=== PATIENT | male | born 1980 | race Caucasian/White ===

== ENCOUNTER 2021-04-19 10:21 | Emergency (ER) | payer MEDICAID, SELFPAY ==
[2021-04-19 10:22] VITALS: BP 155/105; PULSE 112; RESP 16; TEMP 36.3; O2SAT 100; BMI 26.7
--- NOTE | 2021-04-19 10:47 | ED.VIS.DENTA ---
HPI History of Present Illness Chief Complaint: Dental Informant: patient Narrative Narrative: 40-year-old male presents to the emergency room out of concern for dental abscess. Patient states that he has poor dentition. He states that yesterday began to have facial swelling and the pain was tolerable but last night swelling got worse and the pain also worsened. He does not have a dentist. [facility] Medical History (Updated 04/19/21 @ 10:[address] Jelani Rueda DO) Hypertension Medical History no medical history Home Medications metoprolol tartrate 25 mg PO DAILY #60 tab 04/18/13 [Rx Last Taken Unknown] cyclobenzaprine 10 mg PO TID PRN #20 tablet 02/05/16 [Rx Last Taken Unknown] methylprednisolone 4 mg PO UD #1 box 02/05/16 [Rx Last Taken Unknown] oxycodone-acetaminophen 1 - 2 tab PO Q4H PRN PRN #20 tab 02/05/16 [Rx Last Taken Unknown] naproxen 500 mg PO BID #14 tab 04/19/21 [Rx Last Taken Unknown] oxycodone-acetaminophen 1 tab PO Q6H PRN PRN 3 Days #12 tablet 04/19/21 [Rx Last Taken Unknown] penicillin V potassium 500 mg PO 4X/DAY #40 tab 04/19/21 [Rx Last Taken Unknown] Allergy/AdvReac Type Severity Reaction Status Date / Time No Known Allergies Allergy Verified 04/19/21 10:24 Social History (Updated 04/19/21 @ 10:[address] Jelani Rueda DO) Smoking Status: Unknown if ever smoked substance use type: does not use ROS ROS ED Constitutional Constitutional ED: Denies chills, fever(s) or weight loss Eyes Eyes: Denies change in vision or diplopia ENT ENT ED: Reports other Details: Facial swelling and dental pain ; Denies ear pain, rhinorrhea or sore throat Cardiovascular Cardiovascular: Denies chest pain, orthopnea, palpitations or racing heartbeat Respiratory/Chest Respiratory/Chest: Denies cough, dyspnea or orthopnea Gastrointestinal Gastrointestinal: Denies abdominal pain, diarrhea, nausea or vomiting Genitourinary Genitourinary ED: Denies dysuria, hematuria or urinary frequency Musculoskeletal Musculoskeletal: Denies arthralgias or myalgias Integumentary Denies abscess or rash Neurologic Neurologic: Denies headache(s) or weakness Psychiatric Psychiatric: Denies anxiety, depression, suicidal ideation or suicidal thoughts Endocrine Endocrinology: Denies polydipsia, polyphagia or polyuria Allergic/Immunologic Allergic/Immunologic ED: Denies mouth swelling, tongue swelling or urticaria EXAM Physical Exam Const Vital Signs: 04/19/21 10:22 Temperature 97.4 F L Temperature Source Temporal Pulse Rate 112 H Respiratory Rate 16 Blood Pressure 155/105 H Blood Pressure Mean 121 Pulse Ox 100 Oxygen Delivery Method Room Air Positive well nourished and well developed General Appearance ED: well developed HEENT Reports normocephalic, head/scalp atraumatic, TM's clear and moist mucous membranes HEENT Narrative: No trismus. There is right maxillary facial swelling. There is no drainable abscess seen along the gumline. The posterior most molar is decayed to the gumline Tympanic Membrane ED: Yes TM's clear Teeth and Gingiva: poor dentition Eyes PERRL and EOMs intact bilaterally Neck no lymphadenopathy, supple and no JVD Resp normal respiratory effort and clear to auscultation bilaterally Cardio regular rate, regular rhythm and no murmurs GI normal to inspection, nondistended, normoactive bowel sounds and non-tender Palpation: soft Back/Spine no CVA tenderness and normal ROM Extremity normal to inspection General Extremety ED: Negative for edema General Extremity: Negative for edema Neuro oriented x3 and CN's II-XII intact bilaterally Sensorium / Orientation: alert Motor Exam: strength 5/5 throughout Psych mental status grossly normal Mood & Affect: Negative for depressed or tearful Skin no rashes or lesions noted and no wounds MDM MDM MDM Narrative Medical decision making narrative: Patient will be started on naproxen, penicillin, and a few Percocet for severe pain. He needs to see dentistry as soon as possible Discharge Plan Triage Chief Complaint: Dental ED Provider: Jelani Rueda Dx/Rx/DC Orders Clinical Impression: Abscess, dental Instructions: ED Dental Abscess Prescriptions: New oxycodone-acetaminophen [oxycodone-acetaminophen] 1 TABLET tablet 1 tab PO Q6H PRN PRN (Reason: Pain) 3 Days Qty: 12 RF: 0 penicillin V potassium 500 MG tablet 500 mg PO 4X/DAY Qty: 40 RF: 0 naproxen 500 MG tablet 500 mg PO BID Qty: 14 RF: 0 No Action metoprolol tartrate 25 MG tablet 25 mg PO DAILY Qty: 60 RF: 0 cyclobenzaprine 10 MG tablet 10 mg PO TID PRN (Reason: Muscle Spasm) Qty: 20 RF: 0 oxycodone-acetaminophen 1 TABLET tablet 1 - 2 tab PO Q4H PRN PRN (Reason: Pain) Qty: 20 RF: 0 methylprednisolone 4 MG tablets,dose pack 4 mg PO UD Qty: 1 RF: 0 Primary Care Provider: Ruby Jimenez Referrals: Ruby Jimenez MD [Primary Care Provider] - Activity Restrictions/Additional Instructions: You need to see dentistry as soon as possible Disposition Disposition: Home, Self Care
== END 2021-04-19 11:07 | disposition home or self-care (01) ==
LOC: ED 10:57
PROVIDERS: Emergency Provider Emergency Medicine; PCP Internal Medicine; Visit Provider Emergency Medicine
DX: K04.7 Periapical abscess without sinus (principal); I10 Essential (primary) hypertension; Z79.899 Other long term (current) drug therapy
CPT/HCPCS: 99282

== ENCOUNTER 2021-08-03 14:18 | Emergency (ER) | payer MEDICAID, SELFPAY ==
[2021-08-03 14:18] VITALS: BP 152/113; PULSE 103; RESP 18; TEMP 36.2; O2SAT 97; BMI 25.7
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
== END 2021-08-03 15:33 | disposition home or self-care (01) ==
PROVIDERS: Emergency Provider Emergency Medicine; PCP Internal Medicine; Visit Provider Emergency Medicine
DX: S50.311A Abrasion of right elbow, initial encounter (principal); S60.511A Abrasion of right hand, initial encounter; M25.531 Pain in right wrist; I10 Essential (primary) hypertension; S60.221A Contusion of right hand, initial encounter; Y92.410 Unspecified street and highway as the place of occurrence of the external cause; V86.09XA Driver of other special all-terrain or other off-road motor vehicle injured in traffic accident, initial encounter
CPT/HCPCS: 73130; 99282

== ENCOUNTER 2022-12-01 09:21 | Emergency (ER) | payer MEDICAID, SELFPAY ==
[2022-12-01 09:22] VITALS: BP 134/78; PULSE 76; RESP 14; TEMP 36.4; O2SAT 98; BMI 26.4
--- NOTE | 2022-12-01 09:55 | RAD_ITS ---
STUDY: X-RAY - LEFT HAND, ATTENTION INDEX FINGER REASON FOR EXAM: Male, 42 years old. Injury -- index finger TECHNIQUE: 3 view(s) of the finger were obtained. COMPARISON: None. FINDINGS: Normal metacarpal head. Normal metacarpophalangeal joint. Normal proximal phalanx. Normal middle phalanx. Normal distal phalanx. Normal proximal interphalangeal joint. Normal distal interphalangeal joint. Soft tissue swelling. RAD/Finger(s) Min 2 Views IMPRESSION: Soft tissue swelling. No radiopaque foreign body is seen. Electronically Signed: Ad Salas MD at 10:38 EDT ,
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
[2022-12-01] MEDS: Diphth,Pertuss(Acell),Tet Vac 0.5 ML Vial IM (10:04)
[2022-12-01] MEDS: Lidocaine 1% (20 ml mdv) 20 ML Vial INFILT (10:05)
== END 2022-12-01 12:04 | disposition home or self-care (01) ==
PROVIDERS: Emergency Provider Emergency Medicine; PCP Internal Medicine; Visit Provider Emergency Medicine
DX: S61.211A Laceration without foreign body of left index finger without damage to nail, initial encounter (principal); I10 Essential (primary) hypertension; F17.210 Nicotine dependence, cigarettes, uncomplicated; Z23 Encounter for immunization; W26.8XXA Contact with other sharp object(s), not elsewhere classified, initial encounter; Y93.89 Activity, other specified; Z79.899 Other long term (current) drug therapy
CPT/HCPCS: 12001; 73140; 90471; 90715; 99283

== ENCOUNTER 2023-02-07 10:40 | Emergency (ER) | payer MEDICAID, SELFPAY ==
[2023-02-07 10:41] VITALS: BP 183/102; PULSE 74; RESP 12; TEMP 36.4; O2SAT 100; BMI 26.9
--- NOTE | 2023-02-07 11:00 | ED.VIS.DENTA ---
HPI History of Present Illness Chief Complaint: Dental Informant: patient Onset/Context/Timing Onset: Days Context: Gradual Onset Narrative Narrative: Patient presents secondary to dental pain. He states he had a tooth break off a couple days ago and he has had increasing pain. He called his dentist this morning but cannot be seen until March. [facility] Medical History Hypertension Home Medications amlodipine 5 mg tablet mg PO DAILY 12/01/22 [History Last Taken Unknown] lisinopril 40 mg tablet 40 mg PO DAILY 12/01/22 [History Last Taken Unknown] naproxen 500 mg tablet (Naprosyn) 500 mg PO BID PRN pain #20 tabs 02/07/23 [Rx Last Taken Unknown] penicillin V potassium 500 mg tablet 500 mg PO 4X/DAY #40 tabs 02/07/23 [Rx Last Taken Unknown] Allergy/AdvReac Type Severity Reaction Status Date / Time No Known Allergies Allergy Verified 02/07/23 10:40 Social History Smoking Status: Current every day smoker tobacco type: cigarettes substance use type: does not use ROS ROS ED Constitutional Constitutional ED: Denies chills or fever(s) ENT ENT ED: Reports other Details: Left upper dental pain ; Denies rhinorrhea or sore throat Cardiovascular Cardiovascular: Denies chest pain or palpitations Respiratory/Chest Respiratory/Chest: Denies cough or dyspnea Gastrointestinal Gastrointestinal: Denies abdominal pain, nausea or vomiting Musculoskeletal Musculoskeletal: Denies back pain or extremity pain Integumentary Denies Abrasions or rash Neurologic Neurologic: Denies headache(s) or weakness Psychiatric Psychiatric: Denies anxiety or depression Allergic/Immunologic Allergic/Immunologic ED: Denies lip swelling or urticaria EXAM Physical Exam Const Vital Signs: 02/07/23 10:41 Temperature 97.6 F L Temperature Source Temporal Pulse Rate 74 Respiratory Rate 12 Blood Pressure 183/102 H Blood Pressure Mean 129 Pulse Ox 100 Oxygen Delivery Method Room Air Positive well nourished and well developed General Appearance ED: well developed HEENT HEENT Narrative: No facial edema or erythema. Intraoral examination reveals multiple dental caries. Left maxillary canine is broken with mild surrounding gum edema. Posterior pharynx exam is unremarkable. No evidence of trismus. No evidence of Ludewig's angina. Eyes EOMs intact bilaterally Chest Wall inspection of chest normal and palpation of chest normal Resp normal respiratory effort and clear to auscultation bilaterally Cardio regular rate, regular rhythm and no murmurs GI non-tender Extremity normal to inspection Neuro oriented x3 Psych mental status grossly normal MDM MDM MDM Narrative Medical decision making narrative: Patient will be given naproxen and Pen-Vee K with prescriptions for the same. He is on a cancellation list for sooner dental appointment if available. Blood pressure was noted to be elevated here, likely secondary to pain. He states he did take his blood pressure medication this morning and will continue to monitor this. Discharge Plan Triage Chief Complaint: Dental ED Provider: Zenobia Kate Dx/Rx/DC Orders Clinical Impression: Odontalgia Instructions: ED Dental Pain Prescriptions: New naproxen [Naprosyn] 500 mg tablet 500 mg PO BID PRN (Reason: pain) Qty: 20 0RF penicillin V potassium 500 mg tablet 500 mg PO 4X/DAY Qty: 40 0RF No Action amlodipine 5 mg tablet PO DAILY Patient Comments: take 1 tablet by mouth once daily lisinopril 40 mg tablet 40 mg PO DAILY Patient Comments: take 1 tablet by mouth once daily Primary Care Provider: Ruby Jimenez Referrals: Ruby Jimenez MD [Primary Care Provider] - Activity Restrictions/Additional Instructions: Follow-up with your dentist as soon as possible. Please monitor your blood pressure. Disposition Disposition: Home, Self Care
[2023-02-07] MEDS: Naproxen 500 MG Tablet PO (11:01)
[2023-02-07] MEDS: Penicillin Vk 250 MG Tablet 500 MG PO (11:29)
[2023-02-07 11:31] VITALS: BP 169/111; PULSE 79; RESP 18; O2SAT 98
== END 2023-02-07 11:45 | disposition home or self-care (01) ==
LOC: ED 11:10
PROVIDERS: Emergency Provider Emergency Medicine; PCP Internal Medicine; Visit Provider Emergency Medicine
DX: K08.89 Other specified disorders of teeth and supporting structures (principal); I10 Essential (primary) hypertension; F17.210 Nicotine dependence, cigarettes, uncomplicated; Z79.899 Other long term (current) drug therapy
CPT/HCPCS: 99283

== ENCOUNTER 2023-08-25 17:17 | Emergency (ER) | payer MEDICAID, SELFPAY ==
[2023-08-25 17:18] VITALS: BP 161/90; PULSE 119; RESP 16; TEMP 37.1; O2SAT 99; BMI 27.3
--- NOTE | 2023-08-25 17:45 | EDS_ITS ---
<Statement entered by Zenobia Kate MD - 08/25/23 20:52> I have personally performed a face to face assessment of the patient and have reviewed the ZAYRA Note. Patient present secondary to right lower extremity laceration. He was trying to cut wood with an ax when he had a glancing blow that hit him in the right knee. He has a 4 cm laceration just proximal to the right knee. He is able to ambulate. He is able to raise his leg off the bed. He is unsure of his last tetanus update.
--- NOTE | 2023-08-25 17:45 | ED.VIS.LOWEX ---
HPI History of Present Illness Chief Complaint: Laceration Narrative Narrative: Patient presenting today with a laceration to his right knee that he got this evening. He was trying to chop wood with an ax and accidentally missed the piece of wood and hit his knee. He is unsure when his last tetanus was updated. He denies any other injury. He is able to ambulate. [facility] Medical History Hypertension Home Medications ?Medication ?Instructions ?Recorded ?Last Taken ?Type amlodipine 5 mg tablet mg PO DAILY 12/01/22 Unknown History lisinopril 40 mg tablet 40 mg PO DAILY 12/01/22 Unknown History naproxen 500 mg tablet (Naprosyn) 500 mg PO BID PRN pain #20 tabs 02/07/23 Unknown Rx penicillin V potassium 500 mg 500 mg PO 4X/DAY #40 tabs 02/07/23 Unknown Rx tablet Allergy/AdvReac Type Severity Reaction Status Date / Time Penicillins (PCN) Allergy Rash Verified 08/25/23 17:17 Social History Smoking Status: Current every day smoker tobacco type: cigarettes substance use type: does not use ROS ROS ED Constitutional Constitutional ED: Denies chills or fever(s) Cardiovascular Cardiovascular: Denies chest pain Respiratory/Chest Respiratory/Chest: Denies dyspnea Musculoskeletal Musculoskeletal: Denies arthralgias or myalgias Integumentary Reports laceration Neurologic Neurologic: Denies paresthesias EXAM Physical Exam Const Vital Signs: 08/25/23 17:18 Temperature 98.7 F Temperature Source Temporal Pulse Rate 119 H Respiratory Rate 16 Blood Pressure 161/90 H Blood Pressure Mean 113 Pulse Ox 99 Positive well nourished, well developed and no apparent distress General Appearance ED: well developed HEENT Reports normocephalic and head/scalp atraumatic Mouth ED: Yes moist mucous membranes normal Eyes PERRL and EOMs intact bilaterally Neck full ROM and supple Chest Wall inspection of chest normal Resp normal respiratory effort and clear to auscultation bilaterally Cardio regular rate and regular rhythm GI soft to palpation, non-tender, non-distended and no masses Back/Spine normal ROM and normal to inspection Extremity full ROM Extremity Narrative: Full flexion extension at the right knee. No joint effusion. Neuro oriented x3, CN's II-XII intact bilaterally, moves all extremities, no focal motor deficits and no sensory deficits noted Sensorium / Orientation: awake and alert Psych mental status grossly normal and thought process normal Skin no rashes or lesions noted Skin Narrative: 4 cm vertical linear full-thickness laceration just above the right knee. MDM MDM MDM Narrative Medical decision making narrative: Patient presenting today with a laceration just above his right knee that he sustained this evening with an ax. It is full-thickness, 4 cm in length and will require suture repair. Wound was copiously irrigated with saline and cleaned with chlorhexidine. This was sutured, patient tolerated procedure well. He was bandaged with bacitracin ointment. He has been given work restrictions as he does a lot of bending. He is to have sutures removed in 10 days. Return instructions were discussed, wound care instructions given. Patient discharged home in stable condition. Procedures Lacerations Laceration: Length: 4 cm Depth: Sub Q Shape: Linear Prep: Chlorhexadine Laceration repair: Irrigated, Lidocaine with epi, Skin sutures and Wound explored Suture Information: Ethilon, Horizontal, Mattress and 4-0 Discharge Plan Triage Chief Complaint: Laceration ED Midlevel Provider: Lauryn Tellez ED Provider: Zenobia Kate Dx/Rx/DC Orders Clinical Impression: Laceration of knee Instructions: ED Laceration Extremity Prescriptions: No Action amlodipine 5 mg tablet PO DAILY Patient Comments: take 1 tablet by mouth once daily lisinopril 40 mg tablet 40 mg PO DAILY Patient Comments: take 1 tablet by mouth once daily naproxen [Naprosyn] 500 mg tablet 500 mg PO BID PRN (Reason: pain) Qty: 20 0RF penicillin V potassium 500 mg tablet 500 mg PO 4X/DAY Qty: 40 0RF Stand Alone Forms: Work Status Form Primary Care Provider: Ruby Jimenez Referrals: Ruby Jimenez MD [Primary Care Provider] - 10 Day for suture removal Activity Restrictions/Additional Instructions: Please follow-up with your PCP or return for any signs of infection. Print Language: Frisian Disposition Disposition: Home, Self Care
[2023-08-25] MEDS: Diphth,Pertuss(Acell),Tet Vac 0.5 ML Vial IM (18:38)
--- NOTE | 2023-08-25 18:42 | ED.RN ---
LIDO GIVEN BUT DISCARDED PRIOR TO SCANNING
== END 2023-08-25 18:59 | disposition home or self-care (01) ==
PROVIDERS: Emergency Provider Emergency Medicine; PCP Internal Medicine; Visit Provider Emergency Medicine
DX: S81.012A Laceration without foreign body, left knee, initial encounter (principal); F17.210 Nicotine dependence, cigarettes, uncomplicated; W27.0XXA Contact with workbench tool, initial encounter; Y93.89 Activity, other specified; Z23 Encounter for immunization
CPT/HCPCS: 12002; 90471; 90715; 99282

== ENCOUNTER 2024-03-21 07:43 | Emergency (ER) | payer MEDICAID, SELFPAY ==
[2024-03-21 07:43] VITALS: BP 169/101; BP 171/106; PULSE 101; PULSE 107; RESP 20; TEMP 36.6; O2SAT 100; BMI 29.1
--- NOTE | 2024-03-21 07:56 | EDS_ITS ---
HPI History of Present Illness Chief Complaint: Dental Informant: patient Narrative Narrative: 43-year-old male presenting to the emergency room out of concern for dental abscess. Patient states that a few weeks ago he had a tooth break apart on the left lower side. He states that he woke yesterday morning with increased pain in his developed swelling. No reported fevers. He has been working with his dentist but is unable to get seen for a couple weeks. [facility] Medical History Hypertension Home Medications ?Medication ?Instructions ?Recorded ?Last Taken ?Type amlodipine 5 mg tablet mg PO DAILY 12/01/22 Unknown History lisinopril 40 mg tablet 40 mg PO DAILY 12/01/22 Unknown History naproxen 500 mg tablet (Naprosyn) 500 mg PO BID PRN pain #20 tabs 02/07/23 Unknown Rx penicillin V potassium 500 mg 500 mg PO 4X/DAY #40 tabs 02/07/23 Unknown Rx tablet Allergy/AdvReac Type Severity Reaction Status Date / Time Penicillins (PCN) Allergy Rash Verified 03/21/24 07:44 Social History Smoking Status: Current every day smoker tobacco type: cigarettes substance use type: does not use ROS ROS ED Constitutional Constitutional ED: Denies chills or weight loss Eyes Eyes: Denies change in vision or diplopia ENT ENT ED: Reports other Details: Left lower dental pain gum swelling jaw swelling sensitivity ; Denies ear pain, rhinorrhea or sore throat Cardiovascular Cardiovascular: Denies chest pain, orthopnea, palpitations or racing heartbeat Respiratory/Chest Respiratory/Chest: Denies cough, dyspnea or orthopnea Gastrointestinal Gastrointestinal: Denies abdominal pain, diarrhea, nausea or vomiting Genitourinary Genitourinary ED: Denies dysuria, hematuria or urinary frequency Musculoskeletal Musculoskeletal: Denies arthralgias or myalgias Integumentary Denies abscess or rash Neurologic Neurologic: Denies headache(s) or weakness Psychiatric Psychiatric: Denies anxiety, depression, suicidal ideation or suicidal thoughts Endocrine Endocrinology: Denies polydipsia, polyphagia or polyuria Allergic/Immunologic Allergic/Immunologic ED: Denies mouth swelling, tongue swelling or urticaria EXAM Physical Exam Const Vital Signs: 03/21/24 07:43 03/21/24 07:43 Temperature 98 F Temperature Source Temporal Pulse Rate 101 H 107 H Respiratory Rate 20 H 20 H Blood Pressure 169/101 H 171/106 H Blood Pressure Mean 123 127 Pulse Ox 100 100 Oxygen Delivery Method Room Air Room Air Positive well nourished and well developed General Appearance ED: well developed and NAD HEENT Reports normocephalic, head/scalp atraumatic and moist mucous membranes HEENT Narrative: There left lower posterior most tooth which appears to be a premolar or the first molar is broken apart. There is some focal gum swelling noted but no fluctuance and it is more of a generalized swelling at this time. There is some jaw swelling noted no overlying erythema. No evidence of gingivitis. There is no trismus. Floor the mouth is soft. Eyes PERRL and EOMs intact bilaterally Neck no lymphadenopathy, supple and no JVD Resp normal respiratory effort and clear to auscultation bilaterally Cardio regular rate, regular rhythm and no murmurs GI normal to inspection, nondistended, normoactive bowel sounds and non-tender Palpation: soft Back/Spine no CVA tenderness and normal ROM Extremity normal to inspection General Extremety ED: Negative for edema General Extremity: Negative for edema Neuro oriented x3 and CN's II-XII intact bilaterally Sensorium / Orientation: alert Motor Exam: strength 5/5 throughout Psych mental status grossly normal Mood & Affect: Negative for depressed or tearful Skin no rashes or lesions noted and no wounds MDM MDM MDM Narrative Medical decision making narrative: Differential diagnosis includes but not limited to dental abscess dental caries and gingivitis Jose's angina This appears to be a developing dental abscess that is not amendable to I&D at this point. He will be started on antibiotics as well as pain medication. He was advised that this may progress to requiring incision and drainage but that it is not at that point currently. He needs to see dentistry as soon as possible. History & Record Review Discussion w/independent historian: Patient Discharge Plan Triage Chief Complaint: Dental ED Provider: Jelani Rueda Dx/Rx/DC Orders Prescriptions: No Action amlodipine 5 mg tablet PO DAILY Patient Comments: take 1 tablet by mouth once daily lisinopril 40 mg tablet 40 mg PO DAILY Patient Comments: take 1 tablet by mouth once daily naproxen [Naprosyn] 500 mg tablet 500 mg PO BID PRN (Reason: pain) Qty: 20 0RF penicillin V potassium 500 mg tablet 500 mg PO 4X/DAY Qty: 40 0RF Primary Care Provider: Ruby Jimenez Referrals: Ruby Jimenez MD [Primary Care Provider] - Print Language: North Korean
[2024-03-21 08:34] VITALS: BP 124/86; PULSE 72; RESP 15; TEMP 36.4; O2SAT 99
--- NOTE | 2024-03-21 08:34 | ED.RN ---
PT REQUESTED AND RECEIVED A WORK NOTE
== END 2024-03-21 08:35 | disposition home or self-care (01) ==
LOC: ED 08:08
PROVIDERS: Emergency Provider Emergency Medicine; PCP Internal Medicine; Visit Provider Emergency Medicine
DX: K04.7 Periapical abscess without sinus (principal); I10 Essential (primary) hypertension; F17.210 Nicotine dependence, cigarettes, uncomplicated
CPT/HCPCS: 99282

== ENCOUNTER 2024-10-15 09:58 | Emergency (ER) | payer MEDICAID, SELFPAY ==
[2024-10-15 09:59] VITALS: BP 169/103; PULSE 94; RESP 18; TEMP 36.7; O2SAT 100; BMI 28.8
--- NOTE | 2024-10-15 10:10 | EDS_ITS ---
HPI History of Present Illness Chief Complaint: Upper Extremity Injury Detail of Chief Complaint: Atraumatic left wrist pain that started end of last week. Informant: patient Occured/Mechanism Comment: There is no history of trauma. Onset/Context/Timing Onset: Days (Onset , October 10) Context: Sudden Onset Timing: Continuous Quality of Pain: Dull, Aching and Throbbing Location: Left wrist Current Severity: Mild Worsened by: Movement and palpation Relieved by: Nothing Associated Symptoms Associated Symptoms: Positive for Loss of Funtion; Negative for Parasthesia or Weakness Narrative Narrative: Patient is a 44-year-old male with history of gout. He states he has had gout in his foot never in his wrist. He denies fever, chills or night sweats. He denies paresthesia, anesthesia medics. He attempted to go to work today but states it hurts. He endorses swelling. He has no other complaints Prior similar symptoms: No Recent Illness/Hospitalization: No [facility] Medical History (Updated 10/15/24 @ 11:[address] Michael Tavarez MD) Gout Hypertension Home Medications ?Medication ?Instructions ?Recorded ?Last Taken ?Type lisinopril 40 mg tablet 40 mg PO DAILY 12/01/22 Unkn own History amlodipine 10 mg tablet 10 mg PO DAILY 10/15/24 Unkn own History fluoxetine 20 mg capsule 20 mg PO DAILY 10/15/24 Unkn own History hydrocodone-acetaminophen 5-325mg 1 tab PO Q6H PRN PRN Pain 2 days 10/15/24 Unknown Rx 5mg-325mg #7 TABLETS olanzapine 5 mg tablet 5 mg PO QHS 10/15/24 Unknown History prednisone 20 mg tablet 60 mg (3 x 20 mg) PO DAILY # 15 10/15/24 Unknown Rx TABLETS Allergy/AdvReac Type Severity Reaction Status Date / Time Penicillins (PCN) Allergy Rash Verified 10/15/24 10:00 Social History Smoking Status: Current every day smoker tobacco type: cigarettes substance use type: does not use ROS ROS ED Constitutional Constitutional ED: Denies chills, fever(s), subjective, sweats or weight loss Eyes Eyes: Denies blurry vision or change in vision Musculoskeletal Musculoskeletal: Denies back pain, myalgias or neck pain Integumentary Denies abscess, Abrasions or rash Neurologic Neurologic: Denies paresthesias or weakness Hematologic/Lymphatic Hematologic/Lymphatic: Denies easy bleeding or easy bruising EXAM Physical Exam Const Vital Signs: 10/15/24 09:59 Temperature 98.1 F Temperature Source Oral Pulse Rate 94 Respiratory Rate 18 Blood Pressure 169/103 H Blood Pressure Mean 125 Pulse Ox 100 Oxygen Delivery Method Room Air Positive well nourished and well developed Constitutional Narrative: Blood pressure is elevated 169/103, this may be due to to pain. General Appearance ED: well developed HEENT Reports moist mucous membranes normocephalic and atraumatic Eyes PERRL and EOMs intact bilaterally Resp normal respiratory effort Cardio regular rate and regular rhythm Extremity Negative for normal to inspection or full ROM Extremity Narrative: There is swelling of the left wrist compared to the right. There is no effusion. Passive flexion extension causes him significant pain. There is slight warmth. There is no induration, lymphangitis, epitrochlear lymphadenopathy. Patient has no bruising noted. Median, radial and ulnar function intact. Neuro oriented x3, CN's II-XII intact bilaterally, no focal motor deficits and no sensory deficits noted Sensorium / Orientation: alert Psych mental status grossly normal Skin General Skin Exam: Negative for petechiae Lesions: no lesions Rashes: no rashes Trauma: no lacerations or abrasions MDM MDM MDM Narrative Medical decision making narrative: Differential diagnosis is crystal induced arthritis versus pyogenic induced arthritis. Will obtain x-ray of the wrist as well as blood work to diff erentiate if this is osteoarthritis versus crystal induced versus pyogenic. Easily able to identify Karen's tubercle. Distal Karen's tubercle there is no obvious effusion. Lab Data Attestation: I reviewed the patient's lab results. Lab results narrative: CBC is normal. ESR and CRP are both normal. Patient was reevaluated. There is still no effusion. He states that the cerda to right leg took the edge off. Plan is opiate analgesia and prednisone since there is no concern for infection at this point. Radiography Chest X-Ray - ED: Read by ED Physician (Three-view x-ray of the left wrist was independent reviewed interpreted by me as no acute findings. There is no evidence of effusion. There is no malalignment of the carpal bones. There is no destruction of bone. There is apparently reviewed interpreted by me at 1045.) Discharge Plan Triage Chief Complaint: Upper Extremity Injury ED Provider: Michael Tavarez Dx/Rx/DC Orders Clinical Impression: Monoarticular arthritis, Acute pain of left wrist, Hx of gout, Elevated blood pressure reading with diagnosis of hypertension Instructions: ED Gout, ED Pain, Acute, Uncertain Cause Prescriptions: New hydrocodone-acetaminophen 5-325 mg tablet 1 tab PO Q6H PRN PRN (Reason: Pain) 2 Days Qty: 7 0RF prednisone 20 mg tablet 60 mg PO DAILY Qty: 15 0RF No Action lisinopril 40 mg tablet 40 mg PO DAILY Patient Comments: take 1 tablet by mouth once daily olanzapine 5 mg tablet 5 mg PO QHS amlodipine 10 mg tablet 10 mg PO DAILY fluoxetine 20 mg capsule 20 mg PO DAILY Stand Alone Forms: ED Work / School Excuse Primary Care Provider: Ruby Jimenez Referrals: Ruby Jimenez MD [Primary Care Provider] - Print Language: Syrian Disposition Disposition: Home, Self Care
--- NOTE | 2024-10-15 10:25 | RAD_ITS ---
PROCEDURE: WRIST MIN 3 VIEWS 10/15/2024 REASON FOR EXAM: INJURY/PAIN TECHNIQUE: WRIST MIN 3 VIEWS, left COMPARISON: None. FINDINGS: Bones: No visualized acute fracture. No aggressive osseous lesions. Joints: Normal alignment. Mild degenerative changes. Soft tissues: Soft tissues are unremarkable. RAD/Wrist min 3 Views IMPRESSION: NEGATIVE WRIST Reading Location: [id number]
[2024-10-15 10:35] LABS: Hematocrit 45.1 % (40-54); Hemoglobin 15.5 g/dL (13.0-16.5); Immature Granulocytes Count 0.030 X10^3/uL (0.0-0.0); Mean Corp Hgb Conc 34.4 g/dL (32-36); Mean Corpuscular Volume 92.2 fL (80-94); Mean Platelet Vol. 9.5 fl (6.2-12.0); NRBC Flagged by Analyzer 0 % (0-5); Platelet Count 253 K/mm3 (150-450); RBC Distribution Width CV 12.9 % (11.6-14.6); RBC Distribution Width SD 43.5 fl (35.1-43.9); Red Blood Count 4.89 M/mm3 (4.6-6.2); White Blood Count 9.1 K/mm3 (4.4-11.0)
[2024-10-15 11:08] LABS: Anion Gap 13 (5-15); BUN 8 mg/dL (4-19); BUN/Creat Ratio 11.0 RATIO (10-20); CRP < 3.00 mg/L (0.0-3.0); Calcium,Total 9.6 mg/dL (7.6-11.0); Carbon Dioxide 23.4 mmol/L (21.0-32.0); Chloride 104 mmol/L (98-108); Estimated Creatinine Clearance 146.34 ml/min (50-250); Glucose 112 mg/dL (70-99); Potassium 4.4 mmol/L (3.3-5.1)
[2024-10-15 11:46] VITALS: BP 133/78; PULSE 75; RESP 18; TEMP 36.7; O2SAT 99
== END 2024-10-15 11:48 | disposition home or self-care (01) ==
PROVIDERS: Emergency Provider Emergency Medicine; PCP Internal Medicine; Visit Provider Emergency Medicine
DX: M13.10 Monoarthritis, not elsewhere classified, unspecified site (principal); M25.532 Pain in left wrist; R03.0 Elevated blood-pressure reading, without diagnosis of hypertension; F17.210 Nicotine dependence, cigarettes, uncomplicated
CPT/HCPCS: 73110; 80048; 85025; 85652; 86140; 96374; 99283; A4216

== ENCOUNTER 2025-03-23 08:59 | Emergency (ER) | payer MEDICAID, SELFPAY ==
[2025-03-23 09:00] VITALS: BP 159/93; PULSE 84; RESP 16; TEMP 36.6; O2SAT 99; BMI 29.8
--- NOTE | 2025-03-23 09:14 | RAD_ITS ---
PROCEDURE: CERV SPINE 2 OR 3 VIEWS 03/23/2025 REASON FOR EXAM: PAIN TECHNIQUE: Procedure Code: RADSPCL Modality: DX Procedure: CERV SPINE 2 OR 3 VIEWS COMPARISON: None FINDINGS: C7 and below is obscured by overlying shoulder blades. Vertebrae: No vertebral body height loss to suggest fracture. Disc spaces: Multilevel degenerative disc space loss. Alignment: Reversal of cervical lordosis. Soft tissue: No evidence of prevertebral soft tissue thickening. RAD/Cerv Spine 2 or 3 Views IMPRESSION: NO ACUTE FINDINGS. IF THE PATIENT IS 16 YEARS OF AGE OR OLDER AND CERVICAL SPIN E IMAGING IS INDICATED BY CLINICAL CRITERIA HOWEVER THEN CT SHOULD ALSO BE PERFORMED. Recommend clinical correlation with radiculopathy, if there is high clinical cortez spicion for spinal cord compression or radiculopathy, further evaluation may be obtained with MRI of the cervical spin e Reading Location: [facility]
--- NOTE | 2025-03-23 09:16 | EX.ED.DYSGE1 ---
HPI History of Present Illness Chief Complaint: Other, Pain/Inj Informant: patient Narrative Narrative: 44-year-old male with longstanding cervical radiculopathy presenting to the emergency room with acute flare. Patient states a couple days ago he woke from sleep and his neck felt very stiff. He states that when he looks to the right he gets a burning sharp pain in the left scapula trapezius region that goes down his arm. States he has increased pain also when he goes to abduct the arm. He states that he has seen pain management in the past and has done cervical injections. He has not had any surgery. Denies any recent fevers IVDA immunosuppression malignancy. Cannot recall any trauma. 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 No rash. [facility] Medical History Gout Hypertension Home Medications ?Medication ?Instructions ?Recorded ?Last Taken ?Type lisinopril 40 mg tablet 40 mg PO DAILY 12/01/22 Unknown History amlodipine 10 mg tablet 10 mg PO DAILY 10/15/24 Unknown History fluoxetine 20 mg capsule 20 mg PO DAILY 10/15/24 Unknown History hydrocodone-acetaminophen 5-325mg 1 tab PO Q6H PRN PRN Pain 2 days 10/15/24 Unknown Rx 5mg-325mg #7 TABLETS olanzapine 5 mg tablet 5 mg PO QHS 10/15/24 Unknown History prednisone 20 mg tablet 60 mg (3 x 20 mg) PO DAILY #15 10/15/24 Unknown Rx TABLETS cyclobenzaprine 10 mg tablet 10 mg PO TID PRN Muscle Spasm #15 03/23/25 Unknown Rx TABLETS hydrocodone-acetaminophen 5-325mg 1 tab PO Q6H PRN pain 3 days #12 03/23/25 Unknown Rx 5mg-325mg tabs ketorolac 10 mg tablet 10 mg PO Q8H PRN pain #15 tabs 03/23/25 Unknown Rx Allergy/AdvReac Type Severity Reaction Status Date / Time Penicillins (PCN) Allergy Rash Verified 03/23/25 09:02 Social History Smoking Status: Current every day smoker tobacco type: cigarettes substance use type: does not use ROS ROS ED Constitutional Constitutional ED: Denies chills, fever(s) or weight loss Eyes Eyes: Denies change in vision or diplopia ENT ENT ED: Denies ear pain, rhinorrhea or sore throat Cardiovascular Cardiovascular: Denies chest pain, orthopnea, palpitations or racing heartbeat Respiratory/Chest Respiratory/Chest: Denies cough, dyspnea or orthopnea Gastrointestinal Gastrointestinal: Denies abdominal pain, diarrhea, nausea or vomiting Genitourinary Genitourinary ED: Denies dysuria, hematuria or urinary frequency Musculoskeletal Musculoskeletal: Reports neck pain; Denies arthralgias, back pain or myalgias Integumentary Denies abscess or rash Neurologic Neurologic: Reports paresthesias and weakness; Denies headache(s) Psychiatric Psychiatric: Denies anxiety, depression, suicidal ideation or suicidal thoughts Endocrine Endocrinology: Denies polydipsia, polyphagia or polyuria Allergic/Immunologic Allergic/Immunologic ED: Denies mouth swelling, tongue swelling or urticaria EXAM Physical Exam Const Vital Signs: 03/23/25 09:00 Temperature 98 F Temperature Source Oral Pulse Rate 84 Respiratory Rate 16 Blood Pressure 159/93 H Blood Pressure Mean 115 Pulse Ox 99 Oxygen Delivery Method Room Air Positive well nourished and well developed General Appearance ED: well developed and NAD HEENT Reports normocephalic, head/scalp atraumatic and moist mucous membranes Eyes PERRL and EOMs intact bilaterally Neck no lymphadenopathy and no JVD Neck Narrative: There is tenderness to palpation in the left trapezius musculature. There is no midline tenderness. There is no swelling erythema or rash. General: tenderness Resp normal respiratory effort and clear to auscultation bilaterally Cardio regular rate, regular rhythm and no murmurs GI normal to inspection, nondistended, normoactive bowel sounds and non-tender Palpation: soft Back/Spine no CVA tenderness and normal ROM Extremity normal to inspection General Extremety ED: Negative for edema General Extremity: Negative for edema Neuro oriented x3 and CN's II-XII intact bilaterally Neuro Narrative: Sensory examination of individual nerves of the left arm and hand are normal. Patient has good flexion extension at the wrist. He has normal abduction and adduction of the fingers. Strong radial and ulnar pulses. Normal sensation over the deltoid and forearm. He has pain and limited range of motion with abduction of the left arm. I do not appreciate any muscle wasting. Sensorium / Orientation: alert Motor Exam: strength 5/5 throughout Psych mental status grossly normal Mood & Affect: Negative for depressed or tearful Skin no rashes or lesions noted and no wounds MDM MDM MDM Narrative Medical decision making narrative: Differential diagnosis includes but not limited to cervical radiculopathy osteoarthritis disc herniation epidural abscess hematoma muscular spasm cervical myofascial strain shingles demyelinating neuropathy At this point I do not suspect hematoma or abscess formation. I suspect this is an exacerbation of chronic illness. He states it has been several years since he had any type of neck imaging. 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 I do not believe emergent MRI is needed at this time as and not appreciating any significant neurologic impairment. It appears that the abduction is more related to pain and loss of function. Patient received a dose of Toradol here in the department. He will be discharged home with some antispasmodics, anti-inflammatories, as well as a short course of [place] which she has tolerated well in the past. History & Record Review Discussion w/independent historian: Patient Radiography Diagnostic Testing: Clinical Impression(s) from Imaging Studies Cervical Spine X-Ray 03/23/25 09:14 IMPRESSION: NO ACUTE FINDINGS. IF THE PATIENT IS 16 YEARS OF AGE OR OLDER AND CERVICAL SPINE IMAGING IS INDICATED BY CLINICAL CRITERIA HOWEVER THEN CT SHOULD ALSO BE PERFORMED. Recommend clinical correlation with radiculopathy, if there is high clinical suspicion for spinal cord compression or radiculopathy, further evaluation may be obtained with MRI of the cervical spine Reading Location: [facility] Discharge Plan Triage Chief Complaint: Other, Pain/Inj Other Complaint: Upper Extremity Injury ED Provider: Jelani Rueda Dx/Rx/DC Orders Clinical Impression: Acute neck pain, Cervical radiculopathy Instructions: Cervical Radiculopathy Prescriptions: New cyclobenzaprine 10 mg tablet 10 mg PO TID PRN (Reason: Muscle Spasm) Qty: 15 0RF ketorolac 10 mg tablet 10 mg PO Q8H PRN (Reason: pain) Qty: 15 0RF Rx Instructions: *Pt received IM Toradol in the Emergency Department hydrocodone-acetaminophen 5-325 mg tablet 1 tab PO Q6H PRN (Reason: pain) 3 Days Qty: 12 0RF No Action lisinopril 40 mg tablet 40 mg PO DAILY Patient Comments: take 1 tablet by mouth once daily olanzapine 5 mg tablet 5 mg PO QHS amlodipine 10 mg tablet 10 mg PO DAILY fluoxetine 20 mg capsule 20 mg PO DAILY hydrocodone-acetaminophen 5-325 mg tablet 1 tab PO Q6H PRN PRN (Reason: Pain) 2 Days Qty: 7 0RF prednisone 20 mg tablet 60 mg PO DAILY Qty: 15 0RF Primary Care Provider: Ruby Jimenez Referrals: Francisca Johnson MD [Med Staff - Active Staff, Pain Management] - As soon as possible Ruby Jimenez MD [Primary Care Provider, Internal Medicine] Print Language: Bangladeshi
--- OUTSIDE RECORDS SUMMARY | 2025-03-23 09:28 | XMS RPT_ITS | CCD ---
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 Contusion of hand; Translations: [Contusion of right hand, initial encounter] 08-11-2021 Episodic Unclassified (2 sources) NO SHOW 09-29-2023 Unclassified (2 sources) Long-term current use of drug therapy 06-18-2024 Unclassified (1 source) APPOINTMENT CANCELLED 07-15-2024 Unclassified (1 source) Patient encounter status 11-13-2024 Unclassified (1 source) Acute cough; Translations: [Acute cough] Onset: 01-17-2025 Past or Other Problems Problem Classification Problem Date Documented Da te Episodic/Chronic Administrative/social admission (3 sources) Stress; Translations: [Other specified problems related to psychosocial circumstances] Onset: 10-17-2024 05-27-2024 Episodic Disorders of teeth and jaw (19 sources) Carious exposure of pulp ; Translations: [Dental caries, unspecified] Onset: 04-17-2024 04-19-2013 Episodic Nausea and vomiting (2 sources) Nausea, vomiting and diarrhea; Translations: [Nausea with vomiting, unspecified] Onset: 10-01-2024 10-01-2024 Episodic Other aftercare (1 source) Other care home (current) drug therapy; Translations: [Encounter for long-term (current) use of medications] Onset: 10-17-2024 Episodic Other connective tissue disease (20 sources) Muscle weakness of upper limb; Translations: [Other symptoms and signs involving the musculoskeletal system] Onset: 05-31-2022 Episodic Other connective tissue disease (20 sources) Pain in right arm; Translations: [Pain in right arm] Onset: 05-31-2022 Episodic Other gastrointestinal disorders (1 source) Diarrhea, unspecified; Translations: [Nausea vomiting and diarrhea] Onset: 10-01-2024 Episodic Residual codes; unclassified (20 sources) Tobacco user; Translations: [Tobacco use] Onset: 03-10-2021 03-10-2021 Episodic Residual codes; unclassified (2 sources) Tobacco use; Translations: [Tobacco abuse] Onset: 03-10-2021 Episodic Residual codes; unclassified (1 source) Sleep disorder, unspecified; Translations: [Difficulty sleeping] Onset: 10-17-2024 Episodic Spondylosis; intervertebral disc disorders; other back problems (20 sources) Cervical radiculopathy; Translations: [Radiculopathy, cervical region] Onset: 11-08-2011 03-17-2014 Episodic Viral infection (3 sources) Viral disease; Translations: [Viral infection, unspecified] Onset: 10-01-2024 12-13-2022 Episodic Results Test Name Value Interpretation Reference Range Facility [facility] 01-17-2025 CNOV Office Visit ([facility]OUCA) ENRIQUE DOWLING ([id number]) 1980 M Date Time Provider Department 01/17/25 1:45 PM CAROLE ANTONIO During your visit today, we recorded the following information about you: Temperature Pulse Respiration Blood pressure 97 degrees 77/minute 20/minute 149/96 Weight 98 kg Carole Antonio APRN.CNP 01/17/2025 2:58 PM Signed History has been obtained from the patient SUBJECTIVE: Enrique Dowling is a 44 year old male. Who presents today with cough congestion body aches chills and fever for the last 3 days. He has a temp of 101.7. he has taken nyquil at home. He has not been exposed to anyone who is sick. He would like viral testing today. His Bp is elevated today in triage. 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 He will f/u with his doctor regarding the BP for a recheck. PAST MEDICAL HISTORY Diagnosis Date DDD (degenerative disc disease), cervical Mood disorder 07/07/2023 Unspecified essential hypertension Essential hypertension FAMILY HISTORY Problem Relation Age of Onset Hypertension Mother other (ckd [Other]) Maternal Uncle Ischemic Heart Disease Paternal Grandfather SOCIAL HISTORY[1] ALLERGIES Allergen Reactions Penicillins Hives Current Outpatient Medications Medication Sig Dispense Refill OLANZapine (ZYPREXA) 7.5 mg tablet Take 1 tablet by mouth daily at bedtime. 30 tablet 0 FLUoxetine (PROZAC) 40 mg capsule Take 1 capsule by mouth once daily. Take with 20 mg dose. 90 capsule 0 FLUoxetine (PROZAC) 20 mg capsule Take 1 capsule by mouth once daily. Take with 40 mg dose. 90 capsule 0 lisinopril (ZESTRIL) 40 mg tablet Take 1 tablet by mouth once daily. 90 tablet 1 fenofibrate nanocrystallized (TRICOR) 48 mg tablet Take 1 tablet by mouth once daily. 90 tablet 3 amLODIPine (NORVASC) 10 mg tablet Take 1 tablet by mouth once daily. 90 tablet 3 OLANZapine (ZYPREXA) 10 mg tablet Take 1 tablet by mouth daily at bedtime. Start after completing 30 days of the 7.5 mg dose. 90 tablet 0 peg 3350-Electrolytes (GOLYTELY) 236-22.74-6.74 -5.86 gram suspension Refer to printed prep instructions from your provider. 4000 mL 0 No current facility-administered medications for this visit. OBJECTIVE: BP 149/96 Pulse 77 Temp 36.1 ?C (97 ?F) Resp 20 Wt 98 kg (216 lb 0.8 oz) SpO2 99% BMI 29.30 kg/m? ROS all other systems reviewed and are negative Physical Exam Constitutional: Well developed, well nourished, NAD, AANDO X3 ENT: Head is atraumatic, airway patent, mucosal membranes moist pink Cardiac: Heart tone normal rate and rhythm Respiratory: Respirations even and unlabored, Lung sounds clear + cough with bronchospasms : no CVA tenderness MS: no swelling, or deformity in upper or lower extremities, no midline tenderness in cervical, thoracic or lumbar spine. Neuro: strength sensation and coordination intact. CN II-XII grossly intact, Skin: warm and dry with out rash, lesion or ecchymosis on exposed skin Psych: alert appropriate, speech clear MDM It was a pleasure to take care of Enrique Dowling today. Viral testing has been obtained. This includes Covid, Flu A, Flu B, and RSV. Results will be in My Chart within 24 hours. As I have a low suspicion for a bacterial infection, antibiotics are not indicated at this time. For his cough and bronchospasms I will send in an albuterol inhaler. He has used inhalers in the past and does know how to use one. We have discussed over the counter medications they may use for symptom control. They will also increase their fluids for hydration. The Patient, has verbalized understanding of plan of care and is in agreement. They will follow up with their family physician in one week. Occasionally, viral infections turn into something more serious. For any worsening symptoms or concerns they may go to the ER for further evaluation and treatment. Carole Antonio APRN.PIPE [employer] MECH[employer]IC History and Record Review Systemic symptoms present included: Differential Diagnoses - Exposure to viral illness is more likely for the following reason(s): suggested by HANDP - Cough with bronchospasms is more likely for the following reason(s): suggested by HANDP - Pneumonia is less likely for the following reason(s): HANDP not suggestive Disposition The patient was discharged. The following prescription medication(s) were considered but ultimately not given after discussion with patient/family: antibiotic Reasons for not prescribing include the following: HANDP/workup not suggestive of bacterial process. Treatment of Cold and Upper Respiratory Infections Vaporizers, cool mist humidifiers, hot showers, and hot fluids help open respiratory and sinus passages Always drink at least 64 oz of water and avoid sugary drinks/caffeinated drinks Get plenty of rest. At least 8 hours for adults and more for children Saline throat rinses and numb (more content not included)... Normal [facility] CNCOon 12-17-2024 CNCO Letter Text Normal [facility] CNOVon 11-12-2024 CNOV Office Visit (INTMWS ) ENRIQUE DOWLING ([id number]) 1980 M Date Time Provider Department 11/12/24 3:40 PM ROSALES ADAMS During your visit today, we recorded the following information about you: Pulse Respiration Blood pressure Weight 96/minute 16/minute 137/86 101.2 kg Height 1.829 m Rosales Adams MD 11/13/2024 9:45 AM Signed Reason for Visit Annual physical. HPI Enrique Dowling is a 44-year-old male with a history of hypercholesterolemia, HTN, and mood disorders, presenting for a physical exam and to discuss recent lab results. Enrique reports recent lab results showing elevated cholesterol levels, with a total cholesterol of 230 mg/dL, HDL of 30 mg/dL, LDL of 74 mg/dL, and triglycerides of 818 mg/dL. In response, he has made dietary changes over the past 4-5 days, adopting a near-vegetarian diet and reducing carbohydrate intake. He acknowledges a preference for carbohydrates such as potatoes, bread, and crackers. He denies consuming fried foods recently. He is currently taking Zyprexa and Prozac for mood stabilization and reports a recent rough time due to changes in medication dosage, which he attributes to miscommunication or lack of medication availability. He has been back on a regular medication regimen for the past 3 weeks. He also takes Norvasc 10 mg and lisinopril 40 mg daily for blood pressure management, which he reports is well-controlled. Enrique reports a 1-week history of angular cheilitis and denies taking vitamin B12 supplements. He also reports occasional elevated blood pressure readings at home, with a recent reading of 127/80 mmHg and a diastolic reading of 90 mmHg. He uses a wrist cuff for measurements and questions its accuracy. 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 He occasionally goes hiking and fishing with his family on weekends. He reports poor sleep quality, waking up every 2 hours, and attributes this to recent medication changes. Enrique is a current smoker and expresses difficulty quitting despite reducing his smoking frequency. He has a history of smoking cessation for 2 years but relapsed after consuming alcohol. He denies current alcohol use. He has a family history of lung cancer in his stepfather, who was a lifelong smoker. He recently had all his upper teeth extracted 10 weeks ago and has a dental appointment scheduled for the 3rd. He denies chest pain, dyspnea, diarrhea, or constipation. SOCIAL HISTORY[1] Past medical history, appointments, medications, allergies reviewed. Pertinent Lab/Diagnostic Studies are reviewed and discussed today Current Outpatient Medications: lisinopril (ZESTRIL) 40 mg tablet FLUoxetine (PROZAC) 20 mg capsule FLUoxetine (PROZAC) 40 mg capsule OLANZapine (ZYPREXA) 5 mg tablet amLODIPine (NORVASC) 10 mg tablet fenofibrate nanocrystallized (TRICOR) 48 mg tablet peg 3350-Electrolytes (GOLYTELY) 236-22.74-6.74 -5.86 gram suspension Health Maintenance Hepatitis B Vaccine(1 of 3 - 19+ 3-dose series) Pneumococcal Vaccine(1 of 2 - PCV) Colorectal Cancer Screening@ Review Of Systems Physical Exam BP 137/86 Pulse 96 Resp 16 Ht 182.9 cm (6' 0.01) Wt 101.2 kg (223 lb) BMI 30.24 kg/m? GENERAL: NAD, alert and oriented. SKIN: Unremarkable, no rash or skin lesions. HEAD: Normocephalic. EYES: PERRLA, EOMI, conjunctiva clear. EARS: External ears normal, canals clear, TM's normal. NOSE/SINUSES: Nares normal. Septum midline. OROPHARYNX: Lips, mucosa, and tongue normal, good dentition. No oral lesions noted. Papillary projection noted on the anterior pillar near the molars on the left side. LUNGS: Clear to auscultation bilaterally, no wheezes/rhonchi/rales. HEART: Regular rate and rhythm, no murmurs. No ectopy. EXTREMITIES: Normal, no deformities, no skin discoloration, no edema. NEURO: Awake, alert and oriented x3, cranial nerves II-XII grossly intact, normal gait, no involuntary motions. Assessment and Plan 1. Annual physical exam (Z00.00) Patient presents for annual physical exam. - Discussed health maintenance, including colon cancer screening and immunizations. 2. Tobacco abuse (Z72.0) Chronic tobacco use with history of prior quit attempts; patient expresses difficulty quitting and reluctance to use pharmacotherapy. - Provided education on health risks of continued smoking, including increased risk of stroke and early mortality. - Encouraged use of smoking cessation marley as a non-pharmacologic aid. 3. Hypertriglyceridemia (E78.1) Recent labs show total cholesterol 230 mg/dL, HDL 30 mg/dL, LDL 74 mg/dL, and triglycerides 818 mg/dL; Zyprexa may be contributing to elevated triglycerides. - Start fenofibrate (Tricor) at a low dose, to be taken at night. - Recheck lipid panel in 3 months. - Advised patie (more content not included)... Normal [facility] CBC W Auto Differential pane l (Bld)on 11-04-2024 Basophils (Bld) [#/Vol] 0.04 10*3/uL Normal <0.11 [facility] Comment on above: Order Comment: Speci men Type: BLOOD SPECIMENOrdering Facility: [facility] Address: [address] [place] [address] Performed By: #### 5 7021-8 ####[facility] LABCLIA [id number] [place] [address] [place] Basophils/100 WBC (Bld) 0.6 % Normal [facility] Comment on above: Order Comment: Speci men Type: BLOOD SPECIMENOrdering Facility: [facility] Address: [address] [place] [address] Performed By: #### 5 7021-8 ####[facility] LABCLIA [id number] [place] [address] [place] Differential cell count method Nom (Bld) Auto Normal [facility] Comment on above: Order Comment: Speci men Type: BLOOD SPECIMENOrdering Facility: [facility] Address: [address] [place] [address] Performed By: #### 5 7021-8 ####[facility] LABCLIA [id number] [address] [address] [place] Eosinophils (Bld) [#/Vol] 0.14 10*3/uL Normal <0.46 [facility] Comment on above: Order Comment: Speci men Type: BLOOD SPECIMENOrdering Facility: [facility] Address: [address] [place] [address] Performed By: #### 5 7021-8 ####[facility] LABCLIA [id number] [place] [address] [place] Eosinophils/100 WBC (Bld) 2.0 % Normal [facility] Comment on above: Order Comment: Speci men Type: BLOOD SPECIMENOrdering Facility: [facility] Address: [address] [place] [address] Performed By: #### 5 7021-8 ####[facility] LABCLIA [id number] [place] [address] [place] Erythrocyte distribution width (RBC) [Ratio] 12.7 % Normal 11.5-15.0 [facility] Comment on above: Order Comment: Speci men Type: BLOOD SPECIMENOrdering Facility: [facility] Address: [address] [place] [address] Performed By: #### 5 7021-8 ####[facility] LABCLIA [id number] [place] [address] [place] Hematocrit (Bld) [Volume fraction] 44.3 % Normal 39.0-51.0 [facility] Comment on above: Order Comment: Speci men Type: BLOOD SPECIMENOrdering Facility: [facility] Address: [address] [place] [address] Performed By: #### 5 7021-8 ####[facility] LABCLIA [id number] [place] [address] [place] Hemoglobin (Bld) [Mass/Vol] 15.3 g/dL Normal 13.0-17.0 [facility] Comment on above: Order Comment: Speci men Type: BLOOD SPECIMENOrdering Facility: [facility] Address: [address] [place] [address] Performed By: #### 5 7021-8 ####[facility] LABCLIA [id number] [place] [address] [place] Immature granulocytes (Bld) [#/Vol] 0.03 10*3/uL Normal <0.10 [facility] Comment on above: Order Comment: Speci men Type: BLOOD SPECIMENOrdering Facility: [facility] Address: [address] [place] [address] Performed By: #### 5 7021-8 ####[facility] LABCLIA [id number] [place] [address] [place] Immature granulocytes/100 WBC (Bld) 0.4 % Normal [facility] Comment on above: Order Comment: Speci men Type: BLOOD SPECIMENOrdering Facility: [facility] Address: [address] [place] [address] Performed By: #### 5 7021-8 ####[facility] LABIA [id number] [place] [address] [place] Lymphocytes (Bld) [#/Vol] 1.80 10*3/uL Normal 1.00-4.00 [facility] Comment on above: Order Comment: Speci men Type: BLOOD SPECIMENOrdering Facility: [facility] Address: [address] [place] [address] Performed By: #### 5 7021-8 ####[facility] LABIA [id number] [address] [place] Lymphocytes/100 WBC (Bld) 25.7 % Normal [facility] Comment on above: Order Comment: Speci men Type: BLOOD SPECIMENOrdering Facility: [facility] Address: [address] [place] [address] Performed By: #### 5 7021-8 ####[facility] LABIA [id number] [place] [address] [place] MCH (RBC) [Entitic mass] 31.6 pg Normal 26.0-34.0 [facility] Comment on above: Order Comment: Speci men Type: BLOOD SPECIMENOrdering Facility: [facility] Address: [address] [place] [address] Performed By: #### 5 7021-8 ####[facility] LABCLIA [id number] [place] [address] [place] MCHC (RBC) [Mass/Vol] 34.5 g/dL Normal 30.5-36.0 [facility] Comment on above: Order Comment: Speci men Type: BLOOD SPECIMENOrdering Facility: [facility] Address: [address] [place] [address] Performed By: #### 5 7021-8 ####[facility] LABCLIA [id number] [place] [address] [place] MCV (RBC) [Entitic vol] 91.5 fL Normal 80.0-100.0 [facility] Comment on above: Order Comment: Speci men Type: BLOOD SPECIMENOrdering Facility: [facility] Address: [address] [place] [address] Performed By: #### 5 7021-8 ####[facility] LABIA [id number] [place] [address] [place] Monocytes (Bld) [#/Vol] 0.68 10*3/uL Normal <0.87 [facility] Comment on above: Order Comment: Speci men Type: BLOOD SPECIMENOrdering Facility: [facility] Address: [address] [place] [address] Performed By: #### 5 7021-8 ####[facility] LABCLIA [id number] [address] [place] Monocytes/100 WBC (Bld) 9.7 % Normal [facility] Comment on above: Order Comment: Speci men Type: BLOOD SPECIMENOrdering Facility: [facility] Address: [address] [place] [address] Performed By: #### 5 7021-8 ####[facility] LABCLIA [id number] [place] [address] [place] Neutrophils (Bld) [#/Vol] 4.32 10*3/uL Normal 1.45-7.50 [facility] Comment on above: Order Comment: Speci men Type: BLOOD SPECIMENOrdering Facility: [facility] Address: [address] [place] [address] Performed By: #### 5 7021-8 ####[facility] LABCLIA [id number] [place] [address] [place] Neutrophils/100 WBC (Bld) 61.6 % Normal [facility] Comment on above: Order Comment: Speci men Type: BLOOD SPECIMENOrdering Facility: [facility] Address: [address] [place] [address] Performed By: #### 5 7021-8 ####[facility] LABCLIA [id number] [place] [address] [place] Nucleated RBC (Bld) [#/Vol] 10*3/uL Normal <0.01 [facility] Comment on above: Order Comment: Speci men Type: BLOOD SPECIMENOrdering Facility: [facility] Address: [address] [place] [address] Performed By: #### 5 7021-8 ####[facility] LABIA [id number] [place] [address] [place] Nucleated RBC/100 WBC (Bld) [Ratio] 0.0 /100 WBC Normal [facility] Comment on above: Order Comment: Speci men Type: BLOOD SPECIMENOrdering Facility: [facility] Address: [address] [place] [address] Performed By: #### 5 7021-8 ####[facility] LABCLIA [id number] [place] [address] [place] Platelet mean volume (Bld) [Entitic vol] 9.8 fL Normal 9.0-12.7 [facility] Comment on above: Order Comment: Speci men Type: BLOOD SPECIMENOrdering Facility: [facility] Address: [address] [place] [address] Performed By: #### 5 7021-8 ####[facility] LABCLIA [id number] [address] [address] [place] Platelets (Bld) [#/Vol] 238 10*3/uL Normal 150-400 [facility] Comment on above: Order Comment: Speci men Type: BLOOD SPECIMENOrdering Facility: [facility] Address: [address] [place] [address] Performed By: #### 5 7021-8 ####[facility] LABIA [id number] [place] [id number] [place] RBC (Bld) [#/Vol] 4.84 10*6/uL Normal 4.20-6.00 [facility] Comment on above: Order Comment: Speci men Type: BLOOD SPECIMENOrdering Facility: [facility] Address: [address] [place] [address] Performed By: #### 5 7021-8 ####[facility] LABIA [id number] [place] [id number] [place] WBC (Bld) [#/Vol] 7.01 10*3/uL Normal 3.70-11.00 [facility] Comment on above: Order Comment: Speci men Type: BLOOD SPECIMENOrdering Facility: [facility] Address: [address] [place] [address] Performed By: #### 5 7021-8 ####[facility] LABIA [id number] [place] [id number] [place] Cholesterol in LDL Direct as say [Mass/Vol]on 11-04-2024 Cholesterol in LDL [Mass/Vol] 74 mg/dL Normal <100 [facility] Comment on above: Order Comment: Speci men Type: BLOOD SPECIMENOrdering Facility: [facility] Address: [address] [place] [address] Result Comment: <100 mg/dL, Optimal 100-129 mg/dL, Near optimal/above optimal 130-159 mg/dL, Borderline high 160-189 mg/dL, High >189 mg/dL, Very high Secondary prevention optimal LDL Cholesterol levels are recommended to be <70 mg/dL Performed By: #### 1 8262-6, 3016-3, 17833-9, 29294-1 ####[facility] LABCLIA [id number] [facility] [id number] [address] [place] Cholesterol in VLDL [Mass/Vol] 126 mg/dL High <30 [facility] Comment on above: Order Comment: Speci men Type: BLOOD SPECIMENOrdering Facility: [facility] Address: [address] [place], [place] [address] Performed By: #### 1 8262-6, 3016-3, 51739-2, 48816-0 ####[facility] LABCLIA [id number] [facility] [address] [place] [address] [place] Comprehensive metabolic 2000 panelon 11-04-2024 Albumin [Mass/Vol] 4.4 g/dL Normal 3.9-4.9 [facility] Comment on above: Order Comment: Speci men Type: BLOOD SPECIMENOrdering Facility: [facility] Address: [address] [place] [address] Performed By: #### 1 8262-6, 6-3, 17069-6, 52420-5 ####[facility] LABCLIA [id number] [facility] [address] [place] [address] [place] ALP [Catalytic activity/Vol] 110 U/L Normal 38-113 [facility] Comment on above: Order Comment: Speci men Type: BLOOD SPECIMENOrdering Facility: [facility] Address: [facility] [place] [address] Performed By: #### 1 8262-6, 3016-3, 18686-6, 05167-0 ####[facility] LABCLIA [id number] [facility] [id number], [place] [address] [place] ALT [Catalytic activity/Vol] 32 U/L Normal 10-54 [facility] Comment on above: Order Comment: Speci men Type: BLOOD SPECIMENOrdering Facility: [facility] Address: [address] [place] [address] Performed By: #### 1 8262-6, 3016-3, 94840-4, 67415-9 ####[facility] LABCLIA [id number] [address] [address] [place] Anion gap [Moles/Vol] 11 mmol/L Normal 8-15 [facility] Comment on above: Order Comment: Speci men Type: BLOOD SPECIMENOrdering Facility: [facility] Address: [address] [place] [address] Performed By: #### 1 8262-6, 3016-3, 73519-8, 99072-9 ####[facility] LABCLIA [id number] [place] [address] [place] AST [Catalytic activity/Vol] 23 U/L Normal 14-40 [facility] Comment on above: Order Comment: Speci men Type: BLOOD SPECIMENOrdering Facility: [facility] Address: [address] [place] [address] [place] [address] Performed By: #### 1 8262-6, 3016-3, 56878-6, 53373-9 ####[facility] LABCLIA [id number] [place] [id number] [place] Bilirubin [Mass/Vol] 0.6 mg/dL Normal 0.2-1.3 [facility] Comment on above: Order Comment: Speci men Type: BLOOD SPECIMENOrdering Facility: [facility] Address: [address] [place] [address] Performed By: #### 1 8262-6, 3016-3, 33984-7, 16418-4 ####[facility] LABCLIA [id number] [address] [address] [place] Calcium [Mass/Vol] 9.4 mg/dL Normal 8.5-10.2 [facility] Comment on above: Order Comment: Speci men Type: BLOOD SPECIMENOrdering Facility: [facility] Address: [address] [place] [address] [place] [address] Performed By: #### 1 8262-6, 3016-3, 49357-5, 10808-0 ####[facility] LABCLIA [id number] [place] [id number] [place] Chloride [Moles/Vol] 105 mmol/L Normal 98-107 [facility] Comment on above: Order Comment: Speci men Type: BLOOD SPECIMENOrdering Facility: [facility] Address: [address] [place] [address] Performed By: #### 1 8262-6, 3016-3, 72861-5, 01341-1 ####[facility] LABCLIA [id number] [place] [address] [place] CO2 [Moles/Vol] 23 mmol/L Normal 22-30 [facility] Comment on above: Order Comment: Speci men Type: BLOOD SPECIMENOrdering Facility: [facility] Address: [address] [place] [address] Performed By: #### 1 8262-6, 3016-3, 26880-2, 08275-5 ####[facility] LABIA [id number] [place] [address] [place] Creatinine [Mass/Vol] 0.67 mg/dL Low 0.73-1.22 [facility] Comment on above: Order Comment: Speci men Type: BLOOD SPECIMENOrdering Facility: [facility] Address: [address] [place] [address] Performed By: #### 1 8262-6, 3016-3, 47190-6, 53439-6 ####[facility] LABCLIA [id number] [address] [address] [place] eGFRcr SerPlBld CKD-EPI 2020 117 mL/min/1.73m??? Normal >=60 [facility] Comment on above: Order Comment: Archanasade stan Type: BLOOD SPECIMENOrdering Facility: [facility] Address: [address] [place] [address] Result Comment: Jolanta mated Glomerular Filtration Rate (eGFR) is calculated using the 2020 CKD-EPI creatinine equation. This equation utilizes serum creatinine, sex, and age as parameters. The creatinine assay has traceable calibration to isotope dilution-mass spectrometry. Refer to KDIGO guidelines for clinical interpretation. In patients with unstable renal function, e.g. those with acute kidney injury, the eGFR may not accurately reflect actual GFR. Performed By: #### 1 8262-6, 3016-3, 24823-6, 11651-8 ####[facility] LABIA [id number] [address] [address] [place] Glucose [Mass/Vol] 104 mg/dL High 74-99 [facility] Comment on above: Order Comment: Cole pierce Type: BLOOD SPECIMENOrdering Facility: [facility] Address: [address] [place] [address] Result Comment: The [place] [employer] (ADA) provides guidance for cutoff values for fasting glucose and random glucose. The ADA defines fasting as no caloric intake for at least 8 hours. Fasting plasma glucose results between 100 to 125 mg/dL indicate increased risk for diabetes (prediabetes). Fasting plasma glucose results greater than or equal to 126 mg/dL meet the criteria for diagnosis of diabetes. In the absence of unequivocal hyperglycemia, results should be confirmed by repeat testing. In a patient with classic symptoms of hyperglycemia or hyperglycemic crisis, random plasma glucose results greater than or equal to 200 mg/dL meet the criteria for diagnosis of diabetes. Reference: Standards of Medical Care in Diabetes 2016, [place] [employer]. Diabetes Care. 2016.39(Suppl 1). Performed By: #### 1 8262-6, 3016-3, 67860-5, 54127-0 ####[facility] LABIA [id number] [address] [address] [place] Potassium [Moles/Vol] 4.1 mmol/L Normal 3.7-5.1 [facility] Comment on above: Order Comment: Speci men Type: BLOOD SPECIMENOrdering Facility: [facility] Address: [address] [place] [address] Performed By: #### 1 8262-6, 3016-3, 65686-9, 09782-3 ####[facility] LABCLIA [id number] [facility] [address] [address] [place] Protein [Mass/Vol] 7.1 g/dL Normal 6.3-8.0 [facility] Comment on above: Order Comment: Speci men Type: BLOOD SPECIMENOrdering Facility: [facility] Address: [address] [place] [address] Performed By: #### 1 8262-6, 3016-3, 58871-8, 73104-4 ####[facility] LABIA [id number] [address] [address] [place] Sodium [Moles/Vol] 139 mmol/L Normal 136-144 [facility] Comment on above: Order Comment: Speci men Type: BLOOD SPECIMENOrdering Facility: [facility] Address: [address] [place] [address] Performed By: #### 1 8262-6, 3016-3, 97613-6, 71791-8 ####[facility] LABIA [id number] [address] [address] [place] Urea nitrogen [Mass/Vol] 10 mg/dL Normal 9-24 [facility] Comment on above: Order Comment: Speci men Type: BLOOD SPECIMENOrdering Facility: [facility] Address: [address] [place] [address] Performed By: #### 1 8262-6, 3016-3, 68343-1, 47815-7 ####[facility] LABCLIA [id number] [facility] [address] [place] [address] [place] Lipid 1996 panelon 5 Cholesterol [Mass/Vol] 230 mg/dL High <200 [facility] Comment on above: Order Comment: Speci men Type: BLOOD SPECIMENOrdering Facility: [facility] Address: [address] [place] [address] Result Comment: <200 mg/dL, Desirable 200-239 mg/dL, Borderline high >239 mg/dL, High Performed By: #### 1 8262-6, 3016-3, 06832-5, 45051-7 ####[facility] LABCLIA [id number] [place] [id number] [place] Cholesterol in HDL [Mass/Vol] 30 mg/dL Low >39 [facility] Comment on above: Order Comment: Speci men Type: BLOOD SPECIMENOrdering Facility: [facility] Address: [address] [place] [address] Result Comment: 40-5 9 mg/dL, Acceptable >59 mg/dL, High: Negative risk factor for coronary heart disease <40 mg/dL, Low: Positive risk factor for coronary heart disease Performed By: #### 1 8262-6, 3016-3, 54410-3, 39096-9 ####[facility] LABCLIA [id number] [address], [place] [address] [place] Cholesterol in LDL [Mass/Vol] Normal [facility] Comment on above: Order Comment: Speci men Type: BLOOD SPECIMENOrdering Facility: [facility] Address: [address] [place] [address] Result Comment: Unab le to calculate due to elevated Triglycerides. See LDL-Chol, Direct. <100 mg/dL, Optimal 100-129 mg/dL, Near optimal/above optimal 130-159 mg/dL, Borderline high 160-189 mg/dL, High >189 mg/dL, Very high Secondary prevention optimal LDL Cholesterol levels are recommended to be <70 mg/dL LDL cholesterol is calculated using the Chacon-NIH equation. Performed By: #### 1 8262-6, 3016-3, 13405-6, 49155-6 ####[facility] LABCLIA [id number] [facility] [id number] [place] [facility] Cholesterol in LDL/Cholesterol in HDL [Mass ratio] Normal [facility] Comment on above: Order Comment: Speci men Type: BLOOD SPECIMENOrdering Facility: [facility] Address: [address] [place] [address] Result Comment: Unab le to calculate due to elevated Triglycerides. Reference: 1. National Cholesterol Education Program ATP III Guideline At-A-Glance Quick Desk Reference: National Heart, Lung, and Blood [place]. National Institutes of Health. 2001: NIH Publication No. 01-3305. 2. An International Atherosclerosis Society position paper: global recommendations for the management of dyslipidemia: executive summary, Atherosclerosis. 2014: 232(2):410-413. Performed By: #### 1 8262-6, 3016-3, 09851-4, 96461-7 ####[facility] LABIA [id number] [place] [id number] [place] Cholesterol in VLDL [Mass/Vol] Normal [facility] Comment on above: Order Comment: Speci men Type: BLOOD SPECIMENOrdering Facility: [facility] Address: [address] [place] [address] Result Comment: Unab le to calculate due to elevated Triglycerides. See LDL-Chol, Direct. Performed By: #### 1 8262-6, 3016-3, 11669-3, 72646-7 ####[facility] LABCLIA [id number] [address] [address] [place] Cholesterol non HDL [Mass/Vol] 200 mg/dL High <130 [facility] Comment on above: Order Comment: Archanai stan Type: BLOOD SPECIMENOrdering Facility: [facility] Address: [address] [place] [address] Result Comment: <130 mg/dL, Optimal 130-159 mg/dL, Near optimal/above optimal 160-189 mg/dL, Borderline high 190-219 mg/dL, High >219 mg/dL, Very high Secondary prevention optimal non HDL Cholesterol levels are recommended to be <100 mg/dL Performed By: #### 1 8262-6, 3016-3, 44988-0, 01823-8 ####[facility] LABCLIA [id number] [facility] [address] [place] [address] [place] Cholesterol.total/Di sterol in HDL [Mass ratio] 7.67 {ratio} High <5.10 [facility] Comment on above: Order Comment: Speci men Type: BLOOD SPECIMENOrdering Facility: [facility] Address: [address] [place] [address] Performed By: #### 1 8262-6, 3016-3, 33643-7, 24545-3 ####[facility] LABIA [id number] [address] [place] [address] [place] FASTING TIME 13 hrs Normal [facility] Comment on above: Order Comment: Speci men Type: BLOOD SPECIMENOrdering Facility: [facility] Address: [address] [place] [address] Performed By: #### 1 8262-6, 3016-3, 95832-0, 97211-4 ####[facility] LABCLIA [id number] [address] [place] [address] [place] Triglyceride [Mass/Vol] 818 mg/dL High <150 [facility] Comment on above: Order Comment: Speci men Type: BLOOD SPECIMENOrdering Facility: [facility] Address: [address] [place] [address] Result Comment: <150 mg/dL, Normal 150-199 mg/dL, Borderline high 200-499 mg/dL, High >499 mg/dL, Very high Performed By: #### 1 8262-6, 3016-3, 07810-5, 74082-6 ####[facility] LABIA [id number] [address] [place] [address] [place] TSH SerPl-aCncon 11-04-2024 TSH Qn 0.807 m[IU]/L Normal 0.270-4.200 [facility] Comment on above: Order Comment: Speci men Type: BLOOD SPECIMENOrdering Facility: [facility] Address: [address] [place] [address] Performed By: #### 1 8262-6, 3016-3, 32924-2, 79074-2 ####[facility] LABCLIA [id number] [place] [id number] [place] Absolute lymphocyte countOrd ered By: Michael Tavarez on 10-15-2024 Lymphocytes Auto (Unsp spec) [#/Vol] 1.79 10*3/uL 0.83-4.51 [facility] Absolute neutrophil countOrd ered By: Michael Tavarez on 10-15-2024 Neutrophils (Bld) [#/Vol] 6.3 10*3/uL 2.0-7.7 [facility] Anion gap in Serum or Plasma Ordered By: Michael Tavarez on 10-15-2024 Anion gap [Moles/Vol] 13 mmol/L 5-15 [facility] Automated lymphocyte count a s percentage of total leukocytesOrdered By: Michael Tavarez on 10-15-2024 Lymphocytes/100 WBC Auto (Unsp spec) 19.6 % 19-41 [facility] BUN/creatinine ratioOrdered By: Michael Tavarez on 10-15-2024 Urea nitrogen/Creatinine [Mass ratio] 11.0 mg/mg 10- [facility] Basic Metabolic Profile (BMP )on 10-15-2024 BUN/CRE 11.0 RATIO Normal - [facility] Comment on above: Performed By: #### L 101.9900, L100.0100, L500.2500, L501.6710 #### [facility] [address] [place], [address] Calcium [Mass/Vol] 9.6 mg/dL Normal 7.6-11.0 [facility] Comment on above: Performed By: #### L 101.9900, L100.0100, L500.2500, L501.6710 #### [facility] [address] [place], [address] Chloride [Moles/Vol] 104 mmol/L Normal 98-108 [facility] Comment on above: Performed By: #### L 101.9900, L100.0100, L500.2500, L501.6710 #### [facility] [address] [place], [address] CO2 [Moles/Vol] 23.4 mmol/L Normal 21.0-32.0 [facility] Comment on above: Performed By: #### L 101.9900, L100.0100, L500.2500, L501.6710 #### [facility] [address] [place], [address] Creatinine [Mass/Vol] 0.76 mg/dL Normal 0.70-1.20 [facility] Comment on above: Performed By: #### L 101.9900, L100.0100, L500.2500, L501.6710 #### [facility] [address] [place], [address] ECRCL 146.34 ml/min Normal 50-250 [facility] Comment on above: Performed By: #### L 101.9900, L100.0100, L500.2500, L501.6710 #### [facility] [address] [place], [address] GAP 13 Normal 5-15 [facility] Comment on above: Performed By: #### L 101.9900, L100.0100, L500.2500, L501.6710 #### [facility] [address] [place], [address] GFR/1.73 sq M.predicted among non-blacks MDRD (S/P/Bld) [Vol rate/Area] 112 mL/min/{1.73_m2} Normal >60 [facility] Comment on above: Result Comment: mL/m in/1.73m2 CKD-EPI Creatinine Equation (2020) Performed By: #### L 101.9900, L100.0100, L500.2500, L501.6710 #### [facility] [address] [place], [address] Glucose [Mass/Vol] 112 mg/dL High 70-99 [facility] Comment on above: Performed By: #### L 101.9900, L100.0100, L500.2500, L501.6710 #### [facility] [address] [place], [address] Potassium [Moles/Vol] 4.4 mmol/L Normal 3.3-5.1 [facility] Comment on above: Performed By: #### L 101.9900, L100.0100, L500.2500, L501.6710 #### [facility] [address] [place], [address] Sodium [Moles/Vol] 140 mmol/L Normal 133-145 [facility] Comment on above: Performed By: #### L 101.9900, L100.0100, L500.2500, L501.6710 #### [facility] [address] [place], [address] Urea nitrogen [Mass/Vol] 8 mg/dL Normal 4-19 [facility] Comment on above: Performed By: #### L 101.9900, L100.0100, L500.2500, L501.6710 #### [facility] [address] [place], [address] Basophil percentageOrdered B y: Michael Tavarez on 10-15-2024 Basophils/100 WBC (Bld) 0.5 % 0-1 [facility] CBC W/Diff, Automatedon 09-25 Absolute Lymph 1.79 X10 3/uL Normal 0.83-4.51 [facility] Comment on above: Performed By: #### L 101.9900, L100.0100, L500.2500, L501.6710 #### [facility] [address] [place], [address] Absolute Neut 6.3 X10 3/uL Normal 2.0-7.7 [facility] Comment on above: Performed By: #### L 101.9900, L100.0100, L500.2500, L501.6710 #### [facility] [address] [place], [address] Basophils/100 WBC (Bld) 0.5 % Normal 0-1 [facility] Comment on above: Performed By: #### L 101.9900, L100.0100, L500.2500, L501.6710 #### [facility] [address] [place], [address] Eosinophils/100 WBC (Bld) 1.1 % Normal 0-5 [facility] Comment on above: Performed By: #### L 101.9900, L100.0100, L500.2500, L501.6710 #### [facility] [address] [place], [address] Erythrocyte distribution width (RBC) [Ratio] 12.9 % Normal 11.6-14.6 [facility] Comment on above: Performed By: #### L 101.9900, L100.0100, L500.2500, L501.6710 #### [facility] [address] [place], [address] Hematocrit (Bld) [Volume fraction] 45.1 % Normal 40-54 [facility] Comment on above: Performed By: #### L 101.9900, L100.0100, L500.2500, L501.6710 #### [facility] [address] [place], [address] Hemoglobin (Bld) [Mass/Vol] 15.5 g/dL Normal 13.0-16.5 [facility] Comment on above: Performed By: #### L 101.9900, L100.0100, L500.2500, L501.6710 #### [facility] [address] [place], [address] IG% 0.300 Normal 0.0-0.9 [facility] Comment on above: Result Comment: IG% - Immature Granulocytes (promyelocytes, myelocytes and metamyelocytes) > 1% indicates that a LEFT SHIFT is Present. Performed By: #### L 101.9900, L100.0100, L500.2500, L501.6710 #### [facility] [address] [place], [address] Lymphocytes/100 WBC (Bld) 19.6 % Normal 19-41 [facility] Comment on above: Performed By: #### L 101.9900, L100.0100, L500.2500, L501.6710 #### [facility] [address] [place], [address] MCH (RBC) [Entitic mass] 31.7 pg Normal 27.0-32.0 [facility] Comment on above: Performed By: #### L 101.9900, L100.0100, L500.2500, L501.6710 #### [facility] [address] [place], [address] MCHC (RBC) [Mass/Vol] 34.4 g/dL Normal 32-36 [facility] Comment on above: Performed By: #### L 101.9900, L100.0100, L500.2500, L501.6710 #### [facility] [address] [place], [address] MCV (RBC) [Entitic vol] 92.2 fL Normal 80-94 [facility] Comment on above: Performed By: #### L 101.9900, L100.0100, L500.2500, L501.6710 #### [facility] [address] [place], [address] Monocytes/100 WBC (Bld) 9.2 % Normal 0-10 [facility] Comment on above: Performed By: #### L 101.9900, L100.0100, L500.2500, L501.6710 #### [facility] [address] [place], [address] Neutrophils/100 WBC (Bld) 69.3 % Normal 47-70 [facility] Comment on above: Performed By: #### L 101.9900, L100.0100, L500.2500, L501.6710 #### [facility] [address] [place], [address] Nucleated RBC (Bld) [#/Vol] 0 10*3/uL Normal 0-5 [facility] Comment on above: Performed By: #### L 101.9900, L100.0100, L500.2500, L501.6710 #### [facility] [address] [place], [address] Platelet mean volume (Bld) [Entitic vol] 9.5 fL Normal 6.2-12.0 [facility] Comment on above: Performed By: #### L 101.9900, L100.0100, L500.2500, L501.6710 #### [facility] [address] [place], [address] Platelets (Bld) [#/Vol] 253 10*3/uL Normal 150-450 [facility] Comment on above: Performed By: #### L 101.9900, L100.0100, L500.2500, L501.6710 #### [facility] [address] [place], [address] RBC (Bld) [#/Vol] 4.89 10*6/uL Normal 4.6-6.2 [facility] Comment on above: Performed By: #### L 101.9900, L100.0100, L500.2500, L501.6710 #### [facility] [address] [place], [address] RDW SD 43.5 fl Normal 35.1-43.9 [facility] Comment on above: Performed By: #### L 101.9900, L100.0100, L500.2500, L501.6710 #### [facility] [address] [place], [address] WBC (Bld) [#/Vol] 9.1 10*3/uL Normal 4.4-11.0 [facility] Comment on above: Performed By: #### L 101.9900, L100.0100, L500.2500, L501.6710 #### [facility] [address] [place], [address] CRPon 10-15-2024 C-REACTIVE PROT < 3.00 Normal 0.0-3.0 [facility] Comment on above: Performed By: #### L 101.9900, L100.0100, L500.2500, L501.6710 #### [facility] [address] [place], [address] Carbon dioxide, total [Moles /volume] in Central venous bloodOrdered By: Michael Tavarez on 10-15-2024 CO2 [Moles/Vol] 23.4 mmol/L 21.0-32.0 [facility] Chloride assayOrdered By: Ug o Tavarez on 10-15-2024 Chloride [Moles/Vol] 104 mmol/L 98-108 [facility] Emergency Department Summary on 10-15-2024 Emergency Department Summary [facility] Medical Records Department [address] [place] [address] Emergency Department Summary 10/15/24 MR#: [id number] Acct: [id number] Name: ENRIQUE DOWLING Rep #: [id number] : 1980 44 From: Michael Tavarez MD PCP: Dr. Rosales Adams MD Status:REG ER Location: ED HPI History of Present Illness Chief Complaint: Upper Extremity Injury Detail of Chief Complaint: Atraumatic left wrist pain that started end of last week. Informant: patient Occured/Mechanism Comment: There is no history of trauma. Onset/Context/Timing Onset: Days (Onset , October 10) Context: Sudden Onset Timing: Continuous Quality of Pain: Dull, Aching and Throbbing Location: Left wrist Current Severity: Mild Worsened by: Movement and palpation Relieved by: Nothing Associated Symptoms Associated Symptoms: Positive for Loss of Funtion; Negative for Parasthesia or Weakness Narrative Narrative: Patient is a 44-year-old male with history of gout. He states he has had gout in his foot never in his wrist. He denies fever, chills or night sweats. He denies paresthesia, anesthesia medics. He attempted to go to work today but states it hurts. He endorses swelling. He has no other complaints Prior similar symptoms: No Recent [facility] Medical History (Updated 10/15/24 @ 11:[address] Michael Tavarez MD) Gout Hypertension Home Medications ???Medication ???Instructions ???Recorded ???Last Taken ???Type lisinopril 40 mg tablet 40 mg PO DAILY 12/01/22 Unknown Hi story amlodipine 10 mg tablet 10 mg PO DAILY 10/15/24 Unknown Hi story fluoxetine 20 mg capsule 20 mg PO DAILY 10/15/24 Unknown Hi story hydrocodone-acetaminoph en 5-325mg 1 tab PO Q6H PRN PRN Pain 2 days 10/15/24 Unknown Rx 5mg-325mg #7 TABLETS olanzapine 5 mg tablet 5 mg PO QHS 10/15/24 Unknown Histo ry prednisone 20 mg tablet 60 mg (3 x 20 mg) PO DAILY #15 Unknown Rx TABLETS Allergy/AdvReac Type Severity Reaction Status Date / Time Penicillins (PCN) Allergy Rash Verified 10/15/24 10:00 Social History Smoking Status: Current every day smoker tobacco type: cigarettes substance use type: does not use ROS ROS ED Constitutional Constitutional ED: Denies chills, fever(s), subjective, sweats or weight loss Eyes Eyes: Denies blurry vision or change in vision Musculoskeletal Musculoskeletal: Denies back pain, myalgias or neck pain Integumentary Denies abscess, Abrasions or rash Neurologic Neurologic: Denies paresthesias or weakness Hematologic/Lymphatic Hematologic/Lymphatic: Denies easy bleeding or easy bruising EXAM Physical Exam Const Vital Signs: 10/15/24 09:59 Temperature 98.1 F Temperature Source Oral Pulse Rate 94 Respiratory Rate 18 Blood Pressure 169/103 H Blood Pressure Mean 125 Pulse Ox 100 Oxygen Delivery Method Room Air Positive well nourished and well developed Constitutional Narrative: Blood pressure is elevated 169/103, this may be due to to pain. General Appearance ED: well developed HEENT Reports moist mucous membranes normocephalic and atraumatic Eyes PERRL and EOMs intact bilaterally Resp normal respiratory effort Cardio regular rate and regular rhythm Extremity Negative for normal to inspection or full ROM Extremity Narrative: There is swelling of the left wrist compared to the right. There is no effusion. Passive flexion extension causes him significant pain. There is slight warmth. There is no induration, lymphangitis, epitrochlear lymphadenopathy. Patient has no bruising noted. Median, radial and ulnar function intact. Neuro oriented x3, CN's II-XII intact bilaterally, no focal motor deficits and no sensory deficits noted Sensorium / Orientation: alert Psych mental status grossly normal Skin General Skin Exam: Negative for petechiae Lesions: no lesions Rashes: no rashes Trauma: no lacerations or abrasions MDM MDM MDM Narrative Medical decision making narrative: Differential diagnosis is crystal induced arthritis versus pyogenic induced arthritis. Will obtain x-ray of the wrist as well as blood work to differentiate if this is osteoarthritis versus crystal induced versus pyogenic. Easily able to identify Karen's tubercle. Distal Karen's tubercle there is no obvious effusion. Lab Data Attestation: I reviewed the patient's lab results. Lab results narrative: CBC is normal. ESR and CRP are both normal. Patient was reevaluated. There is still no effusion. He states that the cerda to right leg took the edge off. Plan is opiate analgesia and prednisone since there is no concern for infection at this point. Radiography Chest X-Ray - ED: Read by ED Physician (Three-view x-ray of the left wrist was in (more content not included)... Normal [facility] Eosinophil percentageOrdered By: Michael Tavarez on 10-15-2024 Eosinophils/100 WBC (Bld) 1.1 % 0-5 [facility] Erythrocyte Sed Rateon 10-15 SED RATE 10 mm/hr Normal 0-20 [facility] Comment on above: Performed By: #### L 101.9900, L100.0100, L500.2500, L501.6710 #### [facility] [place], [address] Erythrocyte distribution wid th ratioOrdered By: Michael Tavarez on 10-15-2024 Erythrocyte distribution width (RBC) [Ratio] 12.9 % 11.6-14.6 [facility] Erythrocyte distribution wid th standard deviationOrdered By: Michaelsonja Tavarez on 10-15-2024 Erythrocyte distribution width (RBC) [Ratio] 43.5 fl 35.1-43.9 [facility] Erythrocyte sedimentation ra teOrdered By: Michael Tavarez on 10-15-2024 ESR (Bld) [Velocity] 10 mm/h 0-20 [facility] Glomerular filtration rate ( GFR) estimation/1.73 sq m using serum, plasma, or whole bOrdered By: Michaelsonja Tavarez on 10-15-2024 GFR/1.73 sq M.predicted among non-blacks MDRD (S/P/Bld) [Vol rate/Area] 112 mL/min/{1.73_m2} >60 [facility] Comment on above: mL/min/1.73m2 CKD-EP I Creatinine Equation (2020) Hematocrit Auto (Bld) [Volum e fraction]Ordered By: Michael Tavarez on 10-15-2024 Hematocrit (Bld) [Volume fraction] 45.1 % 40-54 [facility] Hemoglobin measurementOrdere d By: Michaelsonja Tavarez on 10-15-2024 Hemoglobin (Bld) [Mass/Vol] 15.5 g/dL 13.0-16.5 [facility] Immature granulocytes/100 WB C Auto (Bld)Ordered By: Michael Tavarez on 10-15-2024 Immature granulocytes/100 WBC (Bld) 0.300 % 0.0-0.9 [facility] Comment on above: IG% - Immature Granu locytes (promyelocytes, myelocytes and metamyelocytes) > 1% indicates that a LEFT SHIFT is Present. MCV (mean corpuscular volume ) determinationOrdered By: Michael Tavarez on 10-15-2024 MCV (RBC) [Entitic vol] 92.2 fL 80-94 [facility] Mean corpuscular hemoglobin (MCH) determinationOrdered By: Michaelsonja Tavarez on 10-15-2024 MCH (RBC) [Entitic mass] 31.7 pg 27.0-32.0 [facility] Mean corpuscular hemoglobin concentration (MCHC) determinationOrdered By: Michaelsonja Tavarez on 10-15-2024 MCHC (RBC) [Mass/Vol] 34.4 g/dL 32-36 [facility] Mean platelet volume determi nationOrdered By: Michaelsonja Tavarez on 10-15-2024 Platelet mean volume (Bld) [Entitic vol] 9.5 fL 6.2-12.0 [facility] Monocyte percentageOrdered B y: Michaelsonja Tavarez on 10-15-2024 Monocytes/100 WBC (Bld) 9.2 % 0-10 [facility] Neutrophil percentageOrdered By: Michaelsonja Tavarez on 10-15-2024 Neutrophils/100 WBC (Bld) 69.3 % 47-70 [facility] Nucleated red blood cell per centageOrdered By: Michaelsonja Tavarez on 10-15-2024 Nucleated RBC/100 WBC (Bld) [Ratio] 0 % 0-5 [facility] Platelet countOrdered By: [facility] on 10-15-2024 Platelets (Bld) [#/Vol] 253 10*3/uL 150-450 [facility] Potassium measurement (mass/ volume)Ordered By: Michaelsonja Tavarez on 10-15-2024 Potassium (Unsp spec) [Mass/Vol] 4.4 mmol/L 3.3-5.1 [facility] RBC Auto (Bld) [#/Vol]Ordere d By: Michael Tavarez on 10-15-2024 RBC (Bld) [#/Vol] 4.89 10*6/uL 4.6-6.2 [facility] Serum creatinine measurement (mass/volume)Ordered By: Michael Tavarez on 10-15-2024 Creatinine [Mass/Vol] 0.76 mg/dL 0.70-1.20 [facility] Serum glucose measurement (m ass/volume)Ordered By: Michael Tavarez on 10-15-2024 Glucose [Mass/Vol] 112 mg/dL High 70-99 [facility] Serum or plasma C reactive p rotein measurement (mass/volume)Ordered By: Michael Tavarez on 10-15-2024 CRP [Mass/Vol] mg/L 0.0-3.0 [facility] Serum or plasma calcium charisse urement (mass/volume)Ordered By: Michael Tavarez on 10-15-2024 Calcium [Mass/Vol] 9.6 mg/dL 7.6-11.0 [facility] Serum or plasma urea nitroge n measurement (mass/volume)Ordered By: Michael Tavarez on 10-15-2024 Urea nitrogen [Mass/Vol] 8 mg/dL 4-19 [facility] Sodium levelOrdered By: Michael Tavarez on 10-15-2024 Sodium [Moles/Vol] 140 mmol/L 133-145 [facility] White blood cell (WBC) count Ordered By: Michael Tavarez on 10-15-2024 WBC (Bld) [#/Vol] 9.1 10*3/uL 4.4-11.0 [facility] Wrist min 3 Viewson 10-16-19 Wrist min 3 Views [facility] [address] [place] [address] Wrist min 3 Views MR#: [id number] Acct: [id number] Name: ENRIQUE DOWLING Rep #: [id number] : 1980 M 44 From: Radha Cerda nd, MD PCP: Dr. Rosales Adams MD Status: PRE ER Study: Wrist min 3 Views Date of Exam: 10/15/24 Exam# [id number] Ordering Dr: Michael Tavarez MD PROCEDURE: WRIST MIN 3 VIEWS 10/15/2024 REASON FOR EXAM: INJURY/PAIN TECHNIQUE: WRIST MIN 3 VIEWS, left COMPARISON: None. FINDINGS: Bones: No visualized acute fracture. No aggressive osseous lesions. Joints: Normal alignment. Mild degenerative changes. Soft tissues: Soft tissues are unremarkable. RAD/Wrist min 3 Views IMPRESSION: NEGATIVE WRIST Reading Location: [id number] CC: Dr. Rosales Adams MD; Dr. Michael Tavarez MD Blood Donor Unit Assistant: Signed Normal [facility] CNOVon 10-01-2024 CNOV Office Visit (WOUCA) ENRIQUE DOWLING ([id number]) 1980 M Date Time Provider Department 10/01/24 2:15 PM LUCIANA GONSALES During your visit today, we recorded the following information about you: Temperature Pulse Respiration Blood pressure 97.3 degrees 98/minute 18/minute 152/92 Weight 96.4 kg Luciana Gonsales APRN.[employer]CH[employer]IC 10/01/2024 3:16 PM Signed Subjective Patient ID: Enrique is a 44 year old male who presents for Diarrhea (vomiting, cough and fatigue x 3 days). The history is provided by the patient. No russian language professor was used. Patient presents to office from home via personal vehicle vomiting and diarrhea x2days States woke up yesterday with slight nausea and vomiting x4 episodes total: 3 yesterday and x1 Intermittent cough, yaneli sputum Fever 101.7F, took tylenol last night Diarrhea x1d: liquid No appetite, no meal today Missed work today No change in diet, no CP, no SOB, dizziness nor blood in urine nor stool Sick contact: son 7 y/o +strep throat, finished atb PSH: dental work: tooth extraction x9, no complications PCN allergies rash/hives HTN amlodipine and lisinopril Tobacco use, 15 y/o = 29 pack years PAST MEDICAL HISTORY Diagnosis Date DDD (degenerative disc disease), cervical Mood disorder 07/07/2023 Unspecified essential hypertension Essential hypertension PAST SURGICAL HISTORY Procedure Laterality Date NONE ALLERGIES Penicillins MEDICATIONS OLANZapine (ZYPREXA) 5 mg tablet Take 1 tablet by mouth daily at bedtime. FLUoxetine (PROZAC) 40 mg capsule take 1 capsule by mouth once daily TAKE WITH 20MG DOSE. lisinopril (ZESTRIL) 40 mg tablet Take 1 tablet by mouth once daily. FLUoxetine (PROZAC) 20 mg capsule Take 1 capsule by mouth once daily. Take with 40 mg dose. amLODIPine (NORVASC) 10 mg tablet Take 1 tablet by mouth once daily. FAMILY HISTORY Problem Relation Age of Onset Hypertension Mother other (ckd [Other]) Maternal Uncle Ischemic Heart Disease Paternal Grandfather Social History Tobacco Use Smoking status: Every Day Current packs/day: 1.00 Average packs/day: 1 pack/day for 16.0 years (16.0 ttl pk-yrs) Types: Cigarettes Smokeless tobacco: Current Vaping Use Vaping status: Never Used Substance Use Topics Alcohol use: Yes Comment: rare Drug use: Yes Types: Marijuana Comment: couple times per week Objective BP 152/92 Pulse 98 Temp 36.3 ?C (97.3 ?F) Resp 18 Wt 96.4 kg (212 lb 8.4 oz) SpO2 97% BMI 28.82 kg/m? Physical Exam Vitals and nursing note reviewed. Constitutional: Appearance: Normal appearance. HENT: Head: Normocephalic. Right Ear: Hearing and tympanic membrane normal. Left Ear: Hearing and tympanic membrane normal. Nose: Nose normal. No congestion or rhinorrhea. Right Turbinates: Not pale. Left Turbinates: Not pale. Right Sinus: No maxillary sinus tenderness or frontal sinus tenderness. Left Sinus: No maxillary sinus tenderness or frontal sinus tenderness. Mouth/Throat: Lips: [place]. Mouth: Mucous membranes are moist. Pharynx: Oropharynx is clear. Tonsils: 1+ on the right. 1+ on the left. Comments: Missing teeth upper teeth Eyes: General: Lids are normal. Extraocular Movements: Extraocular movements intact. Pupils: Pupils are equal, round, and reactive to light. Cardiovascular: Rate and Rhythm: Normal rate. Pulses: Normal pulses. Radial pulses are 2+ on the right side and 2+ on the left side. Pulmonary: Effort: Pulmonary effort is normal. Breath sounds: Normal breath sounds. Abdominal: General: Bowel sounds are normal. Palpations: Abdomen is soft. Tenderness: There is no abdominal tenderness. Musculoskeletal: General: Normal range of motion. Cervical back: Normal range of motion. Right lower leg: No edema. Left lower leg: No edema. Lymphadenopathy: Cervical: Cervical adenopathy present. Skin: General: Skin is warm and dry. Capillary Refill: Capillary refill takes less than 2 seconds. Neurological: General: No focal deficit present. Mental Status: He is alert and oriented to person, place, and time. GCS: GCS eye subscore is 4. GCS verbal subscore is 5. GCS motor subscore is 6. Sensory: Sensation is intact. Motor: Motor function is intact. Coordination: Coordination is intact. Gait: Gait is intact. Psychiatric: Attention and Perception: Attention normal. Mood and Affect: Mood normal. Behavior: Behavior normal. Behavior is cooperative. Thought Content: Thought content normal. Judgment: Judgment normal. Assessment AND Plan ASSESSMENT/PLAN: 1. Exposure to strep throat - ICD9: V01.89, ICD10: Z20.818 (primary diagnosis) - STREP A MOLECULAR (POC) Rapid strep negative in office today. - Make sure you and your son replace old toothbrush with a new one - Do not share bathing items or eating utensils 2. Nausea vomiting and diarrhea - ICD9: (more content not included)... Normal [facility] STREP A MOLECULAR (POC)on Procedural Control Valid [facility] Strep A (POCT) Negative Negative [facility] EN[facility] DOWL[facility] ([id number]) 1980 M Date Time Provider Department 07/15/24 SHANTI SAHNI PSWSTR During your visit today, we recorded the following information about you: Mirna Manley, HEDY 07/15/2024 9:15 AM Signed Patient calls to cancel appointment this afternoon at 3 pm with Shanti. Notified that 24 hours notice is requested for appointment cancellation. Patient reports he is unable to log on to visit as he will be busy at work. Notified message would be forwarded to office. Call back number is [phone]. HEDY Bishop Fonda, LPN 08/15/2024 9:14 AM Signed Message left for pt to call [phone] to reschedule appointment. Stephy Rehman LPN Allergies As of Date: 07/15/2024 Noted Allergy Reaction PENICILLINS 04/07/2023 4 - Hives Date Reviewed: 07/07/2024 Reviewed by: Nataly Uriostegui LPN - Fully Assessed Reason for Visit: Appointment [186] Prescriptions as of 08/15/2024 - lisinopril (ZESTRIL) 40 mg tablet Take 1 tablet by mouth once daily. - OLANZapine (ZYPREXA) 5 mg tablet Take 1 tablet by mouth daily at bedtime. - FLUoxetine (PROZAC) 20 mg capsule Take 1 capsule by mouth once daily. Take with 40 mg dose. - FLUoxetine (PROZAC) 40 mg capsule Take 1 capsule by mouth once daily. Take with 20 mg dose. - amLODIPine (NORVASC) 10 mg tablet Take 1 tablet by mouth once daily. Meds Comments as of 02/03/2021: Problem List As Of Date 07/15/2024 Noted Resolved Cervical radiculopathy at C7 [M54.12] 11/08/2011 Cervical disc herniation [M50.20] 04/02/2012 Hypertension [I10] 03/03/2014 Acute neck pain [M54.2] 03/10/2016 Tobacco abuse [Z72.0] 03/10/2021 Osteoarthritis of spine with radiculopathy, cer*05/31/2022 Arm weakness [R29.898] 05/31/2022 Pain of right upper extremity [M79.601] 05/31/2022 Panic disorder with agoraphobia [F40.01] 07/07/2023 Mood disorder (HCC) [F39] 07/07/2023 Encounter Status:Closed by MIRNA MANLEY on 07/19/24 [facility] CNOVon 07-07-2024 CNOV Office Visit (UCWSTR ) ENRIQUE DOWLING ([id number]) 1980 M Date Time Provider Department 07/07/24 1:30 PM NATHALY SAM [facility] [place] During your visit today, we recorded the following information about you: Temperature Pulse Respiration Blood pressure 97 degrees 95/minute 20/minute 169/111 Weight 98 kg Nathaly Sam, WOO.PIPE ORGAN MECHANIC 07/07/2024 1:46 PM Signed [facility] Subjective Enrique Dowling is a 43 year old male. Patient presents with: Mouth/Lip Problem: R side bottom back teeth pain, some facial swelling, x 2 days increasing in pain Mouth/Lip Problem Pertinent negatives include no chills, fever or neck pain. Enrique Dowling is a 43 year old male who presents with right lower jaw and dental pain. He has known dental decay and has been working with his dentist but several teeth need to be extracted. He denies fever, ear pain, or neck pain. He rates his pain 6 or 7/10. He took advil today for pain. Review of Systems Constitutional: Negative for chills and fever. HENT: Negative for ear pain. See HPI Respiratory: Negative. Cardiovascular: Negative. Musculoskeletal: Negative for neck pain and neck stiffness. Objective BP 169/111 Pulse 95 Temp 36.1 ?C (97 ?F) Resp 20 Wt 98 kg (216 lb 0.8 oz) SpO2 99% BMI 29.30 kg/m? PAST MEDICAL HISTORY Diagnosis Date - DDD (degenerative disc disease), cervical - Mood disorder 07/07/2023 - Unspecified essential hypertension Essential hypertension PAST SURGICAL HISTORY Procedure Laterality Date - NONE ALLERGIES Penicillins MEDICATIONS - OLANZapine (ZYPREXA) 5 mg tablet Take 1 tablet by mouth daily at bedtime. - FLUoxetine (PROZAC) 20 mg capsule Take 1 capsule by mouth once daily. Take with 40 mg dose. - FLUoxetine (PROZAC) 40 mg capsule Take 1 capsule by mouth once daily. Take with 20 mg dose. - lisinopril (ZESTRIL) 40 mg tablet Take 1 tablet by mouth once daily. - amLODIPine (NORVASC) 10 mg tablet Take 1 tablet by mouth once daily. FAMILY HISTORY Problem Relation Age of Onset - Hypertension Mother - other (ckd [Other]) Maternal Uncle - Ischemic Heart Disease Paternal Grandfather Social History Tobacco Use - Smoking status: Every Day Current packs/day: 1.00 Average packs/day: 1 pack/day for 16.0 years (16.0 ttl pk-yrs) Types: Cigarettes - Smokeless tobacco: Current Vaping Use - Vaping status: Never Used Substance Use Topics - Alcohol use: Yes Comment: rare - Drug use: Yes Types: Marijuana Comment: couple times per week Physical Exam Vitals and nursing note reviewed. Constitutional: Appearance: Normal appearance. He is not ill-appearing. HENT: Mouth/Throat: Lips: [place]. Mouth: Mucous membranes are moist. Dentition: Dental tenderness, gingival swelling and dental caries present. Cardiovascular: Rate and Rhythm: Normal rate and regular rhythm. Heart sounds: Normal heart sounds. Pulmonary: Effort: Pulmonary effort is normal. No respiratory distress. Breath sounds: Normal breath sounds. No wheezing or rales. Skin: General: Skin is warm and dry. Neurological: Mental Status: He is alert. {ASSESSMENT/PLAN: 1. Pain due to dental caries - ICD9: 521.00, ICD10: K02.9 (primary diagnosis) - Clindamycin as prescribed. - follow up with dentist [facility] 2. Hypertension, poor control - ICD9: 401.9, ICD10: I10 - Continue current medications- takes Norvasc and Lisinopril daily. - Recommend home blood pressure monitoring, to bring results to next visit - Follow-up with your PCP in 3 days for blood pressure check - Discussed red flags and need for immediate medical evaluation if any occur. - Discussed supportive care treatment with fluids, rest and analgesia. - Discussed expected course of illness Nathaly Sam APRN.PIPE [employer] MECH[employer]IC Disposition The patient was discharged. OTC Medications were advised: Tylenol/ibuprofen Procedures Nathaly Sam APRN.CNP 07/07/2024 1:46 PM Signed ASSESSMENT/PLAN: 1. Pain due to dental caries - ICD9: 521.00, ICD10: K02.9 (primary diagnosis) - Clindamycin as prescribed. - follow up with dentist [facility] 2. Hypertension, poor control - ICD9: 401.9, ICD10: I10 - Continue current medications- takes Norvasc and Lisinopril daily. - Recommend home blood pressure monitoring, to bring results to next visit - Follow-up with your PCP in 3 days for blood pressure check - Discussed red flags and need for immediate medical evaluation if any occur. - Discussed supportive care treatment with fluids, rest and analgesia. - Discussed expected course of illness Nathaly Sam APRN.PIPE [employer] MECH[employer]IC Allergies As of Date: 07/07/2024 Noted Allergy Reaction PENICILLINS 04/07/2023 4 - Hives Date Reviewed: 07/07/2024 Reviewed by: Nataly Uriostegui LPN - Fully Assessed Reason for Visit: Mouth/Lip Problem [68] Cmt: R side bottom back teeth pain, some facial swelli (more content not included)... Normal [facility] HbA1c (Bld)on 06-13-2024 Average glucose Estimated from glycated hemoglobin (Bld) [Mass/Vol] 111 mg/dL [facility] Comment on above: eAG: (Estimated aver age glucose) is a calculated value from HgbA1c and is small business representative of the average blood glucose level in the last 2-3 month period. HbA1c (Bld) [Mass fraction] 5.5 % 4.3 - 5.6 % [facility] Comment on above: [place] Diabetes As sociation guidelines indicate that patients with HgbA1c in the range 5.7-6.4% are at increased risk for development of diabetes, and intervention by lifestyle modification may be beneficial. HgbA1c greater or equal to 6.5% is considered diagnostic of diabetes. [facility] Average glucose Estimated from glycated hemoglobin (Bld) [Mass/Vol] 111 mg/dL Normal [facility] Comment on above: Order Comment: Speci men Type: BLOOD SPECIMENOrdering Facility: [facility] Address: [address] [place] [address] Result Comment: eAG: (Estimated average glucose) is a calculated value from HgbA1c and is small business representative of the average blood glucose level in the last 2-3 month period. Performed By: #### 5 5454-3 ####[facility] LABCLIA [id number] [place] [id number] [facility] HbA1c (Bld) [Mass fraction] 5.5 % Normal 4.3-5.6 [facility] Comment on above: Order Comment: Speci men Type: BLOOD SPECIMENOrdering Facility: [facility] Address: [address] [place] [address] Result Comment: [place] Diabetes Association guidelines indicate that patients with HgbA1c in the range 5.7-6.4% are at increased risk for development of diabetes, and intervention by lifestyle modification may be beneficial. HgbA1c greater or equal to 6.5% is considered diagnostic of diabetes. Performed By: #### 5 5454-3 ####[facility] LABCLIA [id number] [address] [facility] Emergency Department Summary on 03-21-2024 Emergency Department Summary [facility] Medical Records Department [address] [place] [address] Emergency Department Summary 03/21/24 MR#: [id number] Acct: [id number] Name: ENRIQUE DOWLING Rep #: [id number] : 1980 43 From: Jelani Rueda DO PCP: Dr. Rosales Adams MD Status:DEP ER Location: ED HPI History of Present Illness Chief Complaint: Dental Informant: patient Narrative Narrative: 43-year-old male presenting to the emergency room out of concern for dental abscess. Patient states that a few weeks ago he had a tooth break apart on the left lower side. He states that he woke yesterday morning with increased pain in his developed swelling. No reported fevers. He has been working with his dentist but is unable to get seen for a couple weeks. [facility] Medical History Hypertension Home Medications ???Medication ???Instructions ???Recorded ???Last Taken ???Type amlodipine 5 mg tablet mg PO DAILY 12/01/22 Unknown History lisinopril 40 mg tablet 40 mg PO DAILY 12/01/22 Unknown History naproxen 500 mg tablet (Naprosyn) 500 mg PO BID PRN pain #20 tabs 02/07/23 Unknown Rx penicillin V potassium 500 mg 500 mg PO 4X/DAY #40 tabs 02/07/23 Unknown Rx tablet Allergy/AdvReac Type Severity Reaction Status Date / Time Penicillins (PCN) Allergy Rash Verified 03/21/24 07:44 Social History Smoking Status: Current every day smoker tobacco type: cigarettes substance use type: does not use ROS ROS ED Constitutional Constitutional ED: Denies chills or weight loss Eyes Eyes: Denies change in vision or diplopia ENT ENT ED: Reports other Details: Left lower dental pain gum swelling jaw swelling sensitivity ; Denies ear pain, rhinorrhea or sore throat Cardiovascular Cardiovascular: Denies chest pain, orthopnea, palpitations or racing heartbeat Respiratory/Chest Respiratory/Chest: Denies cough, dyspnea or orthopnea Gastrointestinal Gastrointestinal: Denies abdominal pain, diarrhea, nausea or vomiting Genitourinary Genitourinary ED: Denies dysuria, hematuria or urinary frequency Musculoskeletal Musculoskeletal: Denies arthralgias or myalgias Integumentary Denies abscess or rash Neurologic Neurologic: Denies headache(s) or weakness Psychiatric Psychiatric: Denies anxiety, depression, suicidal ideation or suicidal thoughts Endocrine Endocrinology: Denies polydipsia, polyphagia or polyuria Allergic/Immunologic Allergic/Immunologic ED: Denies mouth swelling, tongue swelling or urticaria EXAM Physical Exam Const Vital Signs: 03/21/24 07:43 03/21/24 07:43 Temperature 98 F Temperature Source Temporal Pulse Rate 101 H 107 H Respiratory Rate 20 H 20 H Blood Pressure 169/101 H 171/106 H Blood Pressure Mean 123 127 Pulse Ox 100 100 Oxygen Delivery Method Room Air Room Air Positive well nourished and well developed General Appearance ED: well developed and NAD HEENT Reports normocephalic, head/scalp atraumatic and moist mucous membranes HEENT Narrative: There left lower posterior most tooth which appears to be a premolar or the first molar is broken apart. There is some focal gum swelling noted but no fluctuance and it is more of a generalized swelling at this time. There is some jaw swelling noted no overlying erythema. No evidence of gingivitis. There is no trismus. Floor the mouth is soft. Eyes PERRL and EOMs intact bilaterally Neck no lymphadenopathy, supple and no JVD Resp normal respiratory effort and clear to auscultation bilaterally Cardio regular rate, regular rhythm and no murmurs GI normal to inspection, nondistended, normoactive bowel sounds and non-tender Palpation: soft Back/Spine no CVA tenderness and normal ROM Extremity normal to inspection General Extremety ED: Negative for edema General Extremity: Negative for edema Neuro oriented x3 and CN's II-XII intact bilaterally Sensorium / Orientation: alert Motor Exam: strength 5/5 throughout Psych mental status grossly normal Mood Affect: Negative for depressed or tearful Skin no rashes or lesions noted and no wounds MDM MDM MDM Narrative Medical decision making narrative: Differential diagnosis includes but not limited to dental abscess dental caries and gingivitis Jose's angina This appears to be a developing dental abscess that is not amendable to I D at this point. He will be started on antibiotics as well as pain medication. He was advised that this may progress to requiring incision and drainage but that it is not at that point currently. He needs to see dentistry as soon as possible. History Record Review Discussion w/independent historian: Patient Discharge Plan Triage Chief Complaint: Dental ED Pr (more content not included)... Normal [facility] CNOVon 03-12-2024 CN Office Visit (UCWSTR ) ENRIQUE DOWLING ([id number]) 1980 M Date Time Provider Department 03/12/24 11:00 AM ОЛЬГА PEDERSEN [facility] [place] During your visit today, we recorded the following information about you: Temperature Pulse Respiration Blood pressure 97.6 degrees 80/minute 16/minute 138/84 Weight 97.7 kg Ольга Pedersen APRN.CNP 03/12/2024 11:25 AM Signed Subjective She came in with complaints of slight swelling on the right upper eyelid and some eye drainage. Patient denies any visual changes or eye pain. Patient denies any fever chills nausea vomiting. The history is provided by the patient. No russian language professor was used. Eye Problem Review of Systems Constitutional: Negative. Skin: Negative. Objective Physical Exam Constitutional: Appearance: Normal appearance. Eyes: General: Right eye: No foreign body or discharge. Left eye: No foreign body or discharge. Comments: Red area escamilla where there is a stye. Blue area escamilla slight erythematous and swelling. Nontender around entire eye. Pulmonary: Effort: Pulmonary effort is normal. Neurological: Mental Status: He is alert. PAST MEDICAL HISTORY Diagnosis Date DDD (degenerative disc disease), cervical Mood disorder (HCC) 07/07/2023 Unspecified essential hypertension Essential hypertension PAST SURGICAL HISTORY Procedure Laterality Date NONE ALLERGIES Penicillins MEDICATIONS hydrOXYzine HCl (ATARAX) 10 mg tablet Take 1 tablet by mouth three times a day as needed for anxiety (and sleep difficulty). OLANZapine (ZYPREXA) 5 mg tablet Take 1 tablet by mouth daily at bedtime. FLUoxetine (PROZAC) 20 mg capsule Take 1 capsule by mouth once daily. Take with 40 mg dose. FLUoxetine (PROZAC) 40 mg capsule Take 1 capsule by mouth once daily. Take with 20 mg dose. amLODIPine (NORVASC) 10 mg tablet Take 1 tablet by mouth once daily. lisinopril (ZESTRIL) 40 mg tablet Take 1 tablet by mouth once daily. doxycycline (VIBRA-TABS) 100 mg tablet Take 1 tablet by mouth two times a day for 7 days. erythromycin (ROMYCIN) 5 mg/gram (0.5 %) ophthalmic ointment Use 1 application in the right eye four times daily for 7 days. FAMILY HISTORY Problem Relation Age of Onset Hypertension Mother other (ckd [Other]) Maternal Uncle Ischemic Heart Disease Paternal Grandfather Social History Tobacco Use Smoking status: Every Day Current packs/day: 1.00 Average packs/day: 1 pack/day for 16.0 years (16.0 ttl pk-yrs) Types: Cigarettes Smokeless tobacco: Current Vaping Use Vaping status: Never Used Substance Use Topics Alcohol use: Yes Comment: rare Drug use: Yes Types: Marijuana Comment: couple times per week ASSESSMENT/PLAN: 1. Hordeolum externum of right upper eyelid - ICD9: 373.11, ICD10: H00.011 (primary diagnosis) - ERYTHROMYCIN 5 MG/GRAM (0.5 %) EYE OINTMENT 2. Skin infection - ICD9: 686.9, ICD10: L08.9 - DOXYCYCLINE HYCLATE 100 MG TABLET Was educated about proper use of medication and supportive therapies. Patient was educated about red flag symptoms to watch for. Patient was agreeable to care plan. Ольга Pedersen APRN.PIPE ORGAN MECHANIC Allergies As of Date: 03/12/2024 Noted Allergy Reaction PENICILLINS 04/07/2023 4 - Hives Date Reviewed: 03/12/2024 Reviewed by: Zulay Nolasco LPN - Fully Assessed Reason for Visit: Eye Problem [43] Cmt: Irritated right eye x 1 day Primary Visit Diagnosis:Hordeolum externum of right upper eyelid [H00.011] Other Visit Diagnosis:Skin infection [L08.9] Order(s):doxycycline (VIBRA-TABS) 100 mg tabletTake 1 tablet by mouth two times a day for 7 days.Disp: 14 tabletRfl: 0 erythromycin (ROMYCIN) 5 mg/gram (0.5 %) ophthalmic ointmentUse 1 application in the right eye four times daily for 7 days.Disp: 3.5 gRfl: 0 Prescriptions as of 03/12/2024 - doxycycline (VIBRA-TABS) 100 mg tablet Take 1 tablet by mouth two times a day for 7 days. - erythromycin (ROMYCIN) 5 mg/gram (0.5 %) ophthalmic ointment Use 1 application in the right eye four times daily for 7 days. - hydrOXYzine HCl (ATARAX) 10 mg tablet Take 1 tablet by mouth three times a day as needed for anxiety (and sleep difficulty). - OLANZapine (ZYPREXA) 5 mg tablet Take 1 tablet by mouth daily at bedtime. - FLUoxetine (PROZAC) 20 mg capsule Take 1 capsule by mouth once daily. Take with 40 mg dose. - FLUoxetine (PROZAC) 40 mg capsule Take 1 capsule by mouth once daily. Take with 20 mg dose. - amLODIPine (NORVASC) 10 mg tablet Take 1 tablet by mouth once daily. - lisinopril (ZESTRIL) 40 mg tablet Take 1 tablet by mouth once daily. Meds Comments as of 02/03/2021: Problem List As Of Date 03/12/2024 Noted Resolved Cervical radiculopathy at C7 [M54.12] 11/08/2011 Cervical disc herniation [M50.20] 04/02/2012 Hypertension [I10] 03/03/2014 Acute neck pain [M54.2] 03/10/2016 Tobacco abuse [Z72.0] 03/10/2021 Ost (more content not included)... Normal [facility] CNOVon 02-19-2024 CNOV Office Visit (INTMWS ) ENRIQUE DOWLING ([id number]) 1980 M Date Time Provider Department 02/19/24 4:00 PM SYDNEY DRISCOLL INTMWS During your visit today, we recorded the following information about you: Pulse Respiration Blood pressure Weight 80/minute 16/minute 165/102 100 kg Sydney Driscoll, WOO.NEURO OPHTHALMOLOGIST 02/19/2024 4:27 PM Signed SUBJECTIVE: Pneumococcal Vaccine(1 of 2 - PCV) Never done Depression Screening Never done BP Controlled (<130/80) Never done Hepatitis B Vaccine(1 of 3 - 19+ 3-dose series) Never done Colorectal Cancer Screening Never done Influenza Vaccine(1) due on 11/26/2023 Covid-19 Vaccine( season) Never done HPI Enrique Dowling is a 43 year old male. PH significant for ACTIVE PROBLEM LIST Cervical Radiculopathy At C7 Cervical Disc Herniation Hypertension Acute Neck Pain Tobacco Abuse Osteoarthritis of Spine With Radiculopathy, Cervical Region Arm Weakness Pain of Right Upper Extremity Panic Disorder With Agoraphobia Mood Disorder (Hcc) PCP: Rosales Adams MD Notes BP hs been running higher at home lately. Has noted headache with this times.Not missing doses of medication. HTN: Without report of chest pain, palpitations, dyspnea, peripheral edema, orthopnea, fatigue, and PND. Notes HCTZ caused gout like symptoms. Last 14 Encounter BP Readings: Date: BP: 02/19/2024 165/102[bp average[ 02/08/2024 165/101 12/09/2023 142/96 09/05/2023 148/90 08/28/2023 138/78 06/14/2023 162/90 06/12/2023 142/82 06/07/2023 144/80 05/22/2023 160/88 04/07/2023 144/90 01/17/2023 136/80 12/13/2022 174/96 10/10/2022 132/85[BP Irina[ 08/15/2022 148/98 Review of Systems Constitutional: Negative. Respiratory: Negative. Cardiovascular: Negative. Objective BP 165/102 Pulse 80 Resp 16 Wt 100 kg (220 lb 7.4 oz) BMI 29.90 kg/m? Physical Exam Vitals and nursing note reviewed. Constitutional: Appearance: Normal appearance. HENT: Head: Normocephalic and atraumatic. Eyes: Conjunctiva/sclera: Conjunctivae normal. Neck: Vascular: Normal carotid pulses. No JVD. Cardiovascular: Rate and Rhythm: Normal rate. Pulses: Carotid pulses are 2+ on the right side and 2+ on the left side. Radial pulses are 2+ on the right side and 2+ on the left side. Heart sounds: Normal heart sounds. Pulmonary: Effort: Pulmonary effort is normal. Breath sounds: Normal breath sounds. Musculoskeletal: Right lower leg: No edema. Left lower leg: No edema. Skin: General: Skin is warm and dry. Neurological: General: No focal deficit present. Mental Status: He is alert and oriented to person, place, and time. ALLERGIES Allergen Reactions Penicillins Hives Medications lisinopril (ZESTRIL) 40 mg tablet Take 1 tablet by mouth once daily. FLUoxetine (PROZAC) 40 mg capsule Take 1 capsule by mouth once daily. Take with 20 mg dose. OLANZapine (ZYPREXA) 5 mg tablet Take 1 tablet by mouth daily at bedtime. FLUoxetine (PROZAC) 20 mg capsule Take 1 capsule by mouth once daily. Take with 40 mg dose. amLODIPine (NORVASC) 5 mg tablet Take 1 tablet by mouth once daily. PAST MEDICAL HISTORY Diagnosis Date DDD (degenerative disc disease), cervical Mood disorder (HCC) 07/07/2023 Unspecified essential hypertension Essential hypertension Social History Tobacco Use Smoking status: Every Day Current packs/day: 1.00 Average packs/day: 1 pack/day for 16.0 years (16.0 ttl pk-yrs) Types: Cigarettes Smokeless tobacco: Current Vaping Use Vaping status: Never Used Substance Use Topics Alcohol use: Yes Comment: rare Drug use: Yes Types: Marijuana Comment: couple times per week Latest Ref Rng 06/13/2023 WBC 3.70 - 11.00 k/uL 8.29 RBC 4.20 - 6.00 m/uL 5.03 Hemoglobin 13.0 - 17.0 g/dL 15.9 Hematocrit 39.0 - 51.0 % 47.3 MCV 80.0 - 100.0 fL 94.0 MCH 26.0 - 34.0 pg 31.6 MCHC 30.5 - 36.0 g/dL 33.6 RDW-CV 11.5 - 15.0 % 12.6 Platelet Count 150 - 400 k/uL 229 MPV 9.0 - 12.7 fL 9.8 Neut% % 66.4 Abs Neut (ANC) 1.45 - 7.50 k/uL 5.51 Lymph% % 23.4 Abs Lymph 1.00 - 4.00 k/uL 1.94 Patillas% % 8.3 Abs [place] <0.87 k/uL 0.69 Eosin% % 1.1 Abs Eosin <0.46 k/uL 0.09 Baso% % 0.4 Abs Baso <0.11 k/uL 0.03 Immature Gran % % 0.4 IMMATURE GRANS (ABS) <0.10 k/uL 0.03 NRBC /100 WBC 0.0 Absolute nRBC <0.01 k/uL <0.01 DTYPE Auto Protein, Total 6.3 - 8.0 g/dL 6.8 Albumin 3.9 - 4.9 g/dL 4.3 Calcium 8.5 - 10.2 mg/dL 9.7 Bilirubin, Total 0.2 - 1.3 mg/dL 0.8 Alkaline Phosphatase 38 - 113 U/L 90 AST 14 - 40 U/L 17 ALT 10 - 54 U/L 21 Glucose 74 - 99 mg/dL 125 (H) BUN 9 - 24 mg/dL 10 Creatinine 0.73 - 1.22 mg/dL 0.72 (L) Sodium 136 - 144 mmol/L 142 Potassium 3.7 - 5.1 mmol/L 4.0 Chloride 97 - 105 mmol/L 106 (H) CO2 22 - 30 mmol/L 26 Anion Gap 9 - 18 mmol/L 10 eGFR >=60 mL/min/1.73m? 116 Hemoglobin A1C 4.3 - 5.6 % 5.2 Estimated Average Glucose (more content not included)... Normal [facility] CNOVon 02-08-2024 CNOV Office Visit (UCWSTR ) ENRIQUE DOWLING ([id number]) 1980 M Date Time Provider Department 02/08/24 1:30 PM SANGEETHA NICOLE [facility] [place] During your visit today, we recorded the following information about you: Temperature Pulse Respiration Blood pressure 96.9 degrees 85/minute 16/minute 165/101 Weight 98.8 kg Sangeetha Nicole PA 02/08/2024 1:13 PM Signed This note was created using [employer]. Subjective Enrique Dowling is a 43 year old male. HPI 43-year-old male presents for cough, congestion, diarrhea, fever x 2 days. Patient states that he has had a cough and congestion for the past few days. He states he has had diarrhea and some stomach cramping. He reports nausea, no vomiting. No blood in the stool. He did have a fever last night of 101 ?F. He has not had a fever today. He has taken Motrin for his symptoms and DayQuil yesterday with minimal improvement. States his kids were recently sick with flulike symptoms. No other complaint. PAST MEDICAL HISTORY Diagnosis Date DDD (degenerative disc disease), cervical Mood disorder (HCC) 07/07/2023 Unspecified essential hypertension Essential hypertension PAST SURGICAL HISTORY Procedure Laterality Date NONE ALLERGIES Penicillins MEDICATIONS lisinopril (ZESTRIL) 40 mg tablet Take 1 tablet by mouth once daily. FLUoxetine (PROZAC) 40 mg capsule Take 1 capsule by mouth once daily. Take with 20 mg dose. OLANZapine (ZYPREXA) 5 mg tablet Take 1 tablet by mouth daily at bedtime. FLUoxetine (PROZAC) 20 mg capsule Take 1 capsule by mouth once daily. Take with 40 mg dose. amLODIPine (NORVASC) 5 mg tablet Take 1 tablet by mouth once daily. FAMILY HISTORY Problem Relation Age of Onset Hypertension Mother other (ckd [Other]) Maternal Uncle Ischemic Heart Disease Paternal Grandfather Social History Tobacco Use Smoking status: Every Day Current packs/day: 1.00 Average packs/day: 1 pack/day for 16.0 years (16.0 ttl pk-yrs) Types: Cigarettes Smokeless tobacco: Current Vaping Use Vaping status: Never Used Substance Use Topics Alcohol use: Yes Comment: rare Drug use: Yes Types: Marijuana Comment: couple times per week Review of Systems Constitutional: Negative for chills and fever. HENT: Positive for congestion. Negative for sore throat. Respiratory: Positive for cough. Negative for shortness of breath. Gastrointestinal: Positive for diarrhea and nausea. Negative for abdominal pain and vomiting. Objective BP 165/101 Pulse 85 Temp 36.1 ?C (96.9 ?F) (Left Tympanic) Resp 16 Wt 98.8 kg (217 lb 13 oz) SpO2 99% BMI 29.54 kg/m? Physical Exam Vitals and nursing note reviewed. Constitutional: General: He is not in acute distress. Appearance: Normal appearance. He is not toxic-appearing. HENT: Right Ear: Tympanic membrane and ear canal normal. Left Ear: Tympanic membrane and ear canal normal. Nose: Nose normal. Mouth/Throat: Mouth: Mucous membranes are moist. Eyes: Conjunctiva/sclera: Conjunctivae normal. Cardiovascular: Rate and Rhythm: Normal rate and regular rhythm. Pulmonary: Effort: Pulmonary effort is normal. Breath sounds: Normal breath sounds. Abdominal: General: Abdomen is flat. Palpations: Abdomen is soft. Tenderness: There is no abdominal tenderness. There is no guarding or rebound. Skin: General: Skin is warm and dry. Neurological: Mental Status: He is alert. Assessment and Plan ASSESSMENT/PLAN: 1. URI, acute - ICD9: 465.9, ICD10: J06.9 (primary diagnosis) - Discussed viral etiology and rationale for treatment. - Symptomatic treatment with prn analgesia - Supportive care with fluids and rest - COVID AND INFLUENZA A/B AND RSV PCR, ROUTINE -Out of window for Tamiflu 2. Primary hypertension - ICD9: 401.9, ICD10: I10 -BP elevated today. -Patient is on medication. Advised to continue medication, keep an eye on blood pressure at home. If continued elevation, needs follow-up with PCP Diagnosis and treatment plan were discussed and questions were answered to the patient's satisfaction. Pt acknowledged understanding of concepts and follow up plan. Specific signs and symptoms that would indicate the need for higher level of care were discussed in detail warranting prompt ER evaluation. DONALD Machuca Allergies As of Date: 02/08/2024 Noted Allergy Reaction PENICILLINS 04/07/2023 4 - Hives Date Reviewed: 02/08/2024 Reviewed by: Bel Schumacher MA - Fully Assessed Reason for Visit: Cough [28] Cmt: With intermittent fever, diarrhea, stomach cramp, nasal congestion, FELDMAN AND fatigue x 2 days Primary Visit Diagnosis:URI, acute [J06.9] Other Visit Diagnosis:Primary hypertension [I10] Order(s):COVID AND INFLUENZA A/B AND RSV PCR, ROUTINE [[id number]] Order #: [id number]. #:[id number] Prescriptions as of 02/08/2024 - lisinopril (ZESTRIL) 40 mg table (more content not included)... Normal [facility] COVID AND INFLUENZA A/B AND RSV PCR, ROUTINEon 02-08-2024 SARS-CoV-2 (COVID-19) RNA SHIRA+probe Ql (Unsp spec) SARS-COV-2 (AGENT OF COVID-19) RNA: Not detected INFLUENZA A RNA: Not detected INFLUENZA B RNA: Not detected RESPIRATORY SYNCYTIAL VIRUS (RSV) RNA: Not detected Normal [facility] Comment on above: Performed By: #### C VFLRS ####[facility] LABCLIA [id number] [place] [address] [place] XR Elbow - left AP and Later al and obliqueon 01-18-2023 IMPRESSION: No acute osseous abnormality. Blood Donor Unit Assistant: HEIDI Transcribe Date/Time: Jan 18 2023 4:23P Dictated by : ELIZ WREN DO This examination was interpreted and the report reviewed and electronically signed by: ELIZ WREN DO on Jan 18 2023 4:24PM EST DIVISION OF RADIOLOGY * * *Final Report* * * DATE OF EXAM: Jan 17 2023 9:35AM WOX 5324 - XR ELBOW 3V AP/LAT/OTHER LT / PROCEDURE REASON: multiple diagnoses * * * * Physician Interpretation * * * * EXAMINATION: XR ELBOW 3V AP/LAT/OTHER LT PATIENT/TECHNOLOGIST PROVIDED HISTORY: pain for a month along lateral side of left elbow no inj CLINICAL INFORMATION: 42 years old Male with Left elbow pain. Left forearm pain TECHNIQUE: XR ELBOW 3V AP/LAT/OTHER LT Laterality: LEFT Number of different views (projections): 3 COMPARISON: None. RESULT: No fracture. No elbow joint effusion. Elbow joint spaces are maintained. DIVISION OF RADIOLOGY Provider, Jackie Lara - 01/18/2023 * * *Final Report* * * DATE OF EXAM: Jan 17 2023 9:35AM WOX 5324 - XR ELBOW 3V AP/LAT/OTHER LT / PROCEDURE REASON: multiple diagnoses * * * * Physician Interpretation * * * * EXAMINATION: XR ELBOW 3V AP/LAT/OTHER LT PATIENT/TECHNOLOGIST PROVIDED HISTORY: pain for a month along lateral side of left elbow no inj CLINICAL INFORMATION: 42 years old Male with Left elbow pain. Left forearm pain TECHNIQUE: XR ELBOW 3V AP/LAT/OTHER LT Laterality: LEFT Number of different views (projections): 3 COMPARISON: None. RESULT: No fracture. No elbow joint effusion. Elbow joint spaces are maintained. IMPRESSION IMPRESSION: No acute osseous abnormality. Blood Donor Unit Assistant: HEIDI Transcribe Date/Time: Jan 18 2023 4:23P Dictated by : ELIZ WREN DO This examination was interpreted and the report reviewed and electronically signed by: ELIZ WREN DO on Jan 18 2023 4:24PM EST [facility] XR Elbow - left AP and Later al and obliqueOrdered By: [facility] Provider on 01-18-2023 [facility] XR Elbow - left AP and Later al and obliqueon 01-17-2023 Radiology Study observation (narrative) [facility] XR Shoulder - right 3 Viewso n 05-13-2022 IMPRESSION: Minimal acromioclavicular joint space DJD. No acute fracture or dislocation is identified. Blood Donor Unit Assistant: HEIDI Transcribe Date/Time: May 13 2022 8:20A Dictated by : EZRA ROMERO MD This examination was interpreted and the report reviewed and electronically signed by: EZRA ROMERO MD on May 13 2022 8:21AM [facility] DIVISION OF RADIOLOGY * * *Final Report* * * DATE OF EXAM: May 09 2022 11:34AM WOX 5253 - XR SHLDR >/=3V AP/IRINA AP/OTHR RT / PROCEDURE REASON: Acute pain of right shoulder * * * * Physician Interpretation * * * * EXAMINATION: XR SHLDR >/=3V AP/IRINA AP/OTHR RT HISTORY: Right sided neck pain that radiates to the top of the right shoulder x 3 weeks without injury. Acute pain of right shoulder . TECHNIQUE: XR SHLDR >/=3V AP/IRINA AP/OTHR RT Laterality: RIGHT Number of different views (projections): 3 M: XB_1 RESULT: Minimal acromioclavicular joint space DJD. Glenohumeral joint space is grossly preserved. The acromiohumeral interval is within normal limits. There is no acute fracture or dislocation. DIVISION OF RADIOLOGY Provider, [facility]/13/[facility] * * *Final Report* * * DATE OF EXAM: May 09 2022 11:34AM WOX 5253 - XR SHLDR >/=3V AP/IRINA AP/OTHR RT / PROCEDURE REASON: Acute pain of right shoulder * * * * Physician Interpretation * * * * EXAMINATION: XR SHLDR >/=3V AP/IRINA AP/OTHR RT HISTORY: Right sided neck pain that radiates to the top of the right shoulder x 3 weeks without injury. Acute pain of right shoulder . TECHNIQUE: XR SHLDR >/=3V AP/IRINA AP/OTHR RT Laterality: RIGHT Number of different views (projections): 3 M: XB_1 RESULT: Minimal acromioclavicular joint space DJD. Glenohumeral joint space is grossly preserved. The acromiohumeral interval is within normal limits. There is no acute fracture or dislocation. IMPRESSION IMPRESSION: Minimal acromioclavicular joint space DJD. No acute fracture or dislocation is identified. Blood Donor Unit Assistant: [facility] Transcribe Date/Time: May 13 2022 8:20A Dictated by : EZRA ROMERO MD This examination was interpreted and the report reviewed and electronically signed by: EZRA ROMERO MD on May 13 2022 8:21AM EST [facility] XR Cervical spine AP and Lat eral and obliqueon 05-12-2022 IMPRESSION: Cervical spine degenerative changes with multilevel disc space narrowing and bilateral neural foraminal narrowing. Overall findings worsened. Blood Donor Unit Assistant: [facility] Transcribe Date/Time: May 12 2022 4:36P Dictated by : ANGE CUTLER MD This examination was interpreted and the report reviewed and electronically signed by: ANGE CUTLER MD on May 12 2022 4:39PM EST DIVISION OF RADIOLOGY * * *Final Report* * * DATE OF EXAM: May 09 2022 11:34AM WOX 5311 - XR CERVICAL 4V AP/LAT/OBL / PROCEDURE REASON: Acute pain of right shoulder * * * * Physician Interpretation * * * * EXAM TITLE: XR CERVICAL 4V AP/LAT/OBL EXAM DATE/TIME: 05/09/2022 11:34 AM COMPARISON: X-ray cervical spine on 10/01/2018. CLINICAL INDICATION/HISTORY: Acute pain of the right shoulder. TECHNIQUE: AP, lateral, swimmer's and oblique views of the cervical spine are presented. FINDINGS: No fractures or subluxations are noted. There is mild reversal of the cervical spine curvature. C5-6 and C6-7 disc space narrowing is demonstrated. There is mild osteophyte formation. Left-sided C5-6, left-sided C6-7 and right-sided C6-7 neural foraminal narrowing is present. The prevertebral soft tissues are normal. DIVISION OF RADIOLOGY Provider, [facility] Terrell [facility] - 05/12/2022 * * *Final Report* * * DATE OF EXAM: May 09 2022 11:34AM WOX 5311 - XR CERVICAL 4V AP/LAT/OBL / PROCEDURE REASON: Acute pain of right shoulder * * * * Physician Interpretation * * * * EXAM TITLE: XR CERVICAL 4V AP/LAT/OBL EXAM DATE/TIME: 05/09/2022 11:34 AM COMPARISON: X-ray cervical spine on 10/01/2018. CLINICAL INDICATION/HISTORY: Acute pain of the right shoulder. TECHNIQUE: AP, lateral, swimmer's and oblique views of the cervical spine are presented. FINDINGS: No fractures or subluxations are noted. There is mild reversal of the cervical spine curvature. C5-6 and C6-7 disc space narrowing is demonstrated. There is mild osteophyte formation. Left-sided C5-6, left-sided C6-7 and right-sided C6-7 neural foraminal narrowing is present. The prevertebral soft tissues are normal. IMPRESSION IMPRESSION: Cervical spine degenerative changes with multilevel disc space narrowing and bilateral neural foraminal narrowing. Overall findings worsened. Blood Donor Unit Assistant: HEIDI Transcribe Date/Time: May 12 2022 4:36P Dictated by : ANGE CUTLER MD This examination was interpreted and the report reviewed and electronically signed by: ANGE CUTLER MD on May 12 2022 4:39PM EST [facility] XR Cervical spine AP and Lat eral and obliqueOrdered By: [facility]cf Provider on 05-12-2022 [facility] No Panel Informationon 05-09 Radiology Study observation (narrative) [facility] XR FOOT MINIMUM 3 VIEWS [facility] 12-07-2021 XR FOOT MINIMUM 3 VIEWS RIGHT ORIGINAL EXAMINATION: THREE XRAY VIEWS OF THE RIGHT FOOT12/07/2021 4:28 pm COMPARISON: None HISTORY: ORDERING SYSTEM PROVIDED HISTORY: Reason for Exam: No known injury. Pain FINDINGS: Included bony structures are intact without acute fracture, dislocation, or aggressive appearing osseous lesions. There is no obvious soft tissue abnormality. There are no significant degenerative changes. IMPRESSION: No acute radiographic abnormality identified. I have personally reviewed the images of this examination and agree with the resident's findings and interpretation. RECOMMENDATIONS: Unavailable Interpreted by: Bret Pablo Preliminary Report By: Shay Silva Electronically signed By Bret Pablo Dictated Date: 12/07/2021 5:35:39 PM Prelim Date: 12/07/2021 5:38:14 PM Sign Date: 12/07/2021 6:07:33 PM [facility]ing [facility] [place] [facility] Vital Signs Date Time Vital Sign Value Performing Clinician Facility 11-12-2024 15:38-0400 Body height 182.9 cm Rosales Adams MD Work Phone: [facility] 11-12-2024 15:38-0400 Body mass index (BMI) [Ratio] 30.24 kg/m2 Rosales Adams MD Work Phone: [facility] 11-12-2024 15:38-0400 Body weight 101.15 kg Rosales Adams MD Work Phone: [facility] 11-12-2024 15:38-0400 Diastolic blood pressure 86 mm[Hg] Rosales Adams MD Work Phone: 2(661)[phone] [place] [address] 11-12-2024 15:38-0400 Heart rate 96 /min Rosales Adams MD Work Phone: [facility] 11-12-2024 15:38-0400 Respiratory rate 16 /min Rosales Adams MD Work Phone: [facility] 11-12-2024 15:38-0400 Systolic blood pressure 137 mm[Hg] Rosales Adams MD Work Phone: [facility] 10-15-2024 11:46-0400 Body temperature 98.1 [degF] Dr. Rosales Adams MD Work Phone: [facility] 10-15-2024 11:46-0400 Diastolic blood pressure 78 mm[Hg] Dr. Rosales Adams MD Work Phone: [facility] 10-15-2024 11:46-0400 Heart rate 75 /min Dr. Rosales Adams MD Work Phone: 7(009)[phone] [place] [address] 10-15-2024 11:46-0400 Respiratory rate 18 /min Dr. Rosales Adams MD Work Phone: 7(059)[phone] [place] [address] 10-15-2024 11:46-0400 SaO2% (BldA) [Mass fraction] 99 % Dr. Rosales Adams MD Work Phone: 1(087)[phone] [place] [address] 10-15-2024 11:46-0400 Systolic blood pressure 133 mm[Hg] Dr. Rosales Adams MD Work Phone: [facility] 10-15-2024 09:59-0400 Body height 182.[address] Rosales Adams MD Work Phone: [facility] 10-15-2024 09:59-0400 Body mass index (BMI) [Ratio] 28.8 kg/m2 Dr. Rosales Adams MD Work Phone: [facility] 10-15-2024 09:59-0400 Body weight 96.[address] Rosales Adams MD Work Phone: [facility] 10-01-2024 13:23-0400 Body mass index (BMI) [Ratio] 28.82 kg/m2 Luciana Gonsales PROCUREMENT AGENT.PIPE ORGAN MECHANIC Work Phone: [facility] 10-01-2024 13:23-0400 Body temperature 97.3 [degF] Luciana Gonsales PROCUREMENT AGENT.PIPE ORGAN MECHANIC Work Phone: [facility] 10-01-2024 13:23-0400 Body weight 96.4 kg Luciana Gonsales PROCUREMENT AGENT.PIPE ORGAN MECHANIC Work Phone: [facility] 10-01-2024 13:23-0400 Diastolic blood pressure 92 mm[Hg] Luciana Gonsales PROCUREMENT AGENT.PIPE ORGAN MECHANIC Work Phone: [facility] 10-01-2024 13:23-0400 Heart rate 98 /min Luciana Gonsales PROCUREMENT AGENT.PIPE ORGAN MECHANIC Work Phone: [facility] 10-01-2024 13:23-0400 Respiratory rate 18 /min Luciana Gonsales PROCUREMENT AGENT.PIPE ORGAN MECHANIC Work Phone: [facility] 10-01-2024 13:23-0400 SaO2% (BldA) [Mass fraction] 97 % Luciana Gonsales PROCUREMENT AGENT.PIPE ORGAN MECHANIC Work Phone: [facility] 10-01-2024 13:23-0400 Systolic blood pressure 152 mm[Hg] Luciana Gonsales PROCUREMENT AGENT.PIPE ORGAN MECHANIC Work Phone: [facility] 07-07-2024 13:31-0400 Body mass index (BMI) [Ratio] 29.3 kg/m2 Nathaly Chapin-Oral PROCUREMENT AGENT.PIPE ORGAN MECHANIC Work Phone: [facility] 07-07-2024 13:31-0400 Body temperature 97 [degF] Nathaly Simmonsisler-Wood PROCUREMENT AGENT.PIPE ORGAN MECHANIC Work Phone: [facility] 07-07-2024 13:31-0400 Body weight 98 kg Nathaly Sam PROCUREMENT AGENT.PIPE ORGAN MECHANIC Work Phone: [facility] 07-07-2024 13:31-0400 Diastolic blood pressure 111 mm[Hg] Nathaly Praisler-Oral PROCUREMENT AGENT.PIPE ORGAN MECHANIC Work Phone: [facility] Comment on above: BP checked x 2, states he has anxiety an d is in pain 07-07-2024 13:31-0400 Heart rate 95 /min Nathaly Chapin-Oral PROCUREMENT AGENT.PIPE ORGAN MECHANIC Work Phone: [facility] 07-07-2024 13:31-0400 Respiratory rate 20 /min Nathaly Chapin-Oral PROCUREMENT AGENT.PIPE ORGAN MECHANIC Work Phone: [facility] 07-07-2024 13:31-0400 SaO2% (BldA) [Mass fraction] 99 % Nathaly Chapin-Oral PROCUREMENT AGENT.PIPE ORGAN MECHANIC Work Phone: [facility] 07-07-2024 13:31-0400 Systolic blood pressure 169 mm[Hg] Nathaly Praisler-Oral PROCUREMENT AGENT.PIPE ORGAN MECHANIC Work Phone: [facility] Comment on above: BP checked x 2, states he has anxiety an d is in pain 03-12-2024 11:02-0500 Body mass index (BMI) [Ratio] 29.21 kg/m2 Ольга Pedersen PROCUREMENT AGENT.PIPE ORGAN MECHANIC Work Phone: [facility] 03-12-2024 11:02-0500 Body temperature 97.59 [degF] лОьга Pedersen APRN.PIPE ORGAN MECHANIC Work Phone: [facility] 03-12-2024 11:02-0500 Body weight 97.7 kg Ольга Pedersen PROCUREMENT AGENT.PIPE ORGAN MECHANIC Work Phone: [facility] 03-12-2024 11:02-0500 Diastolic blood pressure 84 mm[Hg] Ольга Pedersen PROCUREMENT AGENT.PIPE ORGAN MECHANIC Work Phone: [facility] 03-12-2024 11:02-0500 Heart rate 80 /min Ольга Pedersen PROCUREMENT AGENT.PIPE ORGAN MECHANIC Work Phone: [facility] 03-12-2024 11:02-0500 Respiratory rate 16 /min Ольга Pedersen PROCUREMENT AGENT.PIPE ORGAN MECHANIC Work Phone: [facility] 03-12-2024 11:02-0500 SaO2% (BldA) [Mass fraction] 97 % Ольга Pedersen PROCUREMENT AGENT.PIPE ORGAN MECHANIC Work Phone: [facility] 03-12-2024 11:02-0500 Systolic blood pressure 138 mm[Hg] Ольга Pedersen PROCUREMENT AGENT.PIPE ORGAN MECHANIC Work Phone: [facility] 02-19-2024 15:58-0500 Diastolic blood pressure 102 mm[Hg] Sydney Driscoll PROCUREMENT AGENT.NEURO OPHTHALMOLOGIST Work Phone: [facility] Comment on above: bp average 02-19-2024 15:58-0500 Heart rate 80 /min Sydney Driscoll PROCUREMENT AGENT.NEURO OPHTHALMOLOGIST Work Phone: [facility] 02-19-2024 15:58-0500 Systolic blood pressure 165 mm[Hg] Sydney Driscoll PROCUREMENT AGENT.NEURO OPHTHALMOLOGIST Work Phone: [facility] Comment on above: bp average 02-19-2024 15:51-0500 Body mass index (BMI) [Ratio] 29.9 kg/m2 Sydney Driscoll PROCUREMENT AGENT.NEURO OPHTHALMOLOGIST Work Phone: [facility] 02-19-2024 15:51-0500 Body weight 100 kg Sydney Driscoll PROCUREMENT AGENT.NEURO OPHTHALMOLOGIST Work Phone: [facility] 02-19-2024 15:51-0500 Respiratory rate 16 /min Sydney Driscoll PROCUREMENT AGENT.NEURO OPHTHALMOLOGIST Work Phone: [facility] 02-08-2024 13:03-0500 Body mass index (BMI) [Ratio] 29.54 kg/m2 Krislyn Aberegg PA Work Phone: [facility] 02-08-2024 13:03-0500 Body temperature 96.91 [degF] Krislyn Aberegg PA Work Phone: [facility] 02-08-2024 13:03-0500 Body weight 98.8 kg Krislyn Aberegg PA Work Phone: [facility] 02-08-2024 13:03-0500 Diastolic blood pressure 101 mm[Hg] Krislyn Aberegg PA Work Phone: [facility] 02-08-2024 13:03-0500 Heart rate 85 /min Krislyn Aberegg PA Work Phone: [facility] 02-08-2024 13:03-0500 Respiratory rate 16 /min Krislyn Aberegg PA Work Phone: [facility] 02-08-2024 13:03-0500 SaO2% (BldA) [Mass fraction] 99 % Krislyn Aberegg PA Work Phone: [facility] 02-08-2024 13:03-0500 Systolic blood pressure 165 mm[Hg] Krislyn Aberegg PA Work Phone: [facility] 12-09-2023 10:40-0400 Body mass index (BMI) [Ratio] 28.37 kg/m2 Goldie Mp PROCUREMENT AGENT.PIPE ORGAN MECHANIC Work Phone: [facility] 12-09-2023 10:40-0400 Body temperature 97.9 [degF] Goldie Mp PROCUREMENT AGENT.PIPE ORGAN MECHANIC Work Phone: [facility] 12-09-2023 10:40-0400 Body weight 94.9 kg Goldie Mp PROCUREMENT AGENT.PIPE ORGAN MECHANIC Work Phone: [facility] 12-09-2023 10:40-0400 Diastolic blood pressure 96 mm[Hg] Goldie Mp PROCUREMENT AGENT.PIPE ORGAN MECHANIC Work Phone: [facility] 12-09-2023 10:40-0400 Heart rate 88 /min Goldie Mp PROCUREMENT AGENT.PIPE ORGAN MECHANIC Work Phone: [facility] 12-09-2023 10:40-0400 Respiratory rate 16 /min Goldie Mp PROCUREMENT AGENT.PIPE ORGAN MECHANIC Work Phone: [facility] 12-09-2023 10:40-0400 SaO2% (BldA) [Mass fraction] 97 % Goldie Mp PROCUREMENT AGENT.PIPE ORGAN MECHANIC Work Phone: [facility] 12-09-2023 10:40-0400 Systolic blood pressure 142 mm[Hg] Goldie Mp PROCUREMENT AGENT.PIPE ORGAN MECHANIC Work Phone: [facility] 09-05-2023 09:19-0400 Body height 182.9 cm Alice Bogner PA-C Work Phone: [facility] 09-05-2023 09:19-0400 Body mass index (BMI) [Ratio] 27.4 kg/m2 Alice Bogner PA-C Work Phone: [facility] 09-05-2023 09:19-0400 Body weight 91.63 kg Alice Bogner PA-C Work Phone: [facility] 09-05-2023 09:19-0400 Diastolic blood pressure 90 mm[Hg] Alice Bogner PA-C Work Phone: [facility] 09-05-2023 09:19-0400 Heart rate 89 /min Alice Bogner PA-C Work Phone: [facility] 09-05-2023 09:19-0400 Respiratory rate 12 /min Alice Bogner PA-C Work Phone: [facility] 09-05-2023 09:19-0400 SaO2% (BldA) [Mass fraction] 96 % Alice Bogner PA-C Work Phone: [facility] 09-05-2023 09:19-0400 Systolic blood pressure 148 mm[Hg] Alice Sunshine PA-C Work Phone: [facility] 08-28-2023 11:03-0400 Body mass index (BMI) [Ratio] 27.55 kg/m2 [facility] [address] Gil PROCUREMENT AGENT.PIPE ORGAN MECHANIC Work Phone: [facility] 08-28-2023 11:03-0400 Body [facility] 92.13 [facility].PIPE ORGAN MECHANIC Work Phone: [facility] 08-28-2023 11:03-0400 Diastolic blood pressure 78 mm[Hg] [facility] [address] Gil PROCUREMENT AGENT.PIPE ORGAN MECHANIC Work Phone: [facility] 08-28-2023 11:03-0400 Heart rate 91 /min [facility] PROCURE[facility] AGENT.PIPE ORGAN MECHANIC Work Phone: [facility] 08-28-2023 11:03-0400 SaO2% (BldA) [Mass fraction] 96 % [facility] PROCUREMENT AGENT.PIPE ORGAN MECHANIC Work Phone: [facility] 08-28-2023 11:03-0400 Systolic blood pressure 138 mm[Hg] [facility] [address] Gil PROCUREMENT AGENT.PIPE ORGAN MECHANIC Work Phone: [facility] 06-14-2023 17:39-0400 Body weight 92.08 kg Caitlin Older PROCUREMENT AGENT.PIPE ORGAN MECHANIC Work Phone: [facility] 06-14-2023 17:39-0400 Diastolic blood pressure 90 mm[Hg] Caitlin Older PROCUREMENT AGENT.PIPE ORGAN MECHANIC Work Phone: [facility] 06-14-2023 17:39-0400 Heart rate 102 /min Caitlin Older PROCUREMENT AGENT.PIPE ORGAN MECHANIC Work Phone: [facility] 06-14-2023 17:39-0400 Respiratory rate 16 /min Caitlin Older PROCUREMENT AGENT.PIPE ORGAN MECHANIC Work Phone: [facility] 06-14-2023 17:39-0400 SaO2% (BldA) [Mass fraction] 99 % Caitlin Older PROCUREMENT AGENT.PIPE ORGAN MECHANIC Work Phone: [facility] 06-14-2023 17:39-0400 Systolic blood pressure 162 mm[Hg] Caitlin Dao BERKOWITZ.PIPE ORGAN MECHANIC Work Phone: [facility] 06-12-2023 11:59-0400 Body temperature 97.39 [degF] Ольга Pedersen APRN.PIPE ORGAN MECHANIC Work Phone: [facility] 06-12-2023 11:59-0400 Body weight 90.8 kg Ольга Pedersen APRN.PIPE ORGAN MECHANIC Work Phone: [facility] 06-12-2023 11:59-0400 Diastolic blood pressure 82 mm[Hg] Ольга Pedersen APRN.PIPE ORGAN MECHANIC Work Phone: [facility] 06-12-2023 11:59-0400 Heart rate 77 /min Ольга Pedersen APRN.PIPE ORGAN MECHANIC Work Phone: [facility] 06-12-2023 11:59-0400 Respiratory rate 16 /min Ольга Pedersen APRN.PIPE ORGAN MECHANIC Work Phone: [facility] 06-12-2023 11:59-0400 SaO2% (BldA) [Mass fraction] 100 % Ольга Pedersen APRN.PIPE ORGAN MECHANIC Work Phone: [facility] 06-12-2023 11:59-0400 Systolic blood pressure 142 mm[Hg] Ольга Pedersen APRN.PIPE ORGAN MECHANIC Work Phone: [facility] 06-07-2023 07:18-0400 Body height 182.9 cm Alexandra Denbow PA-C Work Phone: [facility] 06-07-2023 07:18-0400 Body weight 88.91 kg Alexandra Denbow PA-C Work Phone: [facility] 06-07-2023 07:18-0400 Diastolic blood pressure 80 mm[Hg] Alexandra Denbow PA-C Work Phone: [facility] 06-07-2023 07:18-0400 Heart rate 99 /min Alexandra Denbow PA-C Work Phone: [facility] 06-07-2023 07:18-0400 Respiratory rate 12 /min Alexandra Denbow PA-C Work Phone: [facility] 06-07-2023 07:18-0400 SaO2% (BldA) [Mass fraction] 99 % Alexandra Denbow PA-C Work Phone: [facility] 06-07-2023 07:18-0400 Systolic blood pressure 144 mm[Hg] Alexandra Denbow PA-C Work Phone: [facility] 02-07-2023 11:31-0500 Diastolic blood pressure 111 mm[Hg] [facility] 02-07-2023 11:31-0500 Heart rate 79 /min [facility] 02-07-2023 11:31-0500 Respiratory rate 18 /min [facility] 02-07-2023 11:31-0500 SaO2% (BldA) [Mass fraction] 98 % [facility] 02-07-2023 11:31-0500 Systolic blood pressure 169 mm[Hg] [facility] 02-07-2023 10:41-0500 Body height 182.88 cm [facility] 02-07-2023 10:41-0500 Body mass index (BMI) [Ratio] 26.9 kg/m2 [facility] 02-07-2023 10:41-0500 Body temperature 97.6 [degF] [facility] 02-07-2023 10:41-0500 Body weight 90.12 kg [facility] 01-17-2023 08:15-0400 Body height 182.9 cm Alexandra Denbow PA-C Work Phone: [facility] 01-17-2023 08:15-0400 Body temperature 97.7 [degF] Alexandra Denbow PA-C Work Phone: [facility] 01-17-2023 08:15-0400 Body weight 89.81 kg Alexandra Denbow PA-C Work Phone: [facility] 01-17-2023 08:15-0400 Diastolic blood pressure 80 mm[Hg] Alexandra Denbow PA-C Work Phone: [facility] 01-17-2023 08:15-0400 Heart rate 88 /min Alexandra Denbow PA-C Work Phone: [facility] 01-17-2023 08:15-0400 Respiratory rate 12 /min Alexandra Denbow PA-C Work Phone: [facility] 01-17-2023 08:15-0400 SaO2% (BldA) [Mass fraction] 98 % Alexandra Denbow PA-C Work Phone: [facility] 01-17-2023 08:15-0400 Systolic blood pressure 136 mm[Hg] Alexandra Denbow PA-C Work Phone: [facility] 12-13-2022 13:22-0400 Body temperature 96.91 [degF] Luciana Gonsales PROCUREMENT AGENT.PIPE ORGAN MECHANIC Work Phone: [facility] 12-13-2022 13:22-0400 Body weight 88.91 kg Luciana Gonsales PROCUREMENT AGENT.PIPE ORGAN MECHANIC Work Phone: [facility] 12-13-2022 13:22-0400 Diastolic blood pressure 96 mm[Hg] Luciana Gonsales PROCUREMENT AGENT.PIPE ORGAN MECHANIC Work Phone: [facility] 12-13-2022 13:22-0400 Heart rate 82 /min Luciana Gonsales PROCUREMENT AGENT.PIPE ORGAN MECHANIC Work Phone: [facility] 12-13-2022 13:22-0400 Respiratory rate 16 /min Luciana Gonsales PROCUREMENT AGENT.PIPE ORGAN MECHANIC Work Phone: [facility] 12-13-2022 13:22-0400 SaO2% (BldA) [Mass fraction] 98 % Luciana Gonsales PROCUREMENT AGENT.PIPE ORGAN MECHANIC Work Phone: [facility] 12-13-2022 13:22-0400 Systolic blood pressure 174 mm[Hg] Luciana Gonsales PROCUREMENT AGENT.PIPE ORGAN MECHANIC Work Phone: [facility] 12-01-2022 09:22-0400 Body height 182.88 cm [facility] 12-01-2022 09:22-0400 Body mass index (BMI) [Ratio] 26.4 kg/m2 [facility] 12-01-2022 09:22-0400 Body temperature 97.6 [degF] [facility] 12-01-2022 09:22-0400 Body weight 88.45 kg [facility] 12-01-2022 09:22-0400 Diastolic blood pressure 78 mm[Hg] [facility] 12-01-2022 09:22-0400 Heart rate 76 /min [facility] 12-01-2022 09:22-0400 Respiratory rate 14 /min [facility] 12-01-2022 09:22-0400 SaO2% (BldA) [Mass fraction] 98 % [facility] 12-01-2022 09:22-0400 Systolic blood pressure 134 mm[Hg] [facility] 10-10-2022 13:21-0400 Diastolic blood pressure 85 mm[Hg] Alice Bogner PA-C Work Phone: [facility] 10-10-2022 13:21-0400 Systolic blood pressure 132 mm[Hg] Alice Bogner PA-C Work Phone: [facility] 10-10-2022 12:58-0400 Body weight 87.54 kg Alice Bogner PA-C Work Phone: [facility] 10-10-2022 12:58-0400 Heart rate 80 /min Alice Bogner PA-C Work Phone: [facility] 10-10-2022 12:58-0400 Respiratory rate 16 /min Alice Bogner PA-C Work Phone: [facility] 05-16-2022 11:58-0500 Diastolic blood pressure 70 mm[Hg] Rosales Adams MD Work Phone: [facility] 05-16-2022 11:58-0500 Systolic blood pressure 120 mm[Hg] Rosales Adams MD Work Phone: [facility] 05-16-2022 10:59-0500 Body height 182.9 cm Rosales Adams MD Work Phone: [facility] 05-16-2022 10:59-0500 Body temperature 98.49 [degF] Rosales Adams MD Work Phone: [facility] 05-16-2022 10:59-0500 Body weight 92.08 kg Rosales Adams MD Work Phone: [facility] 05-16-2022 10:59-0500 Heart rate 123 /min Rosales Adams MD Work Phone: [facility] 05-16-2022 10:59-0500 Respiratory rate 12 /min Rosales Adams MD Work Phone: [facility] 05-16-2022 10:59-0500 SaO2% (BldA) [Mass fraction] 98 % Rosales Adams MD Work Phone: [facility] 12-10-2021 11:21-0400 Body height 182.9 cm Rosales Adams MD Work Phone: [facility] 12-10-2021 11:21-0400 Body temperature 99 [degF] Rosales Adams MD Work Phone: [facility] 12-10-2021 11:21-0400 Body weight 86.18 kg Rosales Adams MD Work Phone: [facility] 12-10-2021 11:21-0400 Diastolic blood pressure 72 mm[Hg] Rosales Adams MD Work Phone: [facility] 12-10-2021 11:21-0400 Heart rate 95 /min Rosales Adams MD Work Phone: [facility] 12-10-2021 11:21-0400 Respiratory rate 12 /min Rosales Adams MD Work Phone: [facility] 12-10-2021 11:21-0400 SaO2% (BldA) [Mass fraction] 97 % Rosales Adams MD Work Phone: [facility] 12-10-2021 11:21-0400 Systolic blood pressure 124 mm[Hg] Rosales Adams MD Work Phone: [facility] 12-07-2021 15:53-0400 Body temperature 98.6 [degF] [facility] 12-07-2021 15:53-0400 Body weight 88.6 kg [facility] 12-07-2021 15:53-0400 Diastolic blood pressure 74 mm[Hg] [facility] 12-07-2021 15:53-0400 Heart rate 90 /min [facility] 12-07-2021 15:53-0400 Respiratory rate 16 /min [facility] 12-07-2021 15:53-0400 Systolic blood pressure 132 mm[Hg] [facility] 08-03-2021 14:18-0400 Body height 185.42 cm [facility] Work Phone: 08-03-2021 14:18-0400 Body mass index (BMI) [Ratio] 25.7 kg/m2 [facility] Work Phone: 08-03-2021 14:18-0400 Body temperature 97.1 [degF] [facility] Work Phone: 08-03-2021 14:18-0400 Body weight 88.45 kg [facility] Work Phone: 08-03-2021 14:18-0400 Diastolic blood pressure 113 mm[Hg] [facility] Work Phone: 08-03-2021 14:18-0400 Heart rate 103 /min [facility] Work Phone: 08-03-2021 14:18-0400 Respiratory rate 18 /min [facility] Work Phone: 08-03-2021 14:18-0400 SaO2% (BldA) [Mass fraction] 97 % [facility] Work Phone: 08-03-2021 14:18-0400 Systolic blood pressure 152 mm[Hg] [facility] Work Phone: 04-19-2021 09:22-0500 Body mass index (BMI) [Ratio] 26.7 kg/m2 [facility] Work Phone: 04-19-2021 09:22-0500 Body temperature 97.4 [degF] [facility] Work Phone: 04-19-2021 09:22-0500 Body weight 89.35 kg [facility] Work Phone: 04-19-2021 09:22-0500 Diastolic blood pressure 105 mm[Hg] [facility] Work Phone: 04-19-2021 09:22-0500 Heart rate 112 /min [facility] Work Phone: 04-19-2021 09:22-0500 Respiratory rate 16 /min [facility] Work Phone: 04-19-2021 09:22-0500 SaO2% (BldA) [Mass fraction] 100 % [facility] Work Phone: 04-19-2021 09:22-0500 Systolic blood pressure 155 mm[Hg] [facility] Work Phone: Encounters Encounter Date Encounter Type Care Provider Facility Start: 01-17-2025 End: 01-17-2025 ambulatory CAROLE ANTONIO Facility:[facility] [place] Start: 01-09-2025 End: 01-09-2025 ambulatory SHANTI SAHNI Facility:[facility] [place] Start: 12-02-2024 End: 12-02-2024 Refyumiko Adams MD Work Phone: [facility] [place] Comment on above: Refill Request Start: 11-12-2024 End: 11-12-2024 Periodic preventive med est patient 40-64yrs Rosales Adams MD Work Phone: [facility] [place] Comment on above: Annual physical exam (Primary Dx); Tobacco abuse; Hypertriglyceridemia; Mood disorder; Screening for depression; Primary hypertension; Colon cancer screening; Encounter for immunization Start: 11-12-2024 End: 11-12-2024 [facility] Facility:[facility] [place] Start: 11-12-2024 End: 11-12-2024 Patient encounter procedure Rosales Adams MD Work Phone: [facility] Start: 11-04-2024 End: 11-04-2024 [facility] Facility:[facility] [place] Start: 10-17-2024 End: 10-17-2024 [facility] Shanti Sahni APRN.PIPE ORGAN MECHANIC Work Phone: Psychiatry Comment on above: Panic disorder with agoraphobia (Primary Dx); Encounter for long-term (current) use of medications; Mood disorder; Psychosocial stressors; Nicotine use; Difficulty sleeping Start: 10-17-2024 End: 10-17-2024 [facility] [place] Start: 10-15-2024 End: 10-15-2024 Emergency department patient visit Dr. Rosales Adams MD Work Phone: -Emergency Department Work Phone: Start: 10-01-2024 End: 10-03-2024 Patient encounter procedure Luciana Gonsales APRN.PIPE ORGAN MECHANIC Work Phone: [facility] [place] Comment on above: Exposure to strep th roat (Primary Dx); Nausea vomiting and diarrhea; Viral illness Refill Request Start: 10-01-2024 End: 10-01-2024 [facility] Facility:[facility] [place] Start: 09-17-2024 End: 09-18-2024 Refill Shanti Sahni APRN.CNP Work Phone: Psychiatry Comment on above: Refill Request Start: 09-13-2024 End: 09-24-2024 Refill Shanti Sahni APRN.PIPE ORGAN MECHANIC Work Phone: Psychiatry Comment on above: Refill Request Start: 09-02-2024 End: 09-02-2024 Refill Shanti Sahni APRN.PIPE ORGAN MECHANIC Work Phone: Psychiatry Comment on above: Refill Request Start: 07-29-2024 End: 08-05-2024 Refill Rosales Adams MD Work Phone: [facility] [place] Comment on above: Refill Request Start: 07-15-2024 End: 07-15-2024 Patient encounter procedure Shanti Sahni APRN.PIPE ORGAN MECHANIC Work Phone: Psychiatry Comment on above: APPOINTMENT CANCELLE D (Primary Dx) Start: 07-15-2024 End: 07-15-2024 Telemedicine consultation with patient Shanti Sahni APRN.PIPE ORGAN MECHANIC Work Phone: Psychiatry Start: 07-07-2024 End: 07-07-2024 ambulatory ROSALES ADAMS Facility:[facility] [place] Start: 07-07-2024 End: 07-07-2024 Patient encounter procedure Nathaly Sam APRN.PIPE ORGAN MECHANIC Work Phone: [facility] Comment on above: Pain due to dental c suha (Primary Dx); Hypertension, poor control Start: 06-25-2024 End: 07-26-2024 Admission to same day surgery center Rosales Adams MD Work Phone: Ambulatory Surgery Comment on above: Outpatient [place] py (Patient is overdue for colorectal cancer screening (never done). Please schedule open access colonoscopy. /) Start: 06-25-2024 End: 07-26-2024 ambulatory Rosales Adams MD Work Phone: Ambulatory Surgery Start: 06-13-2024 End: 06-13-2024 ambulatory SHANTI SAHNI Facility:[facility] [place] Start: 05-27-2024 End: 05-27-2024 [facility] Shanti Sahni APRN.PIPE ORGAN MECHANIC Work Phone: Psychiatry Comment on above: Encounter for long-t erm (current) use of medications (Primary Dx); Panic disorder with agoraphobia; Mood disorder (HCC); Nicotine use; Difficulty sleeping; Psychosocial stressors Start: 05-27-2024 End: 05-27-2024 ambulatory [facility] Facility:[facility] [place] Start: 04-30-2024 End: 04-30-2024 Refill Ana Maria Cordero APRN.PIPE ORGAN MECHANIC Work Phone: [facility] [place] Comment on above: Refill Request Start: 03-21-2024 End: 03-21-2024 Emergency department patient visit [facility] Facility:[facility] Start: 03-12-2024 End: 03-12-2024 ambulatory [facility] Facility:[facility] [place] Start: 03-12-2024 End: 03-12-2024 Patient encounter procedure Ольга Pedersen APRN.PIPE ORGAN MECHANIC Work Phone: [facility] Comment on above: Hordeolum externum o f right upper eyelid (Primary Dx); Skin infection Start: 02-26-2024 End: 02-26-2024 ambulatory [facility] Facility:[facility] [place] Start: 02-26-2024 End: 02-26-2024 [facility] WOO.PIPE ORGAN MECHANIC Work Phone: Psychiatry Comment on above: Panic disorder with agoraphobia (Primary Dx); Mood disorder (HCC); Nicotine use; Difficulty sleeping; Encounter for long-term (current) use of medications Start: 02-19-2024 End: 02-19-2024 Office outpatient visit 25 minutes Sydney Driscoll PROCUREMENT AGENT.NEURO OPHTHALMOLOGIST Work Phone: Internal Medicine [place] Comment on above: Primary hypertension Start: 02-19-2024 End: 02-19-2024 ambulatory [facility] Facility:[facility] [place] Start: 02-16-2024 End: 02-19-2024 Patient encounter status Rosales Adams MD Work Phone: [facility] Start: 02-16-2024 End: 02-19-2024 Refill Rosales Adams MD Work Phone: [facility] [place] Comment on above: Refill Request; Futu re Appointment Start: 02-08-2024 End: 02-08-2024 Patient encounter procedure Sangeetha BENNETT Work Phone: [facility] Comment on above: URI, acute (Primary Dx); Primary hypertension Start: 02-08-2024 End: 02-08-2024 ambulatory ROSALES ADAMS Facility:[facility] [place] Start: 01-31-2024 End: 01-31-2024 Refill Rosales Adams MD Work Phone: [facility] [place] Comment on above: Refill Request Start: 12-09-2023 End: 12-09-2023 Patient encounter procedure Goldie Gresham PROCUREMENT AGENT.PIPE ORGAN MECHANIC Work Phone: [facility] Comment on above: Pain, dental (Primar y Dx) Start: 11-24-2023 End: 11-24-2023 [facility] Shanti Sahni APRN.PIPE ORGAN MECHANIC Work Phone: Psychiatry Comment on above: Panic disorder with agoraphobia (Primary Dx); Mood disorder (HCC); Nicotine use Start: 11-01-2023 Refill Shanti allred PROCUREMENT AGENT.PIPE ORGAN MECHANIC Work Phone: Psychiatry Comment on above: Refill Request Start: 10-26-2023 End: 10-26-2023 ambulatory Shanti Sahni PROCUREMENT AGENT.PIPE ORGAN MECHANIC Work Phone: Psychiatry Comment on above: NO SHOW (Primary Dx) Start: 10-26-2023 End: 10-26-2023 Telemedicine consultation with patient Shanti Sahni APRN.PIPE ORGAN MECHANIC Work Phone: Psychiatry Start: 10-17-2023 Refill Shanti allred PROCUREMENT AGENT.PIPE ORGAN MECHANIC Work Phone: Psychiatry Comment on above: Refill Request Start: 09-29-2023 End: 09-29-2023 ambulatory Shanti Sahni PROCUREMENT AGENT.PIPE ORGAN MECHANIC Work Phone: Psychiatry Comment on above: NO SHOW (Primary Dx) Start: 09-29-2023 End: 09-29-2023 Telemedicine consultation with patient Shanti Alanisguru BERKOWITZ.PIPE ORGAN MECHANIC Work Phone: Psychiatry Start: 09-05-2023 End: 09-05-2023 Office outpatient visit 15 minutes Alice Sunshine PA-C Work Phone: [facility] [place] Comment on above: Laceration of right lower extremity, subsequent encounter (Primary Dx); Visit for suture removal Start: 08-28-2023 End: 08-28-2023 Patient encounter procedure Ana Maria Cordero PROCUREMENT AGENT.PIPE ORGAN MECHANIC Work Phone: [facility] [place] Comment on above: Pain and swelling of right knee (Primary Dx); Knee laceration, right, subsequent encounter Start: 08-04-2023 End: 08-04-2023 [facility] Shanti Gooden Zekepashaotoniel BERKOWITZ.PIPE ORGAN MECHANIC Work Phone: Psychiatry Comment on above: Panic disorder with agoraphobia (Primary Dx); Mood disorder (HCC) Start: 07-18-2023 Refill Rosales Duron Work Phone: [facility] [place] Comment on above: Refill Request Start: 07-07-2023 End: 07-07-2023 [facility] Shanti Gooden Emily BERKOWITZ.[facility] Work Phone: Psychiatry Comment on above: Panic disorder with agoraphobia (Primary Dx); Mood disorder (HCC) Start: 06-15-[address] [facility] Work Phone: Psychology Comment on above: consult Start: 06-14-2023 End: 06-14-2023 Patient encounter procedure Caitlin Craig PROCUREMENT AGENT.PIPE ORGAN MECHANIC Work Phone: [facility] [place] Comment on above: Anxiety and depressi on (Primary Dx); Unspecified mood (affective) disorder (HCC); Panic attack Start: 06-12-2023 End: 06-12-2023 Patient encounter procedure Ольга Pedersen APRN.PIPE ORGAN MECHANIC Work Phone: [facility] Comment on above: Pain, dental (Primar y Dx) Start: 06-07-2023 End: 06-07-2023 Patient encounter procedure Alexandra Shields PA-C Work Phone: [facility] [place] Comment on above: Unspecified mood (af fective) disorder (HCC) (Primary Dx); Anxiety and depression; Panic attack Start: 04-25-2023 ambulatory Rosales Duron Work Phone: Internal Medicine [facility] Start: 02-20-2023 Telephone encounter Teena Royal ( Coord) Radiology Comment on above: Appointment Start: 02-14-2023 Telephone encounter Mariely miles PA-C Work Phone: Orthopaedics Comment on above: Patient Update Start: 02-13-2023 Telephone encounter Mariely BENNETT-Vesta Work Phone: Orthopaedics Comment on above: Orders Start: 02-07-2023 End: 02-07-2023 [facility] Start: 01-17-2023 End: 01-17-2023 Subsequent hospital visit by physician Xr [facility] Work Phone: Radiology Comment on above: Left elbow pain [M25 .522] Start: 01-17-2023 End: 01-17-2023 Patient encounter procedure Alexandra Shields PA-C Work Phone: [facility] [place] Comment on above: Left elbow pain (Alice julio Dx); Left forearm pain; Primary hypertension Start: 12-22-2022 Refill Rosales Duron Work Phone: [facility] [place] Comment on above: Refill Request Start: 12-13-2022 End: 12-13-2022 Patient encounter procedure Luciana Gonsales APRN.PIPE ORGAN MECHANIC Work Phone: [facility] Comment on above: Diarrhea, unspecifie d type (Primary Dx); Viral illness Start: 12-01-2022 End: 12-01-2022 [facility] Start: 10-10-2022 End: 10-10-2022 Office outpatient visit 25 minutes Alice Sunshine PA-C Work Phone: [facility] [place] Comment on above: Primary hypertension (Primary Dx); Rash Start: 05-31-2022 End: 05-31-2022 ambulatory Luciana Benton PT [place] [facility] Physical Therapy Comment on above: Osteoarthritis of sp ine with radiculopathy, cervical region (Primary Dx); Arm weakness; Pain of right upper extremity Start: 05-24-2022 ambulatory Rosales Duron Work Phone: Internal [facility] Start: 05-24-2022 Telephone encounter Rosales bazzi MD Work Phone: [facility] [place] Comment on above: Forms/letter (Employ ment Accommodations ) Start: 05-18-2022 Telephone encounter Rosales bazzi MD Work Phone: [facility] [place] Comment on above: Consult (Pain Mngt-W CH) Medication Request Start: 05-16-2022 End: 05-16-2022 Patient encounter procedure Rosales Adams MD Work Phone: [facility] [place] Comment on above: Osteoarthritis of sp ine with radiculopathy, cervical region (Primary Dx); Arm weakness; Pain of right upper extremity Start: 05-09-2022 End: 05-09-2022 Subsequent hospital visit by physician Dalia [facility] [place] Work Phone: Radiology Comment on above: Acute pain of right shoulder [M25.511] Start: 02-22-2022 ambulatory Rosales Duron Work Phone: [facility] Start: 01-04-2022 Refill Caitlin Craig APRN, .CNP Work Phone: [facility] [place] Comment on above: Refill Request Start: 12-10-2021 End: 12-10-2021 Patient encounter procedure Rosales Adams MD Work Phone: [facility] [place] Comment on above: Gout, unspecified ca use, unspecified chronicity, unspecified site (Primary Dx); Special screening examination for viral disease; Screening for HIV (human immunodeficiency virus); Acute gout, unspecified cause, unspecified site Start: 12-07-2021 End: 12-07-2021 Emergency department patient visit ANIYAH HALL DO Facility:[facility] Start: 12-07-2021 End: 12-07-2021 Emergency department patient visit ANIYAH HALL DO [facility] Start: 08-03-2021 End: 08-03-2021 Emergency department patient visit [facility] Start: 07-05-2021 Refill Rosales Duorn Work Phone: [facility] [place] Comment on above: Refill Request Start: 04-19-2021 End: 04-19-2021 Emergency department patient visit [facility] Procedures Date Procedure Procedure Detail Performing Clinician Start: 11-12-2024 Adult depression scr eening assessment Rosales Adams MD Work Phone: Start: 11-04-2024 Lipid 1996 panel - S bria or Plasma Rosales Adams MD Work Phone: Start: 10-15-2024 Plain x-ray of wrist Dr Kelsy Adams MD Work Phone: Start: 10-15-[address] Rosales Adams MD Work Phone: Start: 10-01-2024 Iadna streptococcus group a amplified probe tq Luciana Gonsales PROCUREMENT AGENT.PIPE ORGAN MECHANIC Work Phone: Start: 02-26-2024 Follow-up visit Follow Up SHANTI SAHNI Start: 01-17-2023 Radex elbow complete minimum 3 views Alexandra Shields PA-C Work Phone: Start: 12-01-2022 Diagnostic radiograp hy of finger Start: 05-09-2022 Radex spine cervical 4 or 5 views Rosales Adams MD Work Phone: Start: 08-03-2021 Plain x-ray of hand Start: 01-13-2021 Lipid 1996 panel - S bria or Plasma Luciana Gonsales PROCUREMENT AGENT.PIPE ORGAN MECHANIC Work Phone: Start: 10-04-2018 Adult depression scr eening assessment Rosales Adams MD Work Phone: CT guided cervical e pidural injection ANIYAH HALL DO Comment on above: x 3 Plan of Treatment Date Care Activity Detail Author Start: 08-24-2033 Urine microalbumin profile DTaP,Tdap,Td Vaccine (3 - Td or Tdap) [facility] Start: 12-01-2032 Urine microalbumin profile DTaP,Tdap,Td Vaccine (2 - Td or Tdap) [facility] Start: 11-04-2029 Lipid panel Lipid Screening [facility] Start: 11-05-2027 Diabetes Screening Diabetes Screening [facility] Start: 06-14-2027 Diabetes Screening Diabetes Screening [facility] Start: 06-12-2026 Diabetes Screening Diabetes Screening [facility] Start: 01-13-2026 Lipid 1996 panel - Serum or Plasma Lipid Screening [facility] Start: 01-13-2026 Lipid panel Lipid Screening [facility] Start: 01-13-2026 LIPID SCREEN LIPID SCREEN [facility] Start: 11-12-2025 Annual PCP Team Chronic Disease Visit Annual PCP Team Chronic Disease Visit [facility] Start: 11-12-2025 Depression Screening Depression Screening [facility] Start: 02-18-2025 Annual PCP Team Chronic Disease Visit Annual PCP Team Chronic Disease Visit [facility] Start: 02-12-2025 End: 05-14-2025 Lipid 1996 panel - Serum or Plasma LIPID PANEL, FASTING Lab Routine Annual physical exam Hypertriglyceridemia Expected: 02/12/2025, Expires: 05/14/2025 [facility] Work Phone: Comment on above: Expected: 02/12/2025, Expires: Start: 02-12-2025 End: 02-12-2025 Patient encounter procedure 02/12/2025 8:00 AM EST Office Visit [facility] [place] [address] [place], [place] [id number] Caitlin Craig APRN.PRABHA [address] [facility] [place] [id number] 3 month follow up [facility] [place] Comment on above: 3 month follow up Start: 01-09-2025 End: 01-09-2025 ambulatory 01/09/2025 8:00 AM EDT [facility] [address] [place] [phone] Shanti Sahni, PROCUREMENT AGENT.PIPE ORGAN MECHANIC [address] [place] [phone] Psychiatry Start: 12-17-2024 End: 12-17-2024 Patient encounter procedure 12/17/2024 8:15 AM EDT Appointment Ambulatory Surgery [address] [place] [id number] Chelo Loja MD [address] [facility] [facility] [phone] x: Colon cancer screening [Z12.11] Ambulatory Surgery Comment on above: x: Colon cancer screening [Z12.11] Start: 11-25-2024 Influenza vaccination [facility] Start: 10-17-2024 End: 10-17-2024 Follow-up encounter 10/17/2024 8:30 AM EDT [facility] [address] [facility] [phone] Shanti Sahni, PROCUREMENT AGENT.PIPE ORGAN MECHANIC [address] [place] [phone] follow up Psychiatry Comment on above: follow up Start: 10-15-2024 [facility] Start: 09-04-2024 Annual PCP Team Chronic Disease Visit Annual PCP Team Chronic Disease Visit [facility] Start: 08-27-2024 Annual PCP Team Chronic Disease Visit Annual PCP Team Chronic Disease Visit [facility] Start: 08-13-2024 End: 08-13-2024 Patient encounter procedure 08/13/2024 1:00 PM EDT Office Visit [facility] [place] [address] [place] [id number] Rosales Adams MD [address] [facility] [place], [place] [id number] Blood pressure [facility] [place] Comment on above: Blood pressure Start: 07-15-2024 End: 07-15-2024 ambulatory 07/15/2024 3:00 PM EDT [facility] Psych[facility] [address] [place] [phone] Shanti Sahni, PROCUREMENT AGENT.PIPE ORGAN MECHANIC [address] [place] [phone] Psychiatry Start: 06-24-2024 End: 06-24-2024 Patient encounter procedure 06/24/2024 8:00 AM EDT Office Visit [facility] [place] [address] [facility], [place] [phone] Rosales Adams MD [address] [place], [place] [phone] 3 mon f/u BP and yearly physical [facility] [place] Comment on above: 3 mon f/u BP and yearly physical Start: 06-21-2024 End: 06-21-2024 Patient encounter procedure [facility] [place] Comment on above: 3 mon f/u BP and yearly physical 3 mon f/u BP and yea rly physical / 1st attempt to r/s. Provider is out. Start: 06-18-2024 End: 09-17-2024 CBC W Auto Differential panel - Blood COMPLETE BLOOD COUNT AND DIFFERENTIAL Lab Routine Primary hypertension Expected: 06/18/2024, Expires: 09/17/2024 [facility] Comment on above: Expected: 06/18/2024, Expires: Start: 06-18-2024 End: 09-17-2024 Comprehensive metabolic 2000 panel - Serum or Plasma COMPREHENSIVE METABOLIC PANEL Lab Routine Primary hypertension Lipid screening Expected: 06/18/2024, Expires: 09/17/2024 [facility] Comment on above: Expected: 06/18/2024, Expires: Start: 06-18-2024 End: 09-17-2024 Lipid 1996 panel - Serum or Plasma LIPID PANEL BASIC Lab Routine Primary hypertension Lipid screening Expected: 06/18/2024, Expires: 09/17/2024 [facility] Work Phone: Comment on above: Expected: 06/18/2024, Expires: Start: 06-13-2024 Annual PCP Team Chronic Disease Visit Annual PCP Team Chronic Disease Visit [facility] Start: 06-06-2024 Annual PCP Team Chronic Disease Visit Annual PCP Team Chronic Disease Visit [facility] Start: 05-27-2024 End: 05-27-2024 Follow-up encounter 05/27/2024 1:30 PM EST [facility] [address] [place] [phone] Shanti Sahni, PROCUREMENT AGENT.PIPE ORGAN MECHANIC [address] [place] [phone] 3 month follow up Psychiatry Comment on above: 3 month follow up Start: 04-07-2024 Annual PCP Team Chronic Disease Visit Annual PCP Team Chronic Disease Visit [facility] Start: 02-26-2024 End: 02-26-2024 Follow-up encounter Psychiatry Comment on above: 3 month follow up Start: 01-18-2024 Annual PCP Team Chronic Disease Visit Annual PCP Team Chronic Disease Visit [facility] Start: 12-01-2023 End: 12-01-2023 Follow-up encounter 12/01/2023 2:30 PM EDT [facility] Psychiatry [address] [place] [phone] Shanti Sahni, PROCUREMENT AGENT.PIPE ORGAN MECHANIC [address] [place] [phone] 2 MONTH FOLLOW UP Psychiatry Comment on above: 2 MONTH FOLLOW UP Start: 11-26-2023 Covid-19 Vaccine ( season) Covid-19 Vaccine ( season) [facility] Start: 11-26-2023 Covid-19 Vaccine ( season) Covid-19 Vaccine ( season) [facility] Start: 11-26-2023 Influenza vaccination [facility] Start: 11-24-2023 End: 11-24-2023 Follow-up encounter 11/24/2023 9:30 AM EDT [facility] Psychiatry [address] [place] [phone] Shanti Sahni, PROCUREMENT AGENT.PIPE ORGAN MECHANIC [address] [place] [phone] 2 MONTH FOLLOW UP Psychiatry Comment on above: 2 MONTH FOLLOW UP Start: 10-26-2023 End: 10-26-2023 Follow-up encounter 10/26/2023 8:30 AM EDT [facility] Psych[facility] [address] [place] [phone] Shanti Sahni, PROCUREMENT AGENT.PIPE ORGAN MECHANIC [address] [place] [phone] 2 MONTH FOLLOW UP Psychiatry Comment on above: 2 MONTH FOLLOW UP Start: 10-11-2023 ANNUAL PCP TEAM CHRONIC DISEASE VISIT ANNUAL PCP TEAM CHRONIC DISEASE VISIT [facility] Start: 09-29-2023 End: 09-29-2023 Follow-up encounter 09/29/2023 9:00 AM EDT [facility] Psychiatry [address] [place] [phone] Shanti Sahni, PROCUREMENT AGENT.PIPE ORGAN MECHANIC [address] [place] [phone] 2 MONTH FOLLOW UP Psychiatry Comment on above: 2 MONTH FOLLOW UP Start: 09-08-2023 Screening for malignant neoplasm of colon [facility] Start: 08-04-2023 End: 08-04-2023 Follow-up encounter 08/04/2023 10:30 AM EDT [facility] Psychiatry [address] [place] [phone] Shanti Sahni, PROCUREMENT AGENT.PIPE ORGAN MECHANIC [address] [place] [phone] 4 WEEK FOLLOW UP Psychiatry Comment on above: 4 WEEK FOLLOW UP Start: 07-26-2023 End: 07-26-2023 Patient encounter procedure 07/26/2023 8:20 AM EDT Office Visit [facility] [place] [address] [place] [address] Caitlin Craig APRN.PIPE ORGAN MECHANIC [address] [place] [address] panic attacks and ambilify per MyChart request [facility] [place] Comment on above: panic attacks and ambilify per MyChart r equest Start: 06-07-2023 End: 09-06-2023 CBC W Auto Differential panel - Blood CBC + DIFF Lab Routine Anxiety and depression Panic attack Expected: 06/07/2023, Expires: 09/06/2023 [facility] Work Phone: Comment on above: Expected: 06/07/2023, Expires: 4 Start: 06-07-2023 End: 09-06-2023 Comprehensive metabolic 2000 panel - Serum or Plasma COMP METABOLIC PANEL Lab Routine Anxiety and depression Panic attack Expected: 06/07/2023, Expires: 09/06/2023 [facility] Work Phone: Comment on above: Expected: 06/07/2023, Expires: 4 Start: 06-07-2023 End: 09-06-2023 Hemoglobin A1c in Blood HGB A1C Lab Routine Anxiety and depression Panic attack Expected: 06/07/2023, Expires: 09/06/2023 [facility] Work Phone: Comment on above: Expected: 06/07/2023, Expires: 4 Start: 06-07-2023 End: 09-06-2023 Thyrotropin [Units/volume] in Serum or Plasma TSH BLD Lab Routine Anxiety and depression Panic attack Expected: 06/07/2023, Expires: 09/06/2023 [facility] Work Phone: Comment on above: Expected: 06/07/2023, Expires: 4 Start: 05-16-2023 ANNUAL PCP TEAM CHRONIC DISEASE VISIT ANNUAL PCP TEAM CHRONIC DISEASE VISIT [facility] Start: 05-16-2023 BP CONTROLLED (<130/80) BP CONTROLLED (<130/80) [facility] Start: 04-25-2023 End: 07-25-2023 Basic metabolic 2000 panel - Serum or Plasma BASIC METABOLIC PNL Lab Routine Hypertension Expected: 04/25/2023, Expires: 07/25/2023 [facility] Work Phone: Comment on above: Expected: 04/25/2023, Expires: 4 Start: 03-27-2023 Depression Assessment Depression Assessment [facility] Start: 02-07-2023 [facility] Start: 12-22-2022 End: 02-21-2023 CBC panel - Blood by Automated count CBC Lab Routine Primary hypertension Expected: 12/22/2022, Expires: 02/21/2023 [facility] Work Phone: Comment on above: Expected: 12/22/2022, Expires: 3 Start: 12-22-2022 End: 02-21-2023 Comprehensive metabolic 2000 panel - Serum or Plasma COMP METABOLIC PANEL Lab Routine Primary hypertension Lipid screening Expected: 12/22/2022, Expires: 02/21/2023 [facility] Work Phone: Comment on above: Expected: 12/22/2022, Expires: 3 Start: 12-22-2022 End: 02-21-2023 Lipid 1996 panel - Serum or Plasma LIPID PANEL BASIC Lab Routine Lipid screening Expected: 12/22/2022, Expires: 02/21/2023 [facility] Work Phone: Comment on above: Expected: 12/22/2022, Expires: 3 Start: 12-13-2022 End: 12-27-2022 COVID & INFLUENZA A/B & RSV NAAT, ROUTINE [facility] Work Phone: Comment on above: Expected: 12/13/2022, Expires: 3 Start: 12-10-2022 ANNUAL PCP TEAM CHRONIC DISEASE VISIT ANNUAL PCP TEAM CHRONIC DISEASE VISIT [facility] Start: 12-10-2022 BP CONTROLLED (<130/80) BP CONTROLLED (<130/80) [facility] in Start: 12-01-2022 Simple repair scalp/neck/ax/genit/irina nk 2.5cm/< RPR S/N/AX/GEN/TRNK 2.5CM/< [facility] Start: 11-25-2022 Covid-19 Vaccine ( season) Covid-19 Vaccine ( season) [facility] Start: 11-25-2022 Influenza vaccination [facility] Start: 10-10-2022 End: 12-10-2022 Comprehensive metabolic 2000 panel - Serum or Plasma COMP METABOLIC PANEL Lab Routine Primary hypertension Expected: 10/10/2022, Expires: 12/10/2022 [facility] Work Phone: Comment on above: Expected: 10/10/2022, Expires: 3 Start: 10-10-2022 End: 12-10-2022 Lipid 1996 panel - Serum or Plasma LIPID PANEL BASIC Lab Routine Primary hypertension Expected: 10/10/2022, Expires: 12/10/2022 [facility] Work Phone: Comment on above: Expected: 10/10/2022, Expires: 3 Start: 10-10-2022 End: 12-10-2022 Thyrotropin [Units/volume] in Serum or Plasma TSH BLD Lab Routine Primary hypertension Expected: 10/10/2022, Expires: 12/10/2022 [facility] Work Phone: Comment on above: Expected: 10/10/2022, Expires: Start: 09-23-2022 Influenza vaccination INFLUENZA (#1) [facility] Comment on above: Postponed from 11/25/2021 (Declined at t his time) Start: 05-24-2022 End: 07-24-2022 Basic metabolic 2000 panel - Serum or Plasma BASIC METABOLIC PNL Lab Routine Hypertension Expected: 05/24/2022, Expires: 07/24/2022 [facility] Work Phone: Comment on above: Expected: 05/24/2022, Expires: 3 Start: 05-24-2022 End: 07-24-2022 SCHEDULE LAB TESTING SCHEDULE LAB TESTING Lab Routine Expected: 05/24/2022, Expires: 07/24/2022 [facility] Work Phone: Comment on above: Expected: 05/24/2022, Expires: 3 Start: 04-08-2022 BP CONTROLLED (<130/80) BP CONTROLLED (<130/80) [facility] Start: 03-10-2022 ANNUAL PCP TEAM CHRONIC DISEASE VISIT ANNUAL PCP TEAM CHRONIC DISEASE VISIT [facility] Start: 02-22-2022 End: 04-24-2022 Basic metabolic 2000 panel - Serum or Plasma BASIC METABOLIC PNL Lab Routine Hypertension Expected: 02/22/2022, Expires: 04/24/2022 [facility] Work Phone: Comment on above: Expected: 02/22/2022, Expires: 3 Start: 02-22-2022 End: 04-24-2022 SCHEDULE LAB TESTING SCHEDULE LAB TESTING Lab Routine Expected: 02/22/2022, Expires: 04/24/2022 [facility] Work Phone: Comment on above: Expected: 02/22/2022, Expires: 3 Start: 12-10-2021 End: 02-09-2022 Hepatitis C virus Ab [Presence] in Serum [facility] Work Phone: Comment on above: Expected: 12/10/2021, Expires: 2 Start: 12-10-2021 End: 02-09-2022 HIV 1+2 Ab [Presence] in Serum or Plasma by Immunoassay [facility] Work Phone: Comment on above: Expected: 12/10/2021, Expires: 2 Start: 12-10-2021 End: 02-09-2022 Urate [Mass/volume] in Serum or Plasma [facility] Work Phone: Comment on above: Expected: 12/10/2021, Expires: 2 Start: 11-25-2021 Influenza vaccination [facility] Start: 03-27-2021 DEPRESSION ASSESSMENT DEPRESSION ASSESSMENT [facility] Start: 10-05-2019 Adult depression screening assessment DEPRESSION SCREENING [facility] Start: 1997 Hepatitis B Vaccine (1 of 3 - 19+ 3-dose series) Hepatitis B Vaccine (1 of 3 - 19+ 3-dose series) [facility] Start: 1997 ONE PNEUMOVAX PRIOR TO AGE 65 ONE PNEUMOVAX PRIOR TO AGE 65 [facility] Start: 1997 Pneumococcal vaccination Pneumococcal Vaccine (1 of 2 - PCV) [facility] Start: 1997 Urine microalbumin profile [facility] Start: 1996 BP CONTROLLED (<130/80) BP CONTROLLED (<130/80) [facility] Start: 1996 Depression Screening Depression Screening [facility] Start: 1996 HEPATITIS C SCREENING HEPATITIS C SCREENING [facility] Start: 1996 HIV SCREENING HIV SCREENING [facility] Start: 1984 PNEUMOCOCCAL (1 - PCV) PNEUMOCOCCAL (1 - PCV) [facility] Start: 1984 Pneumococcal vaccination [facility] Start: 09-08-1983 COVID-19 VACCINE (1) COVID-19 VACCINE (1) [facility] Start: 03-09-1979 COVID-19 VACCINE (#1) COVID-19 VACCINE (#1) [facility] Start: 1978 HEPATITIS B (1 of 3 - 3-dose series) HEPATITIS B (1 of 3 - 3-dose series) [facility] Start: 1978 Hepatitis B Vaccine (1 of 3 - 3-dose series) Hepatitis B Vaccine (1 of 3 - 3-dose series) [facility] Clostridioides difficile toxin genes [Presence] in Stool by SHIRA with probe detection C. DIFFICILE PCR Lab Routine Diarrhea, unspecified type Ordered: 12/13/2022 [facility] Work Phone: Comment on above: Ordered: 12/13/2022 COVID & INFLUENZA A/ B & RSV PCR, ROUTINE COVID & INFLUENZA A/B & RSV PCR, ROUTINE Microbiology Routine URI, acute Ordered: 02/08/2024 [facility] Work Phone: Comment on above: Ordered: 02/08/2024 ENTERIC BACTERIAL PA NOEMÍ BY PCR ENTERIC BACTERIAL PANEL BY PCR Lab STAT Diarrhea, unspecified type Ordered: 12/13/2022 [facility] Work Phone: Comment on above: Ordered: 12/13/2022 Ova and parasites identified in Unspecified specimen by Light microscopy OVA + PARA MICROSCOPIC Microbiology STAT Diarrhea, unspecified type Ordered: 12/13/2022 [facility] Work Phone: Comment on above: Ordered: 12/13/2022 Patient Education [facility] Work Phone: Patient referral [facility] Work Phone: PT PLAN OF CARE CERTIFICATION PT PLAN OF CARE CERTIFICATION Procedures Routine Osteoarthritis of spine with radiculopathy, cervical region Arm weakness Pain of right upper extremity Ordered: 05/31/2022 [facility] Comment on above: Ordered: 05/31/2022 ROUTINE FLU A/B + RSV ROUTINE FL U A/B + RSV Lab Routine Diarrhea, unspecified type 12/13/2022 2:09 PM EDT [facility] Work Phone: SARS-CoV-2 (COVID-19 ) RNA [Presence] in Respiratory specimen by SHIRA with probe detection COVID NAAT, UPPER RESPIRATORY, ROUTINE Microbiology Routine Diarrhea, unspecified type 12/13/2022 2:09 PM EDT [facility] Work Phone: End: 11-12-2025 Screening colonoscopy COLONOSCOPY SCREENING Endoscopy Routine Colon cancer screening 1 Occurrences starting 11/12/2024 until 11/12/2025 [facility] Comment on above: 1 Occurrences starting 11/12/2024 until 11/12/2025 End: 02-16-2024 XR ELBOW SPECIAL VIEWS AP/LAT/OTHER LEFT XR ELBOW SPECIAL VIEWS AP/LAT/OTHER LEFT Radiology Routine Left elbow pain Left forearm pain 1 Occurrences starting 01/17/2023 until 02/16/2024 [facility] Work Phone: Comment on above: 1 Occurrences starting 01/17/2023 until 02/16/2024 XR ELBOW SPECIAL VIE WS AP/LAT/OTHER LEFT XR ELBOW SPECIAL VIEWS AP/LAT/OTHER LEFT Radiology Routine Left elbow pain Left forearm pain 01/17/2023 9:35 AM EDT [facility] Work Phone: [facility] Immunizations Immunization Date Immunization Notes Care Provider Noel agarwal 11-12-2024 pneumococcal Conjugate, unspecified formulation Rosales Adams MD Work Phone: [facility] 11-12-2024 pneumococcal conjuga te (PCV20) vaccine, 20 valent (PREVNAR 20) Rosales Adams MD Work Phone: [facility] 08-25-2023 tetanus toxoid, reduced diphtheria toxoid, and acellular pertussis vaccine, adsorbed Ana Maria Cordero PROCUREMENT AGENT.PIPE ORGAN MECHANIC Work Phone: [facility] 12-01-2022 tetanus toxoid, reduced diphtheria toxoid, and acellular pertussis vaccine, adsorbed [facility] 03-22-2018 influenza virus vaccine, unspecified formulation Luciana Gonsales PROCUREMENT AGENT.PIPE ORGAN MECHANIC Work Phone: [facility] Payers Date Payer Category Payer Self-pay [id number] 2021 Unknown [id number] 2017 Medicaid [facility] MEDICAID [id number] 2017-Present [phone] [address] [place] [address] Medicaid [id number] 2017 Medicaid [id number] 1978 Unknown [id number] Unknown SELF PAY INSURANCE [id number] 00 [id number] Unknown [id number] Unknown [id number] Social History Date Type Detail Facility Start: 11-08-2011 End: 12-09-2023 Tobacco smoking status NHIS Smokes tobacco daily [facility] History of tobacco use Cigarette Smoker C [facility] Start: 11-08-2011 End: 11-21-2022 Cigarettes smoked current (pack per day) - Reported 1 [facility] Start: 11-08-2011 End: 12-10-2021 Tobacco use and exposure Smokeless tobacco non-user [facility] Start: 04-08-2021 End: 11-12-2024 Alcohol intake Current drinker of alcohol (finding) [facility] Start: 11-08-2011 History SDOH Alcohol Comment rare [facility] Start: 03-10-2021 End: 12-10-2021 Tobacco Comment 1/2 pack daily [facility] Start: 1980 Sex Assigned At Not on file C [facility] Start: 08-03-2021 End: 02-07-2023 Tobacco smoking status PRIS Unknown if ever smoked [facility] Start: 1980 Sex Assigned At Male W [facility] Sex Assigned At Sex [facility] Start: 11-30-2021 End: 12-10-2021 Exposure to SARS-CoV-2 (event) Not sure [facility] Work Phone: Start: 06-01-2022 End: 11-21-2022 Social connection and isolation panel [facility] Do you belong to any clubs or organizations such as moravian groups, unions, fraternal or athletic groups, or school groups? No [facility] Start: 02-26-2012 How often do you att end meetings of the clubs or organizations you belong to? Patient refused [facility] Are you now , , , , never or living with a partner? Living with partner [facility] How often to you hav e a drink containing alcohol? 2-4 times a month [facility] How many standard dr inks containing alcohol do you have on a typical day? 3 or 4 [facility] How often do you hav e 6 or more drinks on 1 occasion? Never [facility] How hard is it for y ou to pay for the very basics like food, housing, medical care, and heating Not very hard [facility] Do you feel stress - tense, restless, nervous, or anxious, or unable to sleep at night because your mind is troubled all the time - these days [OSQ] Not at all [facility] (I/We) worried wheth er (my/our) food would run out before (I/we) got money to buy more. Never true [facility] Start: 02-13-2023 End: 12-09-2023 Tobacco use and exposure User of smokeless tobacco [facility] How many standard dr inks containing alcohol do you have on a typical day? 5 or 6 [facility] How often do you hav e 6 or more drinks on 1 occasion? Weekly [facility] Do you feel stress - tense, restless, nervous, or anxious, or unable to sleep at night because your mind is troubled all the time - these days [OSQ] To some extent [facility] Functional Status Date Assessment Result Facility 03-17-2014 Are you deaf, or do you have serious difficulty hearing No 03/17/2014 10:02 AM Rufina Padilla LPN No [facility] 03-17-2014 Are you blind, or do you have serious difficulty seeing, even when wearing glasses No 03/17/2014 10:02 AM Rufina Padilla LPN No [facility] 03-17-2014 Do you have serious difficulty walking or climbing stairs No 03/17/2014 10:02 AM Rufina Padilla LPN No [facility] 03-17-2014 Do you have difficul ty dressing or bathing No 03/17/2014 10:02 AM Rufina Padilla LPN No [facility] 03-17-2014 Because of a physica l, mental, or emotional condition, do you have difficulty doing errands alone such as visiting a physician's office or shopping No 03/17/2014 10:02 AM Rufina Padilla LPN No [facility] Mental Status Date Assessment Result Facility 03-17-2014 Because of a physica l, mental, or emotional condition, do you have serious difficulty concentrating, remembering, or making decisions No 03/17/2014 10:02 AM Rufina Padilla, MICAELA No [facility] Clinical Notes 07-05-2021 to 01-17-2025 Telephone Encounter - [place] Sydney Mcclellan - 12/02/2024 10:06 AM EDTTelephone Encounter - [place] PssSydney - 12/02/2024 10:06 AM EDTPatient InstructionsPatient Instructions Note Date & Type Note Facility 01-17-2025 Note SARS-COV-2 (AGENT OF COVID-19) RNA: Not detected INFLUENZA A RNA: Not detected INFLUENZA B RNA: Not detected RESPIRATORY SYNCYTIAL VIRUS (RSV) RNA: Not detected [facility] Comment on above: Performed By: #### [id number] ####[facility] LABCL[facility] [id number] [address] [facility] 01-17-2025 Note HNO ID: [id number] Author: CAROLE ANTONIO APRN.PIPE ORGAN MECHANIC Service: ? Author Type: Nurse Practitioner Type: Progress Notes Filed: 01/17/2025 14:58 Note Text: History has been obtained from the patient SUBJECTIVE: Enrique Dowling is a 44 year old male. Who presents today with cough congestion body aches chills and fever for the last 3 days. He has a temp of 101.7. he has taken nyquil at home. He has not been exposed to anyone who is sick. He would like viral testing today. His Bp is elevated today in triage. 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 He will f/u with his doctor regarding the BP for a recheck. PAST MEDICAL HISTORY Diagnosis Date DDD (degenerative disc disease), cervical Mood disorder 07/07/2023 Unspecified essential hypertension Essential hypertension FAMILY HISTORY Problem Relation Age of Onset Hypertension Mother other (ckd [Other]) Maternal Uncle Ischemic Heart Disease Paternal Grandfather SOCIAL HISTORY[1] ALLERGIES Allergen Reactions Penicillins Hives Current Outpatient Medications Medication Sig Dispense Refill OLANZapine (ZYPREXA) 7.5 mg tablet Take 1 tablet by mouth daily at bedtime. 30 tablet 0 FLUoxetine (PROZAC) 40 mg capsule Take 1 capsule by mouth once daily. Take with 20 mg dose. 90 capsule 0 FLUoxetine (PROZAC) 20 mg capsule Take 1 capsule by mouth once daily. Take with 40 mg dose. 90 capsule 0 lisinopril (ZESTRIL) 40 mg tablet Take 1 tablet by mouth once daily. 90 tablet 1 fenofibrate nanocrystallized (TRICOR) 48 mg tablet Take 1 tablet by mouth once daily. 90 tablet 3 amLODIPine (NORVASC) 10 mg tablet Take 1 tablet by mouth once daily. 90 tablet 3 OLANZapine (ZYPREXA) 10 mg tablet Take 1 tablet by mouth daily at bedtime. Start after completing 30 days of the 7.5 mg dose. 90 tablet 0 peg 3350-Electrolytes (GOLYTELY) 236-22.74-6.74 -5.86 gram suspension Refer to printed prep instructions from your provider. 4000 mL 0 No current facility-administered medications for this visit. OBJECTIVE: BP 149/96 Pulse 77 Temp 36.1 ?C (97 ?F) Resp 20 Wt 98 kg (216 lb 0.8 oz) SpO2 99% BMI 29.30 kg/m? ROS all other systems reviewed and are negative Physical Exam Constitutional: Well developed, well nourished, NAD, AANDO X3 ENT: Head is atraumatic, airway patent, mucosal membranes moist pink Cardiac: Heart tone normal rate and rhythm Respiratory: Respirations even and unlabored, Lung sounds clear + cough with bronchospasms : no CVA tenderness MS: no swelling, or deformity in upper or lower extremities, no midline tenderness in cervical, thoracic or lumbar spine. Neuro: strength sensation and coordination intact. CN II-XII grossly intact, Skin: warm and dry with out rash, lesion or ecchymosis on exposed skin Psych: alert appropriate, speech clear MDM It was a pleasure to take care of Enrique Dowling today. Viral testing has been obtained. This includes Covid, Flu A, Flu B, and RSV. Results will be in My Chart within 24 hours. As I have a low suspicion for a bacterial infection, antibiotics are not indicated at this time. For his cough and bronchospasms I will send in an albuterol inhaler. He has used inhalers in the past and does know how to use one. We have discussed over the counter medications they may use for symptom control. They will also increase their fluids for hydration. The Patient, has verbalized understanding of plan of care and is in agreement. They will follow up with their family physician in one week. Occasionally, viral infections turn into something more serious. For any worsening symptoms or concerns they may go to the ER for further evaluation and treatment. Carole Antonio APRN.PIPE ORGAN MECHANIC History and Record Review Systemic symptoms present included: Differential Diagnoses - Exposure to viral illness is more likely for the following reason(s): suggested by HANDP - Cough with bronchospasms is more likely for the following reason(s): suggested by HANDP - Pneumonia is less likely for the following reason(s): HANDP not suggestive Disposition The patient was discharged. The following prescription medication(s) were considered but ultimately not given after discussion with patient/family: antibiotic Reasons for not prescribing include the following: HANDP/workup not suggestive of bacterial process. Treatment of Cold and Upper Respiratory Infections Vaporizers, cool mist humidifiers, hot showers, and hot fluids help open respiratory and sinus passages Always drink at least 64 oz of water and avoid sugary drinks/caffeinated drinks Get plenty of rest. At least 8 hours for adults and more for children Saline throat rinses and numbing sprays or lozenges (Chloraceptic, Cepacol) help sooth sore throat Decongestants- Can help with nasal and sinus congestion. Generic name: pseudoephedrine (Sudafed). You must ask the pharmacist for this medication. Do not used for long periods of time and caution in people luis (more content not included)... [facility] 01-09-2025 Note HNO ID: [id number] Author: SHANTI SAHNI APRN.PIPE ORGAN MECHANIC Service: ? Author Type: Nurse Practitioner Type: Progress Notes Filed: 01/16/2025 22:24 Note Text: FOLLOW UP - PSYCHIATRIC PROGRESS NOTE Visit Type:Virtual Visit utilizing two-way audio and video for at least a portion of the visit. Consent for virtual visit obtained verbally. Confidentiality limitations with virtual visits reviewed with the patient and guardian, if present, who have accepted the risk verbally prior to proceeding with encounter. I have communicated my name and active licensure. The patient's identity and physical location were verified at the time of this visit. Either the patient or their legal small business representative has been informed of the risks and benefits of -- and alternatives to -- treatment through a remote evaluation and consents to proceed with the evaluation remotely. Recording using [email or web address] software for draft documentation of the visit was discussed with the patient/authorized small business representative; all questions welcomed and answered. Patient/authorized small business representative agreed to proceed CC: Outpatient follow-up and safety monitoring of previously prescribed psychiatric medication, psychotherapy or other treatment HPI: Enrique is a 44-year-old male with anxiety and insomnia presenting for follow-up. Enrique reports feeling that his mental health has been deteriorating over the past 2 months, with increasing anxiety, stress, and racing thoughts. He describes being easily stressed by minor issues, with frequent episodes of racing thoughts about past, present, and future events. He reports missing multiple days of work due to feeling unwell and down in the dumps, and recently experienced a significant panic attack at home a few days after a work-related discussion about his absences. He is currently taking Prozac 60 mg daily (40 mg + 20 mg), but notes that a recent 2-week period where he only had access to the 40 mg dose due to a prescription error did not improve his symptoms after resuming the full dose. He takes Zyprexa 5 mg at bedtime, which sometimes helps him fall and stay asleep, but more than half the time he continues to experience racing thoughts that keep him awake. He reports feeling groggy and fatigued in the mornings, which he attributes to poor sleep rather than medication side effects. He is considering increasing his Zyprexa dose as previously discussed. He continues to smoke but is actively trying to quit, with encouragement from his PCP. He denies marijuana use and reports drinking alcohol only on weekends when he does not have work the next day. He has gained weight, increasing from his usual 198 lbs to over 220 lbs, despite making dietary changes to eat healthier foods and avoid red meat, salt, and butter. He suspects that his weight gain may be related to compensatory eating as he reduces nicotine use. Risks and benefits of the medication, including any black box warnings, were discussed with the patient. Interval Progress: Slightly worse PATIENT DATA: Generalized Anxiety Disorder Scale (JUAN-7) 10/10/2024 11/10/2024 01/09/2025 JUAN - 7 SCORES Score 13 10 10 (0-4) minimal anxiety, (5-9) mild anxiety, (10-14) moderate anxiety, (15-21) severe anxiety Patient Health Questionnaire (PHQ-9) 11/10/2024 11/12/2024 01/09/2025 PHQ-9 Score 8 8 12 (0-4) minimal depression, (5-9) mild depression, (10-14) moderate depression, (15-19) moderately severe depression, (20-27) severe depression PROMIS Global Health 05/27/2024 10/10/2024 11/10/2024 PROMIS Global Health - (T-Scores - the mean of general population = 50. Five points is a clinically meaningful difference.) Physical T-Score 57.7 50.8 50.8 Mental T-Score 43.5 41.1 41.1 PAST MEDICAL HISTORY Diagnosis Date DDD (degenerative disc disease), cervical Mood disorder 07/07/2023 Unspecified essential hypertension Essential hypertension PAST SURGICAL HISTORY Procedure Laterality Date NONE Current Outpatient Medications Medication Sig Dispense Refill OLANZapine (ZYPREXA) 7.5 mg tablet Take 1 tablet by mouth daily at bedtime. 30 tablet 0 OLANZapine (ZYPREXA) 10 mg tablet Take 1 tablet by mouth daily at bedtime. Start after completing 30 days of the 7.5 mg dose. 90 tablet 0 FLUoxetine (PROZAC) 40 mg capsule Take 1 capsule by mouth once daily. Take with 20 mg dose. 90 capsule 0 FLUoxetine (PROZAC) 20 mg capsule Take 1 capsule by mouth once daily. Take with 40 mg dose. 90 capsule 0 lisinopril (ZESTRIL) 40 mg tablet Take 1 tablet by mouth once daily. 90 tablet 1 fenofibrate nanocrystallized (TRICOR) 48 mg tablet Take 1 tablet by mouth once daily. 90 tablet 3 peg 3350-Electrolytes (GOLYTELY) 236-22.74-6.74 -5.86 gram suspension Refer to printed prep instructions from your provider. 4000 mL 0 amLODIPine (NORVASC) 10 mg tablet Take 1 tablet by mouth once daily. 90 tablet 3 No current facility-administered medications for this (more content not included)... [facility] 12-02-2024 Telephone encounter Note Prescription Refill Information The patient has been identified by name and date of : Yes Caregiver verified no other encounters exist for this prescription request: Yes Caregiver confirmed with patient/requestor that no other refills are due, in the near future, with this provider at this time: Yes The last office visit in the department: 11/12/24 Does the patient have a future office visit with this provider/department: Yes Requested Prescriptions Pending Prescriptions Disp Refills lisinopril (ZESTRIL) 40 mg tablet 90 tablet 1 Sig: Take 1 tablet by mouth once daily. Out of medication for 3 days. Please send today. Sydney Mcclellan December 02, 2024 10:06 AM [facility] 12-02-2024 Miscellaneous Notes Prescription Refill Information The patient has been identified by name and date of : Yes Caregiver verified no other encounters exist for this prescription request: Yes Caregiver confirmed with patient/requestor that no other refills are due, in the near future, with this provider at this time: Yes The last office visit in the department: 11/12/24 Does the patient have a future office visit with this provider/department: Yes Requested Prescriptions Pending Prescriptions Disp Refills lisinopril (ZESTRIL) 40 mg tablet 90 tablet 1 Sig: Take 1 tablet by mouth once daily. Out of medication for 3 days. Please send today. Sydney Araujo [facility] December 02, 2024 10:06 AM documented in this encounter [facility] 11-12-2024 Instructions Rosales Adams MD - 11/12/2024 4:18 PM EDT We discussed your high triglycerides: - Your triglycerides are very high at 818. I recommend starting fenofibrate (Tricor) to help lower your triglycerides. Please take this medication at night. This prescription has been sent to your pharmacy. - We will recheck your triglycerides in 3 months to monitor your progress. - Continue your efforts to improve your diet. Avoid fried foods and reduce your intake of carbohydrates such as potatoes, bread, and crackers. We discussed your angular cheilitis (cracks at the corners of your mouth): - Start taking methylated vitamin B12 tablets. These can be purchased over the counter at [employer] or any pharmacy. Look specifically for the methylated form, not just a general B-complex vitamin. We discussed your blood pressure: - Your blood pressure is currently well controlled on Norvasc 10 mg and Lisinopril 40 mg. Please continue taking these medications daily as prescribed. - If you are monitoring your blood pressure at home, I recommend using an upper arm cuff rather than a wrist cuff for more accurate readings. - Aim to keep your blood pressure below 120/80. We discussed your smoking: - I strongly encourage you to quit smoking, as it significantly increases your risk of serious health issues, including stroke, lung cancer, and heart disease. - Consider using tools such as a smoking cessation marley to help reduce and eventually quit smoking. Let me know if you would like additional resources or support. We discussed your preventive care: - You are due for a colonoscopy. I will refer you for this procedure. If your insurance does not cover it, we can discuss alternative options such as a Cologuard stool test. - You received a pneumonia vaccine today to help prevent certain types of pneumonia, especially since you are a smoker. We discussed your oral health: - I noticed a small papilla (approximately 5 mm) on the left side of your mouth near your molars. This may be related to your smoking history. Please have this evaluated by your dentist at your upcoming appointment on the 3rd. Follow-Up: - Take fenofibrate as prescribed and return in 3 months for a follow-up to recheck your triglycerides. - Follow up with your dentist on the 3rd to evaluate the papilla in your mouth. - Let me know if you experience any new or worsening symptoms, such as chest pain, shortness of breath, or changes in your health. documented in this encounter [facility] 11-12-2024 Note HNO ID: [id number] Author: ROSALES ADAMS MD Service: ? Author Type: Physician Type: Progress Notes Filed: 11/13/2024 09:45 Note Text: Reason for Visit Annual physical. HPI Enrique Dowling is a 44-year-old male with a history of hypercholesterolemia, HTN, and mood disorders, presenting for a physical exam and to discuss recent lab results. Enrique reports recent lab results showing elevated cholesterol levels, with a total cholesterol of 230 mg/dL, HDL of 30 mg/dL, LDL of 74 mg/dL, and triglycerides of 818 mg/dL. In response, he has made dietary changes over the past 4-5 days, adopting a near-vegetarian diet and reducing carbohydrate intake. He acknowledges a preference for carbohydrates such as potatoes, bread, and crackers. He denies consuming fried foods recently. He is currently taking Zyprexa and Prozac for mood stabilization and reports a recent rough time due to changes in medication dosage, which he attributes to miscommunication or lack of medication availability. He has been back on a regular medication regimen for the past 3 weeks. He also takes Norvasc 10 mg and lisinopril 40 mg daily for blood pressure management, which he reports is well-controlled. Enrique reports a 1-week history of angular cheilitis and denies taking vitamin B12 supplements. He also reports occasional elevated blood pressure readings at home, with a recent reading of 127/80 mmHg and a diastolic reading of 90 mmHg. He uses a wrist cuff for measurements and questions its accuracy. 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 He occasionally goes hiking and fishing with his family on weekends. He reports poor sleep quality, waking up every 2 hours, and attributes this to recent medication changes. Ernique is a current smoker and expresses difficulty quitting despite reducing his smoking frequency. He has a history of smoking cessation for 2 years but relapsed after consuming alcohol. He denies current alcohol use. He has a family history of lung cancer in his stepfather, who was a lifelong smoker. He recently had all his upper teeth extracted 10 weeks ago and has a dental appointment scheduled for the 3rd. He denies chest pain, dyspnea, diarrhea, or constipation. SOCIAL HISTORY[1] Past medical history, appointments, medications, allergies reviewed. Pertinent Lab/Diagnostic Studies are reviewed and discussed today Current Outpatient Medications: lisinopril (ZESTRIL) 40 mg tablet FLUoxetine (PROZAC) 20 mg capsule FLUoxetine (PROZAC) 40 mg capsule OLANZapine (ZYPREXA) 5 mg tablet amLODIPine (NORVASC) 10 mg tablet fenofibrate nanocrystallized (TRICOR) 48 mg tablet peg 3350-Electrolytes (GOLYTELY) 236-22.74-6.74 -5.86 gram suspension Health Maintenance Hepatitis B Vaccine(1 of 3 - 19+ 3-dose series) Pneumococcal Vaccine(1 of 2 - PCV) Colorectal Cancer Screening@ Review Of Systems Physical Exam BP 137/86 Pulse 96 Resp 16 Ht 182.9 cm (6' 0.01) Wt 101.2 kg (223 lb) BMI 30.24 kg/m? GENERAL: NAD, alert and oriented. SKIN: Unremarkable, no rash or skin lesions. HEAD: Normocephalic. EYES: PERRLA, EOMI, conjunctiva clear. EARS: External ears normal, canals clear, TM's normal. NOSE/SINUSES: Nares normal. Septum midline. OROPHARYNX: Lips, mucosa, and tongue normal, good dentition. No oral lesions noted. Papillary projection noted on the anterior pillar near the molars on the left side. LUNGS: Clear to auscultation bilaterally, no wheezes/rhonchi/rales. HEART: Regular rate and rhythm, no murmurs. No ectopy. EXTREMITIES: Normal, no deformities, no skin discoloration, no edema. NEURO: Awake, alert and oriented x3, cranial nerves II-XII grossly intact, normal gait, no involuntary motions. Assessment and Plan 1. Annual physical exam (Z00.00) Patient presents for annual physical exam. - Discussed health maintenance, including colon cancer screening and immunizations. 2. Tobacco abuse (Z72.0) Chronic tobacco use with history of prior quit attempts; patient expresses difficulty quitting and reluctance to use pharmacotherapy. - Provided education on health risks of continued smoking, including increased risk of stroke and early mortality. - Encouraged use of smoking cessation marley as a non-pharmacologic aid. 3. Hypertriglyceridemia (E78.1) Recent labs show total cholesterol 230 mg/dL, HDL 30 mg/dL, LDL 74 mg/dL, and triglycerides 818 mg/dL; Zyprexa may be contributing to elevated triglycerides. - Start fenofibrate (Tricor) at a low dose, to be taken at night. - Recheck lipid panel in 3 months. - Advised patient to reduce intake of fried foods and carbohydrates. 4. Mood disorder (F39) 5. Screening for depression (Z13.31) Patient is currently taking Zyprexa and Prozac for mood stabilization; recent medication access issues led to a temporary lapse in therapy, now resolved. - Continue c (more content not included)... [facility] 11-12-2024 History of Present illness Narrative Reason for Visit Annual physical. HPI Enrique Dowling is a 44-year-old male with a history of hypercholesterolemia, HTN, and mood disorders, presenting for a physical exam and to discuss recent lab results. Enrique reports recent lab results showing elevated cholesterol levels, with a total cholesterol of 230 mg/dL, HDL of 30 mg/dL, LDL of 74 mg/dL, and triglycerides of 818 mg/dL. In response, he has made dietary changes over the past 4-5 days, adopting a near-vegetarian diet and reducing carbohydrate intake. He acknowledges a preference for carbohydrates such as potatoes, bread, and crackers. He denies consuming fried foods recently. He is currently taking Zyprexa and Prozac for mood stabilization and reports a recent rough time due to changes in medication dosage, which he attributes to miscommunication or lack of medication availability. He has been back on a regular medication regimen for the past 3 weeks. He also takes Norvasc 10 mg and lisinopril 40 mg daily for blood pressure management, which he reports is well-controlled. Enrique reports a 1-week history of angular cheilitis and denies taking vitamin B12 supplements. He also reports occasional elevated blood pressure readings at home, with a recent reading of 127/80 mmHg and a diastolic reading of 90 mmHg. He uses a wrist cuff for measurements and questions its accuracy. 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 He occasionally goes hiking and fishing with his family on weekends. He reports poor sleep quality, waking up every 2 hours, and attributes this to recent medication changes. Enrique is a current smoker and expresses difficulty quitting despite reducing his smoking frequency. He has a history of smoking cessation for 2 years but relapsed after consuming alcohol. He denies current alcohol use. He has a family history of lung cancer in his stepfather, who was a lifelong smoker. He recently had all his upper teeth extracted 10 weeks ago and has a dental appointment scheduled for the 3rd. He denies chest pain, dyspnea, diarrhea, or constipation. SOCIAL HISTORY[1] Past medical history, appointments, medications, allergies reviewed. Pertinent Lab/Diagnostic Studies are reviewed and discussed today Current Outpatient Medications: lisinopril (ZESTRIL) 40 mg tablet FLUoxetine (PROZAC) 20 mg capsule FLUoxetine (PROZAC) 40 mg capsule OLANZapine (ZYPREXA) 5 mg tablet amLODIPine (NORVASC) 10 mg tablet fenofibrate nanocrystallized (TRICOR) 48 mg tablet peg 3350-Electrolytes (GOLYTELY) 236-22.74-6.74 -5.86 gram suspension Health Maintenance Hepatitis B Vaccine(1 of 3 - 19+ 3-dose series) Pneumococcal Vaccine(1 of 2 - PCV) Colorectal Cancer Screening@ Review Of Systems Physical Exam BP 137/86 Pulse 96 Resp 16 Ht 182.9 cm (6' 0.01) Wt 101.2 kg (223 lb) BMI 30.24 kg/m GENERAL: NAD, alert and oriented. SKIN: Unremarkable, no rash or skin lesions. HEAD: Normocephalic. EYES: PERRLA, EOMI, conjunctiva clear. EARS: External ears normal, canals clear, TM's normal. NOSE/SINUSES: Nares normal. Septum midline. OROPHARYNX: Lips, mucosa, and tongue normal, good dentition. No oral lesions noted. Papillary projection noted on the anterior pillar near the molars on the left side. LUNGS: Clear to auscultation bilaterally, no wheezes/rhonchi/rales. HEART: Regular rate and rhythm, no murmurs. No ectopy. EXTREMITIES: Normal, no deformities, no skin discoloration, no edema. NEURO: Awake, alert and oriented x3, cranial nerves II-XII grossly intact, normal gait, no involuntary motions. Assessment and Plan 1. Annual physical exam (Z00.00) Patient presents for annual physical exam. - Discussed health maintenance, including colon cancer screening and immunizations. 2. Tobacco abuse (Z72.0) Chronic tobacco use with history of prior quit attempts; patient expresses difficulty quitting and reluctance to use pharmacotherapy. - Provided education on health risks of continued smoking, including increased risk of stroke and early mortality. - Encouraged use of smoking cessation marley as a non-pharmacologic aid. 3. Hypertriglyceridemia (E78.1) Recent labs show total cholesterol 230 mg/dL, HDL 30 mg/dL, LDL 74 mg/dL, and triglycerides 818 mg/dL; Zyprexa may be contributing to elevated triglycerides. - Start fenofibrate (Tricor) at a low dose, to be taken at night. - Recheck lipid panel in 3 months. - Advised patient to reduce intake of fried foods and carbohydrates. 4. Mood disorder (F39) 5. Screening for depression (Z13.31) Patient is currently taking Zyprexa and Prozac for mood stabilization; recent medication access issues led to a temporary lapse in therapy, now resolved. - Continue current regimen of Zyprexa and Prozac. 6. Primary hypertension (I10) Blood pressure is well controlled on Norvasc 10 mg and lisinopril 40 mg; patient reports occasional elevated readings at home using a wrist cuff. - Continue Norvasc 10 mg and lisinopril 40 mg daily. - Advised patient to monitor blood pressure regularly and ensure accurate technique. 7. Colon cancer screening (Z12.11) Patient is due for colon cancer screening. - Discussed options for colon cancer screening, including Cologuard and colonoscopy. - Patient agreed to proceed with colonoscopy. 8. Encounter for immunization (Z23) Patient is a smoker, increasing his risk for pneumococcal disease. - Recommended pneumococcal vaccination. Voice recognition software was used to compose this office note. Please excuse any unintended typographical errors. Recording using [email or web address] software for draft documentation of the visit was discussed with the patient/authorized small business representative; all questions welcomed and answered. Patient/authorized small business representative agreed to proceed Rosales Adams MD [1] Social History Tobacco Use Smoking status: Every Day Current packs/day: 1.00 Average packs/day: 1 pack/day for 16.0 years (16.0 ttl pk-yrs) Types: Cigarettes Smokeless tobacco: Current Vaping Use Vaping status: Never Used Substance Use Topics Alcohol use: Yes Comment: rare Drug use: Yes Types: Marijuana Comment: couple times per week documented in this encounter [facility] 10-17-2024 Instructions Shanti Sahni, PROCUREMENT AGENT.PIPE ORGAN MECHANIC - 10/17/2024 9:18 AM EDT We discussed your recent panic attacks and anxiety: - You experienced two panic attacks recently, which may be related to interruptions in your medications. You were without Zyprexa for several weeks and have been taking only 40 mg of Prozac instead of your usual 60 mg (40 mg + 20 mg) for the past two weeks. - I have sent 90-day refills for Zyprexa 5 mg, Prozac 40 mg, and Prozac 20 mg to your [facility] pharmacy. Please resume taking these medications as prescribed. - Continue taking Zyprexa 5 mg daily for one more week. If your sleep does not improve, you may increase the dose to 7.5 mg (1.5 tablets) daily. If you increase the dose, try it for one week and send me an update via [address] to let me know how it is working. I will adjust your prescription if needed. - Nicotine use reduces the effectiveness of Zyprexa significantly. Please try to cut back on smoking to improve the medication's efficacy. - Alcohol can disrupt your sleep and increase anxiety the following day. Reducing alcohol intake, especially on weekends, may help improve your symptoms. We discussed your sleep difficulties: - You are having trouble staying asleep and often wake up thinking about unnecessary things. This has been ongoing, even after restarting Zyprexa. - Improving your anxiety and resuming your full medication regimen should help with your sleep. Monitor your sleep over the next 2 weeks and let me know if it does not improve. We discussed your physical health and eating habits: - You mentioned having a variable appetite, sometimes eating very little and other times eating more. - To manage cravings, especially for sweets, try healthier alternatives such as frozen grapes, semi-sweet chocolate in small amounts, or other fruits you enjoy. Avoid processed carbohydrates when possible. - Your A1c was slightly elevated four months ago. While no lab work is currently due, maintaining a balanced diet will help manage your blood sugar levels. We discussed your attention and focus: - Your girlfriend has noticed a decrease in your attention span, which may be related to anxiety and poor sleep. - We will reassess this during your follow-up visit in three months after you have resumed your full medication regimen and improved your sleep. Follow-up plan: - Please send me an update via [address] in two weeks to let me know how you are doing, especially if you increase your Zyprexa dose. - Your next virtual follow-up appointment is scheduled for January 09, at 8:00 AM. For those experiencing a suicidal crisis: --call the National Suicide Prevention Lifeline at 988 (570.462.3622) --text the Crisis Text Line (text HOME to 169612) --call 911 and let them know you are having a mental health crisis or go to your nearest Emergency Room for stabilization. --You can also call Mobile Crisis at [phone]. -- You may call the department appointment line at [phone] to schedule your appointment. -- Please call my nurse at [phone] or send me a message in [address] with any questions or concerns between appointments. documented in this encounter [facility] 10-17-2024 Note HNO ID: [id number] Author: SHANTI SAHNI APRN.CNP Service: ? Author Type: Nurse Practitioner Type: Progress Notes Filed: 10/17/2024 09:18 Note Text: FOLLOW UP - PSYCHIATRIC PROGRESS NOTE Visit Type:Virtual Visit utilizing two-way audio and video for at least a portion of the visit. Consent for virtual visit obtained verbally. Confidentiality limitations with virtual visits reviewed with the patient and guardian, if present, who have accepted the risk verbally prior to proceeding with encounter. I have communicated my name and active licensure. The patient's identity and physical location were verified at the time of this visit. Either the patient or their legal small business representative has been informed of the risks and benefits of -- and alternatives to -- treatment through a remote evaluation and consents to proceed with the evaluation remotely. Recording using ambient AI software for draft documentation of the visit was discussed with the patient/authorized small business representative; all questions welcomed and answered. Patient/authorized small business representative agreed to proceed CC: Outpatient follow-up and safety monitoring of previously prescribed psychiatric medication, psychotherapy or other treatment HPI: Patient is a 44-year-old male with a history of anxiety, mood disorder, and sleep difficulties, presenting for follow-up. Patient reports experiencing two recent panic attacks at work, characterized by intense worry about both work-related and external issues. He attributes these episodes to a disruption in his medication regimen following a pharmacy change. He has been without Zyprexa for several weeks and has only resumed it last week. Additionally, he has been taking only 40 mg of Prozac instead of his usual 60 mg for the past two weeks. He believes the reduction in medication may have contributed to the panic attacks and increased anxiety. He reports difficulty maintaining sleep, waking multiple times during the night and struggling to return to sleep. This issue persists despite resuming Zyprexa. He notes that his mind races with unnecessary things upon waking. These sleep disturbances were present before starting Zyprexa and have continued since resuming the medication. He describes variable appetite, sometimes experiencing difficulty eating and at other times eating excessively. Recently, he has not felt very hungry. He also reports a decreased attention span, as noted by his girlfriend, which maybe attributed to increased anxiety and poor sleep. He continues to smoke cigarettes and has noticed an increase in smoking due to heightened anxiety. He drinks alcohol on weekends and denies any increase in alcohol consumption recently. He acknowledges that alcohol consumption affects his sleep and increases anxiety the following day. He has a history of hypertension and has also experienced interruptions in his antihypertensive medications, amlodipine and lisinopril, due to the pharmacy change. Risks and benefits of the medication, including any black box warnings, were discussed with the patient. Interval Progress: Slightly worse PATIENT DATA: Generalized Anxiety Disorder Scale (JUAN-7) 02/26/2024 05/27/2024 10/10/2024 JUAN - 7 SCORES Score 6 7 13 (0-4) minimal anxiety, (5-9) mild anxiety, (10-14) moderate anxiety, (15-21) severe anxiety Patient Health Questionnaire (PHQ-9) 02/26/2024 05/27/2024 10/10/2024 PHQ-9 Score 9 7 14 (0-4) minimal depression, (5-9) mild depression, (10-14) moderate depression, (15-19) moderately severe depression, (20-27) severe depression PROMIS Global Health 02/26/2024 05/27/2024 10/10/2024 PROMIS Global Health - (T-Scores - the mean of general population = 50. Five points is a clinically meaningful difference.) Physical T-Score 54.1 57.7 50.8 Mental T-Score 48.3 43.5 41.1 PAST MEDICAL HISTORY Diagnosis Date DDD (degenerative disc disease), cervical Mood disorder 07/07/2023 Unspecified essential hypertension Essential hypertension PAST SURGICAL HISTORY Procedure Laterality Date NONE Current Outpatient Medications Medication Sig Dispense Refill FLUoxetine (PROZAC) 20 mg capsule Take 1 capsule by mouth once daily. Take with 40 mg dose. 90 capsule 0 FLUoxetine (PROZAC) 40 mg capsule Take 1 capsule by mouth once daily. Take with 20 mg dose. 90 capsule 0 OLANZapine (ZYPREXA) 5 mg tablet Take 1 tablet by mouth daily at bedtime. 90 tablet 0 amLODIPine (NORVASC) 10 mg tablet Take 1 tablet by mouth once daily. 90 tablet 3 lisinopril (ZESTRIL) 40 mg tablet Take 1 tablet by mouth once daily. 90 tablet 0 No current facility-administered medications for this visit. ROS: See HPI PFSH: See HPI VITAL SIGNS: There were no vitals filed for this visit. MENTAL STATUS EXAM: Mental Status Exam General/Sensorium: Alert Orientation: AAOx3 Appearance: Casually dressed Eye contact: Appropriate Demeanor: Appropriately interactive (more content not included)... [facility] 10-17-2024 History of Present illness Narrative Images from the original note were not included. FOLLOW UP - PSYCHIATRIC PROGRESS NOTE Visit Type:Virtual Visit utilizing two-way audio and video for at least a portion of the visit. Consent for virtual visit obtained verbally. Confidentiality limitations with virtual visits reviewed with the patient and guardian, if present, who have accepted the risk verbally prior to proceeding with encounter. I have communicated my name and active licensure. The patient's identity and physical location were verified at the time of this visit. Either the patient or their legal small business representative has been informed of the risks and benefits of -- and alternatives to -- treatment through a remote evaluation and consents to proceed with the evaluation remotely. Recording using [email or web address] software for draft documentation of the visit was discussed with the patient/authorized small business representative; all questions welcomed and answered. Patient/authorized small business representative agreed to proceed CC: Outpatient follow-up and safety monitoring of previously prescribed psychiatric medication, psychotherapy or other treatment HPI: Patient is a 44-year-old male with a history of anxiety, mood disorder, and sleep difficulties, presenting for follow-up. Patient reports experiencing two recent panic attacks at work, characterized by intense worry about both work-related and external issues. He attributes these episodes to a disruption in his medication regimen following a pharmacy change. He has been without Zyprexa for several weeks and has only resumed it last week. Additionally, he has been taking only 40 mg of Prozac instead of his usual 60 mg for the past two weeks. He believes the reduction in medication may have contributed to the panic attacks and increased anxiety. He reports difficulty maintaining sleep, waking multiple times during the night and struggling to return to sleep. This issue persists despite resuming Zyprexa. He notes that his mind races with unnecessary things upon waking. These sleep disturbances were present before starting Zyprexa and have continued since resuming the medication. He describes variable appetite, sometimes experiencing difficulty eating and at other times eating excessively. Recently, he has not felt very hungry. He also reports a decreased attention span, as noted by his girlfriend, which maybe attributed to increased anxiety and poor sleep. He continues to smoke cigarettes and has noticed an increase in smoking due to heightened anxiety. He drinks alcohol on weekends and denies any increase in alcohol consumption recently. He acknowledges that alcohol consumption affects his sleep and increases anxiety the following day. He has a history of hypertension and has also experienced interruptions in his antihypertensive medications, amlodipine and lisinopril, due to the pharmacy change. Risks and benefits of the medication, including any black box warnings, were discussed with the patient. Interval Progress: Slightly worse PATIENT DATA: Generalized Anxiety Disorder Scale (JUAN-7) 02/26/2024 05/27/2024 10/10/2024 JUAN - 7 SCORES Score 6 7 13 (0-4) minimal anxiety, (5-9) mild anxiety, (10-14) moderate anxiety, (15-21) severe anxiety Patient Health Questionnaire (PHQ-9) 02/26/2024 05/27/2024 10/10/2024 PHQ-9 Score 9 7 14 (0-4) minimal depression, (5-9) mild depression, (10-14) moderate depression, (15-19) moderately severe depression, (20-27) severe depression PROMIS Global Health 02/26/2024 05/27/2024 10/10/2024 PROMIS Global Health - (T-Scores - the mean of general population = 50. Five points is a clinically meaningful difference.) Physical T-Score 54.1 57.7 50.8 Mental T-Score 48.3 43.5 41.1 PAST MEDICAL HISTORY Diagnosis Date DDD (degenerative disc disease), cervical Mood disorder 07/07/2023 Unspecified essential hypertension Essential hypertension PAST SURGICAL HISTORY Procedure Laterality Date NONE Current Outpatient Medications Medication Sig Dispense Refill FLUoxetine (PROZAC) 20 mg capsule Take 1 capsule by mouth once daily. Take with 40 mg dose. 90 capsule 0 FLUoxetine (PROZAC) 40 mg capsule Take 1 capsule by mouth once daily. Take with 20 mg dose. 90 capsule 0 OLANZapine (ZYPREXA) 5 mg tablet Take 1 tablet by mouth daily at bedtime. 90 tablet 0 amLODIPine (NORVASC) 10 mg tablet Take 1 tablet by mouth once daily. 90 tablet 3 lisinopril (ZESTRIL) 40 mg tablet Take 1 tablet by mouth once daily. 90 tablet 0 No current facility-administered medications for this visit. ROS: See HPI PFSH: See HPI VITAL SIGNS: There were no vitals filed for this visit. MENTAL STATUS EXAM: Mental Status Exam General/Sensorium: Alert Orientation: AAOx3 Appearance: Casually dressed Eye contact: Appropriate Demeanor: Appropriately interactive Motor activity: Calm Speech: Appropriate Mood: Anxious Affect: Congruent with mood Thought process: Within normal limits and linear, logical, and goal-directed Associations: Normal Thought content: Discussing stressors and focused on history, symptoms, and management Suicidal ideation: SI: no Plan: no Intent: no none Homicidal ideation: HI: no Plan: no Intent: no none Abnormal/psychotic thoughts: Absent Perceptions: He does not appear internally stimulated. Intelligence: Below average Attention: - Poor per patient Memory: Short-term: Intact Long-term: Intact Language: Intact Fund of knowledge: Appropriate Insight: Fair Judgment: Fair DATA REVIEWED: Labs: - A1c: Slightly elevated compared to previous measurement from one year prior Imaging: Tests: Psychiatric scales, Labs, and Electronic medical record ASSESSMENT & PLAN: 1. 1. Panic disorder with agoraphobia (F40.01) Mood disorder (F39) Recent exacerbation of panic attacks and overthinking, likely due to inconsistent medication adherence. Patient was without Zyprexa for several weeks and has been taking only 40 mg of Prozac instead of the prescribed 60 mg for the past two weeks. - Refill Prozac 40 mg and 20 mg to resume full dosage. - Monitor for improvement in anxiety and panic attacks with resumed medication adherence. - Follow-up in 3 months to reassess symptoms and medication efficacy. 2. Encounter for long-term (current) use of medications (Z79.899) Patient has been inconsistent with medication use due to pharmacy transition issues. - Refill Zyprexa 5 mg for 90 days. - Educated patient on the importance of consistent medication adherence. 3. Psychosocial stressors (Z65.8) Patient reports significant stress related to work and personal life, contributing to anxiety and panic attacks. - Address psychosocial stressors in follow-up visits. 4. Nicotine use (Z72.0) Increased nicotine use recently, which can reduce the efficacy of Zyprexa. - Advised patient to reduce nicotine use to enhance the effectiveness of Zyprexa. 5. Difficulty sleeping (G47.9) Ongoing issues with sleep, primarily difficulty staying asleep, exacerbated by recent medication inconsistencies. - Continue Zyprexa 5 mg for one more week; if sleep does not improve, increase to 7.5 mg (one and a half tablets). - Monitor sleep quality and report back in two weeks. - Scheduled follow-up appointment on January 09 at 8 AM. Patient denies any involuntary movement related side effects. Medical Decision Making: Problems: Moderate: 1+ chronic illnesses with change Risk: Moderate: Moderate risk from testing/treatment and Drug management Medical Decision Making Level: 4 - Moderate ADD ON PSYCHOTHERAPY CODE : No SIGNATURE: Shanti Sahni APRN.CNP PATIENT NAME: Enrique Dowling DATE: October 17, 2024 TIME: 8:33 AM documented in this encounter [facility] 10-15-2024 Discharge summary [facility] 10-15-2024 Radiology Diagnostic study note [facility] [address], [place] [address] Wrist min 3 Views MR#: [id number] Acct: [id number] Name: ENRIQUE DOWLING Rep #: [id number] : 1980 M 44 From: Gladys Adamson MD PCP: Dr. Rosales Adams MD Status: PRE E R Study:Wrist min 3 Views Date of Exam: Exam# [id number] Ordering Dr: Tayler Tavarez MD PROCEDURE: WRIST MIN 3 VIEWS 10/15/2024 REASON FOR EXAM: INJURY/PAIN TECHNIQUE: WRIST MIN 3 VIEWS, left COMPARISON: None. FINDINGS: Bones: No visualized acute fracture. No aggressive osseous lesions. Joints: Normal alignment. Mild degenerative changes. Soft tissues: Soft tissues are unremarkable. RAD/Wrist min 3 Views IMPRESSION: NEGATIVE WRIST Reading Location: [id number] CC: Dr. Rosales Adams MD; Dr. Michael Tavarez MD ~ [facility] Don[facility] Assistant: Signed [facility] 10-03-2024 Telephone encounter Note Rx sent. [facility] 10-03-2024 Miscellaneous Notes Rx sent. Confirmed pharmacy with patient Sent to correct providers Patient is calling to ask that this be expedited. He has been out for days and said [facility] [place] told him we had cancelled the script. [facility] [employer] [facility], so there may have been an issue in their transmission. Routed to pcp Radha Boone LPN Prescription Refill Information The patient has been identified by name and date of : Yes Caregiver verified no other encounters exist for this prescription request: Yes Caregiver confirmed with patient/requestor that no other refills are due, in the near future, with this provider at this time: Yes The last office visit in the department: 02-19-24 Does the patient have a future office visit with this provider/department: No Requested Prescriptions Pending Prescriptions Disp Refills amLODIPine (NORVASC) 10 mg tablet 30 tablet 11 Sig: Take 1 tablet by mouth once daily. Zenobia Mcclellan October 01, 2024 3:37 PM documented in this encounter [facility] 10-02-2024 Telephone encounter Note Confirmed pharmacy with patient Sent to correct providers [facility] 10-02-2024 Telephone encounter Note Patient is calling to ask that this be expedited. He has been out for days and said [facility] [place] told him we had cancelled the script. [facility] [employer] [facility], so there may have been an issue in their transmission. [facility] 10-01-2024 Telephone encounter Note Routed to pcp Radha Boone LPN [facility] 10-01-2024 Telephone encounter Note Prescription Refill Information The patient has been identified by name and date of : Yes Caregiver verified no other encounters exist for this prescription request: Yes Caregiver confirmed with patient/requestor that no other refills are due, in the near future, with this provider at this time: Yes The last office visit in the department: 02-19-24 Does the patient have a future office visit with this provider/department: No Requested Prescriptions Pending Prescriptions Disp Refills amLODIPine (NORVASC) 10 mg tablet 30 tablet 11 Sig: Take 1 tablet by mouth once daily. Zenobia Mcclellan October 01, 2024 3:37 PM [facility] 10-01-2024 Instructions Luciana Gonsales APRN.PIPE ORGAN MECHANIC - 10/01/2024 1:49 PM EDT BRAT DIET (may eat any of the following as tolerated) Bananas Applesauce [place] Saltine Crackers Animal Crackers Pretzels Oatmeal Unsweetened Dry Cereal (Rice Krispies, Cheerios) Plain Baked or Boiled Potato Plain White Rice Plain Noodles All clear liquid listed below CLEAR LIQUID DIET (need to drink 2 ounces total every half hour) Broth Jello Popsicles Pedialyte Gatorade NO Juices NO Milk NO Dairy Products Call if urine output is decreased or he develops dry mucous membranes, or lethargy. documented in this encounter [facility] 10-01-2024 Note HNO ID: [id number] Author: LUCIANA GONSALES APRN.PRABHA Service: ? Author Type: Nurse Practitioner Type: Progress Notes Filed: 10/01/2024 15:16 Note Text: Subjective Patient ID: Enrique is a 44 year old male who presents for Diarrhea (vomiting, cough and fatigue x 3 days). The history is provided by the patient. No russian language professor was used. Patient presents to office from home via personal vehicle vomiting and diarrhea x2days States woke up yesterday with slight nausea and vomiting x4 episodes total: 3 yesterday and x1 Intermittent cough, yaneli sputum Fever 101.7F, took tylenol last night Diarrhea x1d: liquid No appetite, no meal today Missed work today No change in diet, no CP, no SOB, dizziness nor blood in urine nor stool Sick contact: son 7 y/o +strep throat, finished atb PSH: dental work: tooth extraction x9, no complications PCN allergies rash/hives HTN amlodipine and lisinopril Tobacco use, 15 y/o = 29 pack years PAST MEDICAL HISTORY Diagnosis Date DDD (degenerative disc disease), cervical Mood disorder 07/07/2023 Unspecified essential hypertension Essential hypertension PAST SURGICAL HISTORY Procedure Laterality Date NONE ALLERGIES Penicillins MEDICATIONS OLANZapine (ZYPREXA) 5 mg tablet Take 1 tablet by mouth daily at bedtime. FLUoxetine (PROZAC) 40 mg capsule take 1 capsule by mouth once daily TAKE WITH 20MG DOSE. lisinopril (ZESTRIL) 40 mg tablet Take 1 tablet by mouth once daily. FLUoxetine (PROZAC) 20 mg capsule Take 1 capsule by mouth once daily. Take with 40 mg dose. amLODIPine (NORVASC) 10 mg tablet Take 1 tablet by mouth once daily. FAMILY HISTORY Problem Relation Age of Onset Hypertension Mother other (ckd [Other]) Maternal Uncle Ischemic Heart Disease Paternal Grandfather Social History Tobacco Use Smoking status: Every Day Current packs/day: 1.00 Average packs/day: 1 pack/day for 16.0 years (16.0 ttl pk-yrs) Types: Cigarettes Smokeless tobacco: Current Vaping Use Vaping status: Never Used Substance Use Topics Alcohol use: Yes Comment: rare Drug use: Yes Types: Marijuana Comment: couple times per week Objective BP 152/92 Pulse 98 Temp 36.3 ?C (97.3 ?F) Resp 18 Wt 96.4 kg (212 lb 8.4 oz) SpO2 97% BMI 28.82 kg/m? Physical Exam Vitals and nursing note reviewed. Constitutional: Appearance: Normal appearance. HENT: Head: Normocephalic. Right Ear: Hearing and tympanic membrane normal. Left Ear: Hearing and tympanic membrane normal. Nose: Nose normal. No congestion or rhinorrhea. Right Turbinates: Not pale. Left Turbinates: Not pale. Right Sinus: No maxillary sinus tenderness or frontal sinus tenderness. Left Sinus: No maxillary sinus tenderness or frontal sinus tenderness. Mouth/Throat: Lips: [place]. Mouth: Mucous membranes are moist. Pharynx: Oropharynx is clear. Tonsils: 1+ on the right. 1+ on the left. Comments: Missing teeth upper teeth Eyes: General: Lids are normal. Extraocular Movements: Extraocular movements intact. Pupils: Pupils are equal, round, and reactive to light. Cardiovascular: Rate and Rhythm: Normal rate. Pulses: Normal pulses. Radial pulses are 2+ on the right side and 2+ on the left side. Pulmonary: Effort: Pulmonary effort is normal. Breath sounds: Normal breath sounds. Abdominal: General: Bowel sounds are normal. Palpations: Abdomen is soft. Tenderness: There is no abdominal tenderness. Musculoskeletal: General: Normal range of motion. Cervical back: Normal range of motion. Right lower leg: No edema. Left lower leg: No edema. Lymphadenopathy: Cervical: Cervical adenopathy present. Skin: General: Skin is warm and dry. Capillary Refill: Capillary refill takes less than 2 seconds. Neurological: General: No focal deficit present. Mental Status: He is alert and oriented to person, place, and time. GCS: GCS eye subscore is 4. GCS verbal subscore is 5. GCS motor subscore is 6. Sensory: Sensation is intact. Motor: Motor function is intact. Coordination: Coordination is intact. Gait: Gait is intact. Psychiatric: Attention and Perception: Attention normal. Mood and Affect: Mood normal. Behavior: Behavior normal. Behavior is cooperative. Thought Content: Thought content normal. Judgment: Judgment normal. Assessment AND Plan ASSESSMENT/PLAN: 1. Exposure to strep throat - ICD9: V01.89, ICD10: Z20.818 (primary diagnosis) - STREP A MOLECULAR (POC) Rapid strep negative in office today. - Make sure you and your son replace old toothbrush with a new one - Do not share bathing items or eating utensils 2. Nausea vomiting and diarrhea - ICD9: 787.91, 787.01, ICD10: R11.2, R19.7 - Begin zofran 4mg ODT Q6h for nausea and vomiting prevention - Consume a BRAT and clear liquid diet until symptoms improve 3. Viral illness - ICD9: 079.99, ICD10: B34.9 - Discussed viral etiology and rationale for treatment. - Symptomatic (more content not included)... [facility] 10-01-2024 History of Present illness Narrative Subjective Patient ID: Enrique is a 44 year old male who presents for Diarrhea (vomiting, cough and fatigue x 3 days). The history is provided by the patient. No russian language professor was used. Patient presents to office from home via personal vehicle vomiting and diarrhea x2days States woke up yesterday with slight nausea and vomiting x4 episodes total: 3 yesterday and x1 Intermittent cough, yaneli sputum Fever 101.7F, took tylenol last night Diarrhea x1d: liquid No appetite, no meal today Missed work today No change in diet, no CP, no SOB, dizziness nor blood in urine nor stool Sick contact: son 7 y/o +strep throat, finished atb PSH: dental work: tooth extraction x9, no complications PCN allergies rash/hives HTN amlodipine and lisinopril Tobacco use, 15 y/o = 29 pack years PAST MEDICAL HISTORY Diagnosis Date DDD (degenerative disc disease), cervical Mood disorder 07/07/2023 Unspecified essential hypertension Essential hypertension PAST SURGICAL HISTORY Procedure Laterality Date NONE ALLERGIES Penicillins MEDICATIONS OLANZapine (ZYPREXA) 5 mg tablet Take 1 tablet by mouth daily at bedtime. FLUoxetine (PROZAC) 40 mg capsule take 1 capsule by mouth once daily TAKE WITH 20MG DOSE. lisinopril (ZESTRIL) 40 mg tablet Take 1 tablet by mouth once daily. FLUoxetine (PROZAC) 20 mg capsule Take 1 capsule by mouth once daily. Take with 40 mg dose. amLODIPine (NORVASC) 10 mg tablet Take 1 tablet by mouth once daily. FAMILY HISTORY Problem Relation Age of Onset Hypertension Mother other (ckd [Other]) Maternal Uncle Ischemic Heart Disease Paternal Grandfather Social History Tobacco Use Smoking status: Every Day Current packs/day: 1.00 Average packs/day: 1 pack/day for 16.0 years (16.0 ttl pk-yrs) Types: Cigarettes Smokeless tobacco: Current Vaping Use Vaping status: Never Used Substance Use Topics Alcohol use: Yes Comment: rare Drug use: Yes Types: Marijuana Comment: couple times per week Objective BP 152/92 Pulse 98 Temp 36.3 C (97.3 F) Resp 18 Wt 96.4 kg (212 lb 8.4 oz) SpO2 97% BMI 28.82 kg/m Physical Exam Vitals and nursing note reviewed. Constitutional: Appearance: Normal appearance. HENT: Head: Normocephalic. Right Ear: Hearing and tympanic membrane normal. Left Ear: Hearing and tympanic membrane normal. Nose: Nose normal. No congestion or rhinorrhea. Right Turbinates: Not pale. Left Turbinates: Not pale. Right Sinus: No maxillary sinus tenderness or frontal sinus tenderness. Left Sinus: No maxillary sinus tenderness or frontal sinus tenderness. Mouth/Throat: Lips: [place]. Mouth: Mucous membranes are moist. Pharynx: Oropharynx is clear. Tonsils: 1+ on the right. 1+ on the left. Comments: Missing teeth upper teeth Eyes: General: Lids are normal. Extraocular Movements: Extraocular movements intact. Pupils: Pupils are equal, round, and reactive to light. Cardiovascular: Rate and Rhythm: Normal rate. Pulses: Normal pulses. Radial pulses are 2+ on the right side and 2+ on the left side. Pulmonary: Effort: Pulmonary effort is normal. Breath sounds: Normal breath sounds. Abdominal: General: Bowel sounds are normal. Palpations: Abdomen is soft. Tenderness: There is no abdominal tenderness. Musculoskeletal: General: Normal range of motion. Cervical back: Normal range of motion. Right lower leg: No edema. Left lower leg: No edema. Lymphadenopathy: Cervical: Cervical adenopathy present. Skin: General: Skin is warm and dry. Capillary Refill: Capillary refill takes less than 2 seconds. Neurological: General: No focal deficit present. Mental Status: He is alert and oriented to person, place, and time. GCS: GCS eye subscore is 4. GCS verbal subscore is 5. GCS motor subscore is 6. Sensory: Sensation is intact. Motor: Motor function is intact. Coordination: Coordination is intact. Gait: Gait is intact. Psychiatric: Attention and Perception: Attention normal. Mood and Affect: Mood normal. Behavior: Behavior normal. Behavior is cooperative. Thought Content: Thought content normal. Judgment: Judgment normal. Assessment & Plan ASSESSMENT/PLAN: 1. Exposure to strep throat - ICD9: V01.89, ICD10: Z20.818 (primary diagnosis) - STREP A MOLECULAR (POC) Rapid strep negative in office today. - Make sure you and your son replace old toothbrush with a new one - Do not share bathing items or eating utensils 2. Nausea vomiting and diarrhea - ICD9: 787.91, 787.01, ICD10: R11.2, R19.7 - Begin zofran 4mg ODT Q6h for nausea and vomiting prevention - Consume a BRAT and clear liquid diet until symptoms improve 3. Viral illness - ICD9: 079.99, ICD10: B34.9 - Discussed viral etiology and rationale for treatment. - Symptomatic treatment with prn analgesia: motrin and tylenol for fever reduction and pain - perform good hand hygiene and disinfect frequently touches area - Supportive care with fluids and rest, increase PO fluids - Follow up in one week if symptoms persist or sooner if worsening of symptoms Rochelle Angeles NP student TEACHING PROVIDER (Physician/PA/PROCUREMENT AGENT) NOTE OF PERSONAL INVOLVEMENT IN CARE: I have personally seen and examined the patient and performed the medical decision-making components. I have reviewed the Advanced Practice Registered Nurse (PROCUREMENT AGENT) Student's documentation and verified the findings in the note as written. Any additions or changes are noted in bold/italics. Signature: Luciana Gonsales Date: 10/01/2024 Time: 3:15 PM documented in this encounter [facility] 09-24-2024 Telephone encounter Note Noted follow up appointment scheduled for 10/17 with the provider. Refill for Zyprexa sent to the pharmacy. [facility] 09-24-2024 Miscellaneous Notes Noted follow up appointment scheduled for 10/17 with the provider. Refill for Zyprexa sent to the pharmacy. Please see Refill encounter for 09/17/24. Francia De Santiago LPN Patient needs to have a follow up visit scheduled. Last appt: 05-27-2024 07-15-2024 pt cancelled due to work conflict Next appt: No future appointment scheduled - msg sent on 09-02-2024 to pt to schedule documented in this encounter [facility] 09-18-2024 Telephone encounter Note Refilled olanzapine 5 mg for 30 days while covering for the current provider Next appt scheduled on 10/17/2024 [facility] 09-18-2024 Miscellaneous Notes Refilled olanzapine 5 mg for 30 days while covering for the current provider Next appt scheduled on 10/17/2024 Pt called in asking about his Zyprexa, he states he has been out of it for a week. I gave Pt message from previous nurse. He was asking if he could get it filled until he could see provider. I told Pt I would have to put it through to on-call provider as Shanti Sahni NP is out of the office this week. Pt was put through to scheduling to set up appointment with provider. The patient has been identified by name and date of : Yes Caregiver verified no other encounters exist for this prescription request: Yes Caregiver confirmed with patient/requestor that no other refills are due, in the near future, with this provider at this time: Yes The last office visit in the department: 05/27/24 Does the patient have a future office visit with this provider/department: Yes 10/17/2024 Requested Prescriptions Pending Prescriptions Disp Refills OLANZapine (ZYPREXA) 5 mg tablet 30 tablet 0 Sig: Take 1 tablet by mouth daily at bedtime. Refused Prescriptions Disp Refills OLANZapine (ZYPREXA) 5 mg tablet 90 tablet 0 Sig: Take 1 tablet by mouth daily at bedtime. Refused By: DANE LOPEZ Reason for Refusal: Request already responded to by other means (for example, phone, fax) Carole Lyn RN September 18, 2024 11:00 AM Pt calls in for refill of Zyprexa. Pt reports he has been out of medication for a couple of days and he is feeling anxiety. After hanging up call this nurse saw there was another encounter requesting rx from 09/13. Message shows pt needs a follow up appt scheduled. Last appt: 05/27/24. Tried to call pt back. VMailbox full. Unable to reach pt at this time. See refill encounter for 09/13 also. Francia De Santiago LPN documented in this encounter [facility] 09-18-2024 Telephone encounter Note Pt called in asking about his Zyprexa, he states he has been out of it for a week. I gave Pt message from previous nurse. He was asking if he could get it filled until he could see provider. I told Pt I would have to put it through to on-call provider as Shanti Sahni ROCK LOADER is out of the office this week. Pt was put through to scheduling to set up appointment with provider. The patient has been identified by name and date of : Yes Caregiver verified no other encounters exist for this prescription request: Yes Caregiver confirmed with patient/requestor that no other refills are due, in the near future, with this provider at this time: Yes The last office visit in the department: 05/27/24 Does the patient have a future office visit with this provider/department: Yes 10/17/2024 Requested Prescriptions Pending Prescriptions Disp Refills OLANZapine (ZYPREXA) 5 mg tablet 30 tablet 0 Sig: Take 1 tablet by mouth daily at bedtime. Refused Prescriptions Disp Refills OLANZapine (ZYPREXA) 5 mg tablet 90 tablet 0 Sig: Take 1 tablet by mouth daily at bedtime. Refused By: DANE LOPEZ Reason for Refusal: Request already responded to by other means (for example, phone, fax) Carole Lyn RN September 18, 2024 11:00 AM [facility] 09-17-2024 Telephone encounter Note Please see Refill encounter for 09/17/24. Francia De Santiago LPN [facility] 09-17-2024 Telephone encounter Note Pt calls in for refill of Zyprexa. Pt reports he has been out of medication for a couple of days and he is feeling anxiety. After hanging up call this nurse saw there was another encounter requesting rx from 09/13. Message shows pt needs a follow up appt scheduled. Last appt: 05/27/24. Tried to call pt back. VMailbox full. Unable to reach pt at this time. See refill encounter for 09/13 also. Francia De Santiago LPN [facility] 09-15-2024 Telephone encounter Note Patient needs to have a follow up visit scheduled. [facility] Work Phone: 09-13-2024 Telephone encounter Note Last appt: 05-27-2024 07-15-2024 pt cancelled due to work conflict Next appt: No future appointment scheduled - msg sent on 09-02-2024 to pt to schedule [facility] 09-02-2024 Telephone encounter Note Last: 05/27/24 TREATMENT PLAN: Complete fasting monitoring lab work ordered. Change the time of Prozac 60 mg to the morning to see if it continues to help with anxiety symptoms without causing sleep difficulties and vivid dreams. Continue Zyprexa 5 mg at bedtime to address mood disorder. Follow up in 6 weeks as scheduled. Next: 07/15/24 [facility] 09-02-2024 Miscellaneous Notes Last: 05/27/24 TREATMENT PLAN: Complete fasting monitoring lab work ordered. Change the time of Prozac 60 mg to the morning to see if it continues to help with anxiety symptoms without causing sleep difficulties and vivid dreams. Continue Zyprexa 5 mg at bedtime to address mood disorder. Follow up in 6 weeks as scheduled. Next: 07/15/24 documented in this encounter [facility] 08-05-2024 Telephone encounter Note schoox message sent to patient. [facility] 08-05-2024 Miscellaneous Notes schoox message sent to patient. Please remind patient of needed fasting blood work that is ordered. Thank you Caitlin Craig APRN.CNP Prescription Refill Information The patient has been identified by name and date of : Yes Caregiver verified no other encounters exist for this prescription request: Yes Caregiver confirmed with patient/requestor that no other refills are due, in the near future, with this provider at this time: Yes The last office visit in the department: 02/19/24 Does the patient have a future office visit with this provider/department: No Patient has been advised. Requested Prescriptions Pending Prescriptions Disp Refills lisinopril (ZESTRIL) 40 mg tablet 90 tablet 0 Sig: Take 1 tablet by mouth once daily. Krista Gaines LPN July 29, 2024 12:46 PM documented in this encounter [facility] 07-29-2024 Telephone encounter Note Please remind patient of needed fasting blood work that is ordered. Thank you Caitlin Craig APRN.CNP [facility] 07-29-2024 Telephone encounter Note Prescription Refill Information The patient has been identified by name and date of : Yes Caregiver verified no other encounters exist for this prescription request: Yes Caregiver confirmed with patient/requestor that no other refills are due, in the near future, with this provider at this time: Yes The last office visit in the department: 02/19/24 Does the patient have a future office visit with this provider/department: No Patient has been advised. Requested Prescriptions Pending Prescriptions Disp Refills lisinopril (ZESTRIL) 40 mg tablet 90 tablet 0 Sig: Take 1 tablet by mouth once daily. Krista Gaines LPN July 29, 2024 12:46 PM [facility] 07-24-2024 Note HNO ID: [id number] Author: ?, ?, ? Service: ? Author Type: ? Type: Progress Notes Filed: 07/26/2024 03:10 Note Text: Mailed colonoscopy letter [facility] 07-24-2024 History of Present illness Narrative Mailed colonoscopy letter Called patient again, no answer and mailbox is full. Called patient to reschedule physical, no answer and VM was full. Sent my chart message documented in this encounter [facility] 07-15-2024 Note HNO ID: [id number] Author: SHANTI SAHNI APRN.PIPE ORGAN MECHANIC Service: ? Author Type: Nurse Practitioner Type: Progress Notes Filed: 07/15/2024 16:00 Note Text: Patient called the same day to cancel the visit due to being at work and inability to step away for the appointment today. [facility] 07-15-2024 History of Present illness Narrative Patient called the same day to cancel the visit due to being at work and inability to step away for the appointment today. documented in this encounter [facility] 07-11-2024 Note HNO ID: [id number] Author: ?, ?, ? Service: ? Author Type: ? Type: Progress Notes Filed: 07/26/2024 03:10 Note Text: Called patient again, no answer and mailbox is full. [facility] 07-07-2024 Instructions Nathaly Sam APRN.PIPE ORGAN MECHANIC - 07/07/2024 1:46 PM EDT ASSESSMENT/PLAN: 1. Pain due to dental caries - ICD9: 521.00, ICD10: K02.9 (primary diagnosis) - Clindamycin as prescribed. - follow up with dentist [facility] 2. Hypertension, poor control - ICD9: 401.9, ICD10: I10 - Continue current medications- takes Norvasc and Lisinopril daily. - Recommend home blood pressure monitoring, to bring results to next visit - Follow-up with your PCP in 3 days for blood pressure check - Discussed red flags and need for immediate medical evaluation if any occur. - Discussed supportive care treatment with fluids, rest and analgesia. - Discussed expected course of illness Nathaly Sam APRN.PIPE ORGAN MECHANIC documented in this encounter [facility] 07-07-2024 Note HNO ID: [id number] Author: NATHALY SAM APRN.CNP Service: ? Author Type: Nurse Practitioner Type: Progress Notes Filed: 07/07/2024 13:46 Note Text: [facility] Subjective Enrique Dowling is a 43 year old male. Patient presents with: Mouth/Lip Problem: R side bottom back teeth pain, some facial swelling, x 2 days increasing in pain Mouth/Lip Problem Pertinent negatives include no chills, fever or neck pain. Enrique Dowling is a 43 year old male who presents with right lower jaw and dental pain. He has known dental decay and has been working with his dentist but several teeth need to be extracted. He denies fever, ear pain, or neck pain. He rates his pain 6 or 7/10. He took advil today for pain. Review of Systems Constitutional: Negative for chills and fever. HENT: Negative for ear pain. See HPI Respiratory: Negative. Cardiovascular: Negative. Musculoskeletal: Negative for neck pain and neck stiffness. Objective BP 169/111 Pulse 95 Temp 36.1 ?C (97 ?F) Resp 20 Wt 98 kg (216 lb 0.8 oz) SpO2 99% BMI 29.30 kg/m? PAST MEDICAL HISTORY Diagnosis Date - DDD (degenerative disc disease), cervical - Mood disorder 07/07/2023 - Unspecified essential hypertension Essential hypertension PAST SURGICAL HISTORY Procedure Laterality Date - NONE ALLERGIES Penicillins MEDICATIONS - OLANZapine (ZYPREXA) 5 mg tablet Take 1 tablet by mouth daily at bedtime. - FLUoxetine (PROZAC) 20 mg capsule Take 1 capsule by mouth once daily. Take with 40 mg dose. - FLUoxetine (PROZAC) 40 mg capsule Take 1 capsule by mouth once daily. Take with 20 mg dose. - lisinopril (ZESTRIL) 40 mg tablet Take 1 tablet by mouth once daily. - amLODIPine (NORVASC) 10 mg tablet Take 1 tablet by mouth once daily. FAMILY HISTORY Problem Relation Age of Onset - Hypertension Mother - other (ckd [Other]) Maternal Uncle - Ischemic Heart Disease Paternal Grandfather Social History Tobacco Use - Smoking status: Every Day Current packs/day: 1.00 Average packs/day: 1 pack/day for 16.0 years (16.0 ttl pk-yrs) Types: Cigarettes - Smokeless tobacco: Current Vaping Use - Vaping status: Never Used Substance Use Topics - Alcohol use: Yes Comment: rare - Drug use: Yes Types: Marijuana Comment: couple times per week Physical Exam Vitals and nursing note reviewed. Constitutional: Appearance: Normal appearance. He is not ill-appearing. HENT: Mouth/Throat: Lips: [place]. Mouth: Mucous membranes are moist. Dentition: Dental tenderness, gingival swelling and dental caries present. Cardiovascular: Rate and Rhythm: Normal rate and regular rhythm. Heart sounds: Normal heart sounds. Pulmonary: Effort: Pulmonary effort is normal. No respiratory distress. Breath sounds: Normal breath sounds. No wheezing or rales. Skin: General: Skin is warm and dry. Neurological: Mental Status: He is alert. {ASSESSMENT/PLAN: 1. Pain due to dental caries - ICD9: 521.00, ICD10: K02.9 (primary diagnosis) - Clindamycin as prescribed. - follow up with dentist [facility] 2. Hypertension, poor control - ICD9: 401.9, ICD10: I10 - Continue current medications- takes Norvasc and Lisinopril daily. - Recommend home blood pressure monitoring, to bring results to next visit - Follow-up with your PCP in 3 days for blood pressure check - Discussed red flags and need for immediate medical evaluation if any occur. - Discussed supportive care treatment with fluids, rest and analgesia. - Discussed expected course of illness Nathaly Sam APRN.PIPE ORGAN MECHANIC Disposition The patient was discharged. OTC Medications were advised: Tylenol/ibuprofen Procedures [facility] 07-07-2024 History of Present illness Narrative Images from the original note were not included. [facility] Subjective Enrique Dowling is a 43 year old male. Patient presents with: Mouth/Lip Problem: R side bottom back teeth pain, some facial swelling, x 2 days increasing in pain Mouth/Lip Problem Pertinent negatives include no chills, fever or neck pain. Enrique Dowling is a 43 year old male who presents with right lower jaw and dental pain. He has known dental decay and has been working with his dentist but several teeth need to be extracted. He denies fever, ear pain, or neck pain. He rates his pain 6 or 7/10. He took advil today for pain. Review of Systems Constitutional: Negative for chills and fever. HENT: Negative for ear pain. See HPI Respiratory: Negative. Cardiovascular: Negative. Musculoskeletal: Negative for neck pain and neck stiffness. Objective BP 169/111 Pulse 95 Temp 36.1 C (97 F) Resp 20 Wt 98 kg (216 lb 0.8 oz) SpO2 99% BMI 29.30 kg/m PAST MEDICAL HISTORY Diagnosis Date DDD (degenerative disc disease), cervical Mood disorder 07/07/2023 Unspecified essential hypertension Essential hypertension PAST SURGICAL HISTORY Procedure Laterality Date NONE ALLERGIES Penicillins MEDICATIONS OLANZapine (ZYPREXA) 5 mg tablet Take 1 tablet by mouth daily at bedtime. FLUoxetine (PROZAC) 20 mg capsule Take 1 capsule by mouth once daily. Take with 40 mg dose. FLUoxetine (PROZAC) 40 mg capsule Take 1 capsule by mouth once daily. Take with 20 mg dose. lisinopril (ZESTRIL) 40 mg tablet Take 1 tablet by mouth once daily. amLODIPine (NORVASC) 10 mg tablet Take 1 tablet by mouth once daily. FAMILY HISTORY Problem Relation Age of Onset Hypertension Mother other (ckd [Other]) Maternal Uncle Ischemic Heart Disease Paternal Grandfather Social History Tobacco Use Smoking status: Every Day Current packs/day: 1.00 Average packs/day: 1 pack/day for 16.0 years (16.0 ttl pk-yrs) Types: Cigarettes Smokeless tobacco: Current Vaping Use Vaping status: Never Used Substance Use Topics Alcohol use: Yes Comment: rare Drug use: Yes Types: Marijuana Comment: couple times per week Physical Exam Vitals and nursing note reviewed. Constitutional: Appearance: Normal appearance. He is not ill-appearing. HENT: Mouth/Throat: Lips: [place]. Mouth: Mucous membranes are moist. Dentition: Dental tenderness, gingival swelling and dental caries present. Cardiovascular: Rate and Rhythm: Normal rate and regular rhythm. Heart sounds: Normal heart sounds. Pulmonary: Effort: Pulmonary effort is normal. No respiratory distress. Breath sounds: Normal breath sounds. No wheezing or rales. Skin: General: Skin is warm and dry. Neurological: Mental Status: He is alert. {ASSESSMENT/PLAN: 1. Pain due to dental caries - ICD9: 521.00, ICD10: K02.9 (primary diagnosis) - Clindamycin as prescribed. - follow up with dentist [facility] 2. Hypertension, poor control - ICD9: 401.9, ICD10: I10 - Continue current medications- takes Norvasc and Lisinopril daily. - Recommend home blood pressure monitoring, to bring results to next visit - Follow-up with your PCP in 3 days for blood pressure check - Discussed red flags and need for immediate medical evaluation if any occur. - Discussed supportive care treatment with fluids, rest and analgesia. - Discussed expected course of illness Nathaly Sam APRN.PRABHA Disposition The patient was discharged. OTC Medications were advised: Tylenol/ibuprofen Procedures documented in this encounter [facility] 06-28-2024 Note HNO ID: [id number] Author: ?, ?, ? Service: ? Author Type: ? Type: Progress Notes Filed: 07/26/2024 03:10 Note Text: Called patient to reschedule physical, no answer and VM was full. Sent my chart message [facility] 06-25-2024 Instructions Terri Valente RN - 06/25/2024 1:35 PM EDT COLONOSCOPY BOWEL PREPARATION INSTRUCTIONS MiraLAX Your doctor has scheduled you for a colonoscopy. To have a successful colonoscopy, you must have a clean colon, that is empty. A clean colon allows your doctor to see the entire colon & diagnose issues like polyps or cancer. For doctors, a clean colon is like driving on a irma day; a dirty colon like driving in a storm. It is very important that you follow these instructions exactly, or your colonoscopy may not be as effective, could be canceled, and you may need to do the bowel prep and colonoscopy again. TRANSPORTATION REQUIREMENTS You are receiving IV sedation. For your safety, a responsible adult escort must accompany you to and from your procedure: Your adult escort MUST be present with you at check-in for your colonoscopy. Your adult escort MUST remain in the endoscopy area until you are discharged. Your adult escort MUST transport you home once you are discharged. You are NOT allowed to operate any form of transportation (i.e. drive a car, bicycle, etc) or leave the Endoscopy Center ALONE. It is not safe to do so. If you cannot meet these requirements, your procedure will be canceled. MEDICATION REQUIREMENTS For your safety, certain medications will need to be stopped or adjusted before you can have your procedure: BLOOD THINNERS: If you take blood thinners, such as Coumadin (warfarin), Plavix (clopidogrel), Ticlid (ticlopidine hydrochloride), Agrylin (anagrelide), Xarelto (Rivaroxaban), Pradaxa (Dabigatran), Eliquis (Apixaban), or Effient (Prasugrel), contact the physician who is prescribing these medications at least 2 weeks prior to your procedure to discuss any necessary adjustments. DIABETES: If you take medications for diabetes, your dosage may need to be adjusted. If you are being treated for diabetes with insulin, diabetic pills, or other injectable medications do not take your REGULAR dose after midnight on the day of your procedure. If you are taking any other types of insulin such as Lantus, Humalog, NPH (long-acting insulin), or 70/30 insulin, take half your normal dose the day before your procedure. DIABETES/WEIGHT MANAGEMENT: If you take medications for weight-loss, your dosage may need to be adjusted Contact the doctor who prescribes this medication for further instructions. If you take medications for weight-loss like semaglutide (Ozempic, Wegovy, Rybelsus), dulaglutide (Trulicity), liraglutide (Victoza, Saxenda), exenatide (Byetta, Bydureon), or lixisenatide (Adylyxin), stop your medication 1 week prior to your procedure. If you take medications like canagliflozin (Invokana), dapagliflozin (Farxiga, Forxiga), empagliflozin (Jardiance), stop your medication 3 days prior to your procedure. If you take ertugliflozin (Steglatro) stop your medication 4 days prior to your procedure. IRON: If you take iron pills, STOP them 1 week BEFORE your procedure, may resume after. OTHER MEDS: May take all other medications (including aspirin, antibiotics, water pills / diuretics like Lasix or Metolozone, blood pressure meds, etc.) at their usual scheduled time with water. DIET REQUIREMENTS The day before your colonoscopy, you may have a clear liquid diet (see below). The day of your colonoscopy, you may continue a clear liquid diet until 3 hours before your colonoscopy. Within 3 hours of your colonoscopy, take only any medications (as above) with a sip of water. Clear Liquid Diet Broth (chicken, beef or vegetable broth or bullion. Just the broth, no solids). Water Coffee or Tea (NO milk or creamer), but sugar and sugar substitutes are allowed. Clear liquids including clear, yellow, green, blue (NO red, NO orange, NO purple) Sodas / soft drinks; Gatorade or other sports drinks Fruit juice (strained; no-pulp); Chun-Aid or flavored drinks Plain Jell-O or other gelatins Popsicles or hard candy Bowel prep can work differently from person to person. Some people's bowels move slowly and they may need different instructions. Please see your doctor in office or virtually for personalized bowel prep instructions if you have: BOWEL PREPARATION (MIRALAX/GATORADE) Split Dosing Bowel Prep: This means drinking your bowel prep in two doses. Split dosing helps clean your colon better and makes it less likely that your procedure will be canceled. You will need to purchase the following (no prescriptions are needed): 64 ounces Gatorade, Propel, Crystal Lite or other noncarbonated clear liquid sports drink (NOT red, orange, or purple). Diabetic patients buy sugar-free, e.g. Gatorade G2 4 Dulcolax laxative tablets containing 5mg bisacodyl each (do not buy the stool softener) 8.3 oz MiraLAX (238g) powder or generic polyethylene glycol 3350 (find in laxative aisle) The day before your colonoscopy mix 64 oz of the sports drink with 8.3 oz MiraLAX (238 g) in a pitcher. Stir or shake until MiraLAX completely dissolved. Chill if desired. On the evening before your colonoscopy: 5 PM take 4 Dulcolax laxative tablets with water by mouth. 6 PM drink the first half of the Gatorade/MiraLAX solution Drink one 8-ounce glass every 15 minutes. Six hours before your colonoscopy, drink the second half of the solution. Drink one 8-ounce glass every 15 minutes. You may continue a clear liquid diet until 3 hours before your colonoscopy. Bowel prep can work differently from person to person. Some people's bowels move slowly and they may need different instructions. Please see your doctor in office or virtually for personalized bowel prep instructions if you have: Medical condition that needs special accommodations Had a poor bowel prep results or failed bowel prep attempts in the past. Had difficulty with anesthesia during the procedure. FREQUENTLY ASKED QUESTIONS Q: What if I suffer from constipation? A: Recommend taking extra laxatives to resolve your constipation days prior to entering the bowel prep day. Q: What if have had prior poor preps results in past? A: Contact your physician as you will likely need additional bowel prep instructions. Q: What if I have motility issues like Parkinson's, MS (multiple sclerosis), wheelchair dependent, etc.? or on medications that slow colonic transit times (narcotics, gabapentin, anticholinergic medications etc.) A: Contact your physician as you will likely need extra time and additional laxatives to complete your bowel prep. Q: What if I cannot drink large volume of liquid? A: Start your prep 2-3 hours earlier to allow yourself more time to complete the entire prep. Q: What if I had bariatric surgery? Do I still have to complete the entire prep? A: Yes, gastric bypass surgery involves the stomach & small bowel. You may need to drink smaller amounts, slower (may need more time to complete your bowel prep). Gastric bypass does not alter the length of your colon so you will need to complete the entire bowel prep, it may just take longer time to complete it. Q: What if I am on dialysis? A: Please consult your nat instructor prior to scheduling to get instructions pertinent to you. In general, dialysis patients take the Vestiagely bowel prep and have the procedure same day of their dialysis (colonoscopy in AM, dialysis in PM). Q: How do I know if something is considered as clear liquid diet? A: If you can pour it in a glass and you can see through it, it is considered clear liquid Q: Can I eat nuts, seeds, beans, popcorn, dried fruits, vegetables & fruits that have skin peel? A: No, you will need to not eat these items starting 3 days prior to procedure. Q: Can I take Uber/Lyft/taxi/bus home? A: An adult MUST be present with you at check-in for your colonoscopy and remain in the endoscopy area until you are discharged. You can take Uber home only if this adult escort is with you at check in, remain in the endoscopy area until you are discharged, and takes the Uber with you to home. Q: Can I sleep it off here and drive myself home? A: No, you must have an adult with you at time of procedure check in, remain in the endoscopy center during your procedure, and drive you home. You cannot drive a vehicle after your procedure the rest of the day. Q: What if I can't finish my bowel prep? A: If you cannot complete your entire bowel prep, there is high likelihood that your colonoscopy will need to be rescheduled due to inadequate prep quality. documented in this encounter [facility] 06-25-2024 Note Patient Outreach ( [facility]) ENRIQUE DOWLING ([id number]) 1980 M Date Time Provider Department 06/25/24 [facility] During your visit today, we recorded the following information about you: Terri Valente RN 06/25/2024 1:35 PM Signed COLONOSCOPY BOWEL PREPARATION INSTRUCTIONS MiraLAX? Your doctor has scheduled you for a colonoscopy. To have a successful colonoscopy, you must have a clean colon, that is empty. A clean colon allows your doctor to see the entire colon AND diagnose issues like polyps or cancer. For doctors, a clean colon is like driving on a irma day; a dirty colon like driving in a storm. It is very important that you follow these instructions exactly, or your colonoscopy may not be as effective, could be canceled, and you may need to do the bowel prep and colonoscopy again. TRANSPORTATION REQUIREMENTS You are receiving IV sedation. For your safety, a responsible adult escort must accompany you to and from your procedure: Your adult escort MUST be present with you at check-in for your colonoscopy. Your adult escort MUST remain in the endoscopy area until you are discharged. Your adult escort MUST transport you home once you are discharged. You are NOT allowed to operate any form of transportation (i.e. drive a car, bicycle, etc) or leave the Endoscopy Center ALONE. It is not safe to do so. If you cannot meet these requirements, your procedure will be canceled. MEDICATION REQUIREMENTS For your safety, certain medications will need to be stopped or adjusted before you can have your procedure: BLOOD THINNERS: If you take blood thinners, such as Coumadin (warfarin), Plavix (clopidogrel), Ticlid (ticlopidine hydrochloride), Agrylin (anagrelide), Xarelto (Rivaroxaban), Pradaxa (Dabigatran), Eliquis (Apixaban), or Effient (Prasugrel), contact the physician who is prescribing these medications at least 2 weeks prior to your procedure to discuss any necessary adjustments. DIABETES: If you take medications for diabetes, your dosage may need to be adjusted. If you are being treated for diabetes with insulin, diabetic pills, or other injectable medications do not take your REGULAR dose after midnight on the day of your procedure. If you are taking any other types of insulin such as Lantus, Humalog, NPH (long-acting insulin), or 70/30 insulin, take half your normal dose the day before your procedure. DIABETES/WEIGHT MANAGEMENT: If you take medications for weight-loss, your dosage may need to be adjusted Contact the doctor who prescribes this medication for further instructions. If you take medications for weight-loss like semaglutide (Ozempic, Wegovy, Rybelsus), dulaglutide (Trulicity), liraglutide (Victoza, Saxenda), exenatide (Byetta, Bydureon), or lixisenatide (Adylyxin), stop your medication 1 week prior to your procedure. If you take medications like canagliflozin (Invokana), dapagliflozin (Farxiga, Forxiga), empagliflozin (Jardiance), stop your medication 3 days prior to your procedure. If you take ertugliflozin (Steglatro) stop your medication 4 days prior to your procedure. IRON: If you take iron pills, STOP them 1 week BEFORE your procedure, may resume after. OTHER MEDS: May take all other medications (including aspirin, antibiotics, water pills / diuretics like Lasix or Metolozone, blood pressure meds, etc.) at their usual scheduled time with water. DIET REQUIREMENTS The day before your colonoscopy, you may have a clear liquid diet (see below). The day of your colonoscopy, you may continue a clear liquid diet until 3 hours before your colonoscopy. Within 3 hours of your colonoscopy, take only any medications (as above) with a sip of water. Clear Liquid Diet Broth (chicken, beef or vegetable broth or bullion. Just the broth, no solids). Water Coffee or Tea (NO milk or creamer), but sugar and sugar substitutes are allowed. Clear liquids including clear, yellow, green, blue (NO red, NO orange, NO purple) Sodas / soft drinks; Gatorade or other sports drinks Fruit juice (strained; no-pulp); Chun-Aid or flavored drinks Plain Jell-O or other gelatins Popsicles or hard candy Bowel prep can work differently from person to person. ? Some people's bowels move slowly and they may need different instructions. Please see your doctor in office or virtually for personalized bowel prep instructions if you have: BOWEL PREPARATION (MIRALAX/GATORADE) Split Dosing Bowel Prep: This means drinking your bowel prep in two doses. Split dosing helps clean your colon better and makes it less likely that your procedure will be canceled. You will need to purchase the following (no prescriptions are needed): 64 ounces Gatorade, Propel, Crystal Lite or other noncarbonated clear liquid sports drink (NOT red, orange, or purple). Diabetic patients buy sugar-free, e.g. (more content not included)... [facility] 06-18-2024 Instructions Shanti Sahni APRN.CNP - 06/18/2024 1:39 PM EDT TREATMENT PLAN: Complete fasting monitoring lab work ordered. Change the time of Prozac 60 mg to the morning to see if it continues to help with anxiety symptoms without causing sleep difficulties and vivid dreams. Continue Zyprexa 5 mg at bedtime to address mood disorder. Follow up in 6 weeks as scheduled. For those experiencing a suicidal crisis: --call the National Suicide Prevention Lifeline at 988 (249.600.2894) --text the Crisis Text Line (text HOME to 068848) --call 269 and let them know you are having a mental health crisis or go to your nearest Emergency Room for stabilization. --You can also call Mobile Crisis at [phone]. -- You may call the department appointment line at [phone] to schedule your appointment. -- Please call my nurse at [phone] or send me a message in [address] with any questions or concerns between appointments. documented in this encounter [facility] 05-27-2024 History of Present illness Narrative Images from the original note were not included. FOLLOW UP - PSYCHIATRIC PROGRESS NOTE PATIENT: Enrique Dowling DATE: May 27, 2024 Visit Type: Virtual Visit utilizing two-way audio and video for at least a portion of the visit. Consent for virtual visit obtained verbally. Confidentiality limitations with virtual visits reviewed with the patient and guardian, if present, who have accepted the risk verbally prior to proceeding with encounter. I have communicated my name and active licensure. The patient's identity and physical location were verified at the time of this visit. Either the patient or their legal small business representative has been informed of the risks and benefits of -- and alternatives to -- treatment through a remote evaluation and consents to proceed with the evaluation remotely. All information is from Patient report except when noted. This evaluation is NOT intended for forensic, disability or child custody purposes. CC: Presenting today for follow up regarding psychiatric medication management. HPI: Treatment Plan from Last Visit on 02/26/2024: TREATMENT PLAN: Change time of Prozac to morning to see if interrupted sleep difficulties improve. Utilize Hydroxyzine at bedtime for anxiety, racing thoughts and sleep difficulties as needed. Continue Zyprexa at the same dose at bedtime. Complete the monitoring lab work ordered by primary care. Follow up in 3 months or sooner if continuing to struggle with sleep difficulties. Today Enrique shares that I am not doing too bad. He tends to wake up once or twice a night. Stays awake a bit and then tries to go back to sleep but lays there. Shares that he lost his job. This has been difficult for him. His has been supportive. He said that he missed too many days of work. It's been a month since he lost his job. Going to talk to his old employers later today about taking him back. They have appreciated him as a worker and he thinks that they might accept him back. He was not noticing any difference in his sleep if he took the Prozac during the day. Has been experiencing vivid dreams. Which wakes him up. In agreement to try taking the Prozac in the morning to see if he notices a difference. Has not completed the fasting lab work. Has been reminded to complete it before the orders and for monitoring purposes. Interval Progress: Same PATIENT DATA: Generalized Anxiety Disorder Scale (JUAN-7) 11/24/2023 02/26/2024 05/27/2024 JUAN - 7 SCORES Score 7 6 7 (0-4) minimal anxiety, (5-9) mild anxiety, (10-14) moderate anxiety, (15-21) severe anxiety Patient Health Questionnaire (PHQ-9) 11/24/2023 02/26/2024 05/27/2024 PHQ-9 Score 9 9 7 (0-4) minimal depression, (5-9) mild depression, (10-14) moderate depression, (15-19) moderately severe depression, (20-27) severe depression PAST MEDICAL HISTORY Diagnosis Date DDD (degenerative disc disease), cervical Mood disorder (HCC) 07/07/2023 Unspecified essential hypertension Essential hypertension PAST SURGICAL HISTORY Procedure Laterality Date NONE ALLERGIES Allergen Reactions Penicillins Hives Current Outpatient Medications on File Prior to Visit Medication Sig lisinopril (ZESTRIL) 40 mg tablet Take 1 tablet by mouth once daily. OLANZapine (ZYPREXA) 5 mg tablet Take 1 tablet by mouth daily at bedtime. FLUoxetine (PROZAC) 20 mg capsule Take 1 capsule by mouth once daily. Take with 40 mg dose. FLUoxetine (PROZAC) 40 mg capsule Take 1 capsule by mouth once daily. Take with 20 mg dose. amLODIPine (NORVASC) 10 mg tablet Take 1 tablet by mouth once daily. No current facility-administered medications on file prior to visit. ROS: See HPI PFSH: See HPI VITAL SIGNS: There were no vitals filed for this visit. Last 3 Encounter BP Readings: Date: BP: 03/12/2024 138/84 02/19/2024 165/102[bp average[ 02/08/2024 165/101 MENTAL STATUS EXAMINATION: Appearance: Well dressed, well groomed Behavior: Behaves appropriately during the encounter Social relatedness: Euthymic Speech/Language: The patient demonstrates appropriate tone, prosody, helen, phonetics, and syntax Mood: sad due to job loss Affect: Full and appropriate to topic Orientation: Person, Place, Time and Situation Associations: Intact and linear Hallucinations: None Delusions: None Suicidal Ideation: No suicidal ideation, intent or plan. Homicidal Ideation: No homicidal ideation, intent or plan. Insight: Appropriate Judgment: Appropriate DATA REVIEWED: Psychiatric scales, Electronic medical record, Labs DIAGNOSIS: Encounter for long-term (current) use of medications (primary encounter diagnosis) Panic disorder with agoraphobia Mood disorder (hcc) Nicotine use Difficulty sleeping Psychosocial stressors GAF: -60-51 Moderate symptoms or moderate difficulty in social, occupational or school functioning. TREATMENT PLAN: Complete fasting monitoring lab work ordered. Change the time of Prozac 60 mg to the morning to see if it continues to help with anxiety symptoms without causing sleep difficulties and vivid dreams. Continue Zyprexa 5 mg at bedtime to address mood disorder. Follow up in 6 weeks as scheduled. MEDICATION CHANGES: Prescriptions given Patient denies any involuntary movement related side effects. Risks and benefits of the medication, including any black box warnings, were discussed with the patient. Patient is aware to reach out with any questions, concerns, or worsening of symptoms prior to the next appointment. Patient educated on risks of substance use in combination with medications and advised that any substance use along with medications may alter their effectiveness. Follow Up: See Treatment Plan Medical Decision Making: Problems: Moderate: 1+ chronic illnesses with change and 2+ stable chronic illnesses Data: Unique source(s) for external note(s) reviewed: 3+ Unique test result(s) reviewed: 3+ Independent interpretation of test from other physician/QHCP Risk: Moderate: Moderate risk from testing/treatment and Drug management Medical Decision Making Level: 4 - Moderate ADD ON PSYCHOTHERAPY CODE : No SIGNATURE: Shanti Sahni APRN.CNP PATIENT NAME: Enrique Dowling DATE: May 27, 2024 TIME: 1:38 PM documented in this encounter [facility] 05-27-2024 Note HNO ID: [id number] Author: SHANTI SAHNI APRN.CNP Service: ? Author Type: Nurse Practitioner Type: Progress Notes Filed: 06/18/2024 13:40 Note Text: FOLLOW UP - PSYCHIATRIC PROGRESS NOTE PATIENT: Enrique Dowling DATE: May 27, 2024 Visit Type: Virtual Visit utilizing two-way audio and video for at least a portion of the visit. Consent for virtual visit obtained verbally. Confidentiality limitations with virtual visits reviewed with the patient and guardian, if present, who have accepted the risk verbally prior to proceeding with encounter. I have communicated my name and active licensure. The patient's identity and physical location were verified at the time of this visit. Either the patient or their legal small business representative has been informed of the risks and benefits of -- and alternatives to -- treatment through a remote evaluation and consents to proceed with the evaluation remotely. All information is from Patient report except when noted. This evaluation is NOT intended for forensic, disability or child custody purposes. CC: Presenting today for follow up regarding psychiatric medication management. HPI: Treatment Plan from Last Visit on 02/26/2024: TREATMENT PLAN: Change time of Prozac to morning to see if interrupted sleep difficulties improve. Utilize Hydroxyzine at bedtime for anxiety, racing thoughts and sleep difficulties as needed. Continue Zyprexa at the same dose at bedtime. Complete the monitoring lab work ordered by primary care. Follow up in 3 months or sooner if continuing to struggle with sleep difficulties. Today Enrique shares that I am not doing too bad. He tends to wake up once or twice a night. Stays awake a bit and then tries to go back to sleep but lays there. Shares that he lost his job. This has been difficult for him. His has been supportive. He said that he missed too many days of work. It's been a month since he lost his job. Going to talk to his old employers later today about taking him back. They have appreciated him as a worker and he thinks that they might accept him back. He was not noticing any difference in his sleep if he took the Prozac during the day. Has been experiencing vivid dreams. Which wakes him up. In agreement to try taking the Prozac in the morning to see if he notices a difference. Has not completed the fasting lab work. Has been reminded to complete it before the orders and for monitoring purposes. Interval Progress: Same PATIENT DATA: Generalized Anxiety Disorder Scale (JUAN-7) 11/24/2023 02/26/2024 05/27/2024 JUAN - 7 SCORES Score 7 6 7 (0-4) minimal anxiety, (5-9) mild anxiety, (10-14) moderate anxiety, (15-21) severe anxiety Patient Health Questionnaire (PHQ-9) 11/24/2023 02/26/2024 05/27/2024 PHQ-9 Score 9 9 7 (0-4) minimal depression, (5-9) mild depression, (10-14) moderate depression, (15-19) moderately severe depression, (20-27) severe depression PAST MEDICAL HISTORY Diagnosis Date DDD (degenerative disc disease), cervical Mood disorder (HCC) 07/07/2023 Unspecified essential hypertension Essential hypertension PAST SURGICAL HISTORY Procedure Laterality Date NONE ALLERGIES Allergen Reactions Penicillins Hives Current Outpatient Medications on File Prior to Visit Medication Sig lisinopril (ZESTRIL) 40 mg tablet Take 1 tablet by mouth once daily. OLANZapine (ZYPREXA) 5 mg tablet Take 1 tablet by mouth daily at bedtime. FLUoxetine (PROZAC) 20 mg capsule Take 1 capsule by mouth once daily. Take with 40 mg dose. FLUoxetine (PROZAC) 40 mg capsule Take 1 capsule by mouth once daily. Take with 20 mg dose. amLODIPine (NORVASC) 10 mg tablet Take 1 tablet by mouth once daily. No current facility-administered medications on file prior to visit. ROS: See HPI PFSH: See HPI VITAL SIGNS: There were no vitals filed for this visit. Last 3 Encounter BP Readings: Date: BP: 03/12/2024 138/84 02/19/2024 165/102[bp average[ 02/08/2024 165/101 MENTAL STATUS EXAMINATION: Appearance: Well dressed, well groomed Behavior: Behaves appropriately during the encounter Social relatedness: Euthymic Speech/Language: The patient demonstrates appropriate tone, prosody, helen, phonetics, and syntax Mood: sad due to job loss Affect: Full and appropriate to topic Orientation: Person, Place, Time and Situation Associations: Intact and linear Hallucinations: None Delusions: None Suicidal Ideation: No suicidal ideation, intent or plan. Homicidal Ideation: No homicidal ideation, intent or plan. Insight: Appropriate Judgment: Appropriate DATA REVIEWED: Psychiatric scales, Electronic medical record, Labs DIAGNOSIS: Encounter for long-term (current) use of medications (primary encounter diagnosis) Panic disorder with agoraphobia Mood disorder (hcc) Nicotine use Difficulty sleeping Psychosocial stressors GAF: -60-51 Moderate symptoms or (more content not included)... [facility] 04-30-2024 Telephone encounter Note Patient has been identified by name and date of : Yes Patient phones for refill(s): Requested Prescriptions Pending Prescriptions Disp Refills lisinopril (ZESTRIL) 40 mg tablet 90 tablet 0 Sig: Take 1 tablet by mouth once daily. Date of last office visit in primary care: 02/19/2024 Date of next office visit in primary care: 06/21/2024 Please advise. Thank you. Elizabeth Douglas LPN. [facility] 04-30-2024 Miscellaneous Notes Patient has been identified by name and date of : Yes Patient phones for refill(s): Requested Prescriptions Pending Prescriptions Disp Refills lisinopril (ZESTRIL) 40 mg tablet 90 tablet 0 Sig: Take 1 tablet by mouth once daily. Date of last office visit in primary care: 02/19/2024 Date of next office visit in primary care: 06/21/2024 Please advise. Thank you. Elizabeth Douglas LPN. documented in this encounter [facility] 03-12-2024 Note HNO ID: [id number] Author: ОЛЬГА PEDERSEN APRN.[employer] Service: ? Author Type: Nurse Practitioner Type: Progress Notes Filed: 03/12/2024 11:25 Note Text: Subjective She came in with complaints of slight swelling on the right upper eyelid and some eye drainage. Patient denies any visual changes or eye pain. Patient denies any fever chills nausea vomiting. The history is provided by the patient. No russian language professor was used. Eye Problem Review of Systems Constitutional: Negative. Skin: Negative. Objective Physical Exam Constitutional: Appearance: Normal appearance. Eyes: General: Right eye: No foreign body or discharge. Left eye: No foreign body or discharge. Comments: Red area escamilla where there is a stye. Blue area escamilla slight erythematous and swelling. Nontender around entire eye. Pulmonary: Effort: Pulmonary effort is normal. Neurological: Mental Status: He is alert. PAST MEDICAL HISTORY Diagnosis Date DDD (degenerative disc disease), cervical Mood disorder (HCC) 07/07/2023 Unspecified essential hypertension Essential hypertension PAST SURGICAL HISTORY Procedure Laterality Date NONE ALLERGIES Penicillins MEDICATIONS hydrOXYzine HCl (ATARAX) 10 mg tablet Take 1 tablet by mouth three times a day as needed for anxiety (and sleep difficulty). OLANZapine (ZYPREXA) 5 mg tablet Take 1 tablet by mouth daily at bedtime. FLUoxetine (PROZAC) 20 mg capsule Take 1 capsule by mouth once daily. Take with 40 mg dose. FLUoxetine (PROZAC) 40 mg capsule Take 1 capsule by mouth once daily. Take with 20 mg dose. amLODIPine (NORVASC) 10 mg tablet Take 1 tablet by mouth once daily. lisinopril (ZESTRIL) 40 mg tablet Take 1 tablet by mouth once daily. doxycycline (VIBRA-TABS) 100 mg tablet Take 1 tablet by mouth two times a day for 7 days. erythromycin (ROMYCIN) 5 mg/gram (0.5 %) ophthalmic ointment Use 1 application in the right eye four times daily for 7 days. FAMILY HISTORY Problem Relation Age of Onset Hypertension Mother other (ckd [Other]) Maternal Uncle Ischemic Heart Disease Paternal Grandfather Social History Tobacco Use Smoking status: Every Day Current packs/day: 1.00 Average packs/day: 1 pack/day for 16.0 years (16.0 ttl pk-yrs) Types: Cigarettes Smokeless tobacco: Current Vaping Use Vaping status: Never Used Substance Use Topics Alcohol use: Yes Comment: rare Drug use: Yes Types: Marijuana Comment: couple times per week ASSESSMENT/PLAN: 1. Hordeolum externum of right upper eyelid - ICD9: 373.11, ICD10: H00.011 (primary diagnosis) - ERYTHROMYCIN 5 MG/GRAM (0.5 %) EYE OINTMENT 2. Skin infection - ICD9: 686.9, ICD10: L08.9 - DOXYCYCLINE HYCLATE 100 MG TABLET Was educated about proper use of medication and supportive therapies. Patient was educated about red flag symptoms to watch for. Patient was agreeable to care plan. Ольга Pedersen APRN.[facility] 03-12-2024 History of Present illness Narrative Images from the original note were not included. Subjective She came in with complaints of slight swelling on the right upper eyelid and some eye drainage. Patient denies any visual changes or eye pain. Patient denies any fever chills nausea vomiting. The history is provided by the patient. No russian language professor was used. Eye Problem Review of Systems Constitutional: Negative. Skin: Negative. Objective Physical Exam Constitutional: Appearance: Normal appearance. Eyes: General: Right eye: No foreign body or discharge. Left eye: No foreign body or discharge. Comments: Red area escamilla where there is a stye. Blue area escamilla slight erythematous and swelling. Nontender around entire eye. Pulmonary: Effort: Pulmonary effort is normal. Neurological: Mental Status: He is alert. PAST MEDICAL HISTORY Diagnosis Date DDD (degenerative disc disease), cervical Mood disorder (HCC) 07/07/2023 Unspecified essential hypertension Essential hypertension PAST SURGICAL HISTORY Procedure Laterality Date NONE ALLERGIES Penicillins MEDICATIONS hydrOXYzine HCl (ATARAX) 10 mg tablet Take 1 tablet by mouth three times a day as needed for anxiety (and sleep difficulty). OLANZapine (ZYPREXA) 5 mg tablet Take 1 tablet by mouth daily at bedtime. FLUoxetine (PROZAC) 20 mg capsule Take 1 capsule by mouth once daily. Take with 40 mg dose. FLUoxetine (PROZAC) 40 mg capsule Take 1 capsule by mouth once daily. Take with 20 mg dose. amLODIPine (NORVASC) 10 mg tablet Take 1 tablet by mouth once daily. lisinopril (ZESTRIL) 40 mg tablet Take 1 tablet by mouth once daily. doxycycline (VIBRA-TABS) 100 mg tablet Take 1 tablet by mouth two times a day for 7 days. erythromycin (ROMYCIN) 5 mg/gram (0.5 %) ophthalmic ointment Use 1 application in the right eye four times daily for 7 days. FAMILY HISTORY Problem Relation Age of Onset Hypertension Mother other (ckd [Other]) Maternal Uncle Ischemic Heart Disease Paternal Grandfather Social History Tobacco Use Smoking status: Every Day Current packs/day: 1.00 Average packs/day: 1 pack/day for 16.0 years (16.0 ttl pk-yrs) Types: Cigarettes Smokeless tobacco: Current Vaping Use Vaping status: Never Used Substance Use Topics Alcohol use: Yes Comment: rare Drug use: Yes Types: Marijuana Comment: couple times per week ASSESSMENT/PLAN: 1. Hordeolum externum of right upper eyelid - ICD9: 373.11, ICD10: H00.011 (primary diagnosis) - ERYTHROMYCIN 5 MG/GRAM (0.5 %) EYE OINTMENT 2. Skin infection - ICD9: 686.9, ICD10: L08.9 - DOXYCYCLINE HYCLATE 100 MG TABLET Was educated about proper use of medication and supportive therapies. Patient was educated about red flag symptoms to watch for. Patient was agreeable to care plan. Ольга Pedersen APRN.PRABHA documented in this encounter [facility] 02-26-2024 Instructions Shanti Sahni APRN.CNP - 02/26/2024 1:59 PM EST TREATMENT PLAN: Change time of Prozac to morning to see if interrupted sleep difficulties improve. Utilize Hydroxyzine at bedtime for anxiety, racing thoughts and sleep difficulties as needed. Continue Zyprexa at the same dose at bedtime. Complete the monitoring lab work ordered by primary care. Follow up in 3 months or sooner if continuing to struggle with sleep difficulties. For those experiencing a suicidal crisis: --call the National Suicide Prevention Lifeline at 988 (766.598.8496) --text the Crisis Text Line (text HOME to 989237) --call 271 and let them know you are having a mental health crisis or go to your nearest Emergency Room for stabilization. --You can also call Mobile Crisis at [phone]. -- You may call the department appointment line at [phone] to schedule your appointment. -- Please call my nurse at [phone] or send me a message in [address] with any questions or concerns between appointments. documented in this encounter [facility] 02-26-2024 Note HNO ID: [id number] Author: SHANTI SAHNI APRN.CNP Service: ? Author Type: Nurse Practitioner Type: Progress Notes Filed: 02/26/2024 14:00 Note Text: FOLLOW UP - PSYCHIATRIC PROGRESS NOTE PATIENT: Enrique Dowling DATE: February 26, 2024 Visit Type: Virtual Visit utilizing two-way audio and video for at least a portion of the visit. Consent for virtual visit obtained verbally. Confidentiality limitations with virtual visits reviewed with the patient and guardian, if present, who have accepted the risk verbally prior to proceeding with encounter. I have communicated my name and active licensure. The patient's identity and physical location were verified at the time of this visit. Either the patient or their legal small business representative has been informed of the risks and benefits of -- and alternatives to -- treatment through a remote evaluation and consents to proceed with the evaluation remotely. All information is from Patient report except when noted. This evaluation is NOT intended for forensic, disability or child custody purposes. CC: Presenting today for follow up regarding psychiatric medication management. HPI: Treatment Plan from Last Visit on 11/24/2023: TREATMENT PLAN: Increase Prozac to a total dose of 60 mg to address increase in anxiety symptoms. Continue Zyprexa at the same dose. Patient has been able to reduce the nicotine use to 1/2 pack per day in the last 3 weeks. Continues to abstain from marijuana. Has been drinking alcohol on the weekends to cope with some increased anxiety symptoms. Today Enrique shares that anxiety leonardo things have been better. Has been getting his teeth fixed. Has anxiety about that but doing it to take care of it. His temper is not short like it was before. Has a hard time managing regular life anxiety. Tends to over think at times. Able to talk to his about his worrying thoughts and this helps a lot. Experiencing routine holiday related stress. Has noticed that he is not sleeping through the night in the past month. Waking up 2 to 3 times at night. He is able to go back to sleep but sometimes it can take an hour to go back to sleep. Has to force self to go back to sleep due to the racing thoughts. Takes Zyprexa at 8 pm. Goes to sleep around 10:30 p.m. Sometimes has difficulty falling asleep due to racing thoughts. Has noticed some weight gain recently. Has had cravings to eat junk food. Trying to replace the snacks for more healthier options. Discussed switching time of Prozac to morning. Discussed adding PRN hydroxyzine at bedtime. Interval Progress: Slightly worse related to sleep PATIENT DATA: Generalized Anxiety Disorder Scale (JUAN-7) 08/04/2023 11/24/2023 02/26/2024 JUAN - 7 SCORES Score 8 7 6 (0-4) minimal anxiety, (5-9) mild anxiety, (10-14) moderate anxiety, (15-21) severe anxiety Patient Health Questionnaire (PHQ-9) 08/04/2023 11/24/2023 02/26/2024 PHQ-9 Score 8 9 9 (0-4) minimal depression, (5-9) mild depression, (10-14) moderate depression, (15-19) moderately severe depression, (20-27) severe depression PAST MEDICAL HISTORY Diagnosis Date DDD (degenerative disc disease), cervical Mood disorder (HCC) 07/07/2023 Unspecified essential hypertension Essential hypertension PAST SURGICAL HISTORY Procedure Laterality Date NONE ALLERGIES Allergen Reactions Penicillins Hives Current Outpatient Medications on File Prior to Visit Medication Sig amLODIPine (NORVASC) 10 mg tablet Take 1 tablet by mouth once daily. lisinopril (ZESTRIL) 40 mg tablet Take 1 tablet by mouth once daily. FLUoxetine (PROZAC) 40 mg capsule Take 1 capsule by mouth once daily. Take with 20 mg dose. OLANZapine (ZYPREXA) 5 mg tablet Take 1 tablet by mouth daily at bedtime. FLUoxetine (PROZAC) 20 mg capsule Take 1 capsule by mouth once daily. Take with 40 mg dose. No current facility-administered medications on file prior to visit. ROS: See HPI PFSH: See HPI VITAL SIGNS: There were no vitals filed for this visit. Last 3 Encounter BP Readings: Date: BP: 02/19/2024 165/102[bp average[ 02/08/2024 165/101 12/09/2023 142/96 MENTAL STATUS EXAMINATION: Appearance: Well dressed, well groomed Behavior: Behaves appropriately during the encounter Social relatedness: Euthymic Speech/Language: The patient demonstrates appropriate tone, prosody, helen, phonetics, and syntax Mood: euthymic Affect: Full and appropriate to topic Orientation: Person, Place, Time and Situation Associations: Intact and linear Hallucinations: None Delusions: None Suicidal Ideation: No suicidal ideation, intent or plan. Homicidal Ideation: No homicidal ideation, intent or plan. Insight: Appropriate Judgment: Appropriate DATA REVIEWED: Psychiatric scales, Electronic medical record, Labs DIAGNOSIS: Panic disorder with agoraphobia (primary encounter diagnosis) Mood disorder (hcc) Nicotine use Difficu (more content not included)... [facility] 02-26-2024 History of Present illness Narrative Images from the original note were not included. FOLLOW UP - PSYCHIATRIC PROGRESS NOTE PATIENT: Enrique Dowling DATE: February 26, 2024 Visit Type: Virtual Visit utilizing two-way audio and video for at least a portion of the visit. Consent for virtual visit obtained verbally. Confidentiality limitations with virtual visits reviewed with the patient and guardian, if present, who have accepted the risk verbally prior to proceeding with encounter. I have communicated my name and active licensure. The patient's identity and physical location were verified at the time of this visit. Either the patient or their legal small business representative has been informed of the risks and benefits of -- and alternatives to -- treatment through a remote evaluation and consents to proceed with the evaluation remotely. All information is from Patient report except when noted. This evaluation is NOT intended for forensic, disability or child custody purposes. CC: Presenting today for follow up regarding psychiatric medication management. HPI: Treatment Plan from Last Visit on 11/24/2023: TREATMENT PLAN: Increase Prozac to a total dose of 60 mg to address increase in anxiety symptoms. Continue Zyprexa at the same dose. Patient has been able to reduce the nicotine use to 1/2 pack per day in the last 3 weeks. Continues to abstain from marijuana. Has been drinking alcohol on the weekends to cope with some increased anxiety symptoms. Today Enrique shares that anxiety leonardo things have been better. Has been getting his teeth fixed. Has anxiety about that but doing it to take care of it. His temper is not short like it was before. Has a hard time managing regular life anxiety. Tends to over think at times. Able to talk to his about his worrying thoughts and this helps a lot. Experiencing routine holiday related stress. Has noticed that he is not sleeping through the night in the past month. Waking up 2 to 3 times at night. He is able to go back to sleep but sometimes it can take an hour to go back to sleep. Has to force self to go back to sleep due to the racing thoughts. Takes Zyprexa at 8 pm. Goes to sleep around 10:30 p.m. Sometimes has difficulty falling asleep due to racing thoughts. Has noticed some weight gain recently. Has had cravings to eat junk food. Trying to replace the snacks for more healthier options. Discussed switching time of Prozac to morning. Discussed adding PRN hydroxyzine at bedtime. Interval Progress: Slightly worse related to sleep PATIENT DATA: Generalized Anxiety Disorder Scale (JUAN-7) 08/04/2023 11/24/2023 02/26/2024 JUAN - 7 SCORES Score 8 7 6 (0-4) minimal anxiety, (5-9) mild anxiety, (10-14) moderate anxiety, (15-21) severe anxiety Patient Health Questionnaire (PHQ-9) 08/04/2023 11/24/2023 02/26/2024 PHQ-9 Score 8 9 9 (0-4) minimal depression, (5-9) mild depression, (10-14) moderate depression, (15-19) moderately severe depression, (20-27) severe depression PAST MEDICAL HISTORY Diagnosis Date DDD (degenerative disc disease), cervical Mood disorder (HCC) 07/07/2023 Unspecified essential hypertension Essential hypertension PAST SURGICAL HISTORY Procedure Laterality Date NONE ALLERGIES Allergen Reactions Penicillins Hives Current Outpatient Medications on File Prior to Visit Medication Sig amLODIPine (NORVASC) 10 mg tablet Take 1 tablet by mouth once daily. lisinopril (ZESTRIL) 40 mg tablet Take 1 tablet by mouth once daily. FLUoxetine (PROZAC) 40 mg capsule Take 1 capsule by mouth once daily. Take with 20 mg dose. OLANZapine (ZYPREXA) 5 mg tablet Take 1 tablet by mouth daily at bedtime. FLUoxetine (PROZAC) 20 mg capsule Take 1 capsule by mouth once daily. Take with 40 mg dose. No current facility-administered medications on file prior to visit. ROS: See HPI PFSH: See HPI VITAL SIGNS: There were no vitals filed for this visit. Last 3 Encounter BP Readings: Date: BP: 02/19/2024 165/102[bp average[ 02/08/2024 165/101 12/09/2023 142/96 MENTAL STATUS EXAMINATION: Appearance: Well dressed, well groomed Behavior: Behaves appropriately during the encounter Social relatedness: Euthymic Speech/Language: The patient demonstrates appropriate tone, prosody, helen, phonetics, and syntax Mood: euthymic Affect: Full and appropriate to topic Orientation: Person, Place, Time and Situation Associations: Intact and linear Hallucinations: None Delusions: None Suicidal Ideation: No suicidal ideation, intent or plan. Homicidal Ideation: No homicidal ideation, intent or plan. Insight: Appropriate Judgment: Appropriate DATA REVIEWED: Psychiatric scales, Electronic medical record, Labs DIAGNOSIS: Panic disorder with agoraphobia (primary encounter diagnosis) Mood disorder (hcc) Nicotine use Difficulty sleeping Encounter for long-term (current) use of medications GAF: -70-61 Some mild symptoms or some difficulty in social, occupational, or school functioning, but generally functioning pretty well. TREATMENT PLAN: Change time of Prozac to morning to see if interrupted sleep difficulties improve. Utilize Hydroxyzine at bedtime for anxiety, racing thoughts and sleep difficulties as needed. Continue Zyprexa at the same dose at bedtime. Complete the monitoring lab work ordered by primary care. Follow up in 3 months or sooner if continuing to struggle with sleep difficulties. MEDICATION CHANGES: See above Risks and benefits of the medication, including any black box warnings, were discussed with the patient. Patient is aware to reach out with any questions, concerns, or worsening of symptoms prior to the next appointment. Patient educated on risks of substance use in combination with medications and advised that any substance use along with medications may alter their effectiveness. Patient denies any involuntary movement related side effects. Follow Up: See Treatment Plan Medical Decision Making: Problems: Moderate: 1+ chronic illnesses with change and 2+ stable chronic illnesses Data: Unique source(s) for external note(s) reviewed: 3+ Unique test result(s) reviewed: 3+ Independent interpretation of test from other physician/QHCP Risk: Moderate: Moderate risk from testing/treatment and Drug management Medical Decision Making Level: 4 - Moderate ADD ON PSYCHOTHERAPY CODE : No SIGNATURE: Shanti Sahni APRN.CNP PATIENT NAME: Enrique Dowling DATE: February 26, 2024 TIME: 1:31 PM documented in this encounter [facility] 02-19-2024 Note HNO ID: [id number] Author: SYDNEY DRISCOLL APRN.NEURO OPHTHALMOLOGIST Service: ? Author Type: Nurse Specialist Type: Progress Notes Filed: 02/19/2024 16:27 Note Text: SUBJECTIVE: Pneumococcal Vaccine(1 of 2 - PCV) Never done Depression Screening Never done BP Controlled (<130/80) Never done Hepatitis B Vaccine(1 of 3 - 19+ 3-dose series) Never done Colorectal Cancer Screening Never done Influenza Vaccine(1) due on 11/26/2023 Covid-19 Vaccine( season) Never done HPI Enrique Dowling is a 43 year old male. PH significant for ACTIVE PROBLEM LIST Cervical Radiculopathy At C7 Cervical Disc Herniation Hypertension Acute Neck Pain Tobacco Abuse Osteoarthritis of Spine With Radiculopathy, Cervical Region Arm Weakness Pain of Right Upper Extremity Panic Disorder With Agoraphobia Mood Disorder (Hcc) PCP: Rosales Adams MD Notes BP hs been running higher at home lately. Has noted headache with this times.Not missing doses of medication. HTN: Without report of chest pain, palpitations, dyspnea, peripheral edema, orthopnea, fatigue, and PND. Notes HCTZ caused gout like symptoms. Last 14 Encounter BP Readings: Date: BP: 02/19/2024 165/102[bp average[ 02/08/2024 165/101 12/09/2023 142/96 09/05/2023 148/90 08/28/2023 138/78 06/14/2023 162/90 06/12/2023 142/82 06/07/2023 144/80 05/22/2023 160/88 04/07/2023 144/90 01/17/2023 136/80 12/13/2022 174/96 10/10/2022 132/85[BP Irina[ 08/15/2022 148/98 Review of Systems Constitutional: Negative. Respiratory: Negative. Cardiovascular: Negative. Objective BP 165/102 Pulse 80 Resp 16 Wt 100 kg (220 lb 7.4 oz) BMI 29.90 kg/m? Physical Exam Vitals and nursing note reviewed. Constitutional: Appearance: Normal appearance. HENT: Head: Normocephalic and atraumatic. Eyes: Conjunctiva/sclera: Conjunctivae normal. Neck: Vascular: Normal carotid pulses. No JVD. Cardiovascular: Rate and Rhythm: Normal rate. Pulses: Carotid pulses are 2+ on the right side and 2+ on the left side. Radial pulses are 2+ on the right side and 2+ on the left side. Heart sounds: Normal heart sounds. Pulmonary: Effort: Pulmonary effort is normal. Breath sounds: Normal breath sounds. Musculoskeletal: Right lower leg: No edema. Left lower leg: No edema. Skin: General: Skin is warm and dry. Neurological: General: No focal deficit present. Mental Status: He is alert and oriented to person, place, and time. ALLERGIES Allergen Reactions Penicillins Hives Medications lisinopril (ZESTRIL) 40 mg tablet Take 1 tablet by mouth once daily. FLUoxetine (PROZAC) 40 mg capsule Take 1 capsule by mouth once daily. Take with 20 mg dose. OLANZapine (ZYPREXA) 5 mg tablet Take 1 tablet by mouth daily at bedtime. FLUoxetine (PROZAC) 20 mg capsule Take 1 capsule by mouth once daily. Take with 40 mg dose. amLODIPine (NORVASC) 5 mg tablet Take 1 tablet by mouth once daily. PAST MEDICAL HISTORY Diagnosis Date DDD (degenerative disc disease), cervical Mood disorder (HCC) 07/07/2023 Unspecified essential hypertension Essential hypertension Social History Tobacco Use Smoking status: Every Day Current packs/day: 1.00 Average packs/day: 1 pack/day for 16.0 years (16.0 ttl pk-yrs) Types: Cigarettes Smokeless tobacco: Current Vaping Use Vaping status: Never Used Substance Use Topics Alcohol use: Yes Comment: rare Drug use: Yes Types: Marijuana Comment: couple times per week Latest Ref Rng 06/13/2023 WBC 3.70 - 11.00 k/uL 8.29 RBC 4.20 - 6.00 m/uL 5.03 Hemoglobin 13.0 - 17.0 g/dL 15.9 Hematocrit 39.0 - 51.0 % 47.3 MCV 80.0 - 100.0 fL 94.0 MCH 26.0 - 34.0 pg 31.6 MCHC 30.5 - 36.0 g/dL 33.6 RDW-CV 11.5 - 15.0 % 12.6 Platelet Count 150 - 400 k/uL 229 MPV 9.0 - 12.7 fL 9.8 Neut% % 66.4 Abs Neut (ANC) 1.45 - 7.50 k/uL 5.51 Lymph% % 23.4 Abs Lymph 1.00 - 4.00 k/uL 1.94 Patillas% % 8.3 Abs [place] <0.87 k/uL 0.69 Eosin% % 1.1 Abs Eosin <0.46 k/uL 0.09 Baso% % 0.4 Abs Baso <0.11 k/uL 0.03 Immature Gran % % 0.4 IMMATURE GRANS (ABS) <0.10 k/uL 0.03 NRBC /100 WBC 0.0 Absolute nRBC <0.01 k/uL <0.01 DTYPE Auto Protein, Total 6.3 - 8.0 g/dL 6.8 Albumin 3.9 - 4.9 g/dL 4.3 Calcium 8.5 - 10.2 mg/dL 9.7 Bilirubin, Total 0.2 - 1.3 mg/dL 0.8 Alkaline Phosphatase 38 - 113 U/L 90 AST 14 - 40 U/L 17 ALT 10 - 54 U/L 21 Glucose 74 - 99 mg/dL 125 (H) BUN 9 - 24 mg/dL 10 Creatinine 0.73 - 1.22 mg/dL 0.72 (L) Sodium 136 - 144 mmol/L 142 Potassium 3.7 - 5.1 mmol/L 4.0 Chloride 97 - 105 mmol/L 106 (H) CO2 22 - 30 mmol/L 26 Anion Gap 9 - 18 mmol/L 10 eGFR >=60 mL/min/1.73m? 116 Hemoglobin A1C 4.3 - 5.6 % 5.2 Estimated Average Glucose mg/dL 103 TSH 0.270 - 4.200 mIU/L 0.986 Legend: (H) High (L) Low ASSESSMENT/PLAN: 1. Primary hypertension - ICD9: 401.9, ICD10: I10 suboptimal control - Increase amlodipine from 5 to 10 mg QD - Recommend home blood pressure monitoring, to bring (more content not included)... [facility] 02-19-2024 History of Present illness Narrative SUBJECTIVE: Pneumococcal Vaccine(1 of 2 - PCV) Never done Depression Screening Never done BP Controlled (<130/80) Never done Hepatitis B Vaccine(1 of 3 - 19+ 3-dose series) Never done Colorectal Cancer Screening Never done Influenza Vaccine(1) due on 11/26/2023 Covid-19 Vaccine(2023- season) Never done HPI Enrique Dowling is a 43 year old male. PH significant for ACTIVE PROBLEM LIST Cervical Radiculopathy At C7 Cervical Disc Herniation Hypertension Acute Neck Pain Tobacco Abuse Osteoarthritis of Spine With Radiculopathy, Cervical Region Arm Weakness Pain of Right Upper Extremity Panic Disorder With Agoraphobia Mood Disorder (Hcc) PCP: Rosales Adams MD Notes BP hs been running higher at home lately. Has noted headache with this times.Not missing doses of medication. HTN: Without report of chest pain, palpitations, dyspnea, peripheral edema, orthopnea, fatigue, and PND. Notes HCTZ caused gout like symptoms. Last 14 Encounter BP Readings: Date: BP: 02/19/2024 165/102[bp average[ 02/08/2024 165/101 12/09/2023 142/96 09/05/2023 148/90 08/28/2023 138/78 06/14/2023 162/90 06/12/2023 142/82 06/07/2023 144/80 05/22/2023 160/88 04/07/2023 144/90 01/17/2023 136/80 12/13/2022 174/96 10/10/2022 132/85[BP Irina[ 08/15/2022 148/98 Review of Systems Constitutional: Negative. Respiratory: Negative. Cardiovascular: Negative. Objective BP 165/102 Pulse 80 Resp 16 Wt 100 kg (220 lb 7.4 oz) BMI 29.90 kg/m Physical Exam Vitals and nursing note reviewed. Constitutional: Appearance: Normal appearance. HENT: Head: Normocephalic and atraumatic. Eyes: Conjunctiva/sclera: Conjunctivae normal. Neck: Vascular: Normal carotid pulses. No JVD. Cardiovascular: Rate and Rhythm: Normal rate. Pulses: Carotid pulses are 2+ on the right side and 2+ on the left side. Radial pulses are 2+ on the right side and 2+ on the left side. Heart sounds: Normal heart sounds. Pulmonary: Effort: Pulmonary effort is normal. Breath sounds: Normal breath sounds. Musculoskeletal: Right lower leg: No edema. Left lower leg: No edema. Skin: General: Skin is warm and dry. Neurological: General: No focal deficit present. Mental Status: He is alert and oriented to person, place, and time. ALLERGIES Allergen Reactions Penicillins Hives Medications lisinopril (ZESTRIL) 40 mg tablet Take 1 tablet by mouth once daily. FLUoxetine (PROZAC) 40 mg capsule Take 1 capsule by mouth once daily. Take with 20 mg dose. OLANZapine (ZYPREXA) 5 mg tablet Take 1 tablet by mouth daily at bedtime. FLUoxetine (PROZAC) 20 mg capsule Take 1 capsule by mouth once daily. Take with 40 mg dose. amLODIPine (NORVASC) 5 mg tablet Take 1 tablet by mouth once daily. PAST MEDICAL HISTORY Diagnosis Date DDD (degenerative disc disease), cervical Mood disorder (HCC) 07/07/2023 Unspecified essential hypertension Essential hypertension Social History Tobacco Use Smoking status: Every Day Current packs/day: 1.00 Average packs/day: 1 pack/day for 16.0 years (16.0 ttl pk-yrs) Types: Cigarettes Smokeless tobacco: Current Vaping Use Vaping status: Never Used Substance Use Topics Alcohol use: Yes Comment: rare Drug use: Yes Types: Marijuana Comment: couple times per week Latest Ref Rng 06/13/2023 WBC 3.70 - 11.00 k/uL 8.29 RBC 4.20 - 6.00 m/uL 5.03 Hemoglobin 13.0 - 17.0 g/dL 15.9 Hematocrit 39.0 - 51.0 % 47.3 MCV 80.0 - 100.0 fL 94.0 MCH 26.0 - 34.0 pg 31.6 MCHC 30.5 - 36.0 g/dL 33.6 RDW-CV 11.5 - 15.0 % 12.6 Platelet Count 150 - 400 k/uL 229 MPV 9.0 - 12.7 fL 9.8 Neut% % 66.4 Abs Neut (ANC) 1.45 - 7.50 k/uL 5.51 Lymph% % 23.4 Abs Lymph 1.00 - 4.00 k/uL 1.94 Patillas% % 8.3 Abs [place] <0.87 k/uL 0.69 Eosin% % 1.1 Abs Eosin <0.46 k/uL 0.09 Baso% % 0.4 Abs Baso <0.11 k/uL 0.03 Immature Gran % % 0.4 IMMATURE GRANS (ABS) <0.10 k/uL 0.03 NRBC /100 WBC 0.0 Absolute nRBC <0.01 k/uL <0.01 DTYPE Auto Protein, Total 6.3 - 8.0 g/dL 6.8 Albumin 3.9 - 4.9 g/dL 4.3 Calcium 8.5 - 10.2 mg/dL 9.7 Bilirubin, Total 0.2 - 1.3 mg/dL 0.8 Alkaline Phosphatase 38 - 113 U/L 90 AST 14 - 40 U/L 17 ALT 10 - 54 U/L 21 Glucose 74 - 99 mg/dL 125 (H) BUN 9 - 24 mg/dL 10 Creatinine 0.73 - 1.22 mg/dL 0.72 (L) Sodium 136 - 144 mmol/L 142 Potassium 3.7 - 5.1 mmol/L 4.0 Chloride 97 - 105 mmol/L 106 (H) CO2 22 - 30 mmol/L 26 Anion Gap 9 - 18 mmol/L 10 eGFR >=60 mL/min/1.73m 116 Hemoglobin A1C 4.3 - 5.6 % 5.2 Estimated Average Glucose mg/dL 103 TSH 0.270 - 4.200 mIU/L 0.986 Legend: (H) High (L) Low ASSESSMENT/PLAN: 1. Primary hypertension - ICD9: 401.9, ICD10: I10 suboptimal control - Increase amlodipine from 5 to 10 mg QD - Recommend home blood pressure monitoring, to bring results to next visit - Encouraged sodium restriction, DASH or Mediterranean diet - Recommend regular aerobic exercise - AMLODIPINE 10 MG TABLET Recheck BP 1-4 weeks Sydney Driscoll APRN.CNS Medical Decision Making: Problems: Moderate: 1+ chronic illnesses with change Data: Unique test result(s) reviewed: 3+ Risk: Moderate: Drug management Medical Decision Making Level: 4 - Moderate documented in this encounter [facility] 02-16-2024 Telephone encounter Note Pt has not been seen in recently. Had appt in [facility] on 02/07 and BP was 165/101. Pt is taking both Lisinopril and Amlodipine. He does not have a BP cuff at home to check his BPs but states the last few times he has been seen, it has been high. Pt set up for 4 pm appt on Monday with Sydney Driscoll for BP and med check. He has enough pills to get him through til the appt. Also scheduled pt for yearly with Dr. Adams on 06/18/24 at 4 pm. Pt needs late day appts due to work/new job. Last labs were 06/13/23. New lab orders pended to have drawn prior to 06/18/24 appt. [facility] 02-16-2024 Miscellaneous Notes Pt has not been seen in recently. Had appt in [facility] on 02/07 and BP was 165/101. Pt is taking both Lisinopril and Amlodipine. He does not have a BP cuff at home to check his BPs but states the last few times he has been seen, it has been high. Pt set up for 4 pm appt on Monday with Sydney Driscoll for BP and med check. He has enough pills to get him through til the appt. Also scheduled pt for yearly with Dr. Adams on 06/18/24 at 4 pm. Pt needs late day appts due to work/new job. Last labs were 06/13/23. New lab orders pended to have drawn prior to 06/18/24 appt. Prescription Refill Information The patient has been identified by name and date of : Yes Caregiver verified no other encounters exist for this prescription request: Yes Caregiver confirmed with patient/requestor that no other refills are due, in the near future, with this provider at this time: Yes The last office visit in the department: 09/05/23 Does the patient have a future office visit with this provider/department: No Requested Prescriptions Pending Prescriptions Disp Refills amLODIPine (NORVASC) 5 mg tablet 90 tablet 3 Sig: Take 1 tablet by mouth once daily. Sydney Mcclellan February 16, 2024 2:05 PM documented in this encounter [facility] 02-16-2024 Telephone encounter Note Prescription Refill Information The patient has been identified by name and date of : Yes Caregiver verified no other encounters exist for this prescription request: Yes Caregiver confirmed with patient/requestor that no other refills are due, in the near future, with this provider at this time: Yes The last office visit in the department: 09/05/23 Does the patient have a future office visit with this provider/department: No Requested Prescriptions Pending Prescriptions Disp Refills amLODIPine (NORVASC) 5 mg tablet 90 tablet 3 Sig: Take 1 tablet by mouth once daily. Sydney Mcclellan February 16, 2024 2:05 PM [facility] 02-08-2024 Note HNO ID: [id number] Author: SANGEETHA NICOLE PA Service: ? Author Type: Physician Referral Nurse Type: Progress Notes Filed: 02/08/2024 13:13 Note Text: This note was created using [employer]. Subjective Enrique Dowling is a 43 year old male. HPI 43-year-old male presents for cough, congestion, diarrhea, fever x 2 days. Patient states that he has had a cough and congestion for the past few days. He states he has had diarrhea and some stomach cramping. He reports nausea, no vomiting. No blood in the stool. He did have a fever last night of 101 ?F. He has not had a fever today. He has taken Motrin for his symptoms and DayQuil yesterday with minimal improvement. States his kids were recently sick with flulike symptoms. No other complaint. PAST MEDICAL HISTORY Diagnosis Date DDD (degenerative disc disease), cervical Mood disorder (HCC) 07/07/2023 Unspecified essential hypertension Essential hypertension PAST SURGICAL HISTORY Procedure Laterality Date NONE ALLERGIES Penicillins MEDICATIONS lisinopril (ZESTRIL) 40 mg tablet Take 1 tablet by mouth once daily. FLUoxetine (PROZAC) 40 mg capsule Take 1 capsule by mouth once daily. Take with 20 mg dose. OLANZapine (ZYPREXA) 5 mg tablet Take 1 tablet by mouth daily at bedtime. FLUoxetine (PROZAC) 20 mg capsule Take 1 capsule by mouth once daily. Take with 40 mg dose. amLODIPine (NORVASC) 5 mg tablet Take 1 tablet by mouth once daily. FAMILY HISTORY Problem Relation Age of Onset Hypertension Mother other (ckd [Other]) Maternal Uncle Ischemic Heart Disease Paternal Grandfather Social History Tobacco Use Smoking status: Every Day Current packs/day: 1.00 Average packs/day: 1 pack/day for 16.0 years (16.0 ttl pk-yrs) Types: Cigarettes Smokeless tobacco: Current Vaping Use Vaping status: Never Used Substance Use Topics Alcohol use: Yes Comment: rare Drug use: Yes Types: Marijuana Comment: couple times per week Review of Systems Constitutional: Negative for chills and fever. HENT: Positive for congestion. Negative for sore throat. Respiratory: Positive for cough. Negative for shortness of breath. Gastrointestinal: Positive for diarrhea and nausea. Negative for abdominal pain and vomiting. Objective BP 165/101 Pulse 85 Temp 36.1 ?C (96.9 ?F) (Left Tympanic) Resp 16 Wt 98.8 kg (217 lb 13 oz) SpO2 99% BMI 29.54 kg/m? Physical Exam Vitals and nursing note reviewed. Constitutional: General: He is not in acute distress. Appearance: Normal appearance. He is not toxic-appearing. HENT: Right Ear: Tympanic membrane and ear canal normal. Left Ear: Tympanic membrane and ear canal normal. Nose: Nose normal. Mouth/Throat: Mouth: Mucous membranes are moist. Eyes: Conjunctiva/sclera: Conjunctivae normal. Cardiovascular: Rate and Rhythm: Normal rate and regular rhythm. Pulmonary: Effort: Pulmonary effort is normal. Breath sounds: Normal breath sounds. Abdominal: General: Abdomen is flat. Palpations: Abdomen is soft. Tenderness: There is no abdominal tenderness. There is no guarding or rebound. Skin: General: Skin is warm and dry. Neurological: Mental Status: He is alert. Assessment and Plan ASSESSMENT/PLAN: 1. URI, acute - ICD9: 465.9, ICD10: J06.9 (primary diagnosis) - Discussed viral etiology and rationale for treatment. - Symptomatic treatment with prn analgesia - Supportive care with fluids and rest - COVID AND INFLUENZA A/B AND RSV PCR, ROUTINE -Out of window for Tamiflu 2. Primary hypertension - ICD9: 401.9, ICD10: I10 -BP elevated today. -Patient is on medication. Advised to continue medication, keep an eye on blood pressure at home. If continued elevation, needs follow-up with PCP Diagnosis and treatment plan were discussed and questions were answered to the patient's satisfaction. Pt acknowledged understanding of concepts and follow up plan. Specific signs and symptoms that would indicate the need for higher level of care were discussed in detail warranting prompt ER evaluation. DONALD Machuca [facility] 02-08-2024 History of Present illness Narrative This note was created using [employer]imotion[employer]. Subjective Enrique Dowling is a 43 year old male. HPI 43-year-old male presents for cough, congestion, diarrhea, fever x 2 days. Patient states that he has had a cough and congestion for the past few days. He states he has had diarrhea and some stomach cramping. He reports nausea, no vomiting. No blood in the stool. He did have a fever last night of 101 F. He has not had a fever today. He has taken Motrin for his symptoms and DayQuil yesterday with minimal improvement. States his kids were recently sick with flulike symptoms. No other complaint. PAST MEDICAL HISTORY Diagnosis Date DDD (degenerative disc disease), cervical Mood disorder (HCC) 07/07/2023 Unspecified essential hypertension Essential hypertension PAST SURGICAL HISTORY Procedure Laterality Date NONE ALLERGIES Penicillins MEDICATIONS lisinopril (ZESTRIL) 40 mg tablet Take 1 tablet by mouth once daily. FLUoxetine (PROZAC) 40 mg capsule Take 1 capsule by mouth once daily. Take with 20 mg dose. OLANZapine (ZYPREXA) 5 mg tablet Take 1 tablet by mouth daily at bedtime. FLUoxetine (PROZAC) 20 mg capsule Take 1 capsule by mouth once daily. Take with 40 mg dose. amLODIPine (NORVASC) 5 mg tablet Take 1 tablet by mouth once daily. FAMILY HISTORY Problem Relation Age of Onset Hypertension Mother other (ckd [Other]) Maternal Uncle Ischemic Heart Disease Paternal Grandfather Social History Tobacco Use Smoking status: Every Day Current packs/day: 1.00 Average packs/day: 1 pack/day for 16.0 years (16.0 ttl pk-yrs) Types: Cigarettes Smokeless tobacco: Current Vaping Use Vaping status: Never Used Substance Use Topics Alcohol use: Yes Comment: rare Drug use: Yes Types: Marijuana Comment: couple times per week Review of Systems Constitutional: Negative for chills and fever. HENT: Positive for congestion. Negative for sore throat. Respiratory: Positive for cough. Negative for shortness of breath. Gastrointestinal: Positive for diarrhea and nausea. Negative for abdominal pain and vomiting. Objective BP 165/101 Pulse 85 Temp 36.1 C (96.9 F) (Left Tympanic) Resp 16 Wt 98.8 kg (217 lb 13 oz) SpO2 99% BMI 29.54 kg/m Physical Exam Vitals and nursing note reviewed. Constitutional: General: He is not in acute distress. Appearance: Normal appearance. He is not toxic-appearing. HENT: Right Ear: Tympanic membrane and ear canal normal. Left Ear: Tympanic membrane and ear canal normal. Nose: Nose normal. Mouth/Throat: Mouth: Mucous membranes are moist. Eyes: Conjunctiva/sclera: Conjunctivae normal. Cardiovascular: Rate and Rhythm: Normal rate and regular rhythm. Pulmonary: Effort: Pulmonary effort is normal. Breath sounds: Normal breath sounds. Abdominal: General: Abdomen is flat. Palpations: Abdomen is soft. Tenderness: There is no abdominal tenderness. There is no guarding or rebound. Skin: General: Skin is warm and dry. Neurological: Mental Status: He is alert. Assessment and Plan ASSESSMENT/PLAN: 1. URI, acute - ICD9: 465.9, ICD10: J06.9 (primary diagnosis) - Discussed viral etiology and rationale for treatment. - Symptomatic treatment with prn analgesia - Supportive care with fluids and rest - COVID & INFLUENZA A/B & RSV PCR, ROUTINE -Out of window for Tamiflu 2. Primary hypertension - ICD9: 401.9, ICD10: I10 -BP elevated today. -Patient is on medication. Advised to continue medication, keep an eye on blood pressure at home. If continued elevation, needs follow-up with PCP Diagnosis and treatment plan were discussed and questions were answered to the patient's satisfaction. Pt acknowledged understanding of concepts and follow up plan. Specific signs and symptoms that would indicate the need for higher level of care were discussed in detail warranting prompt ER evaluation. DONALD Machuca documented in this encounter [facility] 01-31-2024 Telephone encounter Note Prescription Refill Information The patient has been identified by name and date of : Yes Caregiver verified no other encounters exist for this prescription request: Yes Caregiver confirmed with patient/requestor that no other refills are due, in the near future, with this provider at this time: Yes The last office visit in the department: 09-05-23 Does the patient have a future office visit with this provider/department: No Requested Prescriptions Pending Prescriptions Disp Refills lisinopril (ZESTRIL) 40 mg tablet 90 tablet Sig: Take 1 tablet by mouth once daily. Zenobia Mcclellan January 31, 2024 9:09 AM [facility] 01-31-2024 Miscellaneous Notes Prescription Refill Information The patient has been identified by name and date of : Yes Caregiver verified no other encounters exist for this prescription request: Yes Caregiver confirmed with patient/requestor that no other refills are due, in the near future, with this provider at this time: Yes The last office visit in the department: 09-05-23 Does the patient have a future office visit with this provider/department: No Requested Prescriptions Pending Prescriptions Disp Refills lisinopril (ZESTRIL) 40 mg tablet 90 tablet Sig: Take 1 tablet by mouth once daily. Zenobia Mcclellan January 31, 2024 9:09 AM documented in this encounter [facility] 12-09-2023 Instructions Goldie Gresham APRN.CNP - 12/09/2023 10:56 AM EDT Clindamycin as ordered Tylenol/ibuprofen prn Needs to see dentist corwin documented in this encounter [facility] 12-09-2023 History of Present illness Narrative Subjective The history is provided by the patient. No russian language professor was used. HPI Enrique Dowling is a 43 year old male who presents today for CC of right upper dental pain and cheek swelling. He has a tooth that is broken off and is having discomfort. He has used tylenol. Attempting to get in with dentist BP 142/96 Pulse 88 Temp 36.6 C (97.9 F) Resp 16 Wt 94.9 kg (209 lb 3.5 oz) SpO2 97% BMI 28.37 kg/m Social History Tobacco Use Smoking status: Every Day Current packs/day: 1.00 Average packs/day: 1 pack/day for 16.0 years (16.0 ttl pk-yrs) Types: Cigarettes Smokeless tobacco: Current Vaping Use Vaping status: Never Used Substance Use Topics Alcohol use: Yes Comment: rare Drug use: Yes Types: Marijuana Comment: couple times per week PAST MEDICAL HISTORY Diagnosis Date DDD (degenerative disc disease), cervical Mood disorder (HCC) 07/07/2023 Unspecified essential hypertension Essential hypertension I have confirmed and edited as necessary, the [place] Review of Systems Constitutional: Negative for chills and fever. HENT: Negative for congestion and sinus pain. Dental pain Respiratory: Negative for cough. Objective Physical Exam Vitals and nursing note reviewed. HENT: Head: Normocephalic and atraumatic. Mouth/Throat: Dentition: Abnormal dentition. Dental tenderness and dental caries present. Pharynx: No oropharyngeal exudate or posterior oropharyngeal erythema. Tonsils: No tonsillar exudate or tonsillar abscesses. Pulmonary: Effort: Pulmonary effort is normal. Skin: General: Skin is warm and dry. Neurological: Mental Status: He is alert and oriented to person, place, and time. Psychiatric: Mood and Affect: Affect normal. ASSESSMENT/PLAN: 1. Pain, dental - ICD9: 525.9, ICD10: K08.89 Clindamycin as ordered Tylenol/ibuprofen prn Needs to see dentist corwin Diagnosis and treatment plan were discussed and questions were answered to the patient's satisfaction. Pt acknowledged understanding of concepts and follow up plan. Specific signs and symptoms that would indicate the need for higher level of care were discussed in detail warranting prompt ER evaluation. Goldie Gresham APRN.PRABHA documented in this encounter [facility] 12-04-2023 Instructions Shanti Sahni APRN.CNP - 12/04/2023 1:13 AM EDT Ashwin Gilbert, It was good to talk with you today. Below is a summary of the plan that we discussed during your appointment for reference. Of course, if you have any questions or concerns do not hesitate to reach out to me via a message or call. Shanti Wilcox APRN.PIPE ORGAN MECHANIC PLAN AND FOLLOW UP: TREATMENT PLAN: Increase Prozac to a total dose of 60 mg to address increase in anxiety symptoms. Continue Zyprexa at the same dose. Patient has been able to reduce the nicotine use to 1/2 pack per day in the last 3 weeks. Continues to abstain from marijuana. Has been drinking alcohol on the weekends to cope with some increased anxiety symptoms. For those experiencing a suicidal crisis: --call the National Suicide Prevention Lifeline at 988 (497.457.4265) --text the Crisis Text Line (text HOME to 549592) --call 911 and let them know you are having a mental health crisis or go to your nearest Emergency Room for stabilization. --You can also call Mobile Crisis at [phone]. Next appointment: --Schedule in 2 months or sooner if needed -- You may call the department appointment line at [phone] to schedule your appointment. -- Please call my nurse at [phone] or send me a message in [address] with any questions or concerns between appointments. documented in this encounter [facility] 11-24-2023 History of Present illness Narrative Images from the original note were not included. FOLLOW UP - PSYCHIATRIC PROGRESS NOTE PATIENT: Enrique Dowling DATE: November 24, 2023 Visit Type: Virtual Visit utilizing two-way audio and video for at least a portion of the visit. Consent for virtual visit obtained verbally. Confidentiality limitations with virtual visits reviewed with the patient and guardian, if present, who have accepted the risk verbally prior to proceeding with encounter. I have communicated my name and active licensure. The patient's identity and physical location were verified at the time of this visit. Either the patient or their legal small business representative has been informed of the risks and benefits of -- and alternatives to -- treatment through a remote evaluation and consents to proceed with the evaluation remotely. All information is from Patient report except when noted. This evaluation is NOT intended for forensic, disability or child custody purposes. CC: Presenting today for follow up regarding psychiatric medication management. HPI: Treatment Plan from Last Visit on 08/04/2023: Increase Prozac to 40 mg to address panic symptoms. Continue Zyprexa at the same dose. Encouraged to reduce nicotine use due to the interaction with the medication. Continues to abstain from marijuana use. Last use was in February. Does not plan on retrying that. Today Enrique shares that he got a new job and had to miss last 2 appointments. He has been struggling with his ability to focus. Trying to take his medications consistently. His job is going well and he is doing well. But he is worrying about messing things up as he has had opportunities to move up. He is having a hard time staying present. Sometimes he tends to hyper focus on things that he doesn't need to. He has been taking Prozac 40 mg. He has had a few days of missing the medications. There were some days when he also missed Zyprexa. Has found himself waking up at night worrying about things. Has been able to reduce his nicotine use. Went from 1 pack a day to 1/2 pack a day. He feels that more pressure is put on him as he is doing better. Tends to dwell on negative thoughts. Continues to abstain from marijuana use. Drinks occasionally on the weekend. Does drink to rest and relax. Denies any side effects from Prozac. Interval Progress: Slightly worse PATIENT DATA: Generalized Anxiety Disorder Scale (JUAN-7) 07/03/2023 08/04/2023 11/24/2023 JUAN - 7 SCORES Score 15 8 7 (0-4) minimal anxiety, (5-9) mild anxiety, (10-14) moderate anxiety, (15-21) severe anxiety Patient Health Questionnaire (PHQ-9) 07/03/2023 08/04/2023 11/24/2023 PHQ-9 Score 10 8 9 (0-4) minimal depression, (5-9) mild depression, (10-14) moderate depression, (15-19) moderately severe depression, (20-27) severe depression PAST MEDICAL HISTORY No date: DDD (degenerative disc disease), cervical 07/07/2023: Mood disorder (HCC) No date: Unspecified essential hypertension Comment: Essential hypertension PAST SURGICAL HISTORY No date: NONE ALLERGIES Allergen Reactions Penicillins Hives Current Outpatient Medications on File Prior to Visit Medication Sig OLANZapine (ZYPREXA) 5 mg tablet Take 1 tablet by mouth daily at bedtime. FLUoxetine (PROZAC) 40 mg capsule Take 1 capsule by mouth once daily. lisinopril (ZESTRIL) 40 mg tablet Take 1 tablet by mouth once daily. amLODIPine (NORVASC) 5 mg tablet Take 1 tablet by mouth once daily. No current facility-administered medications on file prior to visit. ROS: See HPI PFSH: See HPI VITAL SIGNS: There were no vitals filed for this visit. Last 3 Encounter BP Readings: Date: BP: 09/05/2023 148/90 08/28/2023 138/78 06/14/2023 162/90 MENTAL STATUS EXAMINATION: Appearance: Casually dressed, well groomed Behavior: Behaves appropriately during the encounter Social relatedness: Euthymic Speech/Language: The patient demonstrates appropriate tone, prosody, helen, phonetics, and syntax Mood: Anxious Affect: Full and appropriate to topic Orientation: Person, Place, Time and Situation Associations: Intact and linear Hallucinations: None Delusions: None Suicidal Ideation: No suicidal ideation, intent or plan. Homicidal Ideation: No homicidal ideation, intent or plan. Insight: Appropriate Judgment: Appropriate DATA REVIEWED: Psychiatric scales, Electronic medical record, Labs, and PDMP report. DIAGNOSIS: Panic disorder with agoraphobia (primary encounter diagnosis) Mood disorder (hcc) Nicotine use GAF: -60-51 Moderate symptoms or moderate difficulty in social, occupational or school functioning. TREATMENT PLAN: Increase Prozac to a total dose of 60 mg to address increase in anxiety symptoms. Continue Zyprexa at the same dose. Patient has been able to reduce the nicotine use to 1/2 pack per day in the last 3 weeks. Continues to abstain from marijuana. Has been drinking alcohol on the weekends to cope with some increased anxiety symptoms. MEDICATION CHANGES: See above Risks and benefits of the medication, including any black box warnings, were discussed with the patient. Patient is aware to reach out with any questions, concerns, or worsening of symptoms prior to the next appointment. Patient educated on risks of substance use in combination with medications and advised that any substance use along with medications may alter their effectiveness.Patient denies any involuntary movement related side effects. Follow Up: 2 months I spent a total of 36 minutes on the date of the service which included preparing to see the patient, [id number] patient care, completing clinical documentation, and counseling and educating the patient/family/caregiver, ordering medications/labs. ADD ON PSYCHOTHERAPY CODE : No SIGNATURE: Shanti Sahni APRN.CNP PATIENT NAME: Enrique Dowling DATE: November 24, 2023 TIME: 9:38 AM documented in this encounter [facility] 11-01-2023 Telephone encounter Note The patient has been identified by name and date of : Yes Caregiver verified no other encounters exist for this prescription request: Yes Caregiver confirmed with patient/requestor that no other refills are due, in the near future, with this provider at this time: Yes The last office visit in the department: 08/04/23 Does the patient have a future office visit with this provider/department: Yes 11/24/2023 Pt reminded to keep appt as his last two appts he no showed. Pt voiced understanding. Requested Prescriptions Pending Prescriptions Disp Refills OLANZapine (ZYPREXA) 5 mg tablet 30 tablet 3 Sig: Take 1 tablet by mouth daily at bedtime. Lisa Singletary LPN November 01, 2023 12:18 PM [facility] 11-01-2023 Miscellaneous Notes The patient has been identified by name and date of : Yes Caregiver verified no other encounters exist for this prescription request: Yes Caregiver confirmed with patient/requestor that no other refills are due, in the near future, with this provider at this time: Yes The last office visit in the department: 08/04/23 Does the patient have a future office visit with this provider/department: Yes 11/24/2023 Pt reminded to keep appt as his last two appts he no showed. Pt voiced understanding. Requested Prescriptions Pending Prescriptions Disp Refills OLANZapine (ZYPREXA) 5 mg tablet 30 tablet 3 Sig: Take 1 tablet by mouth daily at bedtime. Lias Singletary LPN November 01, 2023 12:18 PM documented in this encounter [facility] 10-26-2023 Instructions Shanti Sahni, PROCUREMENT AGENT.PIPE ORGAN MECHANIC - 10/26/2023 1:06 PM EDT Dear Enrique, It has come to my attention you missed your appointment on October 26, 2023 without calling to cancel. Our first concern is your health. If your behavioral health concern prompting your appointment is still present, please reschedule soon so that you may receive the appropriate care by calling the appointment number listed above. It is important that you notify our office if you are unable to make an appointment. That time can then be used for other patients. If our information is incorrect, please call so we can correct our records. Since you may be new to our office, I want to alert you to our cancellation policy. Because there are many patients waiting for appointments, we may bill patients $75 when they fail to come to their appointments without giving us adequate notice (i.e., within 24-hours). For example, if you are scheduled for 10:00am on a , you must cancel by 10:00am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 capsule Take 1 capsule by mouth three times daily as needed for cough. albuterol HFA (PROVENTIL HFA, VENTOLIN HFA) 90 mcg/actuation inhaler Inhale 2 Puffs as instructed every 4 hours as needed. (Patient not taking: Reported on 03/25/2019 ) guaiFENesin (MUCINEX) 600 mg 12 hr tablet Take 2 tablets by mouth twice daily. (Patient not taking: Reported on 03/25/2019 ) benzonatate (TESSALON PERLES) 100 mg capsule Take 1 capsule by mouth three times daily as needed. (Patient not taking: Reported on 03/25/2019 ) FAMILY HISTORY Problem Relation Age of Onset Hypertension Mother other (ckd [Other]) Maternal Uncle Ischemic Heart Disease Paternal Grandfather Social History Tobacco Use Smoking status: Every Day Packs/day: 1.00 Years: 16.00 Additional pack years: 0.00 Total pack years: 16.00 Types: Cigarettes Smokeless tobacco: Never Tobacco comments: 1/2 pack daily Substance Use Topics Alcohol use: Yes Comment: rare Drug use: No PHYSICAL EXAM BP 136/80 (BP Site: Right Arm, BP Position: Sitting, BP Cuff Size: Large Adult) Pulse 88 Temp 36.5 C (97.7 F) Resp 12 Ht 182.9 cm (6') Wt 89.8 kg (198 lb) SpO2 98% BMI 26.85 kg/m Physical Exam Constitutional: General: He is not in acute distress. Appearance: He is not ill-appearing. Musculoskeletal: Left elbow: Swelling (Palpable, tender swelling appreciated in area as outlined on diagram) present. Decreased range of motion (Secondary to pain. Pain most predominant with full extension, supination and pronation.). Tenderness (Overlying dorsal aspect of proximal forearm and left elbow, in the region of brachioradialis tendon) present in lateral epicondyle and olecranon process. Arms: Neurological: Mental Status: He is alert. Psychiatric: Behavior: Behavior is cooperative. ASSESSMENT/PLAN: 1. Left elbow pain - ICD9: 719.42, ICD10: M25.522 (primary diagnosis) XR ordered to rule out acute fracture/dislocation/acute bony abnormality. RICE therapy advised. IM Toradol given in office. Advised waiting until tomorrow to begin meloxicam, which he will take once daily. Can also add in 1000 mg of Tylenol 3 times daily. Also advised continuing to brace or use an Javy wrap to assist with degree of swelling. Ortho referral placed for further evaluation and management, as I wonder if patient may be a candidate for steroid injection. - MELOXICAM 15 MG TABLET - CONSULT TO ORTHOPAEDICS - XR ELBOW SPECIAL VIEWS AP/LAT/OTHER LEFT 2. Left forearm pain - ICD9: 729.5, ICD10: M79.632 See above - MELOXICAM 15 MG TABLET - CONSULT TO ORTHOPAEDICS - XR ELBOW SPECIAL VIEWS AP/LAT/OTHER LEFT - KETOROLAC 60 MG/2 ML INTRAMUSCULAR SOLUTION 3. Primary hypertension - ICD9: 401.9, ICD10: I10 - Controlled-continue current medications. Refills provided per patient request. - Recommend home blood pressure monitoring, to bring results to next visit - Encouraged sodium restriction, DASH or Mediterranean diet - Recommend regular aerobic exercise - LISINOPRIL 40 MG TABLET Prescription instructions reviewed with patient as applicable. Potential red flag symptoms discussed with the patient. Reviewed appropriate action plan to take if red flag symptoms occur. Patient agreeable to treatment plan. Alexandra Shields PA-C documented in this encounter [facility] 12-22-2022 Miscellaneous Notes Spoke with pt and information listed below given. Pt verbalizes understanding. Pt agrees and will get fasting lab work done. Vanda Anderson LPN Medication refilled but patient needs to get fasting blood work completed. Orders are placed. Thank you Caitlin Craig [email or web address] Patient has been identified by name and date of : Yes Requested Prescriptions Pending Prescriptions Disp Refills amLODIPine (NORVASC) 5 mg tablet 30 tablet 5 Sig: Take 1 tablet by mouth once daily. RX INSTRUCTIONS: Patient is out of medication. Please send today. Patient aware RX will be sent to pharmacy. No need to notify patient. Sydney Mcclellan documented in this encounter [facility] 12-13-2022 History of Present illness Narrative This note was created using [employer]. Subjective Enrique Dowling is a 42 year old male. 42 year old male with PMH OA, HTN presents for illness. Acute onset 3 days ago +diarrhea Abdominal cramping and feelings of bloated X approximant 10 non bloody liquid stools +N/V, citing mild amounts of puking. +cough +fever +fatigue Denies body aches Utilized Immodium Has tried BRAT diet Denies recent travel outside of country or ATB usage. The history is provided by the patient. No russian language professor was used. Diarrhea This is a new problem. The current episode started more than 2 days ago. Episode frequency: 10 times a day. The problem has not changed since onset.The stool consistency is described as Watery. There has been no fever. Associated symptoms include abdominal pain (cramping), vomiting, myalgias and cough. Pertinent negatives include no chills, no sweats, no headaches, no arthralgias and no URI. He has tried a change of diet for the symptoms. The treatment provided no relief. His past medical history does not include irritable bowel syndrome, inflammatory bowel disease, short gut syndrome, bowel resection, recent abdominal surgery or malabsorption. PAST MEDICAL HISTORY Diagnosis Date DDD (degenerative disc disease), cervical Unspecified essential hypertension Essential hypertension PAST SURGICAL HISTORY Procedure Laterality Date NONE ALLERGIES Patient has no known allergies. MEDICATIONS amLODIPine (NORVASC) 5 mg tablet Take 1 tablet by mouth once daily. lisinopril (ZESTRIL, PRINIVIL) 40 mg tablet Take 1 tablet by mouth once daily. ondansetron orally disintegrating (ZOFRAN ODT) 4 mg disintegrating tablet Take 1 tablet by mouth every 6 hours as needed for nausea/vomiting. ketoconazole (NIZORAL) 2 % shampoo Apply to affected areas, wash off after 5 minutes of application. Repeat for a total of 3 consecutive days. (Patient not taking: Reported on 12/13/2022) predniSONE (DELTASONE) 10 mg tablet Take 40 mg x 3 days, 20 mg x 3 days, 10 mg x 3 days. Take with food, once daily (Patient not taking: Reported on 08/15/2022) cyclobenzaprine (FLEXERIL) 10 mg tablet Take 1 tablet by mouth three times daily as needed for muscle spasm. (Patient not taking: Reported on 08/15/2022) albuterol HFA (PROAIR HFA) 90 mcg/actuation inhaler Inhale 2 Puffs as instructed every 6 hours as needed. benzonatate (TESSALON PERLES) 100 mg capsule Take 1 capsule by mouth three times daily as needed for cough. albuterol HFA (PROVENTIL HFA, VENTOLIN HFA) 90 mcg/actuation inhaler Inhale 2 Puffs as instructed every 4 hours as needed. (Patient not taking: Reported on 03/25/2019 ) guaiFENesin (MUCINEX) 600 mg 12 hr tablet Take 2 tablets by mouth twice daily. (Patient not taking: Reported on 03/25/2019 ) benzonatate (TESSALON PERLES) 100 mg capsule Take 1 capsule by mouth three times daily as needed. (Patient not taking: Reported on 03/25/2019 ) FAMILY HISTORY Problem Relation Age of Onset Hypertension Mother other (ckd [Other]) Maternal Uncle Ischemic Heart Disease Paternal Grandfather Social History Tobacco Use Smoking status: Every Day Packs/day: 1.00 Years: 16.00 Additional pack years: 0.00 Total pack years: 16.00 Types: Cigarettes Smokeless tobacco: Never Tobacco comments: 1/2 pack daily Substance Use Topics Alcohol use: Yes Comment: rare Drug use: No Review of Systems Constitutional: Positive for fatigue and fever. Negative for chills. HENT: Positive for congestion and rhinorrhea. Negative for sinus pressure, sinus pain, sneezing and sore throat. Eyes: Negative for photophobia, pain, discharge, redness and itching. Respiratory: Positive for cough. Cardiovascular: Negative for chest pain, palpitations and leg swelling. Gastrointestinal: Positive for abdominal pain (cramping), diarrhea and vomiting. Musculoskeletal: Positive for myalgias. Negative for arthralgias. Skin: Negative for color change, pallor, rash and wound. Allergic/Immunologic: Negative for environmental allergies, food allergies and immunocompromised state. Neurological: Negative for headaches. Hematological: Negative for adenopathy. Does not bruise/bleed easily. Psychiatric/Behavioral: Negative for agitation and behavioral problems. Objective BP 174/96 Pulse 82 Temp 36.1 C (96.9 F) Resp 16 Wt 88.9 kg (196 lb) SpO2 98% BMI 26.58 kg/m Physical Exam Vitals and nursing note reviewed. Constitutional: General: He is not in acute distress. Appearance: Normal appearance. He is not ill-appearing, toxic-appearing or diaphoretic. HENT: Head: Normocephalic and atraumatic. Right Ear: External ear normal. Left Ear: External ear normal. Nose: Nose normal. No congestion or rhinorrhea. Mouth/Throat: Mouth: Mucous membranes are moist. Pharynx: Oropharynx is clear. No oropharyngeal exudate or posterior oropharyngeal erythema. Eyes: General: Right eye: No discharge. Left eye: No discharge. Extraocular Movements: Extraocular movements intact. Conjunctiva/sclera: Conjunctivae normal. Pupils: Pupils are equal, round, and reactive to light. Cardiovascular: Rate and Rhythm: Normal rate and regular rhythm. Pulses: Normal pulses. Heart sounds: Normal heart sounds. No murmur heard. No friction rub. No gallop. Pulmonary: Effort: Pulmonary effort is normal. No respiratory distress. Breath sounds: Normal breath sounds. No stridor. No wheezing, rhonchi or rales. Chest: Chest wall: No tenderness. Abdominal: General: Abdomen is flat. There is no distension. Palpations: Abdomen is soft. There is no mass. Tenderness: There is no abdominal tenderness. There is no guarding or rebound. Hernia: No hernia is present. Musculoskeletal: General: No swelling, tenderness, deformity or signs of injury. Normal range of motion. Cervical back: Normal range of motion and neck supple. No rigidity or tenderness. Right lower leg: No edema. Left lower leg: No edema. Lymphadenopathy: Cervical: No cervical adenopathy. Skin: General: Skin is warm and dry. Capillary Refill: Capillary refill takes less than 2 seconds. Coloration: Skin is not jaundiced or pale. Findings: No bruising, lesion or rash. Neurological: General: No focal deficit present. Mental Status: He is alert and oriented to person, place, and time. Cranial Nerves: No cranial nerve deficit. Sensory: No sensory deficit. Motor: No weakness. Coordination: Coordination normal. Gait: Gait normal. Deep Tendon Reflexes: Reflexes normal. Psychiatric: Mood and Affect: Mood normal. Behavior: Behavior normal. Thought Content: Thought content normal. Assessment and Plan ASSESSMENT/PLAN: 1. Diarrhea, unspecified type - ICD9: 787.91, ICD10: R19.7 X 3 days Non bloody. Non bilious Hemodynamically stable Will order stool studies Also rule out influenza - C. DIFFICILE PCR - OVA + PARA MICROSCOPIC - ENTERIC BACTERIAL PANEL BY PCR - COVID & INFLUENZA A/B & RSV NAAT, ROUTINE 2. Viral illness - ICD9: 079.99, ICD10: B34.9 - Discussed viral etiology and rationale for treatment. - Symptomatic treatment with prn analgesia - Supportive care with fluids and rest - The patient may also use OTC cough and cold meds as needed, warm salt water gargles, throat lozenges and/or OTC throat spray as needed, nasal saline gtts and suction prn, and RX Zofran . - Follow up in 3-5 days if symptoms persist or sooner if worsening of symptoms - Work note provided CONRAD Ellsworth APRN.PIPE ORGAN MECHANIC documented in this encounter [facility] 12-01-2022 Hospital Discharge instructions Additional Instructions Left index finger laceration. X-ray negative. No tendon involvement. 2 sutures placed. Wound care as discussed. Continue to wear splint to allow healing. Follow your doctor in 10 to 14 days for reevaluation and suture removal. [facility] Work Phone: 10-10-2022 History of Present illness Narrative 10/10/2022 Patient presents with: Hypertension: Elevated BP, headaches and sweating SUBJECTIVE: This is a 42 year old that is here today for Complaint(s) of elevated BP the last 3 months. Noticed when it was checked at pain management and elevated. Used to take at home, machine is no longer working. Currently on lisinopril and norvasc, not missing doses. No leg swelling. Previously on HCTZ, stopped after having an episode of gout. Also not some increased HAs/migraines (history of migraines). No longer consuming caffeine. Denies fever/chills, chest pain, SOB, vision changes, epistaxis, weakness, numbness. Admits to using table salt regularly. He has hd neck pain when seen at pain managment uncertain if this is related to elevated BP at those visits. Also c/o rash that he has had previously. Usually worse in the summer with the sun. Rash is occasionally itching, not severe. Mostly on trunk and back, small area in right elbow crease. Has tried OTC head and shoulders. PAST MEDICAL HISTORY Diagnosis Date DDD (degenerative disc disease), cervical Unspecified essential hypertension Essential hypertension ALLERGIES Patient has no known allergies. MEDICATIONS Current Outpatient Medications Medication Sig amLODIPine (NORVASC) 5 mg tablet Take 1 tablet by mouth once daily. lisinopril (ZESTRIL, PRINIVIL) 40 mg tablet Take 1 tablet by mouth once daily. predniSONE (DELTASONE) 10 mg tablet Take 40 mg x 3 days, 20 mg x 3 days, 10 mg x 3 days. Take with food, once daily (Patient not taking: Reported on 08/15/2022) cyclobenzaprine (FLEXERIL) 10 mg tablet Take 1 tablet by mouth three times daily as needed for muscle spasm. (Patient not taking: Reported on 08/15/2022) albuterol HFA (PROAIR HFA) 90 mcg/actuation inhaler Inhale 2 Puffs as instructed every 6 hours as needed. benzonatate (TESSALON PERLES) 100 mg capsule Take 1 capsule by mouth three times daily as needed for cough. albuterol HFA (PROVENTIL HFA, VENTOLIN HFA) 90 mcg/actuation inhaler Inhale 2 Puffs as instructed every 4 hours as needed. (Patient not taking: Reported on 03/25/2019 ) guaiFENesin (MUCINEX) 600 mg 12 hr tablet Take 2 tablets by mouth twice daily. (Patient not taking: Reported on 03/25/2019 ) benzonatate (TESSALON PERLES) 100 mg capsule Take 1 capsule by mouth three times daily as needed. (Patient not taking: Reported on 03/25/2019 ) No current facility-administered medications for this visit. SOCIAL HISTORY Social History Tobacco Use Smoking status: Every Day Packs/day: 1.00 Years: 16.00 Total pack years: 16.00 Types: Cigarettes Smokeless tobacco: Never Tobacco comments: 1/2 pack daily Substance Use Topics Alcohol use: Yes Comment: rare Drug use: No REVIEW OF SYSTEMS See HPI OBJECTIVE: BP 132/85 Pulse 80 Resp 16 Wt 87.5 kg (193 lb) BMI 26.18 kg/m APPEARANCE Well appearing, alert, in no acute distress, well-hydrated, well nourished. EYES PERRLA, conjunctiva and sclera normal. NOSE/SINUS Nares normal. Septum midline. Mucosa normal. No drainage or sinus tenderness. THROAT normal, no erythema NECK Supple, no adenopathy; thyroid symmetric, normal size HEART RRR with normal S1 and S2, LUNG clear to auscultation, No wheezing, rhonchi, rales. NEURO Awake, alert and oriented x 3, Cranial nerves II-XII grossly intact, Normal gait, and No involuntary motions. SKIN Skin: hyperpigmented macular patches located on upper abdomen/chest and upper back. A few lesions located in left antecubital fossa. EXT no LE edema. No calf TTP. ASSESSMENT/PLAN: 1. Primary hypertension - ICD9: 401.9, ICD10: I10 (primary diagnosis) - sub optimal Controlled - Continue current medications - Recommend home blood pressure monitoring, to bring results to next visit - Encouraged sodium restriction, DASH or Mediterranean diet - Recommend regular aerobic exercise - Follow up in 6 weeks for hypertension visit - TSH BLD - LIPID PANEL BASIC - COMP METABOLIC PANEL Call in with home readings in 2 weeks. Patient will get a new home BP cuff, sooner if >170/90 consistently. 2. Rash - ICD9: 782.1, ICD10: R21 Suspect tinea versicolor Trial of ketoconazole - KETOCONAZOLE 2 % SHAMPOO The patient indicates understanding of these issues and agrees with the plan.. Reviewed red flags and when to seek care sooner. Alice Sunshine PA-C documented in this encounter [facility] 05-31-2022 History of Present illness Narrative Episode Visit Count: 1 Therapist That Will Accept/Oversee The Plan Of Care: Luciana Benton Start of Care Date: 05/31/22 Onset Date: 05/10/22 Plan of Care Certification Date: 05/31/22 Next Certification Due Date: 07/05/22 Patient Identified by Name and Date of : Yes REHABILITATION AND SPORTS THERAPY PHYSICAL THERAPY EVALUATION PLAN OF CARE: Assessment: Enrique Dowling presents with diagnosis of osteoarthritis of spine with radiculopathy,cervical region, arm weakness, and pain of right upper extremity that interferes with pulling, pushing, weight bearing, sitting, lifting, sleeping, driving, gripping, reaching behind back, reaching overhead, use hand with arm at shoulder level . He presents with impairments in ADL's, independence in exercise, joint mobility, overall function, patient reported outcome measures, posture, range of motion, sensation, strength, symptom management, and tissue tenderness. Patient did not complete the PROMIS (Patient Reported Outcome Measures Information System). Prognosis for therapy is Fair due to: limited tolerance to activity, occupational demands, poor historian, poor understanding of deficits, poor past response to therapy intervention, limited compliance with previous therapy, history of poor adherence with medical recommendations, decreased motivation, coping skills, chronic nature of impairments . He will benefit from skilled therapy services to meet the goals established for this plan of care as noted below. Goals for Episode of Care: created on 05/31/22 through 07/12/22 Independent in a Home Exercise Program. Patient will decrease pain rating by 2 points to meet minimal clinical important difference for numeric pain rating scale. Restore pain free cervical ROM to minimal to no limitation to allow for ADLs without peripheralization of symptoms into the RUE. Drive with no aggravation of pain/symptoms. Sleep throughout the night without pain/symptoms. Sit 1-2 hours without pain/symptoms to allow for reduced symptoms with seated activities. Knowledgeable RE: prophylaxis. Patient Goals: return to work, improve tolerance with ADLs Planned Interventions, Frequency, and Duration: Current Frequency: 2x/week Duration: 6 weeks Total Number of Visits Planned: 12 Planned Treatment Interventions: Therapeutic exercise (97567), Neuromuscular re-education (91569), Manual therapy (90141), Therapeutic activities (02041), Self-residential management (20110), Patient/Family/Caregiver Education PLAN FOR NEXT VISIT: pt. strongly encouraged to at least maintain good posture the best he can. Avoid movements and postures that peripheralize symptoms. Pt. may come in for continued PT visits, but he was not able to tolerate modified positions, manual traction, and isometric movements in the unloaded position today which limits therapeutic exercise and manual technique options for treatment interventions Patient demonstrates fair understanding of plan of care and treatment. The above goals and plan of care were discussed and agreed upon by patient/family. SUBJECTIVE: Enrique Dowling is a 41 year old male seen today for for right side neck pain that radiates along the posterolateral upper arm, lateral forearm and into the thumb, index, and middle finger of the right hand. 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 Pt. reports chronic neck pain with similar symptoms on the left side that resolved in the past. 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 Pt. has also been referred to pain management. He reports he is familiar with Kimberly exercises, but he is unable to do them due to the severity of symptoms. He is not able to tolerate massage from his girlfriend. 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 Infection Clinical Reasoning: No identified risk factors. Cervical Arterial Dysfunction Clinical Reasoning: No identified risk factors Cervical Myelopathy: Age > 45 yo Cervical Myelopathy Diagnostic Rule: Proceed with caution Red Flags - Cervical Cancer Clinical Reasoning: No identified risk factors. Infection Clinical Reasoning: No identified risk factors. Cervical Arterial Dysfunction Clinical Reasoning: No identified risk factors Cervical Myelopathy: Age > 45 yo Cervical Myelopathy Diagnostic Rule: Proceed with caution Spine History Symptoms Location at Onset: Neck Symptoms Since Onset: Worsening Pain is Worse Always: Driving, Sitting, Prolonged positions, On the Move, Turning, Bending, Lying, Rising Pain is Better Always: No position Sleep Affected by Pain: Pain keeps from falling asleep, Pain awakens Pain: Pain Pain Level: 4 Pain Location: Arm - Right (thumb, index, and middle finger.) Description: Numbness, Tingling Frequency: Continuous Post Treatment Pain Post Treatment Pain Level: Worse Post Treatment Pain Location: Neck - Right Post Treatment Symptoms: symptoms centralized from wrist and hand with repeated cervical retraction. Pt. refused to keep repeating cervical retraction exercises, manual traction, or sustained cervical retraction seated or supine despite education of centralization. Pt. clarifies that he has been instructed by his doctor to not reach his arms above 90 degrees of elevation (not an exercise given this visit) and he's familiar with Kimberly exercises, he just is afraid to do them. He explains that he has to do PT before his MRI. following more education and pt. demonstrating a positive response to therapy within visit, pt. doesn't want to try other exercises. PROMIS Scales Higher is Better 05/31/2022 Phys Func - Score 31 (moderate dysfunction) Phys Func - Percentile 3 % Self-Eff Symptom - Score 36 (Low) Self-Eff Symptom - Percentile 8 % T-scores: mean of general population = 50. 5 points is clinically meaningfully difference Percentiles provide an indication of how the patient's score ranks in relation to the general population. Higher percentile rankings indicate better function/quality of life. 50th percentile is the average of the general population and indicates half of respondents had a worse score. OBJECTIVE MEASURES WITH LEVEL OF FUNCTION: Posture / Alignment Posture: Forward head, Increased thoracic kyphosis, Rounded shoulders Spine Observations R Cervical Spine Palpation Tenderness: Upper trapezius Sensation - Cervical Spine Cervical Spine Sensation: Grossly Intact Cervical Spine ROM Cervical ROM : Limitation AROM Cervical Protrusion AROM: Normal, Decreased pain Cervical Retraction AROM: Produces, Major limitation Cervical Flexion AROM: Produces, Peripheralizing Cervical Extension AROM: Moderate limitation, Produces Cervical Side-Bend Right AROM: Major limitation, Produces Cervical Side-Bend Left AROM: Decreased pain, Minimal limitation Cervical Rotation Right AROM: Decreased pain, Moderate limitation Cervical Rotation Left AROM: Produces, Moderate limitation Repeated Test Movements - Cervical Cervical RET - Symptoms During: no effect, centralizing (centralized proximal to R elbow, pt. refused to keep repeating this movement --- modified to supine unloaded position) Cervical RET - Symptoms After: no effect Cervical RET in lying - Symptoms During: centralizing, pain during movement (pt. refuses to do more than 1 reps, pain centralized to cervical spine and proximal to anterior R shoulder) Cervical RET in lying - Symptoms After: no effect (unable to tolerate position) Static Testing - Cervical Sustained Cervical Retraction: centralized (with and without towel roll at occiput-- pt. unable to tolerate) UE Flexibility Flexibility: Upper Trapezius R Upper Trapezius Flexibilty Comments: limited Special Tests - Cervical Cervical Special Tests: Cervical Distraction Cervical Distraction: Negative (pt. unable to tolerate) Education: Education Learning Preferences: Demonstration, Explanation, Performance, Printed Materials Barriers: Desire and Motivation, Emotions Learning/educational needs: Plan of Care, Posture, Home exercise program Education Provided: Yes, see treatment interventions for education provided Education Provided To: Patient Education Mode/Type: Demonstration, Explanation/Discussion, Literature/Printed Materials, Performance Response to Education/Teach Back: Requires Review/Additional Education, No Evidence Of Learning, Unable to Perform TREATMENT: PT Treatment Interventions: Therapeutic Exercise, Self-Custodial Management Evaluation Therapeutic Exercise: 1: supine cervical retraction 10x attempted, only completed 4 and refused to continue due to pain (symptoms centralized to the anterior R shoulder and lateral R neck) 2: seated cervical retraction 2x10 (centralized symptoms proximal to elbow, but pt. refuses another set due to pain.) 3: supine with towel roll support at lordotic curve of spine x1 min, symptoms centralized proximal to elbow, reports no tingling just numbness in the hand 4: supine chin tuck with towel roll at occiput of skull, unable to tolerate Skilled Intervention: Patient was educated in proper exercise technique and purpose for exercises. Reviewed and educated patient on additions/changes for home exercise program as above (*). Skilled judgment was provided in selection of appropriate interventions. Correct performance of therapeutic exercises was facilitated with verbal, visual, and tactile cuing. Additional time necessary for pt. Education and modification of exercises due to pt. Demonstrating inability to tolerate any movement modification today. Educated patient on rationale for performing exercises in regards to decreasing fatigue , increase ease of ADL, and ROM and function . Patient education as noted. Self-Custodial Management: 1: *postural education 2: *cervical towel roll education 3: at length, discussed possible causes of peripheralized cervical spine symptoms and examination findings strongly suggesting peripheralization of symptoms from the neck into the RUE based on symptoms location change with neck movement/position change. 4: *discussed how exercises may be modified, but to expect discomfort during the examination and treatment process initially. Explained that modified treatment movement and positions is better than avoiding movement or assuming poor postures that only provide temporary relief Skilled Intervention: Skilled judgment in the selection of proper modification for activity of daily living/home management based on clinical presentation, deficits, and needs. Reviewed patient specific diagnosis in relation to activities of daily living/home management. Activity progression based on professional judgement. Maximum verbal cues for maintaining neutral spine alignment. Reviewed and educated patient on additions/changes for home program as noted above with an (*). Correct performance of home program was facilitated with verbal, visual, and tactile cueing. Billing * Evaluation Low Complexity: 1 Unit Therapeutic Exercise Treatment Minutes: 10 Self-Care/Home Management Treatment Minutes: 15 Total Treatment Time Minutes (timed/untimed): 45 Luciana Benton PT documented in this encounter [facility] 05-26-2022 Miscellaneous Notes Taken to medical records for pickup Spoke with patient. 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 Advised he can pick it up at Medical Records. Ayala Mathew RN Left message with significant other for patient to return call. Need to know if it needs faxed or will he pickup. Need fax number if we are faxing it. Pt called in to see if provider had filled out his accommodations form for work. Please call and let Pt know once form has been completed. Form obtained and placed on pcp's desk Rufina Carrington LPN I do not see any form for this. Did any of my team revieve this form ? Regards, Rosales Adams MD Patient called to report that he provided an accomodation form last week to the front line leader in the main lobby of [facility]. He is unable to report back to work until his employer receives the form. Please notify the patient when the form is completed and faxed. documented in this encounter [facility] 05-19-2022 Miscellaneous Notes Patient notified. Verbalized understanding. This is the last refill of percocet Sent to pharmacy Regards, Rosales Adams MD Patient calling this morning asking for pain medication. Patient is in a lot of pain. Patient has pain in his right shoulder and left hip. Please call patient regarding pain medication. Please send to [facility] in [place]. Patient calling and states he was seen by Dr. Adams on 05/16 for right arm and neck pain. Pt was referred to Pain Management and reports he has appt with Dr. Johnson on 06/01/22. Pt was prescribed a one-week supply of percocet for his pain on 05/09 and states he is out. He is asking if Dr. Adams woud be agreeable to reorder it for him since he can't see any sooner than 06/01 and is still experiencing pain? Pt uses [facility] in [place]. Pt also requesting recent xrays from 05/[address] Johnson's office. Will fax as requested. Please call pt with update regarding percocet refill. Thank you. documented in this encounter [facility] 05-18-2022 Miscellaneous Notes Referral faxed to Dr Johnson. OV, Imaging and Ins card faxed. Patient called requesting to schedule with Dr. Johnson for pain management. Patient was notified that Dr. Johnson is with [facility]. Requested for referral to be faxed to [facility]. documented in this encounter [facility] 05-16-2022 History of Present illness Narrative Reason for Visit Patient presents with: Follow Up: right arm pain and neck now left leg hurts in the hip joint Enrique Dowling is a 41 year old male who presents here today for Above Complaints.. Health Maintenance HEPATITIS B(1 of 3 - 3-dose series) COVID-19 VACCINE(1) PNEUMOCOCCAL(1 - PCV) BP CONTROLLED (<130/80) DTAP,TDAP,TD(1 - Tdap) HPI Reviewed his xr of the cervical spine and shoulder. There is mild reversal of the cervical spine curvature. C5-6 and C6-7 disc space narrowing is demonstrated. There is mild osteophyte formation. Left-sided C5-6, left-sided C6-7 and right-sided C6-7 neural foraminal narrowing is present. These are all much worse than they were in the past. He has significant pain, stiffness and tenderness. He is on the prednisone , percocets and the flexeril but he went back to work and unfortunately all his pain got worse. He feels some weakness in the right hand. The pain is in the medial border of the scapula. And down the arm posteriorly for the first time he has weakness of the arm to. 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 He just got a new job 3 weeks ago and cannot take off. No problem-specific Assessment & Plan notes found for this encounter. PAST MEDICAL HISTORY Diagnosis Date DDD (degenerative disc disease), cervical Unspecified essential hypertension Essential hypertension PAST SURGICAL HISTORY Procedure Laterality Date NONE FAMILY HISTORY Problem Relation Age of Onset Hypertension Mother other (ckd [Other]) Maternal Uncle Ischemic Heart Disease Paternal Grandfather Social History Tobacco Use Smoking status: Every Day Packs/day: 1.00 Years: 16.00 Pack years: 16.00 Types: Cigarettes Smokeless tobacco: Never Tobacco comments: 1/2 pack daily Substance Use Topics Alcohol use: Yes Comment: rare Drug use: No Past medical history, appointments, medications, allergies reviewed. Pertinent Lab/Diagnostic Studies are reviewed and discussed today Current Outpatient Medications: amLODIPine (NORVASC) 5 mg tablet lisinopril (ZESTRIL, PRINIVIL) 40 mg tablet predniSONE (DELTASONE) 10 mg tablet cyclobenzaprine (FLEXERIL) 10 mg tablet oxyCODONE-acetaminophen (PERCOCET) 5-325 mg tablet albuterol HFA (PROAIR HFA) 90 mcg/actuation inhaler benzonatate (TESSALON PERLES) 100 mg capsule albuterol HFA (PROVENTIL HFA, VENTOLIN HFA) 90 mcg/actuation inhaler guaiFENesin (MUCINEX) 600 mg 12 hr tablet benzonatate (TESSALON PERLES) 100 mg capsule Review of Systems CONSTITUTIONAL: No fevers, chills night sweats, unintended weight loss CARDIOVASCULAR: No chest pain, dyspnea, palpitations, orthopnea, PND, ankle edema. PULM: No dyspnea, unexplained cough. GI: No dysphagia/odynophagia, problematic reflux, constipation, diarrhea, changes in stool habits, hematochezia, melena. : No new urinary complaints, including dysuria, gross hematuria or pyuria. NEURO: No new balance problems, peripheral weakness/paresthesias or numbness of concern. Physical Exam BP 120/70 (BP Site: Left Arm, BP Position: Sitting, BP Cuff Size: Large Adult) Pulse (!) 123 Temp 36.9 C (98.5 F) Resp 12 Ht 182.9 cm (6') Wt 92.1 kg (203 lb) SpO2 98% BMI 27.53 kg/m General appearance: Well appearing, alert, in no acute distress, well nourished. Skin: Skin color, texture, turgor normal, no suspicious rashes or lesions Head: Normocephalic, no masses, lesions, tenderness or abnormalities Eyes: Anicteric sclera. Pupils are equally round and reactive to light. Extraocular movements are intact. Lungs: Lungs clear to auscultation. No wheezing, rhonchi, rales Heart: RRR without murmur, gallop, or rubs. Extremities: No deformities, edema, skin discoloration, clubbing or cyanosis. Good capillary refill. ASSESSMENT/PLAN: 1. Osteoarthritis of spine with radiculopathy, cervical region - ICD9: 721.0, ICD10: M47.22 (primary diagnosis) He needs to see Dr johnson. Whom he prefers. - CONSULT TO PAIN MGT - CONSULT TO PHYSICAL THERAPY Letter to be off today and tomorrow was given to the patient 2. Arm weakness - ICD9: 729.89, ICD10: R29.898 - CONSULT TO PAIN MGT - CONSULT TO PHYSICAL THERAPY 3. Pain of right upper extremity - ICD9: 729.5, ICD10: M79.601 - CONSULT TO PAIN MGT - CONSULT TO PHYSICAL THERAPY Rosales Adams MD documented in this encounter [facility] 05-09-2022 History of Present illness Narrative Radiology Service Progress Note PATIENT NAME: Enrique Dowling DATE OF SERVICE: May 09, 2022 TIME: 11:18 AM PATIENT IDENTITY VERIFICATION COMPLETED USING TWO (2) IDENTIFIERS: Name and Date of confirmed by patient verbally. FALL SCREENING: Has the patient had 2 falls in the last year or 1 fall with injury or currently using an Ambulatory Assistive Device (Walker, Cane, Wheelchair, Crutches, etc.)? No PATIENT GENDER DATA: Male PATIENT RELEVANT IMPLANT DATA REVIEWED: Yes RADIOLOGY DEPARTMENT: General X-ray: Exam(s) Completed: Spine X-Ray(s): Cervical AP / LAT / OBL Upper Extremity X-Ray(s): Shoulder, AP / TRUE AP / AXILLARY right PERIPHERAL IV DATA: Not applicable SIGNED BY: RT Jluis(R) May 09, 2022 11:18 AM documented in this encounter [facility] 01-04-2022 Miscellaneous Notes Patient has been identified by name and date of : Yes Pharmacy phones for refill(s): Requested Prescriptions Pending Prescriptions Disp Refills lisinopril (ZESTRIL, PRINIVIL) 40 mg tablet [Pharmacy Med Name: LISINOPRIL 40 MG TABLET] 30 tablet 5 Sig: take 1 tablet by mouth once daily Date of last office visit in primary care: 12/10/21 next apt 03/09/22 Last 2 Encounter Wt Readings: Date: Wt: 12/10/2021 86.2 kg (190 lb) 04/08/2021 91.6 kg (202 lb) Previous labs/tests for medication: Blood Pressure: BUN (mg/dL) Date Value 01/13/2021 15 Sodium (mmol/L) Date Value 01/13/2021 139 Last 1 Encounter BP Readings: Date: BP: 12/10/2021 124/72 Thank you. Vanda Anderson LPN documented in this encounter [facility] 12-10-2021 History of Present illness Narrative Reason for Visit Patient presents with: ED Follow-up: right foot possible gout since Monday Enrique Dowling is a 41 year old male who presents here today for Above Complaints.. Health Maintenance HEPATITIS B(1 of 3 - 3-dose series) COVID-19 VACCINE(1) PNEUMOCOCCAL(1 - PCV) HEPATITIS C SCREENING HIV SCREENING DTAP,TDAP,TD(1 - Tdap) DEPRESSION SCREENING INFLUENZA(1) HPI Patient started suddenly with pain on Monday, woke up Monday very sore, again thought he will tough it out. There was no injury, there was no accident. [place], [place] a onion blooms. But at home he had a pork roast for 3 days. He has been on high dose of hctz since almost a year. On lisinopril hctz, he is doing very well. The symptoms are a little better. We are changing his bp medication from hctz to amlodipine. No problem-specific Assessment & Plan notes found for this encounter. PAST MEDICAL HISTORY Diagnosis Date DDD (degenerative disc disease), cervical Unspecified essential hypertension Essential hypertension PAST SURGICAL HISTORY Procedure Laterality Date NONE FAMILY HISTORY Problem Relation Age of Onset Hypertension Mother other (ckd [Other]) Maternal Uncle Ischemic Heart Disease Paternal Grandfather Social History Tobacco Use Smoking status: Every Day Packs/day: 1.00 Years: 16.00 Pack years: 16.00 Types: Cigarettes Smokeless tobacco: Never Tobacco comments: 1/2 pack daily Substance Use Topics Alcohol use: Yes Comment: rare Drug use: No Past medical history, appointments, medications, allergies reviewed. Pertinent Lab/Diagnostic Studies are reviewed and discussed today Current Outpatient Medications: hydroCHLOROthiazide (HYDRODIURIL, ESIDRIX) 25 mg tablet lisinopril (ZESTRIL, PRINIVIL) 40 mg tablet albuterol HFA (PROVENTIL HFA, VENTOLIN HFA) 90 mcg/actuation inhaler guaiFENesin (MUCINEX) 600 mg 12 hr tablet benzonatate (TESSALON PERLES) 100 mg capsule cyclobenzaprine (FLEXERIL) 10 mg tablet Current Facility-Administered Medications: perflutren lipid microspheres 1.3 mL in NaCl (PF) 0.9% 10 mL injection (DEFINITY) sodium chloride 0.9 % (flush) 10 mL (BD POSIFLUSH) Review of Systems CONSTITUTIONAL: No fevers, chills night sweats, unintended weight loss CARDIOVASCULAR: No chest pain, dyspnea, palpitations, orthopnea, PND, ankle edema. PULM: No dyspnea, unexplained cough. GI: No dysphagia/odynophagia, problematic reflux, constipation, diarrhea, changes in stool habits, hematochezia, melena. : No new urinary complaints, including dysuria, gross hematuria or pyuria. NEURO: No new balance problems, peripheral weakness/paresthesias or numbness of concern. Physical Exam BP 124/72 (BP Site: Left Arm, BP Position: Sitting, BP Cuff Size: Large Adult) Pulse 95 Temp 37.2 C (99 F) Resp 12 Ht 182.9 cm (6') Wt 86.2 kg (190 lb) SpO2 97% BMI 25.77 kg/m General appearance: Well appearing, alert, in no acute distress, well nourished. Skin: Skin color, texture, turgor normal, no suspicious rashes or lesions Head: Normocephalic, no masses, lesions, tenderness or abnormalities Eyes: Anicteric sclera. Pupils are equally round and reactive to light. Extraocular movements are intact. Lungs: Lungs clear to auscultation. No wheezing, rhonchi, rales Heart: RRR without murmur, gallop, or rubs. Extremities: No deformities, edema, skin discoloration, clubbing or cyanosis. Good capillary refill. .ASSESSMENT/PLAN: 1. Gout, unspecified cause, unspecified chronicity, unspecified site - ICD9: 274.9, ICD10: M10.9 (primary diagnosis) We discussed many ways to reduce the chances of having gout again. He does not think he can change his life style So it would be best to change medications. We discussed amlodipine to replace hctz - URIC ACID BLOOD 2. Special screening examination for viral disease - ICD9: V73.99, ICD10: Z11.59 - HEP C AB IA W/CONF SCRN 3. Screening for HIV (human immunodeficiency virus) - ICD9: V73.89, ICD10: Z11.4 - HIV 1 2 COMBO(AG/AB),WITH REFLEX TO DIFFERENTIATION 4. Acute gout, unspecified cause, unspecified site - ICD9: 274.01, ICD10: M10.9 Rosales Adams MD documented in this encounter [facility] 12-07-2021 Hospital Discharge instructions Patient Education 12/07/2021 16:16:54 Gout Gout Gout is an inflammation of a joint due to a build-up of gout crystals in the joint fluid. This occurs when there is an excess of uric acid (a normal waste product) in the body. Uric acid builds up in the body when the kidneys are unable to filter enough of it from the blood. This may occur with age. It is also associated with kidney disease. Gout occurs more often in people with obesity, diabetes, high blood pressure, or high levels of fats in the blood. It may run in families. Gout tends to come and go. A flare up of gout is called an attack. Drinking alcohol or eating certain foods (such as shellfish or foods with additives such as high-fructose corn syrup) may increase uric acid levels in the blood and cause a gout attack. During a gout attack, the affected joint may become a hot, red, swollen and painful. If you have had one attack of gout, you are likely to have another. An attack of gout can be treated with medicine. If these attacks become frequent, a daily medicine may be prescribed to help the kidneys remove uric acid from the body. Home care During a gout attack: Rest painful joints. If gout affects the joints of your foot or leg, you may want to use crutches for the first few days to keep from bearing weight on the affected joint. When sitting or lying down, raise the painful joint to a level higher than your heart. Apply an ice pack (ice cubes in a plastic bag wrapped in a thin towel) over the injured area for 20 minutes every 1 to 2 hours the first day for pain relief. Continue this 3 to 4 times a day for swelling and pain. Avoid alcohol and foods listed below (see Preventing attacks) during a gout attack. Drink extra fluid to help flush the uric acid through your kidneys. If you were prescribed a medicine to treat gout, take it as your healthcare provider has instructed. Don't skip doses. Take anti-inflammatory medicine as directed. If pain medicines have been prescribed, take them exactly as directed. Preventing attacks Minimize or avoid alcohol use. Excess alcohol intake can cause a gout attack. Limit these foods and beverages: oOrgan meats, such as kidneys and liver oCertain seafoods (anchovies, sardines, shrimp, scallops, robertson, mackerel) oWild game, meat extracts and meat gravies oFoods and beverages sweetened with high-fructose corn syrup, such as sodas Eat a healthy diet including low-fat and nonfat dairy, whole grains, and vegetables. If you are overweight, talk to your healthcare provider about a weight reduction plan. Avoid fasting or extreme low calorie diets (less than 900 calories per day). This will increase uric acid levels in the body. If you have diabetes or high blood pressure, work with your doctor to manage these conditions. Protect the joint from injury. Trauma can trigger a gout attack. Follow-up care Follow up with your healthcare provider, or as advised. When to seek medical advice Call your healthcare provider if you have any of the following: Fever over 100.4 F (38. C) with worsening joint pain Increasing redness around the joint Pain developing in another joint Repeated vomiting, abdominal pain, or blood in the vomit or stool (black or red color) 3164-4871 [employer]. [address] [place] [address]. All rights reserved. This information is not intended as a substitute for professional medical care. Always follow your healthcare professional's instructions. Follow Up Care 12/07/2021 15:47:40 With:Go to emergency room if symptoms worsen Address:Unknown When:2-4 days With:ROSALES ADAMS MD Address: [facility] [place] [address]- When:2-4 days [facility] 12-07-2021 Note ORIGINAL EXAMINATION: THREE XRAY VIEWS OF THE RIGHT FOOT12/07/2021 4:28 pm COMPARISON: None HISTORY: ORDERING SYSTEM PROVIDED HISTORY: Reason for Exam: No known injury. Pain FINDINGS: Included bony structures are intact without acute fracture, dislocation, or aggressive appearing osseous lesions. There is no obvious soft tissue abnormality. There are no significant degenerative changes. IMPRESSION: No acute radiographic abnormality identified. I have personally reviewed the images of this examination and agree with the resident's findings and interpretation. RECOMMENDATIONS: Unavailable Interpreted by: Bret Pablo Preliminary Report By: Shay Silva Electronically signed By Bret Pablo Dictated Date: 12/07/2021 5:35:39 PM Prelim Date: 12/07/2021 5:38:14 PM Sign Date: 12/07/2021 6:07:33 PM Ordering Provider: ANIYAH HALL [facility] 12-07-2021 Emergency department Discharge summary Discharge Instructions Thank you for allowing [facility] to assist you with your healthcare needs. The following is important discharge information regarding your hospital visit. Diagnosis from Today's Visit Foot pain Gout Foot pain-swelling What to Do Next Instructions from Your Care Team Take Percocet and Medrol Dosepak as prescribed. Take Percocet only as needed for severe pain. Do not exceed the recommended dose. Do not take Percocet while operating machinery. May otherwise take Tylenol and/or Motrin. Be careful in taking Tylenol as Percocet does contain some Tylenol so do not exceed the recommended daily dose. Follow-up with your primary care provider. Return to the emergency department if experience worsening pain, numbness, redness to your toe or foot, warmth, or any other care concern. No qualifying data available. Post Acute Orders No qualifying data available. You Need to Schedule the Following Appointments Follow Up with Go to emergency room if symptoms worsen When Within 2-4 days Follow Up with ROSALES ADAMS MD When Within 2-4 days Where: [address] [place] [address]- Allergies [facility] Medications Please ask your primary doctor or pharmacist before taking any other medication not listed, including over the counter drugs, herbal medications, vitamins and or supplements as they may interact with your home medications. What How Much When Why Instructions Last Dose New acetaminophen-oxyCODONE (Percocet 5 mg-325 mg oral tablet) 1 tab(s) by mouth Every 6 hours as needed for for pain Foot pain Gout Duration: 3 Days Printed Prescription New methylPREDNISolone (Medrol Dosepak 4 mg oral tablet) 1 Packet(s) by mouth Once a day Foot pain Gout Duration: 6 Days as directed on package labeling Printed Prescription Unchanged lisinopril (lisinopril 10 mg oral tablet) 1 tab(s) by mouth Every day Please take this list to your next doctor s visit. Bring all medications you take, including over the counter medications, herbals and other supplements with you to your doctor s visit. Patients and families are reminded to discard old lists and to update any records with all medication providers or retail pharmacies. Education Materials Gout Gout is an inflammation of a joint due to a build-up of gout crystals in the joint fluid. This occurs when there is an excess of uric acid (a normal waste product) in the body. Uric acid builds up in the body when the kidneys are unable to filter enough of it from the blood. This may occur with age. It is also associated with kidney disease. Gout occurs more often in people with obesity, diabetes, high blood pressure, or high levels of fats in the blood. It may run in families. Gout tends to come and go. A flare up of gout is called an attack. Drinking alcohol or eating certain foods (such as shellfish or foods with additives such as high-fructose corn syrup) may increase uric acid levels in the blood and cause a gout attack. During a gout attack, the affected joint may become a hot, red, swollen and painful. If you have had one attack of gout, you are likely to have another. An attack of gout can be treated with medicine. If these attacks become frequent, a daily medicine may be prescribed to help the kidneys remove uric acid from the body. Home care During a gout attack: Rest painful joints. If gout affects the joints of your foot or leg, you may want to use crutches for the first few days to keep from bearing weight on the affected joint. When sitting or lying down, raise the painful joint to a level higher than your heart. Apply an ice pack (ice cubes in a plastic bag wrapped in a thin towel) over the injured area for 20 minutes every 1 to 2 hours the first day for pain relief. Continue this 3 to 4 times a day for swelling and pain. Avoid alcohol and foods listed below (see Preventing attacks) during a gout attack. Drink extra fluid to help flush the uric acid through your kidneys. If you were prescribed a medicine to treat gout, take it as your healthcare provider has instructed. Don't skip doses. Take anti-inflammatory medicine as directed. If pain medicines have been prescribed, take them exactly as directed. Preventing attacks Minimize or avoid alcohol use. Excess alcohol intake can cause a gout attack. Limit these foods and beverages: oOrgan meats, such as kidneys and liver oCertain seafoods (anchovies, sardines, shrimp, scallops, robertson, mackerel) oWild game, meat extracts and meat gravies oFoods and beverages sweetened with high-fructose corn syrup, such as sodas Eat a healthy diet including low-fat and nonfat dairy, whole grains, and vegetables. If you are overweight, talk to your healthcare provider about a weight reduction plan. Avoid fasting or extreme low calorie diets (less than 900 calories per day). This will increase uric acid levels in the body. If you have diabetes or high blood pressure, work with your doctor to manage these conditions. Protect the joint from injury. Trauma can trigger a gout attack. Follow-up care Follow up with your healthcare provider, or as advised. When to seek medical advice Call your healthcare provider if you have any of the following: Fever over 100.4 F (38. C) with worsening joint pain Increasing redness around the joint Pain developing in another joint Repeated vomiting, abdominal pain, or blood in the vomit or stool (black or red color) 2180-2365 [employer]. [address] [place] [address], [place] [address]. All rights reserved. This information is not intended as a substitute for professional medical care. Always follow your healthcare professional's instructions. Additional Information VACCINATE! IT SAVES LIVES! Members of the community who have not yet received the COVID-19 vaccine and would like to receive it can visit one of [facility] vaccine clinics. There are many vaccine clinic locations within the [facility]. For locations and available times, please visit [email or web address]. It is important to note that some COVID mobile vaccine clinics are held outdoors and may be canceled in rainy or stormy conditions. To learn more about pediatric vaccinations (ages 5-11), we invite you to visit the [facility] webpage. [email or web address] To learn more about the COVID-19 vaccine, we invite you to visit the [facility] website for a list of frequently asked questions. [email or web address] [facility] Access Instructions: Stay connected with your healthcare team and access your personal medical information anytime with the [employer] Patient Portal. If you would like a full copy of your medical records please contact the [facility] Medical Records Department Monday through Monday between 8a.m. and 4:30p.m. Please follow the directions below to access the portal: 1.Access the email account you provided upon registration to the hospital.2.Look for an invitation email from [facility].3.Open the email and access the invitation link: Accept Invitation to [employer]4.Fill in the required green to create your account. Sign into [email or web address] with your username and password that you created in the above steps to stay up to date. You can then view a summary of results, a summary of your visits, and the ability to download your summaries to your computer or send the information securely to a physician. Remember that your healthcare information is confidential, so carefully consider who you will allow to register on the [employer] Patient Portal for access to your information. You can also access the [employer] Patient Portal on the [employer] [facility]. Simply click on Health Records under Health Data and then click on the [employer] logo. HOW TO SAFELY DISPOSE OF PRESCRIPTION MEDICATIONS Please use one of the following methods to safely dispose of your unused medications. 1.Use a drug disposal kit: the drug disposal pouch allows you to safely discard your old and unused drugs. Ask your nurse to give you one when you are discharged.2.Visit a local take-back location: Many local pharmacies and police departments have programs that collect old and unwanted prescription drugs. Call your local pharmacy or go to http://bit.ly/2U6Fe7w to find one close to you.3.Make use of household items: Use cat litter or old coffee grounds to dispose medications if other options are not available. Mix your drugs with these household products, seal them in an airtight container and throw it into the garbage. Call [facility]: [phone] to be sure your drugs can be disposed of in this way. Some medicines may require a different approach.4.Never flush your medications down the toilet. IF YOU HAVE BEEN PRESCRIBED AN OPIOIDS FOR PAIN If you have been prescribed an opioid (such as hydrocodone, oxycodone or morphine), it is critical to understand the possible side effects and risks of opioid pain medications. Even when taken as directed, opioids can have several side effects including: Tolerance, meaning you might need to take more of a medication for the same pain relief. Nausea, vomiting and/or constipation. Sleepiness, dizziness, dry mouth, confusion, depression or itching. Physical dependence, meaning you have withdrawal symptoms when a medication is stopped ? this can develop within a few days. KNOW YOUR RESPONSIBILITIES It is important to know exactly how much and how often to take the opioid pain medications you are prescribed. Never take opioids in higher amounts or more often than prescribed. Do not combine opioids with alcohol or other drugs that cause drowsiness, such as benzodiazepines, also known as benzos, including diazepam and alprazolam, muscle relaxants or sleep aids. Never sell or share prescription opioids. This is illegal. Store opioids in a secure place and out of reach of others (including children, family, friends and visitors). The last page(s) of this document has been signed and retained as a CHART COPY Signatures Patient Education Materials Gout Medication Leaflets My discharge plan and instructions have been reviewed and explained to me and I,ENRIQUE DOWLING understand my current condition and have read and understand these discharge instructions. I have received a written copy of the plan/instructions. If I have questions, I am aware that I should contact my doctor. Patient/Women'S Activities Adviser Signature: Date/Time: Relationship to Patient: ___ Witness Name/Signature: Date/Time: [facility] 12-07-2021 Note ORIGINAL EXAMINATION: THREE XRAY VIEWS OF THE RIGHT FOOT12/07/2021 4:28 pm COMPARISON: None HISTORY: ORDERING SYSTEM PROVIDED HISTORY: Reason for Exam: No known injury. Pain FINDINGS: Included bony structures are intact without acute fracture, dislocation, or aggressive appearing osseous lesions. There is no obvious soft tissue abnormality. There are no significant degenerative changes. IMPRESSION: No acute radiographic abnormality identified. I have personally reviewed the images of this examination and agree with the resident's findings and interpretation. RECOMMENDATIONS: Unavailable Interpreted by: Bret Pablo Preliminary Report By: Shay Silva Electronically signed By Bret Pablo Dictated Date: 12/07/2021 5:35:39 PM Prelim Date: 12/07/2021 5:38:14 PM Sign Date: 12/07/2021 6:07:33 PM Ordering Provider: ANIYAH HALL [facility] 07-05-2021 Miscellaneous Notes Patient has been identified by name and date of : Yes Pending Prescriptions Disp Refills HYDROCHLOROTHIAZIDE 25 MG TABLET 30 tablet 5 Sig: Take 1 tablet by mouth once daily. BRYSON: No LISINOPRIL 40 MG TABLET 30 tablet 5 Sig: Take 1 tablet by mouth once daily. BRYSON: No RX INSTRUCTIONS: Patient aware RX will be sent to pharmacy. No need to notify patient. Selene Mcclellan documented in this encounter [facility] Discharge summary Note Date/Time October 15, 2024 11:30am [facility] Medical Records Department [address] [place] [address] Emergency Department Summary 10/15/24 MR#: [id number] Acct: [id number] Name: ENRIQUE DOWLING Rep #:[id number] : 1980 44 From: Michael Tavarez MD PCP: Dr. Rosales Adams MD Status:REG E R Location: ED HPI History of Present Illness Chief Complaint: Upper Extremity Injury Detail of Chief Complaint: Atraumatic left wrist pain that started end of last week. Informant: patient Occured/Mechanism Comment: There is no history of trauma. Onset/Context/Timing Onset: Days (Onset , October 10) Context: Sudden Onset Timing: Continuous Quality of Pain: Dull, Aching and Throbbing Location: Left wrist Current Severity: Mild Worsened by: Movement and palpation Relieved by: Nothing Associated Symptoms Associated Symptoms: Positive for Loss of Funtion; Negative for Parasthesia or Weakness Narrative Narrative: Patient is a 44-year-old male with history of gout. He states he has had gout in his foot never in his wrist. He denies fever, chills or night sweats. He denies paresthesia, anesthesia medics. He attempted to go to work today but states it hurts. He endorses swelling. He has no other complaints Prior similar symptoms: No Recent Illness/Hospitalization: No PFSH PFS Medical History (Updated 10/15/24 @ 11:[address] Michael Tavarez MD) Gout Hypertension Home Medications ?Medication ?Instructions ?Recorded ?Last Taken ?Type lisinopril 40 mg tablet 40 mg PO DAILY 12/01/22 Unkn own History amlodipine 10 mg tablet 10 mg PO DAILY 10/15/24 Unkn own History fluoxetine 20 mg capsule 20 mg PO DAILY 10/15/24 Unkn own History hydrocodone-acetaminophen 5-325mg 1 tab PO Q6H PRN PRN Pain 2 days 10/15/24 Unknown Rx 5mg-325mg #7 TABLETS olanzapine 5 mg tablet 5 mg PO QHS 10/15/24 Unknown History prednisone 20 mg tablet 60 mg (3 x 20 mg) PO DAILY # 15 10/15/24 Unknown Rx TABLETS Allergy/AdvReac Type Severity Reaction Status Date / Time Penicillins (PCN) Allergy Rash Verified 10/15/24 10:00 Social History Smoking Status: Current every day smoker tobacco type: cigarettes substance use type: does not use ROS ROS ED Constitutional Constitutional ED: Denies chills, fever(s), subjective, sweats or weight loss Eyes Eyes: Denies blurry vision or change in vision Musculoskeletal Musculoskeletal: Denies back pain, myalgias or neck pain Integumentary Denies abscess, Abrasions or rash Neurologic Neurologic: Denies paresthesias or weakness Hematologic/Lymphatic Hematologic/Lymphatic: Denies easy bleeding or easy bruising EXAM Physical Exam Const Vital Signs: 10/15/24 09:59 Temperature 98.1 F Temperature Source Oral Pulse Rate 94 Respiratory Rate 18 Blood Pressure 169/103 H Blood Pressure Mean 125 Pulse Ox 100 Oxygen Delivery Method Room Air Positive well nourished and well developed Constitutional Narrative: Blood pressure is elevated 169/103, this may be due to to pain. General Appearance ED: well developed HEENT Reports moist mucous membranes normocephalic and atraumatic Eyes PERRL and EOMs intact bilaterally Resp normal respiratory effort Cardio regular rate and regular rhythm Extremity Negative for normal to inspection or full ROM Extremity Narrative: There is swelling of the left wrist compared to the right. There is no effusion. Passive flexion extension causes him significant pain. There is slight warmth. There is no induration, lymphangitis, epitrochlear lymphadenopathy. Patient has no bruising noted. Median, radial and ulnar function intact. Neuro oriented x3, CN's II-XII intact bilaterally, no focal motor deficits and no sensory deficits noted Sensorium / Orientation: alert Psych mental status grossly normal Skin General Skin Exam: Negative for petechiae Lesions: no lesions Rashes: no rashes Trauma: no lacerations or abrasions MDM MDM MDM Narrative Medical decision making narrative: Differential diagnosis is crystal induced arthritis versus pyogenic induced arthritis. Will obtain x-ray of the wrist as well as blood work to differentiate if this is osteoarthritis versus crystal induced versus pyogenic. Easily able to identify Karen's tubercle. Distal Karen's tubercle there is noobvious effusion. Lab Data Attestation: I reviewed the patient's lab results. Lab results narrative: CBC is normal. ESR and CRP are both normal. Patient was reevaluated. There is still no effusion. He states that the cerda toright leg took the edge off. Plan is opiate analgesia and prednisone since there is no concern for infection at this point. Radiography Chest X-Ray - ED: Read by ED Physician (Three-view x-ray of the left wrist was independent reviewed interpreted by me as no acute findings. There is no evidence of effusion. There is no malalignment of the carpal bones. There is no destruction of bone. There is apparently reviewed interpreted by me at 1045.) Discharge Plan Triage Chief Complaint: Upper Extremity Injury ED Provider: Michael Tavarez Dx/Rx/DC Orders Clinical Impression: Monoarticular arthritis, Acute pain of left wrist, Hx of gout, Elevated blood pressure reading with diagnosis of hypertension Instructions: ED Gout, ED Pain, Acute, Uncertain Cause Prescriptions: New hydrocodone-acetaminophen 5-325 mg tablet 1 tab PO Q6H PRN PRN (Reason: Pain) 2 Days Qty: 7 0RF prednisone 20 mg tablet 60 mg PO DAILY Qty: 15 0RF No Action lisinopril 40 mg tablet 40 mg PO DAILY Patient Comments: take 1 tablet by mouth once daily olanzapine 5 mg tablet 5 mg PO QHS amlodipine 10 mg tablet 10 mg PO DAILY fluoxetine 20 mg capsule 20 mg PO DAILY Stand Alone Forms: ED Work / School Excuse Primary Care Provider: Rosales Adams Referrals: Rosales Adams MD [Primary Care Provider] - Print Language: Angolan Disposition Disposition: Home, Self Care What to do if you have Problems For any increased pain, shortness of breath, bleeding, nausea or vomiting, chestpain, or any unexpected problems, contact your Primary Care Provider. Call [facility] ([phone]) or report to the closest Emergency Room. Call 911 if necessary. 10/15/24 1130 <Electronically signed by Michael Tavarez MD> Cosigner Signature (if applicable): CC: Dr. Rosales Adams MD ~ Signed [facility] Work Phone: Evaluation + Plan note No data available for this section [facility] Evaluation noteNo assessment information available [facility] Work Phone: Evaluation note* Diagnosis Gout, unspecified cause, unspecified chronicity, unspecified site- Primary Special screening examination for viral disease Special screening examination for unspecified viral disease Screening for HIV (human immunodeficiency virus) Special screening examination for other specified viral diseases Acute gout, unspecified cause, unspecified site [facility]* Diagnosis Hypertension Unspecified essential hypertension [facility]* Diagnosis Osteoarthritis of spine with radiculopathy, cervical region- Primary Arm weakness Other musculoskeletal symptoms referable to limbs Pain of right upper extremity [facility]* Diagnosis Acute pain of right shoulder [facility] Diagnosis Hypertension Unspecified essential hypertension [facility]* Diagnosis Osteoarthritis of spine with radiculopathy, cervical region- Primary Arm weakness Other musculoskeletal symptoms referable to limbs Pain of right upper extremity [facility] Diagnosis Primary hypertension- Primary Unspecified essential hypertension Rash Rash and other nonspecific skin eruption [facility] Diagnosis Diarrhea, unspecified type- Primary Viral illness Unspecified viral infection, in conditions classified elsewhere and of unspecified site [facility]* Diagnosis Lipid screening- Primary Screening for lipoid disorders Primary hypertension Unspecified essential hypertension documented in this encounter [facility] note* Diagnosis Left elbow pain- Primary Pain in joint, upper arm Left forearm pain Pain in limb Primary hypertension Unspecified essential hypertension [facility]* Diagnosis Hypertension Unspecified essential hypertension [facility] Diagnosis Unspecified mood (affective) disorder (HCC)- Primary Anxiety and depression Dysthymic disorder Panic attack Panic disorder without agoraphobia [facility] Diagnosis Pain, dental- Primary Unspecified disorder of the teeth and supporting structures [facility] Diagnosis Anxiety and depression- Primary Dysthymic disorder Unspecified mood (affective) disorder (HCC) Panic attack Panic disorder without agoraphobia [facility] Diagnosis Panic disorder with agoraphobia- Primary Agoraphobia with panic disorder Mood disorder (HCC) Unspecified episodic mood disorder [facility]* Diagnosis Primary hypertension Unspecified essential hypertension [facility]* Diagnosis Panic disorder with agoraphobia- Primary Agoraphobia with panic disorder Mood disorder (HCC) Unspecified episodic mood disorder [facility] Diagnosis Pain and swelling of right knee- Primary Knee laceration, right, subsequent encounter [facility]* Diagnosis Laceration of right lower extremity, subsequent encounter- Primary Visit for suture removal Encounter for removal of sutures [facility]* Diagnosis NO SHOW- Primary documented [facility]* Diagnosis NO SHOW- Primary [facility] Diagnosis Hypertension- Primary Unspecified essential hypertension Hypertension- Primary Unspecified essential hypertension Cervical radiculopathy at C7 Brachial neuritis or radiculitis nos Panic disorder with agoraphobia- Primary Agoraphobia with panic disorder Mood disorder (HCC) Unspecified episodic mood disorder Nicotine use documented in this encounter [facility] note* Diagnosis Hypertension- Primary Unspecified essential hypertension Hypertension- Primary Unspecified essential hypertension Cervical radiculopathy at C7 Brachial neuritis or radiculitis nos Pain, dental- Primary Unspecified disorder of the teeth and supporting structures [facility]* Diagnosis Hypertension- Primary Unspecified essential hypertension Hypertension- Primary Unspecified essential hypertension Cervical radiculopathy at C7 Brachial neuritis or radiculitis nos Left elbow pain Pain in joint, upper arm Left forearm pain Pain in limb [facility]* Diagnosis Hypertension- Primary Unspecified essential hypertension Hypertension- Primary Unspecified essential hypertension Cervical radiculopathy at C7 Brachial neuritis or radiculitis nos Acute pain of right shoulder [facility]* Diagnosis Hypertension- Primary Unspecified essential hypertension Hypertension- Primary Unspecified essential hypertension Cervical radiculopathy at C7 Brachial neuritis or radiculitis nos Primary hypertension Unspecified essential hypertension documented [facility]* Diagnosis Hypertension- Primary Unspecified essential hypertension Hypertension- Primary Unspecified essential hypertension Cervical radiculopathy at C7 Brachial neuritis or radiculitis nos URI, acute- Primary Acute upper respiratory infections of unspecified site Primary hypertension Unspecified essential hypertension [facility] Diagnosis Hypertension- Primary Unspecified essential hypertension Hypertension- Primary Unspecified essential hypertension Cervical radiculopathy at C7 Brachial neuritis or radiculitis nos Examination, medical, general- Primary Unspecified general medical examination Primary hypertension Unspecified essential hypertension Lipid screening Screening for lipoid disorders [facility] Diagnosis Hypertension- Primary Unspecified essential hypertension Hypertension- Primary Unspecified essential hypertension Cervical radiculopathy at C7 Brachial neuritis or radiculitis nos Primary hypertension Unspecified essential hypertension documented [facility]* Diagnosis Hypertension- Primary Unspecified essential hypertension Hypertension- Primary Unspecified essential hypertension Cervical radiculopathy at C7 Brachial neuritis or radiculitis nos Panic disorder with agoraphobia- Primary Agoraphobia with panic disorder Mood disorder (HCC) Unspecified episodic mood disorder Nicotine use Difficulty sleeping Sleep disturbance, unspecified Encounter for long-term (current) use of medications Encounter for long-term (current) use of other medications [facility]* Diagnosis Hypertension- Primary Unspecified essential hypertension Hypertension- Primary Unspecified essential hypertension Cervical radiculopathy at C7 Brachial neuritis or radiculitis nos Hordeolum externum of right upper eyelid- Primary Hordeolum externum Skin infection Unspecified local infection of skin and subcutaneous tissue [facility]* Diagnosis Hypertension- Primary Unspecified essential hypertension Hypertension- Primary Unspecified essential hypertension Cervical radiculopathy at C7 Brachial neuritis or radiculitis nos Encounter for long-term (current) use of medications- Primary Encounter for long-term (current) use of other medications Panic disorder with agoraphobia Agoraphobia with panic disorder Mood disorder (HCC) Unspecified episodic mood disorder Nicotine use Difficulty sleeping Sleep disturbance, unspecified Psychosocial stressors Other psychological or physical stress, not elsewhere classified documented in this encounter [facility] note* Diagnosis Hypertension- Primary Unspecified essential hypertension Hypertension- Primary Unspecified essential hypertension Cervical radiculopathy at C7 Brachial neuritis or radiculitis nos Pain due to dental caries- Primary Unspecified dental caries Hypertension, poor control Unspecified essential hypertension [facility]* Diagnosis Hypertension- Primary Unspecified essential hypertension Hypertension- Primary Unspecified essential hypertension Cervical radiculopathy at C7 Brachial neuritis or radiculitis nos APPOINTMENT CANCELLED- Primary documented [facility]* Diagnosis Hypertension- Primary Unspecified essential hypertension Hypertension- Primary Unspecified essential hypertension Cervical radiculopathy at C7 Brachial neuritis or radiculitis nos Screening for colorectal cancer- Primary Special screening for malignant neoplasms, colon [facility] Diagnosis Hypertension- Primary Unspecified essential hypertension Hypertension- Primary Unspecified essential hypertension Cervical radiculopathy at C7 Brachial neuritis or radiculitis nos Primary hypertension Unspecified essential hypertension [facility] Diagnosis Hypertension- Primary Unspecified essential hypertension Hypertension- Primary Unspecified essential hypertension Cervical radiculopathy at C7 Brachial neuritis or radiculitis nos Exposure to strep throat- Primary Contact with or exposure to other communicable diseases Nausea vomiting and diarrhea Diarrhea Viral illness Unspecified viral infection, in conditions classified elsewhere and of unspecified site [facility] Diagnosis Hypertension- Primary Unspecified essential hypertension Hypertension- Primary Unspecified essential hypertension Cervical radiculopathy at C7 Brachial neuritis or radiculitis nos Primary hypertension Unspecified essential hypertension [facility]* Diagnosis Hypertension- Primary Unspecified essential hypertension Hypertension- Primary Unspecified essential hypertension Cervical radiculopathy at C7 Brachial neuritis or radiculitis nos Panic disorder with agoraphobia- Primary Agoraphobia with panic disorder Encounter for long-term (current) use of medications Encounter for long-term (current) use of other medications Mood disorder Unspecified episodic mood disorder Psychosocial stressors Other psychological or physical stress, not elsewhere classified Nicotine use Difficulty sleeping Sleep disturbance, unspecified [facility] Diagnosis Hypertension- Primary Unspecified essential hypertension Hypertension- Primary Unspecified essential hypertension Cervical radiculopathy at C7 Brachial neuritis or radiculitis nos Annual physical exam- Primary Routine general medical examination at a health care facility Tobacco abuse Tobacco use disorder Hypertriglyceridemia Pure hyperglyceridemia Mood disorder Unspecified episodic mood disorder Screening for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
[2025-03-23 10:17] VITALS: BP 153/100; PULSE 87; RESP 18; TEMP 36.8; O2SAT 99
== END 2025-03-23 10:19 | disposition home or self-care (01) ==
LOC: ED 09:21
PROVIDERS: Emergency Provider Emergency Medicine; PCP Internal Medicine; Visit Provider Emergency Medicine
DX: M54.12 Radiculopathy, cervical region (principal); F17.210 Nicotine dependence, cigarettes, uncomplicated; I10 Essential (primary) hypertension; M10.9 Gout, unspecified
CPT/HCPCS: 72040; 96372; 99283